=== PATIENT | female | born 1980 | race Caucasian/White ===

== ENCOUNTER 2017-10-08 14:47 | Emergency (ER) | payer MEDICAID, SELFPAY ==
[2017-10-08 14:48] VITALS: BP 145/93; PULSE 75; RESP 16; TEMP 37.2; O2SAT 97; BMI 34.0
--- NOTE | 2017-10-08 15:14 | CT_ITS ---
CT Abdomen And Pelvis W/ Contrast INDICATION: ABD PAIN,N/V HX-CROHNS,LUPUSSURG-GB,HYST COMPARISON: None TECHNIQUE: Axial CT imaging of the abdomen and pelvis with oral and IV contrast. Coronal and sagittal reformatted images. Radiation dose optimization technique applied. 100 mL of Isovue-300 were given intravenously. FINDINGS: Visualized lung bases are clear. The heart size is normal. The liver and spleen are normal in size. The gallbladder is surgically absent. The kidneys enhance contrast symmetrically bilaterally and are without evidence of hydronephrosis. Bowel loops are nondistended. Oral contrast material extends regularly throughout the nondistended small bowel loops. Terminal ileum appears grossly unremarkable without significant associated fat stranding. Colon contains large amount of fecal material and air. There is no evidence of wall thickening or mesenteric fat stranding. Mesenteric lymph nodes are within normal limits for size. CT/Abdomen/Pelvis WITH Contrast IMPRESSION: No convincing CT evidence of acute intra-abdominal or pelvic pathology as detailed above. at 1748 Reported and signed by: Tawanna Mullins MD Electronically Signed: Tawanna Mullins MD at 16:46 EST Tel , Service support ,
--- NOTE | 2017-10-08 15:28 | ED.VISSUMM ---
- ER Visit Summary Date of Service: 10/08/17 Chief Complaint: Abdominal pain History of Present Illness: The patient is a [address] Saunders and Dr. Welsh. She has a history of Crohn's disease. She reports that she has abdominal pain that began hours ago. It is diffuse crampy pain that is worst in the lower abdomen. It is 10 out of 10 at worst and 6 out of 10 currently. Is worsened by nothing and relieved by nothing. She reports she has been nauseated and vomited once. No blood or emesis. States that she has chronic diarrhea and has had this 2 times today. No blood in her stools or black tarry stools. No dysuria or frequency. Reports that this is similar to when she has had a Crohn's flare in the past. 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 The last of the surgeries was in October 2016. She denies any fever or chills. Physical Examination: Vitals: Stable. Afebrile. General: Well-nourished and well-developed. Head: Normocephalic atraumatic. Neck: Supple, no lymphadenopathy. No JVD. Nontender. Cardiovascular: Regular rate and rhythm. No murmurs. Respiratory: No respiratory distress. Clear to auscultation bilaterally. Abdominal: Soft, mild diffuse tenderness to palpation and moderate pain over the lower abdomen with no localized tenderness, nondistended, normal bowel sounds. No guarding, rebound, or peritoneal signs. Back: Nontender. Extremities: Nontender, no edema. Skin: Normal color, no rash. Neurologic: Alert and oriented ?3. Cranial nerves II through XII are intact. Normal strength and sensation. Psych: Normal affect. Test Results: CBC is normal. Chem-7 is normal. LFTs are remarkable for an AST of 10. ESR is 12. CT of abdomen and pelvis with p.o. and IV contrast shows no acute disease. Emergency Department Course and Treatment: Patient had an IV placed. She was given morphine and Zofran for pain. She is resting comfortably. Treatment Plan: An OARRS report was obtained which shows she is only had one prescription for opiates in the past year. She will be discharged with Zofran and 12 [place]. Instructed to follow-up with her primary care physician 1-2 days if not improving. Return to the emergency department for any worsening symptoms. Disposition: To home in improved and stable condition. Impression: 1. Abdominal pain, uncertain cause. 2. History of Crohn's disease. This note was generated with [employer] dictation software. It may contain incorrect words, spelling, and punctuation that were not noted in review of the chart prior to signing ED Disposition - Plan for ED Patient: Chief Complaint: Abd Pain Instructions: ED Abdominal Pain Unkn Cause Prescriptions: Hydrocodone Bitart/Apap 5-325 [[place] 5/325] 1 - 2 tablet PO Q4H PRN PRN 3 Days #12 tablet PRN Reason: Pain Ondansetron [Zofran Odt] 4 mg PO Q8H PRN PRN #10 tablet PRN Reason: Nausea Referrals: Myesha Saunders MD [Primary Care Provider] - 1-2 Days if not improving
[2017-10-08] MEDS: 0.9% Normal Saline 1,000 ML 1000 ML IV (15:49)
[2017-10-08] MEDS: Ondansetron 4 MG/2 ML Vial IV (15:50)
[2017-10-08 16:13] LABS: Absolute Lymphocyte Count 2.07 X10^3/ul (0.83-4.51); Absolute Neutrophil Count 2.6 X10^3/uL (2.0-7.7); Basophil# 0.02 X10^3/uL; Basophil% 0.4 % (0-1); Eosinophil# 0.05 X10^3/uL; Hematocrit 37.8 % (37-47); Hemoglobin 12.6 g/dl (12.0-15.0); Lymphocyte # 2.07 X10^3/ul (4.0); Lymphocyte % 40.7 % (19-41); Mean Corp Hgb Conc 33.3 g/gl (32-36); Mean Corpuscular Hgb 29.9 pg (27.0-32.0); Mean Corpuscular Volume 89.8 fL (81-99); Mean Platelet Vol. 9.3 fl (6.2-12.0); Monocyte# 0.37 X10^3/uL; Monocyte% 7.3 % (0-10); Neutrophil # 2.57 X10^3/uL (2.7-7.7); Neutrophil % 50.6 % (47-70); Platelet Count 343 K/mm3 (150-450); RBC Distribution Width CV 12.4 % (11.6-14.6); RBC Distribution Width SD 39.9 fl (35.1-43.9); Red Blood Count 4.21 M/mm3 (4.2-5.4); White Blood Count 5.1 K/mm3 (4.4-11.0)
[2017-10-08 16:14] LABS: ALB/GLOB Ratio 1.1 RATIO (0.9-2.4); AST(SGOT) 10 U/L (15-37); Alanine Aminotransfer ALT/SGPT 19 U/L (13-56); Albumin, Serum 3.9 g/dL (3.2-5.0); Alkaline Phosphatase 53 U/L (45-117); Anion Gap 8 (5-15); BUN 7 mg/dL (7-18); BUN/Creat Ratio 9.4 RATIO (10-20); Calcium,Total 8.5 mg/dL (8.5-10.1); Chloride 106 mmol/L (98-107); Creatinine, Serum 0.75 mg/dL (0.55-1.02); EST Glomerular Filtration Rate 91 mL/min (>60); Est Glom Filt Rate - Afr Amer 111 mL/min (>60); Estimated Creatinine Clearance 116.22 ml/min; Globulin 3.7 g/dL (2.2-4.2); Glucose 85 mg/dL (74-106); Potassium 3.7 mmol/L (3.5-5.1); Protein, Total 7.6 g/dL (6.4-8.2); Sodium Level 140 mmol/L (136-145)
[2017-10-08 16:18] LABS: POSITIVE COUNT NO; POSITIVE DIFFERENTIAL NO; POSITIVE MORPHOLOGY NO
[2017-10-08 16:21] LABS: Erythrocyte Sedimentation Rate 12 mm/hr (0-20)
[2017-10-08 17:30] VITALS: BP 144/86; PULSE 67; RESP 18
[2017-10-08 18:33] VITALS: BP 131/77; PULSE 89; RESP 14; O2SAT 99
== END 2017-10-08 18:33 | disposition home or self-care (01) ==
PROVIDERS: Emergency Provider Emergency Medicine; Family Provider Internal Medicine; PCP Internal Medicine
DX: R10.30 Lower abdominal pain, unspecified (principal); K50.90 Crohn's disease, unspecified, without complications; R51 Headache; M32.9 Systemic lupus erythematosus, unspecified; Z90.49 Acquired absence of other specified parts of digestive tract; Z90.710 Acquired absence of both cervix and uterus; Z79.899 Other long term (current) drug therapy
CPT/HCPCS: 74177; 80053; 85025; 85652; 96361; 96374; 96375; 96376; 99283; J7030; Q9967; A4216; J2405

== ENCOUNTER 2018-02-11 22:19 | Emergency (ER) | payer MEDICAID, SELFPAY ==
[2018-02-11 22:20] VITALS: BP 114/65; PULSE 70; RESP 18; TEMP 36.7; O2SAT 98; BMI 32.8
--- NOTE | 2018-02-11 22:47 | RAD_ITS ---
STUDY: X-RAY - LEFT ELBOW REASON FOR EXAM: Female, 38 years old. Old injury, painful month TECHNIQUE: 3 view(s) of the elbow. COMPARISON: None. FINDINGS: Normal visualized humerus, radius and ulna. Normal radiocapitellar and ulnotrochlear articulations. The soft tissue structures are unremarkable. RAD/Elbow min 3 Views IMPRESSION: Normal x-ray examination of the elbow. Electronically Signed: Mita Gan MD at 0:20 EDT , Service support ,
--- NOTE | 2018-02-11 22:47 | ED.VISSUMM ---
- ER Visit Summary Date of Service: 02/11/18 Chief Complaint: Left elbow pain History of Present Illness: The patient is a 38 F right-hand dominant patient presents continued left elbow pain. States had pain for 2 months with no clear injuries. One month ago saw her pomology teacher who sent her for an x-ray, noted concerns for fracture. She is sent to the [place] orthopedist, Dr. soni for follow-up states she waited in the office for 4 and half hours, states the physician could not pull up the images and told her no additional treatment could be performed. Patient left the office. However 1 week later states she reinjured the left elbow from doing a cart will. She states she would not go back to the orthopedist. No images has been redone since her new injury. She called her PCP, Dr. Saunders today, states she is waiting for approval for tramadol. She is on Plaquenil for her lupus. Pain worse with movement. In the interim, she spoke with a friend who was physician, provided her elbow [place] sleeve and continue wearing her sling. Physical Examination: General: Alert and oriented ?3, no acute distress HEENT: Normocephalic, atraumatic. Moist mucosa membranes Neck: supple, nontender. Cardiovascular: Regular rate and rhythm, no murmurs Respiratory: Normal breath sounds, symmetric, no distress Abdomen: Soft, nontender, nondistended Extremities: Left upper extremity: No clavicle or proximal shoulder tenderness. Elbows able to extend 270?, pain with pronation and supination. Tenderness at the radial head. No deformities. No pain at the elbow. Neurovascular intact distally. Neuro: no focal neurological deficits. Test Results: Left elbow x-ray: No fracture dislocation Emergency Department Course and Treatment: Patient treated with Tylenol and Ultram. No NSAIDs due to being on Plaquenil. X-ray obtained shows no fracture. I was able to obtain records from [facility] is seen, x-ray from January 05 noted possible concerns of hairline cortical lucency at the anterior radial neck that was subacute or older incomplete healed fracture. There is none today. She did have a reinjury 3 weeks ago from a cart wheel incident. Pain with movement, she will be maintained in sling. OARRS report reviewed, no opiates since September. She is given prescription tramadol, she will continue Tylenol. Discussed with patient likely would not be able to fill her PCP prescription if it was written for her. She understands. She will follow-up as an outpatient. Treatment Plan: [] Disposition: Discharge Impression: Left elbow sprain This note was generated with [employer] dictation software. It may contain incorrect words, spelling, and punctuation that were not noted in review of the chart prior to signing ED Disposition - Plan for ED Patient: Disposition: Home or Assisted Living Chief Complaint: Upper Extremity Injury Diagnosis: Sprain of left elbow Instructions: ED Sprain Elbow Prescriptions: traMADol [Ultram] 50 mg PO Q6H PRN PRN 3 Days #12 tablet PRN Reason: Pain Referrals: Myesha Saunders MD [Primary Care Provider] - 3-5 Days Additional Instructions: No fracture on x-ray today.
--- NOTE | 2018-02-11 22:50 | ED.DCSUM_ITS ---
- ER Visit Summary Date of Service: 02/11/18 Chief Complaint: Left elbow pain History of Present Illness: The patient is a 38 F right-hand dominant patient presents continued left elbow pain. States had pain for 2 months with no clear injuries. One month ago saw her long distance operator who sent her for an x-ray, noted concerns for fracture. She is sent to the [place] orthopedist, Dr. soni for follow-up states she waited in the office for 4 and half hours, states the physician could not pull up the images and told her no additional treatment could be performed. Patient left the office. However 1 week later states she reinjured the left elbow from doing a cart will. She states she would not go back to the orthopedist. No images has been redone since her new injury. She called her PCP, Dr. Saunders today, states she is waiting for approval for tramadol. She is on Plaquenil for her lupus. Pain worse with movement. In the interim, she spoke with a friend who was physician, provided her elbow [place] sleeve and continue wearing her sling. Physical Examination: General: Alert and oriented ?3, no acute distress HEENT: Normocephalic, atraumatic. Moist mucosa membranes Neck: supple, nontender. Cardiovascular: Regular rate and rhythm, no murmurs Respiratory: Normal breath sounds, symmetric, no distress Abdomen: Soft, nontender, nondistended Extremities: Left upper extremity: No clavicle or proximal shoulder tenderness. Elbows able to extend 270?, pain with pronation and supination. Tenderness at the radial head. No deformities. No pain at the elbow. Neurovascular intact distally. Neuro: no focal neurological deficits. Test Results: Left elbow x-ray: No fracture dislocation Emergency Department Course and Treatment: Patient treated with Tylenol and Ultram. No NSAIDs due to being on Plaquenil. X-ray obtained shows no fracture. I was able to obtain records from [facility] is seen, x-ray from January 05 noted possible concerns of hairline cortical lucency at the anterior radial neck that was subacute or older incomplete healed fracture. There is none today. She did have a reinjury 3 weeks ago from a cart wheel incident. Pain with movement, she will be maintained in sling. OARRS report reviewed, no opiates since September. She is given prescription tramadol, she will continue Tylenol. Discussed with patient likely would not be able to fill her PCP prescription if it was written for her. She understands. She will follow-up as an outpatient. Treatment Plan: [] Disposition: Discharge Impression: Left elbow sprain This note was generated with [employer] dictation software. It may contain incorrect words, spelling, and punctuation that were not noted in review of the chart prior to signing ED Disposition - Plan for ED Patient: Disposition: Home or Assisted Living Chief Complaint: Upper Extremity Injury Diagnosis: Sprain of left elbow Instructions: ED Sprain Elbow Prescriptions: traMADol [Ultram] 50 mg PO Q6H PRN PRN 3 Days #12 tablet PRN Reason: Pain Referrals: Myesha Saunders MD [Primary Care Provider] - 3-5 Days Additional Instructions: No fracture on x-ray today.
[2018-02-11] MEDS: Acetaminophen 500 MG Tablet 1000 MG PO (22:54)
[2018-02-11] MEDS: traMADol 50 MG Tablet PO (22:55)
[2018-02-12 01:00] VITALS: BP 138/82; PULSE 80; RESP 16; O2SAT 97
== END 2018-02-12 01:10 | disposition home or self-care (01) ==
PROVIDERS: Emergency Provider Emergency Medicine; Family Provider Internal Medicine; PCP Internal Medicine
DX: S53.402A Unspecified sprain of left elbow, initial encounter (principal); X58.XXXA Exposure to other specified factors, initial encounter; Y93.9 Activity, unspecified; Y92.9 Unspecified place or not applicable
CPT/HCPCS: 73080; 99282

== ENCOUNTER 2018-11-25 15:10 | Emergency (ER) | payer MEDICAID, SELFPAY ==
[2018-11-25 15:10] VITALS: BP 134/85; PULSE 78; RESP 18; TEMP 36.4; O2SAT 97; BMI 20.9
--- NOTE | 2018-11-25 15:19 | CT_ITS ---
STUDY: CT BRAIN WITHOUT CONTRAST REASON FOR EXAM: Female, 38 years old. Trauma. RADIATION DOSAGE (If Supplied By Facility): CTDIvol = ( 44.99 ) mGy, DLP = ( 796.11 ) mGycm TECHNIQUE: Transaxial CT imaging of the brain was performed without administration of intravenous contrast material. Individualized dose optimization techniques were used for this CT. COMPARISON: 04/29/2017 FINDINGS: Normal soft tissue structures. Normal calvarium. Normal size ventricles and extra-axial spaces for the patient's age. Normal white matter tracts of the cerebral hemispheres. Normal basal ganglia and thalami. Normal brainstem. Normal cerebellum. There is no intracranial hemorrhage. There are no findings of an acute ischemic infarction. Normal visualized paranasal sinuses. CT/Brain/Head without Contrast IMPRESSION: Normal unenhanced CT scan of the brain. Electronically Signed: Ronal Garza MD at 16:08 EDT , Service support ,
--- NOTE | 2018-11-25 15:23 | ED.DCSUM_ITS ---
- ER Visit Summary Date of Service: 11/25/18 Chief Complaint: Fall, head injury History of Present Illness: The patient is a 38 F presents to the emergency emergency department nurse injury. Patient states that she was getting ready to go to the gym. She states he was trying to put on pants. Her toe got stuck in pants and she tripped and fell forward. She struck her head against a concrete wall. She does not think she lost consciousness. Since then, she had a persistent headache. She also had some bleeding from the area. She describes nausea. She denies any visual change. She denies any neck pain. She has not on anticoagulants. She denies any weakness, numbness, tingling, or change in gait. She states this was strictly a mechanical fall. Physical Examination: Vital signs reviewed General: Well-nourished, well-developed Head: Normocephalic, abrasion with contusion on the mid forehead. No active bleeding. Laceration of 0.5 cm is well approximated that does not gap. Eyes: Pupils equal and reactive, extraocular muscles intact Neck, supple, no lymphadenopathy Heart: Regular rate and rhythm Respiratory: No distress, clear bilaterally Abdomen: Soft, nontender, nondistended, no peritoneal signs Back: Nontender Extremities: Nontender, no edema, no cords Skin: Normal color no rash Neuro: Alert and oriented, no focal or lateralizing deficits Test Results: [] Emergency Department Course and Treatment: Based on the patient's mechanism, persistent nausea, persistent headache I did obtain a CT. This was unremarkable. Let was applied topically. The patient was treated with analgesics. The area was cleaned and closed with Dermabond. She tolerated this without issue. I do feel that she likely has a mild concussion. The patient will be treated with antiemetics and a short course of analgesics. She was counseled on wound care. She will be discharged home. Treatment Plan: [] Disposition: Discharge Impression: 1. 0.5 cm scalp laceration 2. Concussion This note was generated with [employer] dictation software. It may contain incorrect words, spelling, and punctuation that were not noted in review of the chart prior to signing ED Disposition - Plan for ED Patient: Instructions: ED Laceration Facial Skin Glue Prescriptions: Hydrocodone Bitart/Apap 5-325 [[place] 5MG-325MG] 1 tab PO Q6H PRN PRN 2 Days #6 tab PRN Reason: Pain Ondansetron [Zofran Odt] 4 mg PO Q8H PRN PRN #10 tab PRN Reason: Nausea Referrals: Myesha Saunders MD [Primary Care Provider] -
[2018-11-25] MEDS: HYDROcodone Bitartrate/Apap 5/325 Tablet PO (15:40)
[2018-11-25] MEDS: Lidocaine/Epi/Tetracaine 50 ML 1 APPLIC TOPICAL (15:42)
[2018-11-25 16:19] VITALS: BP 129/76; PULSE 61; RESP 15; O2SAT 99
== END 2018-11-25 16:19 | disposition home or self-care (01) ==
LOC: ED 15:47
PROVIDERS: Emergency Provider Emergency Medicine; Family Provider Internal Medicine; PCP Internal Medicine
DX: S01.01XA Laceration without foreign body of scalp, initial encounter (principal); S06.0X0A Concussion without loss of consciousness, initial encounter; W01.198A Fall on same level from slipping, tripping and stumbling with subsequent striking against other object, initial encounter; Y93.9 Activity, unspecified; Y92.89 Other specified places as the place of occurrence of the external cause; Y99.9 Unspecified external cause status
CPT/HCPCS: 12001; 70450; 99283

== ENCOUNTER 2018-12-10 15:10 | Emergency (ER) | payer MEDICAID, SELFPAY ==
[2018-12-10 15:11] VITALS: BP 134/81; PULSE 69; RESP 16; TEMP 36.9; O2SAT 99; BMI 20.9
--- NOTE | 2018-12-10 15:33 | ED.DCSUM_ITS ---
- ER Visit Summary Date of Service: 12/10/18 Chief Complaint: Right flank pain History of Present Illness: The patient is a 38 F history reportedly of depression, IBS, hypertension, hypothyroidism and lupus. Patient had a prior cholecystectomy and hysterectomy. States her last 7 days she has had right fla nk pain. Associated nausea. No vomiting or diarrhea. No constipation or melena. No fever. Denies any fall or trauma. No dysuria. Spoke to her physician's office who sent her to the ER to be evaluated. Physical Examination: Well-appearing middle-aged female. Vital signs are stable and afebrile. HEENT exam unremarkable. Neck nontender no lymphadenopathy. Lungs clear to auscultation bilaterally. Heart regular rhythm no murmur. Abdomen is soft and nontender. Normal bowel sounds no peritoneal signs. Extremities moves all 4. Neurovascularly intact. Calves are nontender. Back spine is nontender. There is no ecchymosis or bruising. No redness or warmth. She describes some mild tenderness on her right flank region. There is no specific CVA tenderness. She is moving all 4 extremities. Neurologically she is awake alert with no focal motor or sensory deficits. NIH is 0. Test Results: CBC shows white count 7. Hemoglobin 12. No bands. Chemistries unremarkable potassium 3.3. Normal gap and creatinine. BUN is 13 creatinine 0.8. UA normal. No signs of infection. No blood or white cells nor any bacteria. Patient does not need imaging today she had a CAT scan about a year ago which was unremarkable and showed no signs of kidney stones. Emergency Department Course and Treatment: Patient treated with IV Toradol for pain and Zofran for nausea. Repeat exam patient doing well at 1629. Overall test results with her and her significant other. Treatment Plan: Surgeon for pain. Zofran for nausea. Follow-up with her primary care physician if not improving. Disposition: Discharge Impression: Acute right flank pain of uncertain etiology History of lupus This note was generated with [employer] dictation software. It may contain incorrect words, spelling, and punctuation that were not noted in review of the chart prior to signing ED Disposition - Plan for ED Patient: Referrals: Myesha Saunders MD [Primary Care Provider] -
[2018-12-10] MEDS: Ketorolac 30 MG/ML Syringe IV (15:36)
[2018-12-10] MEDS: Ondansetron 4 MG/2 ML Vial IV (15:36)
[2018-12-10 15:58] LABS: Bacteria 0 SEEN /hpf (None Seen); Mucous, Urine 0 SEEN /hpf (<or=2+); Red Blood Cells-Urine 0 SEEN /hpf (0-5); Squamous Epithelial Cells - UA 0 SEEN /hpf (5-10); White Blood Cells 0 SEEN /hpf (0-5)
[2018-12-10 16:08] LABS: Absolute Lymphocyte Count 2.52 X10^3/ul (0.83-4.51); Basophil# 0.02 X10^3/uL; Basophil% 0.3 % (0-1); Eosinophil# 0.05 X10^3/uL; Eosinophils% 0.7 % (0-5); Hematocrit 36.6 % (37-47); Hemoglobin 12.3 g/dl (12.0-15.0); Lymphocyte # 2.52 X10^3/ul (4.0); Lymphocyte % 34.8 % (19-41); Mean Corp Hgb Conc 33.6 g/gl (32-36); Mean Corpuscular Hgb 31.3 pg (27.0-32.0); Mean Corpuscular Volume 93.1 fL (81-99); Mean Platelet Vol. 8.9 fl (6.2-12.0); Monocyte# 0.69 X10^3/uL; Monocyte% 9.5 % (0-10); Neutrophil # 3.95 X10^3/uL (2.7-7.7); Neutrophil % 54.6 % (47-70); Platelet Count 344 K/mm3 (150-450); RBC Distribution Width CV 12.5 % (11.6-14.6); RBC Distribution Width SD 42.5 fl (35.1-43.9); Red Blood Count 3.93 M/mm3 (4.2-5.4); White Blood Count 7.2 K/mm3 (4.4-11.0)
[2018-12-10 16:09] LABS: POSITIVE COUNT NO; POSITIVE DIFFERENTIAL NO; POSITIVE MORPHOLOGY NO
[2018-12-10 16:10] LABS: Color, Urine Yellow (Yellow); Glucose, Dipstick Normal (Normal); Ketone-Dipstick Negative (Negative); Leukocyte Esterase-Dipstick Negative /ul (Negative); Nitrite-Dipstick Negative (Negative); Occult Blood-Urine Negative /ul (Negative); Protein-Dipstick Negative (Negative); Urine Bilirubin Dipstick Negative (Negative); Urine Clarity Clear (Clear); Urine Urobilinogen Normal (Normal)
[2018-12-10 16:13] LABS: Anion Gap 7 (5-15); BUN 13 mg/dL (7-18); BUN/Creat Ratio 15.7 RATIO (10-20); Calcium,Total 8.4 mg/dL (8.5-10.1); Chloride 103 mmol/L (98-107); Creatinine, Serum 0.83 mg/dL (0.55-1.02); EST Glomerular Filtration Rate 81 mL/min (>60); Est Glom Filt Rate - Afr Amer 98 mL/min (>60); Estimated Creatinine Clearance 99.36 ml/min; Glucose 88 mg/dL (74-106); Potassium 3.3 mmol/L (3.5-5.1); Sodium Level 138 mmol/L (136-145)
--- NOTE | 2018-12-10 16:31 | ED.DEP ---
ED Disposition - Plan for ED Patient: Disposition: Home or Assisted Living Instructions: ED Flank Pain Uncertain Cause Prescriptions: Ondansetron [Zofran Odt] 4 mg PO Q8H PRN PRN #7 tab PRN Reason: Nausea Referrals: Myesha Saunders MD [Primary Care Provider] - 1 Week if not improving Additional Instructions: Tylenol and/or Motrin for pain. Zofran for nausea. As needed. Follow-up your doctor if not improving. Your labs and urine today were all normal.
== END 2018-12-10 16:47 | disposition home or self-care (01) ==
PROVIDERS: Emergency Provider Emergency Medicine; Family Provider Internal Medicine; PCP Internal Medicine
DX: R10.9 Unspecified abdominal pain (principal); M32.9 Systemic lupus erythematosus, unspecified; R11.0 Nausea; F32.9 Major depressive disorder, single episode, unspecified; K58.9 Irritable bowel syndrome, unspecified; I10 Essential (primary) hypertension; E03.9 Hypothyroidism, unspecified; Z90.49 Acquired absence of other specified parts of digestive tract; Z79.899 Other long term (current) drug therapy
CPT/HCPCS: 80048; 81001; 85025; 96374; 96375; 99283; J7030; A4216; J2405

== ENCOUNTER 2019-01-13 21:19 | Emergency (ER) | payer MEDICAID, SELFPAY ==
[2019-01-13 21:19] VITALS: BP 154/95; PULSE 83; RESP 16; TEMP 36.6; O2SAT 97; BMI 22.2
[2019-01-13 22:10] VITALS: RESP 16
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
[2019-01-13] MEDS: LORazepam 1 MG Tablet PO (23:01)
[2019-01-13] MEDS: Acetaminophen 500 MG Tablet 1000 MG PO (23:01)
[2019-01-13] MEDS: Diphth,Pertuss(Acell),Tet Vac 0.5 ML Vial IM (23:02)
--- NOTE | 2019-01-13 23:30 | ED.DEP ---
ED Disposition - Plan for ED Patient: Instructions: ED Laceration Facial Sutr Tape Prescriptions: hydrOXYzine pamoate capsule [Vistaril] 25 mg PO TID PRN PRN #20 capsule PRN Reason: Anxiety Referrals: Myesha Saunders MD [Primary Care Provider] - [facility] [GROUP OF PHYSICIANS] -
[2019-01-14] MEDS: Lidocaine/Epi/Tetracaine 50 ML 1 APPLIC TOPICAL (00:23)
[2019-01-14] MEDS: Ibuprofen 600 MG Tablet PO (00:39)
[2019-01-14 00:42] VITALS: RESP 18
== END 2019-01-14 00:42 | disposition home or self-care (01) ==
PROVIDERS: Emergency Provider Emergency Medicine; Family Provider Internal Medicine; PCP Internal Medicine
DX: S01.81XA Laceration without foreign body of other part of head, initial encounter (principal); F41.9 Anxiety disorder, unspecified; W22.8XXA Striking against or struck by other objects, initial encounter; Y93.9 Activity, unspecified; Y92.9 Unspecified place or not applicable; F32.9 Major depressive disorder, single episode, unspecified; Z79.899 Other long term (current) drug therapy; Z72.0 Tobacco use
CPT/HCPCS: 12011; 90715; 99283

== ENCOUNTER 2019-01-18 13:58 | Emergency (ER) | payer MEDICAID, SELFPAY ==
[2019-01-18 13:59] VITALS: BP 129/75; PULSE 69; RESP 16; TEMP 36.5; O2SAT 98; BMI 22.2
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
--- NOTE | 2019-01-18 14:18 | ED.DEP ---
ED Disposition - Plan for ED Patient: Instructions: ED Wound Check Sutr Remove No Infec Referrals: Myesha Saunders MD [Primary Care Provider] - As Needed
== END 2019-01-18 14:25 | disposition home or self-care (01) ==
LOC: ED 14:14
PROVIDERS: Emergency Provider Emergency Medicine; Family Provider Internal Medicine; PCP Internal Medicine
DX: Z48.02 Encounter for removal of sutures (principal); E03.9 Hypothyroidism, unspecified; Z79.899 Other long term (current) drug therapy; Z72.0 Tobacco use
CPT/HCPCS: 99281; 99282

== ENCOUNTER 2019-03-22 15:00 | Emergency (ER) | payer MEDICAID, SELFPAY ==
[2019-03-22 15:02] VITALS: BP 130/76; PULSE 69; RESP 16; TEMP 36.9; O2SAT 94; BMI 32.2
--- NOTE | 2019-03-22 15:30 | ED.DCSUM_ITS ---
- ER Visit Summary Date of Service: 03/22/19 Chief Complaint: Abdominal pain History of Present Illness: The patient is a 39 F who presents with abdominal pain that began today. Patient states she was walking in her kitchen with a knife when she tripped and fell. Patient states the knife went into her abd omen. Patient does not know how far into her abdomen it went. Patient denies any nausea or vomiting. Patient states her pain is sharp and is worse with any movement. Patient states her last tetanus was less than 5 years ago. Patient denies any other injuries. Physical Examination: Vital signs are stable. Patient is afebrile. Patient is in no acute distress. Oral mucosa is pink and moist. Neck is supple. Trachea is midline. There is no JVD. Heart was regular rate and rhythm. Lungs are clear and equal bilaterally. Abdomen is soft. There is right-sided tenderness. There are 2 small lacerations on the right mid abdomen measuring approximately 2 cm and 1 cm. There is no active bleeding noted. There are no foreign bodies noted. Cranial nerves II through XII are intact. There are no focal motor or sensory deficits noted. Test Results: CBC and serum hCG were obtained. Emergency Department Course and Treatment: The wound was anesthetized 1% plain lidocaine. The wound was explored. Q-tip no fracture at least 3 cm into the abdomen. I do not feel a solid endpoint. Case was discussed with Dr. Sands at [facility]. Patient requested to be transferred to [facility]. Patient will be transferred to the emergency department there for trauma evaluation. Dr. Sands recommended giving the patient a dose of Unasyn and Flagyl. This was ordered. Patient understood and was agreeable with plan. All questions were answered. Patient changed her mind about being transferred and does not want to be transferred. Patient will sign out AGAINST MEDICAL ADVICE. Patient was advised she may have internal injuries and internal bleeding which may lead to hypotension and . Patient understood these risks and will still sign out AGAINST MEDICAL ADVICE. Disposition: Discharged AGAINST MEDICAL ADVICE Impression: Penetrating abdominal wound This note was generated with [employer] software. It may contain incorrect words, spelling, and punctuation that were not noted in review of the chart prior to signing ED Disposition - Plan for ED Patient: Disposition: Against Medical Advice Diagnosis: Penetrating wound of abdomen Referrals: Ganta,Myesha, MD [Primary Care Provider] - Additional Instructions: Return to the emergency department if worsening pain or bleeding, low blood pressure, or if worse in any way.
--- NOTE | 2019-03-22 16:20 | NURSING ---
CALLED ROBERT PEREZ DR IS DR TRACEY
[2019-03-22 16:42] LABS: Absolute Lymphocyte Count 1.14 X10^3/uL (0.83-4.51); Absolute Neutrophil Count 5.4 X10^3/uL (2.0-7.7); Basophil# 0.03 X10^3/uL; Basophil% 0.4 % (0-1); Eosinophil# 0.07 X10^3/uL; Hematocrit 35.5 % (37-47); Hemoglobin 11.9 g/dL (12.0-15.0); Lymphocyte # 1.14 X10^3/ul (4.0); Lymphocyte % 16.3 % (19-41); Mean Corp Hgb Conc 33.5 g/dL (32-36); Mean Corpuscular Hgb 32.5 pg (27.0-32.0); Mean Platelet Vol. 8.8 fl (6.2-12.0); Monocyte# 0.36 X10^3/uL; Monocyte% 5.2 % (0-10); NRBC Flagged by Analyzer 0 % (0-5); Neutrophil # 5.36 X10^3/uL (2.7-7.7); Neutrophil % 76.7 % (47-70); Platelet Count 317 K/mm3 (150-450); RBC Distribution Width CV 11.9 % (11.6-14.6); RBC Distribution Width SD 42.7 fl (35.1-43.9); Red Blood Count 3.66 M/mm3 (4.2-5.4)
--- NOTE | 2019-03-22 17:15 | ED.RN ---
PER DR. PRATT VERBAL ORDER. ANTIBIOTICS WILL NOT BE GIVEN IN ED BECAUSE [facility] WILL NOT BE ABLE TO TRANSPORT PT ON ANTIBIOTICS. [facility] THAT WOULD BE ABLE TO WILL NOT BE AVAILABLE FOR 5 HOURS. PT NEEDS TO BE SEEN EMERGENTLY FOR SURGICAL CONSULT.
[2019-03-22 17:19] LABS: Internal QC Validated? YES +Cl - CLEAR BKGD; Pregnancy, Serum, hCG Quali. NEGATIVE Negative
[2019-03-22 17:22] VITALS: BP 151/70; PULSE 71; RESP 18; O2SAT 97
--- NOTE | 2019-03-22 17:33 | ED.RN ---
PT REPORTS SHE WANTS TO LEAVE. PT STATES, I DO NOT HAVE MY PHONE AND CANNOT GET A HOLD OF MY [facility]. THIS RN EDUCATING PT ABOUT IMPORTANCE OF STAYING FOR TRANSFER. DR. PRATT INFORMED.
--- NOTE | 2019-03-22 17:52 | ED.RN ---
PT REQUESTING TO LEAVE AGAINST MEDICAL ADVICE. DR. PRATT INFORMED. SPEAKS WITH PT. PT SIGNS AMA FORMS. IV D/C AND COVERED WITH 2X2 GAUZE AND PAPER TAPE. PT VERBALIZES UNDERSTANDING OF INSTRUCTIONS. DENIES ANY FURTHER QUESTIONS.
--- NOTE | 2019-03-22 20:10 | ED.RN ---
PT GIVEN WRITTEN AND VERBAL DISCHARGE INSTRUCTIONS AT 1758. SIGNS AMA PAPERS. IV D/C AND COVERED WITH 2X2 GAUZE PAPER TAPE. PT VERBALIZES UNDERSTANDING AND DENIES ANY FURTHER QUESTIONS. PT AMBULATES OUT OF DEPT BY SELF AFTER DRESSING HERSELF.
== END 2019-03-22 17:58 | disposition left against medical advice (07) ==
PROVIDERS: Emergency Provider Emergency Medicine; Family Provider Internal Medicine; PCP Internal Medicine
DX: S31.139A Puncture wound of abdominal wall without foreign body, unspecified quadrant without penetration into peritoneal cavity, initial encounter (principal); Z53.21 Procedure and treatment not carried out due to patient leaving prior to being seen by health care provider; W26.0XXA Contact with knife, initial encounter; W01.0XXA Fall on same level from slipping, tripping and stumbling without subsequent striking against object, initial encounter; Y93.01 Activity, walking, marching and hiking; Y92.9 Unspecified place or not applicable; E03.9 Hypothyroidism, unspecified; M32.9 Systemic lupus erythematosus, unspecified; Z79.899 Other long term (current) drug therapy
CPT/HCPCS: 84703; 85025; 99285; J0295

== ENCOUNTER 2019-03-25 16:22 | Emergency (ER) | payer MEDICAID, SELFPAY ==
[2019-03-25 16:23] VITALS: BP 128/70; PULSE 81; RESP 14; TEMP 36.3; O2SAT 95; BMI 24.5
[2019-03-25 17:24] VITALS: TEMP 36.3
--- NOTE | 2019-03-25 17:29 | CT_ITS ---
STUDY: CT ABDOMEN AND PELVIS WITH CONTRAST REASON FOR EXAM: Female, 39 years old. Abdominal Wound on 03/22/2019. Small laceration on the right side of the abdomen. Prior history of cholecystectomy, lupus, hysterectomy and rectal fistula. RADIATION DOSAGE (If Supplied By Facility): CTDIvol = ( 16.52 ) mGy, DLP = ( 1238.22 ) mGycm TECHNIQUE: Transaxial images were obtained from the dome of the diaphragm to the symphysis pubis with oral contrast. 100ML IV/Oral Isovue 300 was administered. Sagittal and coronal images were reconstructed. Individualized dose optimization techniques were used for this CT. COMPARISON: None. FINDINGS: The visualized lung bases are unremarkable. The visualized portions of the heart are within normal limits. Subcentimeter cyst of the right liver. Otherwise normal liver. There are surgical clips in the gallbladder fossa consistent with a prior cholecystectomy. Normal spleen. Normal pancreas. Normal bilateral adrenal glands. Normal right kidney. Normal left kidney. Normal visualized stomach. Normal small intestine. Normal colon. The appendix is visualized and appears normal. Normal abdominal aorta. Normal inferior vena cava. Normal retroperitoneum. Normal urinary bladder. Dominant follicle of the left ovary measuring 10 mm. Absence of the uterus and right ovary. A BB disla the area of injury which is barely detectable with only slight stranding in the subcutaneous layer with no underlying muscular abnormality. Normal osseous structures. CT/Abdomen/Pelvis WITH Contrast IMPRESSION: Barely detectable injury to the right abdominal wall was slight stranding in the most superficial adipose layer with no underlying muscular abnormality, bone abnormality or internal injury. No acute intra-abdominal or pelvic findings. Electronically Signed: Dana Lowe MD at 19:40 EDT , Service support ,
--- NOTE | 2019-03-25 17:37 | ED.VISSUMM ---
- ER Visit Summary Date of Service: 03/25/19 Chief Complaint: Abdominal pain History of Present Illness: The patient is a 39 F who presents with abdominal pain that has been getting better over the past few days. Patient was seen here 3 days ago for an abdominal wound. Patient was walking with a knife at that time and fell. Patient states the knife went into her abdomen. Patient was going to be transferred to a trauma center however she refused and signed out AGAINST MEDICAL ADVICE at that time. Patient states her pain is improving. Patient denies any nausea or vomiting. Patient followed up with her primary care physician today who referred to the emergency department for CT scan and further evaluation. Physical Examination: Vital signs are stable. Patient is afebrile. Patient is in no acute distress. Oral mucosa is pink and moist. Neck is supple. Trachea is midline. There is no JVD noted. Heart was regular rate and rhythm. Lungs are clear and equal bilateral. Abdomen is soft. Bowel sounds are normal. There are 2 lacerations of the right mid abdomen that are healing well. There is no surrounding erythema or warmth. There is some minimal tenderness around the wounds. There is no rebound or guarding noted. Cranial nerves II through XII are intact. There are no focal motor or sensory deficits noted. Test Results: CT scan of the abdomen and pelvis was obtained and was normal. CBC and basic metabolic profile were obtained and were normal. Emergency Department Course and Treatment: Patient was feeling better on reevaluation. Patient was instructed to take Tylenol as needed for pain. Patient was instructed to follow-up with her primary care physician in 5 to 7 days. Patient understood and was agreeable with the plan. All questions were answered. Disposition: Discharge home Impression: Abdominal pain This note was generated with [employer] dictation software. It may contain incorrect words, spelling, and punctuation that were not noted in review of the chart prior to signing ED Disposition - Plan for ED Patient: Disposition: Home or Assisted Living Diagnosis: Abdominal pain Instructions: LACERATION, Trunk, ABDOMINAL PAIN, Unknown Cause, (Female) Referrals: Myesha Saunders MD [Primary Care Provider] - 5-7 Days
[2019-03-25] MEDS: 0.9% Normal Saline 1,000 ML 1000 ML IV (18:12)
[2019-03-25 18:15] LABS: Absolute Lymphocyte Count 1.71 X10^3/uL (0.83-4.51); Absolute Neutrophil Count 3.3 X10^3/uL (2.0-7.7); Basophil# 0.03 X10^3/uL; Basophil% 0.5 % (0-1); Eosinophil# 0.09 X10^3/uL; Eosinophils% 1.6 % (0-5); Hematocrit 32.2 % (37-47); Hemoglobin 10.7 g/dL (12.0-15.0); Lymphocyte # 1.71 X10^3/ul (4.0); Lymphocyte % 29.8 % (19-41); Mean Corp Hgb Conc 33.2 g/dL (32-36); Mean Corpuscular Hgb 32.4 pg (27.0-32.0); Mean Corpuscular Volume 97.6 fL (81-99); Mean Platelet Vol. 8.7 fl (6.2-12.0); Monocyte# 0.55 X10^3/uL; Monocyte% 9.6 % (0-10); NRBC Flagged by Analyzer 0 % (0-5); Neutrophil # 3.34 X10^3/uL (2.7-7.7); Neutrophil % 58.2 % (47-70); Platelet Count 282 K/mm3 (150-450); RBC Distribution Width CV 11.9 % (11.6-14.6); RBC Distribution Width SD 42.8 fl (35.1-43.9); White Blood Count 5.7 K/mm3 (4.4-11.0)
[2019-03-25 18:38] LABS: ALB/GLOB Ratio 1.2 RATIO (0.9-2.4); AST(SGOT) 10 U/L (15-37); Alanine Aminotransfer ALT/SGPT 24 U/L (13-56); Albumin, Serum 3.6 g/dL (3.2-5.0); Alkaline Phosphatase 32 U/L (45-117); Anion Gap 4 (5-15); BUN 16 mg/dL (7-18); BUN/Creat Ratio 20.6 RATIO (10-20); Calcium,Total 8.5 mg/dL (8.5-10.1); Chloride 105 mmol/L (98-107); Creatinine, Serum 0.78 mg/dL (0.55-1.02); EST Glomerular Filtration Rate 87 mL/min (>60); Est Glom Filt Rate - Afr Amer 105 mL/min (>60); Estimated Creatinine Clearance 106.09 ml/min; Globulin 3.1 g/dL (2.2-4.2); Glucose 76 mg/dL (74-106); Lipase 160 U/L (73-393); Potassium 3.7 mmol/L (3.5-5.1); Protein, Total 6.7 g/dL (6.4-8.2); Sodium Level 138 mmol/L (136-145)
[2019-03-25 20:42] VITALS: BP 129/75; PULSE 70; RESP 14; O2SAT 97
== END 2019-03-25 20:42 | disposition home or self-care (01) ==
PROVIDERS: Emergency Provider Emergency Medicine; Family Provider Internal Medicine; PCP Internal Medicine
DX: R10.9 Unspecified abdominal pain (principal); S31.119A Laceration without foreign body of abdominal wall, unspecified quadrant without penetration into peritoneal cavity, initial encounter; W26.0XXA Contact with knife, initial encounter; Y93.01 Activity, walking, marching and hiking; Y92.9 Unspecified place or not applicable; E66.9 Obesity, unspecified; M32.9 Systemic lupus erythematosus, unspecified; E03.9 Hypothyroidism, unspecified; Z79.899 Other long term (current) drug therapy; Z72.0 Tobacco use
CPT/HCPCS: 74177; 80053; 83690; 85025; 96360; 96361; 99283; J7030; Q9967; A4216

== ENCOUNTER → 2019-11-02 16:14 | Outpatient (CLI) | payer MEDICAID, SELFPAY ==
[2019-11-02 17:13] LABS: Free T3 1.7 pg/mL (2.18-3.98); T4 Free Direct 0.97 ng/dL (0.76-1.46); Thyroid Stim Hormone (TSH) 9.68 uIU/mL (0.358-3.74)
== END ==
PROVIDERS: PCP Internal Medicine; Referring Provider Nurse Practitioner; Visit Provider Nurse Practitioner
DX: E03.9 Hypothyroidism, unspecified (principal)
CPT/HCPCS: 36415; 84439; 84443; 84481

== ENCOUNTER 2019-12-11 18:42 | Emergency (ER) | payer MEDICAID, SELFPAY ==
[2019-12-11 18:43] VITALS: BP 134/73; PULSE 65; RESP 14; TEMP 36.6; O2SAT 98; BMI 26.3
[2019-12-11 19:03] VITALS: RESP 15
--- NOTE | 2019-12-11 19:05 | ED.VIS.DENTA ---
History of Present Illness Chief Complaint: Dental Narrative: Patient presenting for evaluation secondary to dental pain. Patient reports that over the course about the last 2 weeks she has been dealing with dental pain. On the left side of her jaw and involves both upper and lower teeth, worse with eating and drinking or exposure to air. Patient reports that she has been taking a significant amount of ibuprofen with minimal relief. She called her primary care physician and got started on amoxicillin, but is unable to get into a dentist as they are all closed due to the pandemic. She denies any fevers or difficulty swallowing. She does report that she took a friend's Percocet and that seemed to help. Past Medical History - Allergies and Home Meds Allergies/Adverse Reactions: Allergies No Known Allergies Allergy (Verified 12/11/19 18:45) Primary Care Physician: Myesha Saunders MD [Primary Care Provider] - Past Medical History: None Smoking Status: Former smoker Review of Systems General: Denies: Chills, Fever, Sweats Eyes: Denies: Visual changes - bilaterally, Diplopia ENT: Reports: - - dental pain. Denies: Rhinorrhea, Sore throat Cardiovascular: Denies: Chest pain, Palpitations Respiratory: Denies: Dyspnea, Cough, Dyspnea on exertion Gastrointestinal: Denies: Abdominal pain, Nausea, Vomiting, Diarrhea, Melena, Hematochezia Genitourinary: Denies: Dysuria, Hematuria, Frequency Musculoskeletal: Denies: Back pain, Extremity Pain Skin: Denies: Rash, Wounds Neurological: Denies: Headache, Weakness, Numbness Physical Exam Vital Signs/Narrative: Vital Signs Temp Pulse Resp BP Pulse Ox 12/11/19 18:43 97.9 F 65 14 134/73 H 98 Inital Vital Signs reviewed: Yes General: Well nourished, Well developed Head: Normocephalic, Atraumatic ENT: Moist mucous membranes, No rhinorrhea, TM's clear Mouth/Throat: Normal inspection lips/gums, Normal oral mucosa, - - Exam of the mouth and teeth shows good dentition, shows soft sublingual space no evidence of masses normal Stensen's duct. Normal posterior oropharynx. No evidence of focal abscess. Patient does have a slight crack left upper bicuspid Neck: Supple, No lymphadenopathy, Nontender, No JVD Cardiovascular: Regular rate, Regular rhythm, No murmurs Respiratory: No distress, CTA bilaterally, Chest nontender Abdomen: Soft, Nontender, Nondistended, Normal bowel sounds Back: Nontender, Normal Inspection Extremities: Nontender, No edema Skin: Normal color, No rash Neurological: Alert, Oriented x3, Cranial nerves II-XII grossly intact, Normal Strength, Normal Sensation Psychological: Normal affect Diagnostic/Tx/Re-eval - Medical Decision Making Patient presented secondary to dental pain. She does not have any focal abscesses and is already on antibiotics. I reviewed the patient's prescription reporting record, all she does have controlled scripts it is not for opiates and she does not appear to have a pattern of abuse. Patient was given a dose of oxycodone in the emergency department and will be discharged with a protracted course of this. ED Disposition - Plan for ED Patient: Disposition: Home or Assisted Living Instructions: ED Tooth Pain Prescriptions: Oxycodone HCl/Acetaminophen [Percocet 5/325] 1 tab PO Q6H PRN PRN 3 Days #12 tab PRN Reason: Pain Or Fever Prescription Printed Referrals: Myesha Saunders MD [Primary Care Provider] - As Needed
[2019-12-11] MEDS: oxyCODONE 5 MG Tablet PO (19:15)
== END 2019-12-11 19:17 | disposition home or self-care (01) ==
LOC: ED 19:14
PROVIDERS: Emergency Provider Emergency Medicine; PCP Internal Medicine
DX: K08.89 Other specified disorders of teeth and supporting structures (principal); Z87.891 Personal history of nicotine dependence
CPT/HCPCS: 99282

== ENCOUNTER 2020-02-25 15:39 | Emergency (ER) | payer MEDICAID, SELFPAY ==
[2020-02-25 15:40] VITALS: BP 122/76; PULSE 78; RESP 16; TEMP 36.8; O2SAT 98
[2020-02-25 15:41] VITALS: BP 122/76; PULSE 91; RESP 16; TEMP 36.8; O2SAT 98; BMI 31.7
--- NOTE | 2020-02-25 16:18 | ED.VIS.GEN ---
History of Present Illness Chief Complaint: Shortness of Breath Informant: Patient Current Severity: Moderate Maximum Severity: Mild Narrative: 40-year-old female presents with multiple complaints. She states that she has been feeling fatigued and dizzy and she describes this as vertiginous in nature. She states that she saw her PCP for this and had outpatient blood work drawn and she did have a positive occult stool. Patient has a follow-up appointment with a GI doctor on Thursday of next week. Patient states she did see black stool a few times but she has not had any bloody stool. She is concerned that her lightheadedness/fatigue is due to anemia. In addition to this she is complaining of abdominal pain which is fairly diffuse. She states that she has been constipated for a couple of days. She describes her pain is aching. She is not vomiting. In addition to this she states she has had constant chest pain for 2 weeks. She denies any cardiac history. She does not have a cough. No history of trauma. Past Medical History - Allergies and Home Meds Allergies/Adverse Reactions: Allergies No Known Allergies Allergy (Verified 02/25/20 16:01) Primary Care Physician: Myesha Saunders MD [Primary Care Provider] - Prior records reviewed: Yes - Hypertension, lupus, hypothyroid, endometriosis Surgical History: hysterectomy Smoking Status: Current every day smoker Alcohol: None Drugs: None Review of Systems General: Denies: Chills, Fever Eyes: Denies: Visual changes - left, Visual changes - right, Visual changes - bilaterally, Blurred vision - left, Blurred vision - right, Blurred Vision - bilaterally, Diplopia, -, - ENT: Denies: Rhinorrhea, Sore throat Cardiovascular: Reports: Chest pain. Denies: Heart racing Respiratory: Reports: Dyspnea. Denies: Cough, Sputum Gastrointestinal: Reports: Abdominal pain, Nausea, Constipation, Melena Genitourinary: Denies: Dysuria Musculoskeletal: Denies: Myalgias, Arthralgias Skin: Denies: Rash Psych: Denies: Depression Endocrine: Denies: Polyuria, Polydipsia Physical Exam Vital Signs/Narrative: Vital Signs Temp Pulse Resp BP Pulse Ox 02/25/20 15:41 98.2 F 91 16 122/76 H 98 02/25/20 15:40 98.2 F 78 16 122/76 H 98 Inital Vital Signs reviewed: Yes General: Well nourished, Obese, No Acute Distress Head: Normocephalic, Atraumatic Eyes: Perrl, EOMI. Negative for: Pale conjunctiva, Scleral icterus ENT: Moist mucous membranes, TM's clear. Negative for: No rhinorrhea Neck: Negative for: Supple, Nontender Cardiovascular: Regular rate, Regular rhythm Respiratory: No distress, CTA bilaterally Abdomen: Soft, Nondistended, Tender - Generalized. Negative for: Guarding, Rebound tenderness Rectal: Deferred Diagnostic/Tx/Re-eval Chest X-Ray - ED: [address] abdomen pelvis with IV contrast: No acute process. - Rhythm Strip Rhythm Strip: Sinus Rhythm Rate: 71 - PA interval 174 msQRS duration 94 msQTc 441 ms - Medical Decision Making Patient presents with multiple complaints. She felt she may be anemic because she had occult stool the other day. Her hemoglobin is stable at 11.6. She states it is 11.1 the other day. Her vital signs are stable. She is not hypotensive. She also complains of chest pain which has been constant for 2 weeks. Her EKG is sinus rhythm without signs of ischemia. Her chest x-ray is normal. Troponin is negative. Given she has had this pain constantly for 2 weeks and will think she needs a repeat troponin and EKG and likely this is noncardiac in nature. In regards to her abdominal pain it was fairly diffuse and she did get a CT abdomen pelvis which is normal as well. All of her other labs were within normal limits. Patient was counseled on findings and will follow up with her previously scheduled visit for GI to get a colonoscopy and upper endoscopy. She was amenable to this plan. Patient stable for home. ED Disposition - Plan for ED Patient: Disposition: Home or Assisted Living Diagnosis: Chest pain, Abdominal pain, Anemia, Occult blood in stools Instructions: ED Abdominal Pain Unkn Cause Fem, ED Anemia Type Not Specified, ED Chest Pain Atypical Unkn Cause Referrals: Myesha Saunders MD [Primary Care Provider] -
--- NOTE | 2020-02-25 16:29 | CT_ITS ---
STUDY: CT ABDOMEN AND PELVIS WITH CONTRAST REASON FOR EXAM: Female, 40 years old. Abdominal pain RADIATION DOSAGE (If Supplied By Facility): CTDIvol = ( 15.89 ) mGy, DLP = ( 1203.49 ) mGycm TECHNIQUE: Transaxial images were obtained from the dome of the diaphragm to the symphysis pubis without oral contrast. 100 ml of Isovue-300 contrast was administered. Sagittal and coronal images were reconstructed. Individualized dose optimization techniques were used for this CT. COMPARISON: 03/25/2019 FINDINGS: The visualized lung bases are clear. The visualized portions of the heart and pericardium are within normal limits. The patient is status post cholecystectomy. The liver is within normal limits. There are no suspicious hepatic lesions. The spleen is normal in size. The pancreas is within normal limits. The adrenal glands are within normal limits. There are no renal or ureteral stones. There is no hydronephrosis. There are no focal renal lesions. Normal visualized stomach. There is no bowel obstruction or inflammation. There is a large amount of stool in the colon, consistent with constipation. The appendix is visualized and appears normal. The aorta is normal in caliber. There is no abdominal or pelvic free air, free fluid, fluid collection or lymphadenopathy. There are no destructive osseous lesions. CT/Abdomen/Pelvis W IV Cont ONLY IMPRESSION: No acute abdominal or pelvic pathology. Constipation. Electronically Signed: Abhijeet Lott, at 17:53 EDT Tel , Service support ,
--- NOTE | 2020-02-25 16:29 | EKG12_ITS ---
Test Reason : CP Blood Pressure : / mmHG Vent. Rate : 071 BPM Atrial Rate : 071 BPM P-R Int : 174 ms QRS Dur : 094 ms QT Int : 406 ms P-R-T Axes : 045 070 052 degrees QTc Int : 441 ms Normal sinus rhythm Normal ECG Confirmed by CHERYL DESOUZA, RICKEY ([id number]), newspaper editor managing RADHA PARK ([id number]) on 02/27/2020 1:10:24 PM Referred By: SOLITARIO Confirmed By:RICKEY LUAN MD
--- NOTE | 2020-02-25 16:40 | RAD_ITS ---
STUDY: X-RAY CHEST REASON FOR EXAM: Female, 40 years old. Chest pain TECHNIQUE: Frontal view of the chest COMPARISON: 02/26/2015 FINDINGS: The lungs are clear. There are no pleural effusions. There is no pneumothorax. The heart is normal in size. The visualized osseous structures are within normal limits. RAD/Chest 1 View (Portable) IMPRESSION: No acute thoracic pathology. Electronically Signed: Abhijeet Lott, at 17:05 EDT Tel , Service support ,
[2020-02-25] MEDS: 0.9% Normal Saline 1,000 ML 1000 ML IV (16:48)
[2020-02-25] MEDS: proMETHazine 25 MG/ML Syringe 12.5 MG IV (16:48)
[2020-02-25 16:53] VITALS: BP 132/85; PULSE 73; RESP 19; O2SAT 100
[2020-02-25 16:55] LABS: Absolute Neutrophil Count 2.9 X10^3/uL (2.0-7.7); Basophil# 0.04 X10^3/uL; Basophil% 0.7 % (0-1); Eosinophils% 1.8 % (0-5); Hematocrit 35.1 % (37-47); Hemoglobin 11.7 g/dL (12.0-15.0); Lymphocyte % 37.8 % (19-41); Mean Corp Hgb Conc 33.3 g/dL (32-36); Mean Corpuscular Hgb 31.6 pg (27.0-32.0); Mean Corpuscular Volume 94.9 fL (81-99); Mean Platelet Vol. 9.4 fl (6.2-12.0); Monocyte# 0.39 X10^3/uL; NRBC Flagged by Analyzer 0 % (0-5); Neutrophil # 2.91 X10^3/uL (2.7-7.7); Neutrophil % 52.5 % (47-70); Platelet Count 372 K/mm3 (150-450); RBC Distribution Width CV 12.4 % (11.6-14.6); RBC Distribution Width SD 42.6 fl (35.1-43.9); White Blood Count 5.6 K/mm3 (4.4-11.0)
[2020-02-25 16:56] LABS: Bacteria 0 SEEN /hpf (None Seen); Mucous, Urine 0 SEEN /hpf (<or=2+); Red Blood Cells-Urine 0 SEEN /hpf (0-5); Squamous Epithelial Cells - UA 0 SEEN /hpf (5-10); White Blood Cells 0 SEEN /hpf (0-5)
[2020-02-25 16:57] LABS: Color, Urine Yellow (Yellow); Glucose, Dipstick Normal (Normal); Ketone-Dipstick Negative (Negative); Leukocyte Esterase-Dipstick Negative /ul (Negative); Nitrite-Dipstick Negative (Negative); Occult Blood-Urine Negative /ul (Negative); Protein-Dipstick Negative (Negative); Specific Gravity, Urine 1.005 (1.002-1.030); Urine Bilirubin Dipstick Negative (Negative); Urine Clarity Clear (Clear); Urine Urobilinogen Normal (Normal)
[2020-02-25 16:59] LABS: ALB/GLOB Ratio 1.1 RATIO (0.9-2.4); AST(SGOT) 16 U/L (15-37); Alanine Aminotransfer ALT/SGPT 24 U/L (13-56); Albumin, Serum 3.6 g/dL (3.2-5.0); Alkaline Phosphatase 40 U/L (45-117); Anion Gap 7 (5-15); BUN 11 mg/dL (7-18); Calcium,Total 8.5 mg/dL (8.5-10.1); Chloride 107 mmol/L (98-107); Creatinine, Serum 0.79 mg/dL (0.55-1.02); EST Glomerular Filtration Rate 85 mL/min (>60); Est Glom Filt Rate - Afr Amer 103 mL/min (>60); Estimated Creatinine Clearance 103.69 ml/min; Globulin 3.4 g/dL (2.2-4.2); Glucose 103 mg/dL (74-106); Lipase 79 U/L (73-393); Potassium 3.7 mmol/L (3.5-5.1); Sodium Level 140 mmol/L (136-145)
[2020-02-25 17:00] VITALS: BP 116/73; PULSE 67; RESP 18; O2SAT 99
[2020-02-25 18:00] VITALS: BP 120/73; PULSE 70; RESP 19; O2SAT 99
[2020-02-25 19:19] VITALS: BP 125/77; PULSE 73; RESP 18; O2SAT 99
== END 2020-02-25 19:19 | disposition home or self-care (01) ==
PROVIDERS: Emergency Provider Student in an Organized Health Care Education/Training Program; PCP Internal Medicine
DX: R07.89 Other chest pain (principal); R10.9 Unspecified abdominal pain; D64.9 Anemia, unspecified; R19.5 Other fecal abnormalities; E66.9 Obesity, unspecified; I10 Essential (primary) hypertension; E03.9 Hypothyroidism, unspecified; N80.9 Endometriosis, unspecified; Z79.899 Other long term (current) drug therapy; F17.200 Nicotine dependence, unspecified, uncomplicated
CPT/HCPCS: 71045; 74177; 80053; 81001; 83690; 84484; 85025; 93005; 96361; 96374; 99283; J7030; Q9967; A4216

== ENCOUNTER 2020-03-16 06:21 | Day surgery (SDC) | payer MEDICAID, SELFPAY ==
[2020-03-08 14:58] VITALS: BMI 29.9
[2020-03-13 19:52] LABS: Probe Check PASS; Specimen Processing Control PASS
--- NOTE | 2020-03-16 | GASB_PTH ---
PATIENT: GABY MARTINEZ LOC: EN U#:[id number] AGE/SX: 40/F ROOM: RE03/16/[address]: Dr. Louis Nolasco MD : 1980 BED: DIS: 03/16/2020 SPEC #: [id number] RECD: 03/16/20 13:18 STATUS: ALESIA MAXIMILIANO #: [id number] ADRIANA: 03/16/20 00:[address]: Louis Nolasco DEPT: SURGICAL PATHOLOGY RECD BY: Rick Hayward ENTERED: 03/19/20 08:36 SP TYPE: Gastric Bx OTHR DR: Dr. Myesha Saunders MD Tissues: A - Gastric mucous membrane B - Gastric fundus Procedures: Surgery Specimen Level IV HEADER OPERATION: Colonoscopy, EGD ([facility]) PRE-OP DIAGNOSIS: Anemia, heme-positive stool TISSUE SUBMITTED: A - Antrum biopsy for histo and H. pylori, B - Fundic gland polyp biopsy MICROSCOPIC DIAGNOSIS A. Gastric antrum, biopsy: Mild chronic gastritis. See comment. B. Fundic gland polyp, biopsy: Polypoid gastric mucosa with minimal chronic inflammation. See comment. AM:galdino 03/20/20 COMMENT A. The results of immunohistochemistry for Helicobacter pylori will be reported separately ([id number]). B. Features of fundic gland polyp are not present. Clinical correlation is suggested. MICROSCOPIC DESCRIPTION Slides are reviewed. GROSS DESCRIPTION A - Received in fixative is one container labeled with the patient's name and designated antrum biopsy. The specimen consists of one irregular fragment of light vuong soft tissue that measures 0.5 x 0.3 x 0.1 cm. The specimen is totally submitted in one cassette. B - Received in fixative is one container labeled with the patient's name and designated fundic gland polyp biopsy. The specimen consists of one irregular fragment of light vuong soft tissue that measures 0.5 x 0.2 x 0.1 cm. The specimen is totally submitted in one cassette. / SJ:galdino 03/19/20 TC:3 CPT: 81436 x2
[2020-03-16 06:39] VITALS: BP 121/71; PULSE 76; RESP 16; TEMP 37.4; O2SAT 98; BMI 30.9
[2020-03-16] MEDS: Lactated Ringers 1,000 ML 100 ML IV (06:56)
--- NOTE | 2020-03-16 07:30 | IMM_PTH ---
PATIENT: GABY MARTINEZ LOC: EN U#:[id number] AGE/SX: 40/F ROOM: RE03/16/[address]: Dr. Louis Nolasco MD : 1980 BED: DIS: 03/16/2020 SPEC #: [id number] RECD: 03/19/20 11:41 STATUS: ALESIA REQ #: [id number] ADRIANA: 03/16/20 07:[address]: Louis Nolasco DEPT: IMMUNOHISTOCHEMISTRY RECD BY: Linda Diaz ENTERED: 03/19/20 11:41 SP TYPE: IMMUNO OTHR DR: Dr. Myesha Saunders MD Tissues: A - Stomach, NOS Procedures: H Pylori (initial) PHYSICIAN & INSTITUTION [place] [id number] SPECIMEN INFORMATION: Tissue Source: A - Antrum biopsy Clinical Info: Anemia, heme-positive stool Specimen Number: [id number] CPT code: 21822 METHODOLOGY: Deparaffinized sections of prefer/formalin-fixed tissue or PAP/DQ stained slides are incubated with monoclonal/polyclonal antibodies/oligonucleotide probes. Localization is made via biotin free immunoperoxidase method. Appropriate controls are performed and reacted as expected. Results on target cell population are indicated in the following table: RESULTS: ANTIBODY / CLONE RESULT Block A H Pylori (polyclonal) negative These tests were developed and their performance characteristics determined by [facility]. They may not have been cleared or approved by the U.S. Food and Drug Administration. The FDA has determined that such clearance or approval is not necessary. INTERPRETATION: A. Antrum biopsy: Negative for Helicobacter pylori organisms. AM:galdino 03/20/20
--- NOTE | 2020-03-16 07:31 | HP.PCM_ITS ---
History and Physical Date of Admission: 03/16/20 [facility] [address] [place] [address] OFFICE VISIT Date of Service: 03/08/20 MR#: [id number] Acct: [id number] Name: GABY MARTINEZ Rep #: [id number] : 1980 Provider: Dr. Manan Nolasco MD Age/Sex: 40/F Location: [facility] Status: Signed Intake Vital Signs 03/15/20 BMI 31.7 03/08/20 Height 5 ft 11 in 03/08/20 Weight: 214 lb 9 oz 03/08/20 BP 127/77 H 03/08/20 Blood Pressure Location Rt brachial 03/08/20 Position Sitting 03/08/20 Respiration 18 03/08/20 Pulse 87 03/08/20 Temp 98.9 F 03/08/20 Temp Source Temporal 03/08/20 Pulse Oximetry (%) 98 03/08/20 Oxygen Delivery Method room air Intake Visit Reasons: CSCOPE, POSITIVE FECAL Chief Complaint: ABD PAIN/ BLOOD IN STOOL Insurance Processing Clerk Required: No Is patient in pain?: Yes Allergies No Known Allergies Allergy (Verified 03/12/20 14:17) Medications Levothyroxine [Synthroid] 150 mcg PO DAILY 03/16/14 [History Confirmed 03/12/20] Bupropion HCl [Wellbutrin Sr] 150 mg PO DAILY 04/29/17 [History Confirmed 03/12/20] Lisdexamfetamine Dimesylate [Vyvanse] 20 mg PO DAILY 04/29/17 [History Confirmed 03/12/20] citalopram 20 mg tablet 20 mg PO DAILY 06/09/18 [History Confirmed 03/12/20] metoprolol succinate 25 mg tablet,extended release 24 hr 75 mg PO DAILY 06/09/18 [History Confirmed 03/12/20] Methotrexate Sodium [Methotrexate] 20 mg PO QWEEK 11/25/18 [History Confirmed 03/12/20] Dicyclomine HCl 20 mg PO TID 02/25/20 [History Confirmed 03/12/20] Omeprazole 40 mg PO BID 02/25/20 [History Confirmed 03/12/20] folic acid 1 mg tablet 1 mg PO DAILY 03/08/20 [History Confirmed 03/12/20] hydroxyzine HCl 25 mg tablet 25 mg PO TID PRN 03/08/20 [History Confirmed 03/12/20] phentermine 37.5 mg tablet 37.5 mg PO DAILY tab 03/08/20 [History Confirmed 03/12/20] traZODone [Desyrel] 50 mg PO QHS 03/12/20 [History Confirmed 03/12/20] Is last menstrual period known: No Post menopausal: No Patient : No PFSH Medical History Anxiety and depression (Acute) Chronic bronchitis (Acute) Depression (emotion) (Acute) Environmental allergies (Acute) GERD (gastroesophageal reflux disease) (Acute) Goiter (Acute) IBS (irritable bowel syndrome) (Acute) Obsessive compulsive disorder (Acute) Rheumatoid arthritis (Acute) Thyroid disorder (Acute) Hypertension (Chronic) Lupus (Chronic) Surgical History HISTORY OF FISTULOTOMY (Acute) History of cholecystectomy (Acute) History of esophagogastroduodenoscopy (EGD) (Acute ~2014) History of unilateral oophorectomy (Acute) History of hysterectomy (Chronic) Family History Mother Arthritis Diabetes Heart disease Ulcer Father Hypertension High cholesterol Cancer Brother Asthma Diabetes Heart disease Hypertension CVA (cerebral vascular accident) Social History (Updated 03/15/20 @ 16:[address] Louis Nolasco MD) Smoking Status: Light Smoker (<10/day) alcohol intake: never substance use type: does not use additional social history: DOES NOT USE ASPIRIN DOES USE IBUPROFEN HPI HPI HPI: GABY MARTINEZ, is a 40 F who presents to the office today for HPI HPI Surgical H&P: Yes HPI: GABY MARTINEZ, is a 40 F who presents to the office today for Evaluation of anemia and heme positive stools. Patient has been experiencing some lower abdominal discomfort comes on suddenly particularly when she is coughing. 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 Her hemoglobin level is 11.1. She does have rheumatoid arthritis. She has not had any nausea or vomiting. ROS General General: Yes fatigue; no weight change, appetite, colon cancer, breast cancer or weakness HEENT HEENT: No difficulty swallowing, eye injury, eye surgery, swollen glands or hoarseness Endo Endocrine: Yes thyroid disease; no diabetes mellitus, thyroid cancer, Hair loss, heat intolerance or cold intolerance Musc Musculoskeletal: Yes rheumatoid arthritis; no back problems, arthritis, gout or joint pain Cardio Cardiovascular: No murmur, pacemaker, heart disease, atrial fibrillation, high blood pressure, heart attack, heart stent, palpitations, shortness of breat with exertion or chest pain Psych Psychiatric: Yes depression and anxiety; no hearing voices Resp Respiratory: Yes shortness of breath, No sleep apnea, No cough, No COPD, No asthma, No emphysema, No wheezing Gastro Gastrointestinal: Yes abdominal pain, No nausea or vomiting, No diarrhea, Yes constipation, Yes blood in stool, Yes acid reflux, No hemorrhoids, No ulcers, No gallbladder problem, No black,tarry stools Terrance Hematologic: No blood thinners, No blood disorders, No bleeding, No anemia, No blood clots Neuro Neurologic: No weakness Exam Const General: no acute distress, well developed, well hydrated Orientation: oriented to person, oriented to place, oriented to time [facility] Head: normocephalic, atraumatic Ears: external ears normal Mouth: moist mucous membranes Eyes Sclera: sclerae normal Pupils: normal by confrontation Neck Neck: no lymphadenopathy noted Neck mass: No Thyroid: thyroid normal, symmetrical Chest Chest palpation & inspection: normal inspection of the chest Resp Effort & Inspection: normal respiratory effort Auscultation: clear to auscultation bilaterally Percussion: percussion normal Cardio Rate: regular rate Rhythm: regular rhythm Heart Sounds: no murmurs GI Palpation: soft, no hepatosplenomegaly, no masses, nontender Rectal Exam: other Other: Rectal exam deferred. Extrem General: normal to inspection, no clubbing, cyanosis or edema Assessment & Plan Problems 1. Anemia, unspecified type D64.9 2. Heme positive stool R19.5 Plan I have discussed the above with the patient. I have offered the patient colonoscopy As well as an EGD for evaluation. I have explained the risks/benefits of the procedure and described the procedure. I have discussed the risks with the patient, including but not limited to: infection, bleeding, perforation of the GI tract requiring emergency surgery, inability to complete the procedure, injury to any internal organs, complications of anesthesia, etc. - the patient understands and agrees to proceed. I have answered all the patient's questions to the patient's satisfaction and the patient has no further questions. The patient has been given instructions for the colon cleansing preparation. Orders Orders: Colonoscopy 03/08/20 EGD 03/08/20 Coding Level of Care Code Off vis,new,level 3 Diagnoses Anemia, unspecified type D64.9 ??Anemia type: unspecified type Heme positive stool R19.5 COVID (Procedure Consent) Procedure Criteria Procedure Criteria: Yes Elective The surgeon/proceduralist and patient have discussed in detail the risk of exposure to and/or potential harm posed by the COVID-19 virus with having a surgery/procedure at this time versus the risk of? delaying the surgery/procedure. It is not possible to know either the risk of delaying the surgery or procedure or chance of getting an infection with perfect accuracy, but a joint decision was made between the patient and the surgeon/proceduralist ?to proceed at this time with the scheduled surgery/procedure as indicated on the consent form. 03/15/20 1631 <Electronically signed by Louis potter MD> Date _ Louis Nolasco MD Cosigner Signature: Date (if applicable) CC: Dr. Myesha Saunders MD ~ I have re-examined the patient. There are no clinical changes since date of exam.
--- NOTE | 2020-03-16 08:08 | OP.EGD_ITS ---
Patient Name: Mar Bowers Procedure Date: 03/16/2020 6:50 AM Date of : 1980 Age: 40 Procedure: Upper GI endoscopy Indications: Unexplained iron deficiency anemia, Occult blood in stool Providers: Louis Nolasco MD Referring MD: Myesha Saunders Medicines: See the Anesthesia note for documentation of the administered medications Patient Profile: This is a 40 year old female. Refer to note in patient chart for documentation of history and physical. Complications: No immediate complications. Procedure: Pre-Anesthesia Assessment: - Prior to the procedure, a History and Physical was performed, and patient medications and allergies were reviewed. The patient's tolerance of previous anesthesia was also reviewed. The risks and benefits of the procedure and the sedation options and risks were discussed with the patient. All questions were answered, and informed consent was obtained. Prior Anticoagulants: The patient has taken no previous anticoagulant or antiplatelet agents. ASA Grade Assessment: II - A patient with mild systemic disease. After reviewing the risks and benefits, the patient was deemed in satisfactory condition to undergo the procedure. After obtaining informed consent, the endoscope was passed under direct vision. Throughout the procedure, the patient's blood pressure, pulse, and oxygen saturations were monitored continuously. The gastroscope was introduced through the mouth, and advanced to the second part of duodenum. The upper GI endoscopy was accomplished without difficulty. The patient tolerated the procedure well. Scope In: 7:42:29 AM Scope Out: 7:46:09 AM Total Procedure Duration Time 0 hours 3 minutes 40 seconds Findings: The examined esophagus was normal. The Z-line was regular and was found 41 cm from the incisors. No biopsies or other specimens were collected for this exam. Localized minimal inflammation characterized by erythema was found in the prepyloric region of the stomach. Biopsies were taken with a cold forceps for Helicobacter pylori testing. A few 4 mm sessile polyps with no bleeding and no stigmata of recent bleeding were found in the gastric antrum. The polyp was removed with a jumbo cold forceps. Resection and retrieval were complete. The examined duodenum was normal. No biopsies or other specimens were collected for this exam. Impression: - Normal esophagus. - Z-line regular, 41 cm from the incisors. No specimens collected. - Gastritis. Biopsied. - A few gastric polyps. Resected and retrieved. - Normal examined duodenum. No specimens collected. Recommendation: - Discharge patient to home. - Resume previous diet. - Continue present medications. - Await pathology results. - Repeat upper endoscopy at appointment to be scheduled for surveillance. - Return to my office in 1 week. Procedure Code(s): --- Professional --- 71012, Esophagogastroduodenoscopy, flexible, transoral; with biopsy, single or multiple Diagnosis Code(s): --- Professional --- K29.70, Gastritis, unspecified, without bleeding K31.7, Polyp of stomach and duodenum D50.9, Iron deficiency anemia, unspecified R19.5, Other fecal abnormalities CPT copyright 2017 [employer]. All rights reserved. The codes documented in this report are preliminary and upon arts and crafts instructor review may be revised to meet current compliance requirements. MD Louis Gupta MD 03/16/2020 8:07:42 AM This report has been signed electronically. Number of Addenda: 0 Note Initiated On: 03/16/2020 6:50 AM
--- NOTE | 2020-03-16 08:08 | OP.CCLET_ITS ---
03/16/2020 Myesha Saunders [address] [phone] Re : Upper GI endoscopy procedure for Mar Bowers Dear Dr. Saunders This procedure was performed on Monday, March 16, 2020. My impressions and recommendations are as follows: Impressions : - Normal esophagus. - Z-line regular, 41 cm from the incisors. No specimens collected. - Gastritis. Biopsied. - A few gastric polyps. Resected and retrieved. - Normal examined duodenum. No specimens collected. Recommendations : - Discharge patient to home. - Resume previous diet. - Continue present medications. - Await pathology results. - Repeat upper endoscopy at appointment to be scheduled for surveillance. - Return to my office in 1 week. My findings are described in the full procedure note, which is enclosed. If I can be of further assistance, please feel free to contact me at Doctor phone number(s): , Fax: [phone], Work: . Sincerely, MD Louis Gupta MD 03/16/2020 8:07:42 AM This report has been signed electronically.
[2020-03-16 08:10] VITALS: BP 101/52; BP 121/71; PULSE 60; RESP 16; TEMP 37.1; O2SAT 100
--- NOTE | 2020-03-16 08:10 | OP.COLON_ITS ---
Patient Name: Mar Bowers Procedure Date: 03/16/2020 7:47 AM Date of : 1980 Age: 40 Procedure: Colonoscopy Indications: Gastrointestinal occult blood loss, Unexplained iron deficiency anemia Providers: Louis Nolasco MD Referring MD: Myesha Saunders Medicines: See the Anesthesia note for documentation of the administered medications Patient Profile: This is a 40 year old female. Refer to note in patient chart for documentation of history and physical. Last Colonoscopy: none. The patient's first colonoscopy is today. Complications: No immediate complications. Procedure: Pre-Anesthesia Assessment: - Prior to the procedure, a History and Physical was performed, and patient medications and allergies were reviewed. The patient's tolerance of previous anesthesia was also reviewed. The risks and benefits of the procedure and the sedation options and risks were discussed with the patient. All questions were answered, and informed consent was obtained. Prior Anticoagulants: The patient has taken no previous anticoagulant or antiplatelet agents. ASA Grade Assessment: II - A patient with mild systemic disease. After reviewing the risks and benefits, the patient was deemed in satisfactory condition to undergo the procedure. After I obtained informed consent, the scope was passed under direct vision. Throughout the procedure, the patient's blood pressure, pulse, and oxygen saturations were monitored continuously. The colonoscope was introduced through the anus and advanced to 6 cm into the ileum. The colonoscopy was performed without difficulty. The patient tolerated the procedure well. The quality of the bowel preparation was good. Scope In: 7:48:32 AM Scope Withdrawal Time 0 hours 9 minutes 1 second Scope Out: 8:02:47 AM Total Procedure Duration Time 0 hours 14 minutes 15 seconds Findings: Non-bleeding internal hemorrhoids were found during retroflexion. The hemorrhoids were mild and small. The terminal ileum appeared normal. The exam was otherwise without abnormality. Impression: - Non-bleeding internal hemorrhoids. - The examined portion of the ileum was normal. - The examination was otherwise normal. - No specimens collected. Recommendation: - Discharge patient to home. - Resume previous diet. - Continue present medications. - Repeat colonoscopy in 10 years for screening purposes. - Return to my office in 1 week. Procedure Code(s): --- Professional --- 82148, Colonoscopy, flexible; diagnostic, including collection of specimen(s) by brushing or washing, when performed (separate procedure) Diagnosis Code(s): --- Professional --- K64.8, Other hemorrhoids R19.5, Other fecal abnormalities D50.9, Iron deficiency anemia, unspecified CPT copyright 2017 [employer]. All rights reserved. The codes documented in this report are preliminary and upon tea tree farm worker review may be revised to meet current compliance requirements. MD Louis Gupta MD 03/16/2020 8:09:36 AM This report has been signed electronically. Number of Addenda: 0 Note Initiated On: 03/16/2020 7:47 AM
--- NOTE | 2020-03-16 08:10 | OP.CCLET_ITS ---
03/16/2020 Myesha Saunders [address] [id number] Re : Colonoscopy procedure for Mar Gillilands Dear Dr. Saunders This procedure was performed on Monday, March 16, 2020. My impressions and recommendations are as follows: Impressions : - Non-bleeding internal hemorrhoids. - The examined portion of the ileum was normal. - The examination was otherwise normal. - No specimens collected. Recommendations : - Discharge patient to home. - Resume previous diet. - Continue present medications. - Repeat colonoscopy in 10 years for screening purposes. - Return to my office in 1 week. My findings are described in the full procedure note, which is enclosed. If I can be of further assistance, please feel free to contact me at Doctor phone number(s): , Fax: [phone], Work: . Sincerely, MD Louis Gupta MD 03/16/2020 8:09:36 AM This report has been signed electronically.
[2020-03-16 08:15] VITALS: BP 121/71; BP 96/60; PULSE 62; RESP 16; O2SAT 100
[2020-03-16 08:20] VITALS: BP 121/71; BP 99/52; PULSE 61; RESP 16; O2SAT 100
[2020-03-16 08:25] VITALS: BP 121/71; BP 98/46; PULSE 58; RESP 16; TEMP 37.2; O2SAT 100
[2020-03-16 09:05] VITALS: BP 121/71
== END 2020-03-16 09:06 | disposition home or self-care (01) ==
LOC: EN 06:23 → AC 06:24
PROVIDERS: Anesthesiology; PCP Internal Medicine; Referring Provider Internal Medicine; Visit Provider Surgery
PROC: 0DJD8ZZ Inspection of Lower Intestinal Tract, Via Natural or Artificial Opening Endoscopic (ICD-10-PCS; CPT 45378; principal; 2020-03-16 07:25)
DX: D50.9 Iron deficiency anemia, unspecified (principal); K29.70 Gastritis, unspecified, without bleeding; K31.7 Polyp of stomach and duodenum; R19.5 Other fecal abnormalities; K64.8 Other hemorrhoids; I10 Essential (primary) hypertension; Z90.49 Acquired absence of other specified parts of digestive tract; F17.200 Nicotine dependence, unspecified, uncomplicated; M06.9 Rheumatoid arthritis, unspecified
CPT/HCPCS: 43239; 45378; 87635; 88305; 88342; J7120; J1610; J2405; U0003

== ENCOUNTER 2020-07-20 18:08 | Emergency (ER) | payer MEDICAID, SELFPAY ==
[2020-07-18 14:52] VITALS: BMI 31.4
[2020-07-20 18:10] VITALS: BP 135/81; PULSE 79; RESP 16; TEMP 36.2; O2SAT 98; BMI 27.4
--- NOTE | 2020-07-20 18:25 | RAD_ITS ---
STUDY: X-RAY - LEFT FOOT CLINICAL: Female, 40 years old. dropped table on foot, pain TECHNIQUE: 3 view(s) of the foot. COMPARISON: None. FINDINGS: Normal talus, calcaneus, and tarsal bones. Normal visualized subtalar, talonavicular, calcaneocuboid, tarsal and tarsometatarsal articulations. Normal metatarsi. Normal metatarsophalangeal joint of the great toe. Normal tibial and fibular sesamoid bones. Normal interphalangeal joint of the great toe. Normal phalanges of the great toe. Normal second through fifth metatarsophalangeal joints. Normal interphalangeal joints and phalanges of the lesser toes. The soft tissue structures are unremarkable. RAD/Foot min 3 Views IMPRESSION: Normal x-ray examination of the foot. Electronically Signed: Jasen Sosa MD at 19:52 EST , Service support ,
--- NOTE | 2020-07-20 18:36 | ED.DCSUM_ITS ---
- ER Visit Summary Date of Service: 07/20/20 Chief Complaint: Left foot pain after dropping a table on it History of Present Illness: The patient is a 40 F past medical history of hypothyroidism and lupus. Patient has never had foot surgery. Her and her were moving a table by an hour ago. It fell directly on the top of the left foot. Physical Examination: Female. Vital signs stable afebrile. HEENT exam is unremarkable. Lungs clear to auscultation. Heart regular rhythm no murmur. Chest were nontender. Abdomen soft nontender. Moving all 4 extremities. Neurovascular intact. She is tender in the midportion of her left foot. Minimal swelling. Dorsi plantarflexion of the left ankle is unremarkable. Achilles tendon is intact. Ankle is nonswollen nontender. Toes are nontender. Nonswollen. Normal touch sensation and cap refill. Skin is intact. Otherwise exam unremarkable. Test Results: Left foot x-ray 3 views read by myself shows no acute fracture or dislocation. Read as normal. Emergency Department Course and Treatment: Kipling for pain. Ice. Treatment Plan: Motrin for pain and swelling. Tylenol. Ice and elevate. Follow-up if not improving. Patient was warned of the possible nondisplaced fracture is a was not seen on the x-ray is always a possibility. Disposition: Discharge Impression: Acute left foot contusion This note was generated with [employer] dictation software. It may contain incorrect words, spelling, and punctuation that were not noted in review of the chart prior to signing ED Disposition - Plan for ED Patient: Referrals: Myesha Saunders MD [Primary Care Provider] -
--- NOTE | 2020-07-20 18:40 | DCINST.ED_ITS ---
ED Disposition - Plan for ED Patient: Disposition: Home or Assisted Living Instructions: ED Foot Contusion Prescriptions: Hydrocodone/Acetaminophen [Hilliards 5-325 Tablet] 1 ea PO 4X/DAY PRN PRN 4 Days #14 tab PRN Reason: Pain 1-10 Or Fever Prescription Printed Referrals: Myesha Saunders MD [Primary Care Provider] - 1 Week if not improving Additional Instructions: Elevate foot to decrease pain and swelling. Motrin for pain and swelling. Tylenol for pain. Follow-up if not improving in 1 week. At this time there are no broken bones seen on your x-ray.
[2020-07-20] MEDS: HYDROcodone Bitartrate/Apap 5/325 Tablet PO (19:24)
[2020-07-20 19:34] VITALS: BP 135/81; PULSE 79; RESP 16; O2SAT 98
== END 2020-07-20 19:36 | disposition home or self-care (01) ==
LOC: ED 19:09
PROVIDERS: Emergency Provider Emergency Medicine; PCP Internal Medicine
DX: S90.32XA Contusion of left foot, initial encounter (principal); W20.8XXA Other cause of strike by thrown, projected or falling object, initial encounter; E03.9 Hypothyroidism, unspecified; M32.9 Systemic lupus erythematosus, unspecified
CPT/HCPCS: 73630; 99283

== ENCOUNTER 2020-08-17 18:33 | Emergency (ER) | payer MEDICAID, SELFPAY ==
[2020-08-17 18:34] VITALS: BP 110/71; PULSE 74; RESP 16; TEMP 36.3; BMI 27.4
--- NOTE | 2020-08-17 18:50 | CT_ITS ---
STUDY: CT SOFT TISSUE NECK WITH CONTRAST REASON FOR EXAM: Female, 40 years old. Left neck pain radiates to chest/arm/shoulder. HX lupus, hypothyroidism, recent antibiotics for sinus infection. RADIATION DOSAGE (If Supplied By Facility): CTDIvol = ( 17.15 ) mGy, DLP = ( 552.82 ) mGycm TECHNIQUE: The patient was scanned in a multi-detector CT scanner. High resolution transaxial imaging was performed following intravenous administration of IV 75mL [id number]-370. Sagittal and coronal images were reconstructed. Individualized dose optimization techniques were used for this CT. COMPARISON: None. FINDINGS: Normal bilateral parotid glands. Normal bilateral riffler tender spaces. Normal bilateral parapharyngeal spaces. Normal bilateral carotid spaces. Normal bilateral sublingual and submandibular glands and spaces. Normal visualized nasopharynx. Normal retropharyngeal space. Normal perivertebral space. Normal visualized bilateral faucial tonsils. The visualized tongue, tongue base and oropharynx are normal. 1 shotty left submandibular lymph node, long axis 11 mm. Symmetric bilateral shotty anterior cervical lymph nodes of similar size 2.0 x 0.7 cm which are nonenhancing. There is an additional slightly enhancing more superior left anterior cervical lymph node that is only 13 x 7 mm and appears to be slightly enhancing. There is no demonstrated solid or cystic mass lesion. There is no abnormal contrast enhancement. Normal epiglottis, bilateral vallecula and hypopharynx. The pre-epiglottic and paraglottic adipose spaces are normal. Normal visualized bilateral piriform sinuses, aryepiglottic folds, vocal cords, and arytenoid-cricoid articulations. Normal subglottic trachea. She has no substantial residual thyroid tissue. Normal visualized pulmonary apices. Normal visualized paranasal sinuses. Mild degenerative changes of the cervical spine. Normal carotid arteries and jugular veins. CT/Soft Tissue Neck WITH Contrast IMPRESSION: 1 shotty left submandibular lymph node, 11 mm. Symmetric bilateral anterior cervical lymph nodes of similar size, 2.0 x 0.7 cm which are nonenhancing. There is one superior left anterior cervical lymph node that is 13 x 7 mm and appears to be slightly enhancing. No evidence of micaela cavitation or surrounding edematous changes. Absence of the thyroid. No other acute soft tissue findings. Mild degenerative changes of the cervical spine without central stenosis or substantial foraminal narrowing. Electronically Signed: Dana Lowe MD at 20:35 EST , Service support ,
--- NOTE | 2020-08-17 18:51 | ED.VIS.GEN ---
History of Present Illness Chief Complaint: Other, Pain/Inj Informant: Patient Narrative: 40-year-old female presents with pain on the left side of her neck. She tells me she just completed 15 days of doxycycline for what she thinks was a sinus infection that was causing left ear pain and swollen lymph nodes on the left side of her neck. She states that the first 10 days of the antibiotic she was doing better and she called and got additional 5 days. She states that she took her last dose today. She still has pain in the neck and the ear that radiates posteriorly towards the back. She notes some pain along the lower left mandible/posterior gumline. She has no dentition in the area that hurts. No fevers. No rashes. No chest pain. No shortness of breath. - Past Medical History (1) Diastasis of rectus abdominis Status: Chronic (2) Macromastia Status: Chronic Past Medical History - Allergies and Home Meds Allergies/Adverse Reactions: Allergies benzocaine Allergy (Unknown, Verified 07/20/20 18:10) unknown Primary Care Physician: Myesha Saunders MD [Primary Care Provider] - As soon as possible Past Medical History: - - Patient reports a history of lupus Surgical History: hysterectomy Smoking Status: Unknown if ever smoked Drugs: None Review of Systems General: Denies: Chills, Fever, Sweats Eyes: Denies: Visual changes - bilaterally, Diplopia ENT: Reports: Left ear pain, Rhinorrhea. Denies: Sore throat Cardiovascular: Denies: Chest pain, Palpitations Respiratory: Denies: Dyspnea, Cough, Dyspnea on exertion Gastrointestinal: Denies: Abdominal pain, Nausea, Vomiting, Diarrhea, Melena, Hematochezia Genitourinary: Denies: Dysuria, Hematuria, Frequency Musculoskeletal: Reports: Neck pain, Back pain. Denies: Extremity Pain Skin: Denies: Rash, Wounds Neurological: Denies: Headache, Weakness, Numbness Hematologic: Reports: Lymphadenopathy Physical Exam Vital Signs/Narrative: Vital Signs Temp Pulse Resp BP 08/17/20 18:34 97.4 F L 74 16 110/71 Inital Vital Signs reviewed: Yes General: Well nourished, Well developed, No Acute Distress Head: Normocephalic, Atraumatic Eyes: Perrl, EOMI ENT: Moist mucous membranes, No rhinorrhea, TM's clear, - - No focal gum swelling. Floor of the mouth is soft. Handling secretions normally. Neck: Supple, - - Patient reports tenderness to palpation of the left side of her neck. There are some scattered lymph nodes a couple of which appear to be at least a centimeter and are tender. There is no rashes. No carotid bruits. Cardiovascular: Regular rate, Regular rhythm, No murmurs Respiratory: No distress, CTA bilaterally, Chest nontender Abdomen: Soft, Nontender, Nondistended, Normal bowel sounds Back: Nontender, Normal Inspection Extremities: Nontender, No edema Skin: Normal color, No rash Neurological: Alert, Oriented x3, Cranial nerves II-XII grossly intact, Normal Strength, Normal Sensation Psychological: Normal affect, Normal Mood Diagnostic/Tx/Re-eval Clinical Impression(s) from Imaging Studies Soft Tissue Neck CT 08/17/20 18:50 IMPRESSION: 1 shotty left submandibular lymph node, 11 mm. Symmetric bilateral anterior cervical lymph nodes of similar size, 2.0 x 0.7 cm which are nonenhancing. There is one superior left anterior cervical lymph node that is 13 x 7 mm and appears to be slightly enhancing. No evidence of micaela cavitation or surrounding edematous changes. Absence of the thyroid. No other acute soft tissue findings. Mild degenerative changes of the cervical spine without central stenosis or substantial foraminal narrowing. Electronically Signed: Dana Lowe MD at 20:35 EST , Service support , Laboratory Last Values WBC 5.6 K/mm3 (4.4-11.0) 08/17/20 19:00 RBC 3.82 M/mm3 (4.2-5.4) L 08/17/20 19:00 Hgb 12.2 g/dL (12.0-15.0) 08/17/20 19:00 Hct 36.3 % (37-47) L 08/17/20 19:00 MCV 95.0 fL (81-99) 08/17/20 19:00 MCH 31.9 pg (27.0-32.0) 08/17/20 19: MCHC 33.6 g/dL (32-36) 08/17/20 19:00 RDW Std Deviation 41.7 fl (35.1-43.9) 08/17/20 19:00 RDW Coeff of Jose Raul 11.9 % (11.6-14.6) 08/17/20 19:00 Plt Count 327 K/mm3 (150-450) 08/17/20 19:00 MPV 9.4 fl (6.2-12.0) 08/17/20 19:00 Immature Gran % (Auto) 0.200 % (0.0-0.9) 08/17/20 19:00 Neut % (Auto) 44.7 % (47-70) L 08/17/20 19:00 Lymph % (Auto) 47.0 % (19-41) H 08/17/20 19:00 [place] % (Auto) 6.8 % (0-10) 08/17/20 19:00 Eos % (Auto) 0.9 % (0-5) 08/17/20 19:00 Baso % (Auto) 0.4 % (0-1) 08/17/20 19:00 Absolute Neuts (auto) 2.5 X10^3/uL (2.0-7.7) 08/17/20 19:00 Absolute Lymphs (auto) 2.64 X10^3/uL (0.83-4.51) 08/17/20 19:00 Nucleated RBC % 0 % (0-5) 08/17/20 19:00 Sodium 140 mmol/L (136-145) 08/17/20 19:00 Potassium 3.5 mmol/L (3.5-5.1) 08/17/20 19:00 Chloride 109 mmol/L (98-107) H 08/17/20 19:00 Carbon Dioxide 27.0 mmol/L (21.0-32.0) 08/17/20 19:00 Anion Gap 4 (5-15) L 08/17/20 19:00 BUN 14 mg/dL (7-18) 08/17/20 19:00 Creatinine 0.74 mg/dL (0.55-1.02) 08/17/20 19:00 Estim Creat Clear Calc 110.69 ml/min 08/17/20 19:00 Est GFR (MDRD) Af Amer 110 mL/min (>60) 08/17/20 19:00 Est GFR (MDRD) Non-Af 91 mL/min (>60) 08/17/20 19:00 BUN/Creatinine Ratio 18.9 RATIO (10-20) 08/17/20 19:00 Glucose 103 mg/dL (74-106) 08/17/20 19:00 Calcium 8.5 mg/dL (8.5-10.1) 08/17/20 19:00 Clinical Impression(s) from Imaging Studies Soft Tissue Neck CT 08/17/20 18:50 IMPRESSION: 1 shotty left submandibular lymph node, 11 mm. Symmetric bilateral anterior cervical lymph nodes of similar size, 2.0 x 0.7 cm which are nonenhancing. There is one superior left anterior cervical lymph node that is 13 x 7 mm and appears to be slightly enhancing. No evidence of micaela cavitation or surrounding edematous changes. Absence of the thyroid. No other acute soft tissue findings. Mild degenerative changes of the cervical spine without central stenosis or substantial foraminal narrowing. Electronically Signed: Dana Lowe MD at 20:35 EST , Service support , - Medical Decision Making Basic blood work is negative. On her CT of the neck with IV contrast noted several enlarged greater than 1 cm lymph nodes. There is no evidence of sinusitis. I do not see anything else to explain her discomfort in her neck. I think it is reasonable that we give her a course of Keflex for presumed lymphadenitis. If this does not resolve the situation she may need to have a biopsy performed. ED Disposition - Plan for ED Patient: Disposition: Home or Assisted Living Diagnosis: Acute neck pain, Lymphadenopathy Instructions: ED Neck Pain Prescriptions: Cephalexin [Keflex] 500 mg PO Q6 #28 cap Prescription Printed Referrals: Myesha Saunders MD [Primary Care Provider] - As soon as possible
[2020-08-17 19:19] LABS: Absolute Lymphocyte Count 2.64 X10^3/uL (0.83-4.51); Absolute Neutrophil Count 2.5 X10^3/uL (2.0-7.7); Basophil# 0.02 X10^3/uL; Basophil% 0.4 % (0-1); Eosinophil# 0.05 X10^3/uL; Eosinophils% 0.9 % (0-5); Hematocrit 36.3 % (37-47); Hemoglobin 12.2 g/dL (12.0-15.0); Lymphocyte # 2.64 X10^3/ul (4.0); Mean Corp Hgb Conc 33.6 g/dL (32-36); Mean Corpuscular Hgb 31.9 pg (27.0-32.0); Mean Platelet Vol. 9.4 fl (6.2-12.0); Monocyte# 0.38 X10^3/uL; Monocyte% 6.8 % (0-10); NRBC Flagged by Analyzer 0 % (0-5); Neutrophil # 2.52 X10^3/uL (2.7-7.7); Neutrophil % 44.7 % (47-70); Platelet Count 327 K/mm3 (150-450); RBC Distribution Width CV 11.9 % (11.6-14.6); RBC Distribution Width SD 41.7 fl (35.1-43.9); Red Blood Count 3.82 M/mm3 (4.2-5.4); White Blood Count 5.6 K/mm3 (4.4-11.0)
[2020-08-17 19:38] LABS: Anion Gap 4 (5-15); BUN 14 mg/dL (7-18); BUN/Creat Ratio 18.9 RATIO (10-20); Calcium,Total 8.5 mg/dL (8.5-10.1); Chloride 109 mmol/L (98-107); Creatinine, Serum 0.74 mg/dL (0.55-1.02); EST Glomerular Filtration Rate 91 mL/min (>60); Est Glom Filt Rate - Afr Amer 110 mL/min (>60); Estimated Creatinine Clearance 110.69 ml/min; Glucose 103 mg/dL (74-106); Potassium 3.5 mmol/L (3.5-5.1); Sodium Level 140 mmol/L (136-145)
[2020-08-17 21:45] VITALS: BP 128/70; PULSE 68; RESP 16; O2SAT 98
== END 2020-08-17 22:01 | disposition home or self-care (01) ==
PROVIDERS: Emergency Provider Emergency Medicine; PCP Internal Medicine
DX: M54.2 Cervicalgia (principal); R59.1 Generalized enlarged lymph nodes; E89.0 Postprocedural hypothyroidism; M32.9 Systemic lupus erythematosus, unspecified; Z90.710 Acquired absence of both cervix and uterus; N62 Hypertrophy of breast
CPT/HCPCS: 70491; 80048; 85025; 99283; Q9967; A4216

== ENCOUNTER → 2020-09-03 15:53 | Outpatient (CLI) | payer MEDICAID, SELFPAY ==
[2020-08-17 18:34] VITALS: BMI 27.4
--- NOTE | 2020-09-03 15:55 | BI_ITS ---
MAMMOGRAPHY - BILATERAL SCREENING REASON FOR EXAM: Female, 40 years old. Routine annual screening examination. PERTINENT HISTORY: Non-contributory. TECHNIQUE: Digital bilateral breast stalin (3D mammographic acquisition) in the CC and MLO projections. 2-D mediolateral oblique (MLO) and craniocaudad (CC) views of both breasts were obtained. CAD: Full Field Digital Mammography with Computer Added Detection was performed. COMPARISON: Comparison is made with prior outside examination dated 04/30/2018. FINDINGS: Breast Composition: The breasts are heterogeneously dense, which may obscure small masses. There are no dominant masses or suspicious calcifications. No other significant abnormalities are identified. There has been no significant change since the prior study. BI/SCRN MAMM (CAD)W/STALIN BILAT IMPRESSION: Stable bilateral screening mammogram. Yearly follow-up mammogram recommended. (A) ASSESSMENT CATEGORY: BIRADS Category 1: Negative. A letter regarding these results will be sent to the patient by the facility within 30 days. Approximately 10% of breast cancers are not detected by mammography. A normal mammogram should not delay biopsy of a clinically suspicious abnormality. [id number] Electronically Signed: Logan Jordan MD at 8:21 EST , Service support ,
== END ==
PROVIDERS: PCP Nurse Practitioner Primary Care; Referring Provider Surgery; Visit Provider Surgery
DX: Z12.31 Encounter for screening mammogram for malignant neoplasm of breast (principal); N62 Hypertrophy of breast; M54.2 Cervicalgia; G89.29 Other chronic pain; M54.6 Pain in thoracic spine; M25.519 Pain in unspecified shoulder; L30.4 Erythema intertrigo
CPT/HCPCS: 77063; 77067

== ENCOUNTER 2021-02-21 16:08 | Emergency (ER) | payer MEDICAID, SELFPAY ==
[2021-02-21 16:08] VITALS: BP 149/81; PULSE 73; RESP 15; TEMP 36.6; O2SAT 96; BMI 24.8
--- NOTE | 2021-02-21 16:20 | RAD_ITS ---
STUDY: X-RAY - PELVIS AND RIGHT HIP REASON FOR EXAM: Female, 41 years old. pain TECHNIQUE: 3 views of the pelvis and hip. COMPARISON: None. FINDINGS: There is a non-specific bowel gas pattern. Normal visualized soft tissue structures. No visualized fracture or avascular necrosis. Normal bilateral iliac wings, sacroiliac joints and visualized sacrum. Normal bilateral superior and inferior pubic rami. Normal pubic symphysis. Normal bilateral ischial tuberosities. Normal visualized femoral head. Normal acetabulum. Normal hip joint. RAD/HIP, UNI W/ Pelvis 2-3 Views IMPRESSION: Normal x-ray examination of the pelvis and hip. Electronically Signed: Imer Vanessa MD at 17:05 EDT , Service support ,
--- NOTE | 2021-02-21 16:21 | ED.VIS.LOWEX ---
HPI History of Present Illness Chief Complaint: Lower Extremity Injury Detail of Chief Complaint: Right hip pain since yesterday Informant: patient Narrative Narrative: Patient presents to the emergency department complaint of pain in her right hip. Patient states that it feels like it needs to pop. She describes pain radiating down her leg to her foot at times. Patient denies any injury to the hip. She also has some lower back pain at times. She denies change in bowel or bladder function. She denies weakness in extremity. She denies urinary symptoms. Patient has history of lupus. [facility] Medical History (Updated 02/21/21 @ 17:[address] Arnold Cabrera, DO) Abdominal panniculus Allergies Anxiety and depression Atrial fibrillation Chronic bronchitis Chronic neck pain Chronic thoracic back pain Depression (emotion) Diastasis of rectus abdominis Environmental allergies Gastrointestinal problem GERD (gastroesophageal reflux disease) Goiter Hypertension IBS (irritable bowel syndrome) Intertrigo Laxity of skin Low back pain Lupus Lupus Macromastia Obsessive compulsive disorder Recent weight loss Rheumatoid arthritis Shoulder pain Thyroid disorder Home Medications levothyroxine 150 mcg PO DAILY 03/16/14 [History Last Taken 03/16/20 06:35] bupropion HCl 300 mg PO DAILY 04/29/17 [History Last Taken Unknown] lisdexamfetamine 30 mg PO DAILY 04/29/17 [History Last Taken Unknown] citalopram 20 mg tablet 20 mg PO DAILY 06/09/18 [History Last Taken Unknown] metoprolol succinate 25 mg tablet,extended release 24 hr 25 mg PO DAILY 06/09/18 [History Last Taken 03/16/20] methotrexate sodium 20 mg PO QWEEK 11/25/18 [History Last Taken Unknown] folic acid 1 mg tablet 1 mg PO DAILY 03/08/20 [History Last Taken Unknown] hydroxyzine HCl 25 mg tablet 25 mg PO TID PRN 03/08/20 [History Last Taken Unknown] trazodone 150 mg PO QHS 03/12/20 [History Last Taken Unknown] ascorbic acid 1,000 [id number]-[id number] powder effervescent pack 1 ea PO DAILY ea 06/21/20 [History Last Taken Unknown] multivitamin 1 tab PO DAILY 06/21/20 [History Last Taken Unknown] tizanidine 4 mg tablet 4 mg PO Q8H PRN 06/21/20 [History Last Taken Unknown] adalimumab 40 mg SQ Q14D 08/17/20 [History Last Taken Unknown] cephalexin 500 mg PO Q6 #28 cap 08/17/20 [Rx Last Taken Unknown] cyclobenzaprine 10 mg PO TID PRN #20 tablet 02/21/21 [Rx Last Taken Unknown] hydrocodone-acetaminophen 1 tab PO Q4H PRN PRN 2 Days #10 tablet 02/21/21 [Rx Last Taken Unknown] Allergy/AdvReac Type Severity Reaction Status Date / Time benzocaine Allergy Unknown unknown Verified 02/21/21 16:10 Family History Mother Arthritis Diabetes Heart disease Ulcer Anxiety History of blood transfusion Father Hypertension High cholesterol Cancer Brother Asthma Diabetes Heart disease Hypertension CVA (cerebral vascular accident) High cholesterol Surgical History History of cholecystectomy History of esophagogastroduodenoscopy (EGD) (~2013) HISTORY OF FISTULOTOMY History of hysterectomy History of unilateral oophorectomy Social History (Updated 07/19/20 @ 11:[address] Mohinder Marrero MD) Smoking Status: Current every day smoker alcohol intake: never substance use type: does not use additional social history: DOES NOT USE ASPIRIN DOES USE IBUPROFEN NEEDED ROS ROS ED Constitutional Constitutional ED: Reports systems reviewed and no addt'l complaints, except as documented; Denies body ache(s), change in weight or chills Eyes Eyes: Denies acute decrease in peripheral vision, change in vision, double vision or loss of vision ENT ENT ED: Reports none; Denies ear pain, lip swelling, loss taste/smell, neck pain, otalgia or sore throat Cardiovascular Cardiovascular: Reports none; Denies abdominal pain, chest pain with activity, leg edema, lightheadedness, palpitations, rapid heart rate or syncope Respiratory/Chest Respiratory/Chest: Reports none; Denies change in mental status, dry cough, dyspnea, hemoptysis, shortness of breath at rest or shortness of breath with exertion Gastrointestinal Gastrointestinal: Reports none; Denies abdominal pain, change in stool character, diarrhea, hematemesis, hematochezia, melena, rectal bleeding or vomiting Genitourinary Genitourinary ED: Reports none; Denies abdominal discomfort, anuria, dysuria, genital pain or polyuria Musculoskeletal Musculoskeletal: Reports none and other Details: Right hip pain ; Denies arthralgias, back pain, difficulty walking, extremity pain, muscle weakness or myalgias Integumentary Reports none; Denies abscess or rash Neurologic Neurologic: Reports none; Denies abnormal gait, confusion, focal weakness, frequent falls, headache(s), loss of vision, numbness, paresthesias, radicular pain, vertigo or weakness Psychiatric Psychiatric: Reports systems reviewed and no addt'l complaints, except as documented and none; Denies behavioral changes, confusion, difficulty concentrating, hallucinations, suicidal ideation, tactile hallucinations or visual hallucinations Endocrine Endocrinology: Denies none, cold intolerance, excessive sweating, fatigue or heat intolerance Hematologic/Lymphatic Hematologic/Lymphatic: Reports none; Denies anemia, easy bleeding or easy bruising Allergic/Immunologic Allergic/Immunologic ED: Denies as per HPI, none, lip swelling, mouth swelling, throat swelling, tongue swelling or hives EXAM Physical Exam Const Vital Signs: 02/21/21 16:08 Temperature 97.9 F Temperature Source Temporal Pulse Rate 73 Respiratory Rate 15 Blood Pressure 149/81 H Blood Pressure Mean 103 Pulse Ox 96 Oxygen Delivery Method Room Air Positive well nourished and well developed General Appearance ED: well developed and NAD HEENT Reports TM's clear and moist mucous membranes normocephalic and atraumatic; Negative for trauma or tenderness Tympanic Membrane ED: Yes TM's clear Eyes PERRL and EOMs intact bilaterally General Eye ED: Negative for pale conjunctiva or scleral icterus Neck no lymphadenopathy, supple and no JVD General: Negative for tenderness Chest Wall inspection of chest normal and palpation of chest normal Chest: Negative for tenderness Resp normal respiratory effort and clear to auscultation bilaterally Effort and Inspection: Negative for respiratory distress or pain with movement Auscultation: Negative for rhonchi, wheezes or diminished lung sounds Cardio regular rate, regular rhythm, S1 normal heart sound, S2 normal heart sound and no murmurs Peripheral Pulses: pulses 2+ throughout GI normal to inspection, nondistended, normoactive bowel sounds, soft to palpation, non-tender, non-distended and no masses Back/Spine no CVA tenderness and no thoracic nor lumbar tenderness Back/Spine Narrative: No tenderness over the thoracic or lumbar spine noted. Patient has a positive straight leg raise with pain at about 60 degrees on the right while seated. Patient has normal deep tendon reflexes plus 2 out of 4 bilaterally at the patella Achilles. Patient has normal 5 extension bilaterally. Patient has normal sensation to light touch. Extremity normal to inspection Extremity Narrative: Evaluation of the right hip reveals tenderness palpation over the hip joint itself. There is no shortening or external rotation. No erythema or warmth noted over the area. General Extremety ED: Negative for edema General Extremity: Negative for edema Right Lower Extremity: hip joint Neuro oriented x3, CN's II-XII intact bilaterally, no sensory deficits noted and gait normal Sensorium / Orientation: awake, alert, oriented to person, oriented to place and oriented to time Motor Exam: strength 5/5 throughout and strength abnormal Psych mental status grossly normal Skin no rashes or lesions noted and no wounds MDM MDM MDM Narrative Medical decision making narrative: X-rays the patient had hip and pelvis are normal as interpreted by myself and radiology. This point etiology of her pain is unclear. I suspect she could have bursitis versus sciatica as possible etiologies. Patient will be given a prescription for [place] and Flexeril. She is advised to follow-up with her primary care physician within next 5 to 7 days. She is advised to return if worsening pain, weakness in extremity, change in bowel or bladder function, or condition should worsen anyway. Radiography Diagnostic Testing: Radiology Impression Hip/Pelvis X-Ray 02/21/21 16:20 IMPRESSION: Normal x-ray examination of the pelvis and hip. Electronically Signed: Imer Vanessa MD at 17:05 EDT , Service support , X-rays of right hip and pelvis obtained, 3 views. X-rays interpreted by myself as no acute fractures. Radiology felt x-rays also were normal. Discharge Plan Triage Chief Complaint: Lower Extremity Injury ED Provider: Arnold Cabrera Dx/Rx/DC Orders Clinical Impression: Acute pain of right hip Instructions: ED Hip Strain, ED Sciatica Prescriptions: New cyclobenzaprine [cyclobenzaprine] 10 MG tablet 10 mg PO TID PRN (Reason: Muscle Spasm) Qty: 20 RF: 0 hydrocodone-acetaminophen [hydrocodone-acetaminophen] 1 TABLET tablet 1 tab PO Q4H PRN PRN (Reason: Pain) 2 Days Qty: 10 RF: 0 No Action citalopram [Celexa] 20 mg tablet 20 mg PO DAILY RF: 0 metoprolol succinate [Toprol XL] 25 mg tablet extended release 24 hr 25 mg PO DAILY RF: 0 hydroxyzine HCl 25 mg tablet 25 mg PO TID PRN (Reason: Anxiety) RF: 0 folic acid 1 mg tablet 1 mg PO DAILY RF: 0 tizanidine [Zanaflex] 4 mg tablet 4 mg PO Q8H PRN (Reason: Muscle Spasm) RF: 0 multivitamin [Daily Multi-Vitamin] Tablet 1 tab PO DAILY RF: 0 Emergen-C 1,000 mg powder effervescent in packet 1 ea PO DAILY RF: 0 levothyroxine 150 MCG tablet 150 mcg PO DAILY RF: 0 bupropion HCl 150 MG tablet sustained-release 12 hr 300 mg PO DAILY RF: 0 lisdexamfetamine 20 MG capsule 30 mg PO DAILY RF: 0 methotrexate sodium 2.5 MG tablet 20 mg PO QWEEK RF: 0 trazodone 50 MG tablet 150 mg PO QHS RF: 0 adalimumab 40 MG/0.8 ML syringe kit 40 mg SQ Q14D RF: 0 cephalexin 500 MG capsule 500 mg PO Q6 Qty: 28 RF: 0 Primary Care Provider: Porter Tamez NP Referrals: Porter Tamez NP, INVESTIGATIVE [employer] SPECIALIST[facility] [Primary Care Provider] - 5-7 Days Disposition Disposition: Home, Self Care
== END 2021-02-21 17:43 | disposition home or self-care (01) ==
PROVIDERS: Emergency Provider Emergency Medicine; PCP Nurse Practitioner Primary Care
DX: M25.551 Pain in right hip (principal); F17.200 Nicotine dependence, unspecified, uncomplicated
CPT/HCPCS: 73502; 99282

== ENCOUNTER 2021-08-23 20:04 | Emergency (ER) | payer MEDICAID, SELFPAY ==
[2021-08-23 20:05] VITALS: BP 115/93; PULSE 78; RESP 15; TEMP 36.2; O2SAT 94; BMI 27.1
--- NOTE | 2021-08-23 20:22 | EKG12_ITS ---
Test Reason : CHEST TIGHTNESS Blood Pressure : / mmHG Vent. Rate : 072 BPM Atrial Rate : 072 BPM P-R Int : 162 ms QRS Dur : 092 ms QT Int : 386 ms P-R-T Axes : 033 076 090 degrees QTc Int : 422 ms Normal sinus rhythm Low voltage QRS Nonspecific T wave abnormality Abnormal ECG Confirmed by EDELMIRA DESOUZA, MIGUEL ([id number]), continuity editor RADHA PARK ([id number]) on 08/28/2021 11:25:54 AM Referred By: KADIE Confirmed By:MIGUEL HICKEY MD
--- NOTE | 2021-08-23 20:25 | RAD_ITS ---
EXAM: XR CHEST, 1 VIEW CLINICAL INDICATION: cough TECHNIQUE: Frontal view of the chest. This report was created using [employer] report generation technology. COMPARISON: None. FINDINGS: LUNGS AND PLEURAL SPACES: Unremarkable. No consolidation or edema. No pneumothorax. No effusion. HEART: Unremarkable. Cardiac silhouette not enlarged. MEDIASTINUM: Central airways and mediastinal contour are unremarkable. BONES/JOINTS: Unremarkable. SOFT TISSUES: Unremarkable. RAD/Chest 1 View (Portable) IMPRESSION: No radiographic evidence of acute cardiopulmonary disease. Electronically Signed: Genaro Rosenberg MD at 20:49 EST , Service support ,
[2021-08-23 20:58] LABS: Absolute Lymphocyte Count 4.14 X10^3/uL (0.83-4.51); Absolute Neutrophil Count 3.1 X10^3/uL (2.0-7.7); Basophil# 0.03 X10^3/uL; Basophil% 0.4 % (0-1); Eosinophil# 0.06 X10^3/uL; Eosinophils% 0.7 % (0-5); Hematocrit 34.9 % (37-47); Hemoglobin 11.7 g/dL (12.0-15.0); Lymphocyte # 4.14 X10^3/ul (0.83-4.51); Lymphocyte % 50.6 % (19-41); Mean Corp Hgb Conc 33.5 g/dL (32-36); Mean Corpuscular Hgb 31.5 pg (27.0-32.0); Mean Corpuscular Volume 94.1 fL (81-99); Mean Platelet Vol. 9.7 fl (6.2-12.0); Monocyte# 0.81 X10^3/uL; Monocyte% 9.9 % (0-10); NRBC Flagged by Analyzer 0 % (0-5); Neutrophil # 3.13 X10^3/uL (2.7-7.7); Neutrophil % 38.3 % (47-70); Platelet Count 298 K/mm3 (150-450); RBC Distribution Width CV 11.9 % (11.6-14.6); RBC Distribution Width SD 41.1 fl (35.1-43.9); Red Blood Count 3.71 M/mm3 (4.2-5.4); White Blood Count 8.2 K/mm3 (4.4-11.0)
[2021-08-23 21:18] LABS: Anion Gap 5 (5-15); BUN 12 mg/dL (7-18); BUN/Creat Ratio 14.5 RATIO (10-20); Calcium,Total 8.8 mg/dL (8.5-10.1); Chloride 107 mmol/L (98-107); Creatinine, Serum 0.83 mg/dL (0.55-1.02); EST Glomerular Filtration Rate 80 mL/min (>60); Est Glom Filt Rate - Afr Amer 97 mL/min (>60); Estimated Creatinine Clearance 97.68 ml/min; Glucose 81 mg/dL (74-106); Potassium 3.7 mmol/L (3.5-5.1); Sodium Level 140 mmol/L (136-145)
[2021-08-23 21:28] VITALS: RESP 18; O2SAT 97
[2021-08-23 21:29] VITALS: O2SAT 97
--- NOTE | 2021-08-23 21:48 | EX.ED.VIS.UR ---
HPI HPI - URI History of Present Illness Chief Complaint: Cough Narrative Narrative: 41-year-old female presenting with cough which has been present since she started developing symptoms of COVID-19 on the . She was not vaccinated and did not get monoclonal antibodies by her own choice. She states she has been taking Robitussin for cough this whole time and it is not helping with cough. She is not describing any fevers, chills, body aches that have been persistent. She has lost her taste and smell which is still not present. No chest pain. No nausea, vomiting, diarrhea. No abdominal pain. No vaginal complaints or urinary complaints. ROS ROS ED Constitutional Constitutional ED: Denies chills, fever(s) or subjective Eyes Eyes: Denies blurry vision or diplopia ENT ENT ED: Reports other Details: Loss of taste and smell ; Denies rhinorrhea or sore throat Cardiovascular Cardiovascular: Denies chest pain or palpitations Respiratory/Chest Respiratory/Chest: Reports cough Gastrointestinal Gastrointestinal: Denies abdominal pain, nausea or vomiting Genitourinary Genitourinary ED: Denies dysuria or hematuria Musculoskeletal Musculoskeletal: Denies arthralgias or myalgias Integumentary Denies Abrasions or rash Neurologic Neurologic: Denies headache(s), paresthesias or weakness PFSH PFS Medical History Abdominal panniculus Allergies Anxiety and depression Atrial fibrillation Chronic bronchitis Chronic neck pain Chronic thoracic back pain Depression (emotion) Diastasis of rectus abdominis Environmental allergies Gastrointestinal problem GERD (gastroesophageal reflux disease) Goiter Hypertension IBS (irritable bowel syndrome) Intertrigo Laxity of skin Low back pain Lupus Lupus Macromastia Obsessive compulsive disorder Recent weight loss Rheumatoid arthritis Shoulder pain Thyroid disorder Home Medications levothyroxine 150 mcg PO DAILY 03/16/14 [History Last Taken 03/16/20 06:35] bupropion HCl 300 mg PO DAILY 04/29/17 [History Last Taken Unknown] lisdexamfetamine 30 mg PO DAILY 04/29/17 [History Last Taken Unknown] citalopram 20 mg tablet 20 mg PO DAILY 06/09/18 [History Last Taken Unknown] metoprolol succinate 25 mg tablet,extended release 24 hr 25 mg PO DAILY 06/09/18 [History Last Taken 03/16/20] methotrexate sodium 20 mg PO QWEEK 11/25/18 [History Last Taken Unknown] folic acid 1 mg tablet 1 mg PO DAILY 03/08/20 [History Last Taken Unknown] hydroxyzine HCl 25 mg tablet 25 mg PO TID PRN 03/08/20 [History Last Taken Unknown] trazodone 150 mg PO QHS 03/12/20 [History Last Taken Unknown] ascorbic acid 1,000 ok-muhvnomttaio-eidmeifl powder effervescent pack 1 ea PO DAILY ea 06/21/20 [History Last Taken Unknown] multivitamin 1 tab PO DAILY 06/21/20 [History Last Taken Unknown] tizanidine 4 mg tablet 4 mg PO Q8H PRN 06/21/20 [History Last Taken Unknown] adalimumab 40 mg SQ Q14D 08/17/20 [History Last Taken Unknown] cephalexin 500 mg PO Q6 #28 cap 08/17/20 [Rx Last Taken Unknown] cyclobenzaprine 10 mg PO TID PRN #20 tablet 02/21/21 [Rx Last Taken Unknown] hydrocodone-acetaminophen 1 tab PO Q4H PRN PRN 2 Days #10 tablet 02/21/21 [Rx Last Taken Unknown] Allergy/AdvReac Type Severity Reaction Status Date / Time benzocaine Allergy Unknown unknown Verified 08/23/21 20:05 Family History Mother Arthritis Diabetes Heart disease Ulcer Anxiety History of blood transfusion Father Hypertension High cholesterol Cancer Brother Asthma Diabetes Heart disease Hypertension CVA (cerebral vascular accident) High cholesterol Surgical History History of cholecystectomy History of esophagogastroduodenoscopy (EGD) (~2013) HISTORY OF FISTULOTOMY History of hysterectomy History of unilateral oophorectomy Social History Smoking Status: Former smoker alcohol intake: never substance use type: does not use additional social history: DOES NOT USE ASPIRIN DOES USE IBUPROFEN NEEDED EXAM Physical Exam Const Vital Signs: 08/23/21 20:05 08/23/21 21:28 08/23/21 21:29 Temperature 97.1 F L Temperature Source Temporal Pulse Rate 78 Respiratory Rate 15 18 Respiratory Effort Normal Blood Pressure 115/93 H Blood Pressure Mean 100 Pulse Ox 94 97 Oxygen Delivery Method Room Air Room Air Room Air Positive well nourished General Appearance ED: NAD; Negative for pallor HEENT Reports moist mucous membranes normocephalic and atraumatic Eyes PERRL and EOMs intact bilaterally Neck supple and no meningeal signs Resp normal respiratory effort and clear to auscultation bilaterally Cardio Rate: regular rate Rhythm: regular rhythm GI non-tender Palpation: soft Neuro oriented x3 and CN's II-XII intact bilaterally Sensorium / Orientation: alert Motor Exam: strength 5/5 throughout Psych mental status grossly normal Skin General Skin Exam: Negative for jaundice or pallor Lesions: no lesions Rashes: no rashes MDM MDM MDM Narrative Medical decision making narrative: Patient is well-appearing. She is complaining only of persistent cough. Her heart rate is 78, respiratory 15, pulse ox 94 to 97% on room air. She is afebrile. Her blood pressure is 115/93. She does not appear dehydrated. Her chest x-ray today shows no acute cardiopulmonary process and the radiologist does agree with my interpretation. CBC shows no leukocytosis. Hemoglobin is 11.7 and near baseline. Platelets are normal at 298. BMP shows a normal creatinine and electrolytes. Patient had an EKG performed in the waiting room as a protocol which is my interpretation shows a normal sinus rhythm ventricular to 72 bpm without sign of ischemic change. I do not believe she needs a troponin but she is not having chest pain. Again she is only complaining of cough. Patient counseled it may take some time for her symptoms to resolve but that her blood work looks pretty normal. Her EKG is also unremarkable. Her chest x-ray shows no sign of pneumonia. I believe she safe for discharge home and follow-up with her primary care doctor. Impression: 1. Pneumonia history of COVID-19 2. Cough Lab Data Labs: Laboratory Results - last 24 hr 08/23/21 08/23/21 20:33 20:33 WBC 8.2 RBC 3.71 L Hgb 11.7 L Hct 34.9 L MCV 94.1 MCH 31.5 MCHC 33.5 RDW Std Deviation 41.1 RDW Coeff of Jose Raul 11.9 Plt Count 298 MPV 9.7 Immature Gran % (Auto) 0.100 Neut % (Auto) 38.3 L Lymph % (Auto) 50.6 H Frederick % (Auto) 9.9 Eos % (Auto) 0.7 Baso % (Auto) 0.4 Absolute Neuts (auto) 3.1 Absolute Lymphs (auto) 4.14 Nucleated RBC % 0 Sodium 140 Potassium 3.7 Chloride 107 Carbon Dioxide 28.0 Anion Gap 5 BUN 12 Creatinine 0.83 Estim Creat Clear Calc 97.68 Est GFR (MDRD) Af Amer 97 Est GFR (MDRD) Non-Af 80 BUN/Creatinine Ratio 14.5 Glucose 81 Calcium 8.8 Radiography Diagnostic Testing: Clinical Impression(s) from Imaging Studies Chest X-Ray 08/23/21 20:25 IMPRESSION: No radiographic evidence of acute cardiopulmonary disease. Electronically Signed: Genaro Rosenberg MD at 20:49 EST , Service support , Discharge Plan Triage Chief Complaint: Cough ED Provider: Shelton Rai Dx/Rx/DC Orders Instructions: Coronavirus Disease 2019 (COVID-19): Caring for Yourself or Others Prescriptions: No Action citalopram [Celexa] 20 mg tablet 20 mg PO DAILY RF: 0 metoprolol succinate [Toprol XL] 25 mg tablet extended release 24 hr 25 mg PO DAILY RF: 0 hydroxyzine HCl 25 mg tablet 25 mg PO TID PRN (Reason: Anxiety) RF: 0 folic acid 1 mg tablet 1 mg PO DAILY RF: 0 tizanidine [Zanaflex] 4 mg tablet 4 mg PO Q8H PRN (Reason: Muscle Spasm) RF: 0 multivitamin [Daily Multi-Vitamin] Tablet 1 tab PO DAILY RF: 0 Emergen-C 1,000 mg powder effervescent in packet 1 ea PO DAILY RF: 0 levothyroxine 150 MCG tablet 150 mcg PO DAILY RF: 0 bupropion HCl 150 MG tablet sustained-release 12 hr 300 mg PO DAILY RF: 0 lisdexamfetamine 20 MG capsule 30 mg PO DAILY RF: 0 methotrexate sodium 2.5 MG tablet 20 mg PO QWEEK RF: 0 trazodone 50 MG tablet 150 mg PO QHS RF: 0 adalimumab 40 MG/0.8 ML syringe kit 40 mg SQ Q14D RF: 0 cephalexin 500 MG capsule 500 mg PO Q6 Qty: 28 RF: 0 cyclobenzaprine [cyclobenzaprine] 10 MG tablet 10 mg PO TID PRN (Reason: Muscle Spasm) Qty: 20 RF: 0 hydrocodone-acetaminophen [hydrocodone-acetaminophen] 1 TABLET tablet 1 tab PO Q4H PRN PRN (Reason: Pain) 2 Days Qty: 10 RF: 0 Primary Care Provider: Myesha Saunders Referrals: Myesha Saunders MD [Primary Care Provider] - Disposition Disposition: Home, Self Care
== END 2021-08-23 22:06 | disposition home or self-care (01) ==
PROVIDERS: Emergency Provider Student in an Organized Health Care Education/Training Program; PCP Internal Medicine; Visit Provider Student in an Organized Health Care Education/Training Program
DX: J18.9 Pneumonia, unspecified organism (principal); M06.9 Rheumatoid arthritis, unspecified; I48.91 Unspecified atrial fibrillation; Z87.891 Personal history of nicotine dependence; F41.9 Anxiety disorder, unspecified; F32.A Depression, unspecified; G89.29 Other chronic pain; K21.9 Gastro-esophageal reflux disease without esophagitis; I10 Essential (primary) hypertension; K58.9 Irritable bowel syndrome, unspecified; F42.9 Obsessive-compulsive disorder, unspecified; E07.9 Disorder of thyroid, unspecified; Z79.899 Other long term (current) drug therapy; Z86.16 Personal history of COVID-19
CPT/HCPCS: 71045; 80048; 85025; 93005; 94760; 99282; A4216

== ENCOUNTER 2022-04-11 15:10 | Emergency (ER) | payer MEDICAID, SELFPAY ==
[2022-04-11 15:11] VITALS: BP 124/76; PULSE 82; RESP 16; TEMP 35.9; O2SAT 97; BMI 27.3
[2022-04-11 15:14] VITALS: BP 124/76; PULSE 82; RESP 16; TEMP 35.9; O2SAT 97
--- NOTE | 2022-04-11 15:32 | EDS_ITS ---
HPI History of Present Illness Chief Complaint: Lower Extremity Injury Detail of Chief Complaint: Atraumatic left knee pain and swelling Informant: patient Occured/Mechanism Comment: Not applicable Onset/Context/Timing Onset: Days (3 days ago) Timing: Continuous Quality of Pain: Dull and Aching Location: Left knee Current Severity: Mild Maximum Severity: Severe Worsened by: Flexion, weightbearing and palpation the popliteal fossa Relieved by: Improves with rest Associated Symptoms Associated Symptoms: Negative for Parasthesia, Weakness or Loss of Funtion Narrative Narrative: Patient is a 42-year-old woman with history of lupus who presents with atraumatic left knee pain and swelling that started 3 days ago. She had limited range of motion because of pain. She denies history of gout or pseudogout. She states she has not had lupus flare involving her joints. She not noticed a rash. She denies history of ulcers, kidney disease, hypertension or diabetes. She denies paresthesia, anesthesia or motor weakness. Prior similar symptoms: No Recent Illness/Hospitalization: No PFSH PFS Medical History Abdominal panniculus Allergies Anxiety and depression Atrial fibrillation Chronic bronchitis Chronic neck pain Chronic thoracic back pain Depression (emotion) Diastasis of rectus abdominis Environmental allergies Gastrointestinal problem GERD (gastroesophageal reflux disease) Goiter Hypertension IBS (irritable bowel syndrome) Intertrigo Laxity of skin Low back pain Lupus Lupus Macromastia Obsessive compulsive disorder Recent weight loss Rheumatoid arthritis Shoulder pain Thyroid disorder Home Medications levothyroxine 150 mcg tablet 150 mcg PO DAILY 03/16/14 [History Last Taken 03/16/20 06:35] bupropion HCl 150 mg tablet,12 hr sustained-release 300 mg PO DAILY 04/29/17 [History Last Taken Unknown] lisdexamfetamine 20 mg capsule 30 mg PO DAILY 04/29/17 [History Last Taken Un known] citalopram 20 mg tablet (Celexa) 20 mg PO DAILY 06/09/18 [History Last Taken Unknown] metoprolol succinate 25 mg tablet,extended release 24 hr (Toprol XL) 25 mg PO DAILY 06/09/18 [History Last Taken 03/16/20] methotrexate sodium 2.5 mg tablet 20 mg PO QWEEK 11/25/18 [History Last Taken Unknown] folic acid 1 mg tablet 1 mg PO DAILY 03/08/20 [History Last Taken Unknown] hydroxyzine HCl 25 mg tablet 25 mg PO TID PRN Anxiety 03/08/20 [History Last Taken Unknown] trazodone 50 mg tablet 150 mg PO QHS 03/12/20 [History Last Taken Unknown] ascorbic acid 1,000 [id number] powder effervescent pack (Emergen- C) 1 ea PO DAILY 06/21/20 [History Last Taken Unknown] multivitamin (Daily Multi-Vitamin tablet) 1 tab PO DAILY 06/21/20 [History Last Taken Unknown] tizanidine 4 mg tablet (Zanaflex) 4 mg PO Q8H PRN Muscle Spasm 06/21/20 [History Last Taken Unknown] adalimumab 40 mg/0.8 mL subcutaneous syringe kit 40 mg SQ Q14D 08/17/20 [History Last Taken Unknown] cephalexin 500 mg capsule 500 mg PO Q6 #28 caps 08/17/20 [Rx Last Taken Unknown] cyclobenzaprine 10 mg tablet 10 mg PO TID PRN Muscle Spasm #20 TABLETS 02/21/21 [Rx Last Taken Unknown] hydrocodone-acetaminophen 5-325mg 5mg-325mg 1 tab PO Q4H PRN PRN Pain 2 days #10 TABLETS 02/21/21 [Rx Last Taken Unknown] Allergy/AdvReac Type Severity Reaction Status Date / Time benzocaine Allergy Unknown unknown Verified 08/23/21 20:05 Family History Mother Arthritis Diabetes Heart disease Ulcer Anxiety History of blood transfusion Father Hypertension High cholesterol Cancer Brother Asthma Diabetes Heart disease Hypertension CVA (cerebral vascular accident) High cholesterol Surgical History History of cholecystectomy History of esophagogastroduodenoscopy (EGD) (~2013) HISTORY OF FISTULOTOMY History of hysterectomy History of unilateral oophorectomy Social History (Updated 04/11/22 @ 15:[address] Aman Baltazar MD) household members: spouse Smoking Status: Former smoker alcohol intake: never substance use type: does not use additional social history: DOES NOT USE ASPIRIN DOES USE IBUPROFEN NEEDED ROS ROS ED Constitutional Constitutional ED: Denies chills, fever(s), subjective, sweats or weight loss Cardiovascular Cardiovascular: Denies chest pain or palpitations Respiratory/Chest Respiratory/Chest: Denies cough or dyspnea Gastrointestinal Gastrointestinal: Denies nausea or vomiting Musculoskeletal Musculoskeletal: Reports other Details: Per HPI narrative ; Denies arthralgias, back pain, myalgias or neck pain Integumentary Denies rash Neurologic Neurologic: Denies paresthesias or weakness Hematologic/Lymphatic Hematologic/Lymphatic: Denies easy bleeding or easy bruising EXAM Physical Exam Const Vital Signs: 04/11/22 15:11 04/11/22 15:14 Temperature 96.7 F L 96.7 F L Temperature Source Temporal Temporal Pulse Rate 82 82 Respiratory Rate 16 16 Blood Pressure 124/76 H 124/76 H Blood Pressure Mean 92 92 Pulse Ox 97 97 Oxygen Delivery Method Room Air Room Air Positive well nourished and well developed General Appearance ED: well developed and NAD HEENT HEENT Narrative: Head is atraumatic no cephalic. Ears normal. Nares patent. Mucosa moist. Eyes Eyes Narrative: Pupils equal round and reactive to light. Extract muscle intact. Neck full ROM Resp normal respiratory effort Cardio regular rate and regular rhythm Extremity Extremity Narrative: There is swelling of th left knee. The patellas not blottable. There is no effusion. Patient able to extend 208 degrees and flex to only 100 degrees. She does have fullness in the popliteal fossa. There is no mass or pulsatile mass. She complains of joint line tenderness. There is pain with valgus stress testing but there is no laxity. There is no discomfort with varus stress testing. Unable to perform Emmett's test. Modified David's test was negative. DP pulses palpable. There is no evidence of trauma. There is no rash. Neuro oriented x3, CN's II-XII intact bilaterally, moves all extremities and no sensory deficits noted Sensorium / Orientation: alert Motor Exam: strength 5/5 throughout Psych Psych Narrative: Mood and affect are normal. Skin no wounds Lesions: no lesions Rashes: no rashes MDM MDM MDM Narrative Medical decision making narrative: Patient with atraumatic effusion of the knee. This may represent degenerative meniscus disease, doubt crystal induced or pyogenic arthritis. Will obtain x- ray and patient was medicated with Toradol. Radiography X-Ray: Read by ED Physician (4 view x-ray of the left knee was obtained interpreted independent by me as positive for an effusion. There is no abnormality osseous structures. There is no abnormal calcification. There is no malalignment.) Discharge Plan Triage Chief Complaint: Lower Extremity Injury ED Provider: Aman Baltazar Dx/Rx/DC Orders Clinical Impression: Effusion of knee joint, left Instructions: ED Knee Effusion Prescriptions: No Action citalopram [Celexa] 20 mg tablet 20 mg PO DAILY metoprolol succinate [Toprol XL] 25 mg tablet extended release 24 hr 25 mg PO DAILY hydroxyzine HCl 25 mg tablet 25 mg PO TID PRN (Reason: Anxiety) folic acid 1 mg tablet 1 mg PO DAILY tizanidine [Zanaflex] 4 mg tablet 4 mg PO Q8H PRN (Reason: Muscle Spasm) multivitamin [Daily Multi-Vitamin] Tablet 1 tab PO DAILY Emergen-C 1,000 mg powder effervescent in packet 1 ea PO DAILY levothyroxine 150 MCG tablet 150 mcg PO DAILY bupropion HCl 150 MG tablet sustained-release 12 hr 300 mg PO DAILY lisdexamfetamine 20 MG capsule 30 mg PO DAILY methotrexate sodium 2.5 MG tablet 20 mg PO QWEEK Label Comments: Take 3 tablets the first week, then 6 tablets every week thereafter. Rx Instructions: 4 in morning and 4 in evening on trazodone 50 MG tablet 150 mg PO QHS adalimumab 40 MG/0.8 ML syringe kit 40 mg SQ Q14D cephalexin 500 MG capsule 500 mg PO Q6 Qty: 28 0RF cyclobenzaprine [cyclobenzaprine] 10 MG tablet 10 mg PO TID PRN (Reason: Muscle Spasm) Qty: 20 0RF hydrocodone-acetaminophen [hydrocodone-acetaminophen] 1 TABLET tablet 1 tab PO Q4H PRN PRN (Reason: Pain) 2 Days Qty: 10 0RF Primary Care Provider: Myesha Saunders Referrals: Chapincito Brito DO [Med Staff - Active Staff] - 5-7 Days Myesha Saunders MD [Primary Care Provider] - Activity Restrictions/Additional Instructions: You may take either 4 Advil every 8 hours or 2 Aleve every 12 hours for the next 3 to [address] Chapincito Brito who is an orthopedic surgeon for follow-up since you have significant swelling and fluid involving your left knee.
--- NOTE | 2022-04-11 15:35 | RAD_ITS ---
STUDY: X-RAY - LEFT KNEE REASON FOR EXAM: Female, 42 years old. Injury/Pain TECHNIQUE: 4 view(s) of the knee. COMPARISON: None. FINDINGS: Please see the impression. RAD/Knee 4 or More Views IMPRESSION: No acute fracture or dislocation in the left knee. Mild to moderate tricompartmental osteoarthritis. Small suprapatellar joint effusion. Electronically Signed: Dominguez Navarro MD at 16:12 EDT ,
[2022-04-11 15:56] VITALS: RESP 16
[2022-04-11] MEDS: Ketorolac 30 MG/ML Syringe IM (15:57)
== END 2022-04-11 16:12 | disposition home or self-care (01) ==
PROVIDERS: Emergency Provider Emergency Medicine; PCP Internal Medicine; Visit Provider Emergency Medicine
DX: M25.462 Effusion, left knee (principal); M06.9 Rheumatoid arthritis, unspecified; Z87.891 Personal history of nicotine dependence; F42.9 Obsessive-compulsive disorder, unspecified; K21.9 Gastro-esophageal reflux disease without esophagitis; I10 Essential (primary) hypertension; F32.A Depression, unspecified; F41.9 Anxiety disorder, unspecified
CPT/HCPCS: 73564; 96372; 99281; A4216

== ENCOUNTER → 2023-02-13 | Outpatient (CLI) | payer MEDICAID, SELFPAY ==
--- NOTE | 2023-02-13 | CYSPIN_PTH ---
PATIENT: GABY MARTINEZ LOC: [facility] U#:[id number] AGE/SX: 43/F ROOM: RE02/13/[address]: Dr. Susan Rahman MD : 1980 BED: DIS: 02/13/2023 SPEC #: [id number] RECD: 02/16/23 12:46 STATUS: ALESIA VIERA #: [id number] ADRIANA: 02/13/23 00:[address]: Susan Rahman DEPT: CYTOLOGY RECD BY: Rick Hayward ENTERED: 02/16/23 12:46 SP TYPE: CYSPIN FL OTHR DR: Myesha Saunders MD Tissues: Urine Procedures: Pap Stain (control) Special Stain Group II Cytospin Fluid HEADER OPERATION: Not noted PRE-OP DIAGNOSIS: Gross hematuria TISSUE SUBMITTED: Urine for cytology DIAGNOSIS CYTOLOGY Urine for cytology (cytospin): Negative for high-grade urothelial carcinoma (NHGUC), Sravani System Category II. See comment. SJ:galdino 02/18/2023 COMMENT The specimen predominantly consists of squamous epithelial cells. The Sravani System for urine cytology diagnostic categorization was used in the evaluation of this case. CYTOLOGY STUDY Slides are reviewed. CYTOLOGY GROSS Received is 70 ml of gold cloudy fluid labeled with the patient's name and and designated per the requisition as urine. Submitted for cytology preparation. / galdino 02/16/2023 TC:4 CPT: 79067
[2023-02-13 16:21] LABS: Cytology, Body Fluid / CSF SEE PATHOLOGY REPORT
== END | disposition home or self-care (01) ==
PROVIDERS: PCP Internal Medicine; Referring Provider Urology; Visit Provider Urology
DX: R31.0 Gross hematuria (principal)
CPT/HCPCS: 88108; 88313

== ENCOUNTER 2023-03-23 12:22 | Emergency (ER) | payer MEDICAID, SELFPAY ==
[2023-03-23 12:23] VITALS: BP 132/82; PULSE 88; RESP 18; TEMP 36.6; O2SAT 98; BMI 27.3
--- NOTE | 2023-03-23 12:49 | EDS_ITS ---
HPI History of Present Illness Chief Complaint: Laceration Informant: patient and family Narrative Narrative: [id number]-[id number] presents laceration right pinky finger while doing dishes. States sponge and the glass when she was cleaning cut the lateral aspect of her finger. Bleeding controlled. No anticoagulants. Tetanus less than 5 years. Tetanus Immunization: <5 years [facility] Medical History Abdominal panniculus Allergies Anxiety and depression Atrial fibrillation Chronic bronchitis Chronic neck pain Chronic thoracic back pain Depression (emotion) Diastasis of rectus abdominis Environmental allergies Gastrointestinal problem GERD (gastroesophageal reflux disease) Goiter Hypertension IBS (irritable bowel syndrome) Intertrigo Laxity of skin Low back pain Lupus Lupus Macromastia Obsessive compulsive disorder Recent weight loss Rheumatoid arthritis Shoulder pain Thyroid disorder Home Medications levothyroxine 150 mcg tablet 150 mcg PO DAILY 03/16/14 [History Last Taken 03/16/20 06:35] bupropion HCl 150 mg tablet,12 hr sustained-release 300 mg PO DAILY 04/29/17 [History Last Taken Unknown] lisdexamfetamine 20 mg capsule 30 mg PO DAILY 04/29/17 [History Last Taken Unknown] citalopram 20 mg tablet (Celexa) 20 mg PO DAILY 06/09/18 [History Last Taken Unknown] metoprolol succinate 25 mg tablet,extended release 24 hr (Toprol XL) 25 mg PO DAILY 06/09/18 [History Last Taken 03/16/20] methotrexate sodium 2.5 mg tablet 20 mg PO QWEEK 11/25/18 [History Last Taken Unknown] folic acid 1 mg tablet 1 mg PO DAILY 03/08/20 [History Last Taken Unknown] hydroxyzine HCl 25 mg tablet 25 mg PO TID PRN Anxiety 03/08/20 [History Last Taken Unknown] trazodone 50 mg tablet 150 mg PO QHS 03/12/20 [History Last Taken Unknown] ascorbic acid 1,000 [id number]-[id number] powder effervescent pack (Emergen- C) 1 ea PO DAILY 06/21/20 [History Last Taken Unknown] multivitamin (Daily Multi-Vitamin tablet) 1 tab PO DAILY 06/21/20 [History Last Taken Unknown] adalimumab 40 mg/0.8 mL subcutaneous syringe kit 40 mg SQ Q14D 08/17/20 [History Last Taken Unknown] meloxicam 7.5 mg tablet (Mobic) 7.5 mg PO DAILY #14 tabs 04/23/22 [Rx Last Taken Unknown] Allergy/AdvReac Type Severity Reaction Status Date / Time bentyl Allergy Mild Rash Uncoded 03/23/23 12:50 Family History Mother Arthritis Diabetes Heart disease Ulcer Anxiety History of blood transfusion Father Hypertension High cholesterol Cancer Brother Asthma Diabetes Heart disease Hypertension CVA (cerebral vascular accident) High cholesterol Surgical History History of cholecystectomy History of esophagogastroduodenoscopy (EGD) (~2013) HISTORY OF FISTULOTOMY History of hysterectomy History of unilateral oophorectomy Social History household members: spouse Smoking Status: Former smoker alcohol intake: never substance use type: does not use additional social history: DOES NOT USE ASPIRIN DOES USE IBUPROFEN NEEDED ROS ROS ED Constitutional Constitutional ED: Denies chills, fever(s) or sweats Eyes Eyes: Denies change in vision ENT ENT ED: Denies dysphagia or sore throat Cardiovascular Cardiovascular: Denies chest pain, leg edema, palpitations or racing heartbeat Respiratory/Chest Respiratory/Chest: Denies cough, dyspnea or dyspnea on exertion Gastrointestinal Gastrointestinal: Denies abdominal pain, diarrhea, nausea or vomiting Genitourinary Genitourinary ED: Denies dysuria, hematuria or urinary frequency Musculoskeletal Musculoskeletal: Denies back pain, extremity pain or neck pain Integumentary Reports wounds; Denies rash Neurologic Neurologic: Denies headache(s), paresthesias or weakness EXAM Physical Exam Const Vital Signs: 03/23/23 12:23 Temperature 97.8 F Temperature Source Temporal Pulse Rate 88 Respiratory Rate 18 Blood Pressure 132/82 H Blood Pressure Mean 98 Pulse Ox 98 Oxygen Delivery Method Room Air Positive well nourished and well developed General Appearance ED: well developed and NAD HEENT Reports moist mucous membranes normocephalic and atraumatic Eyes PERRL, EOMs intact bilaterally and conjunctivae normal General Eye ED: Yes normal appearance of both eyes Neck no lymphadenopathy and supple General: Negative for tenderness Chest Wall Chest: Negative for tenderness Resp normal respiratory effort and normal air movement Effort and Inspection: symmetric chest movement; Negative for respiratory distress Cardio regular rate, regular rhythm and no murmurs Peripheral Pulses: pulses 2+ throughout GI normal to inspection, nondistended, normoactive bowel sounds and non-tender Palpation: Negative for guarding or rebound tenderness present Back/Spine no CVA tenderness and no thoracic nor lumbar tenderness Extremity Extremity Narrative: Right hand: 5cm Laceration along the ulnar aspect of the pinky noted to the base to the DIP joint. No midline involvement, able to extend and flex the digit. Bleeding controlled. General Extremety ED: Negative for edema or tenderness General Extremity: Negative for edema Neuro oriented x3 and no sensory deficits noted Sensorium / Orientation: awake and alert Skin no rashes or lesions noted and no wounds MDM MDM MDM Narrative Medical decision making narrative: Interventions / MDM: Differential diagnosis: Right finger laceration. Diagnosis considered but do not suspect: Foreign body however no radiopaque foreign body seen on x-ray. Tendon injury, however full range of motion extensor and flexor. My EKG interpretation: N/A Imaging independently reviewed and interpreted by myself: Three-view x-ray right pinky: No fractures no radiopaque foreign bodies. External documents reviewed: N/A Test considered but not ordered:N/A ED course: Patient 5 cm laceration lateral aspect of the right pinky x-ray negative. Patient wound copiously flushed and repaired using a total of 9, 5-0 nylon sutures wound care discussed with patient. AlumaFoam splint was placed to help with immobilization healing. She can follow-up with her PCP and. Plastics hand Dr. Marrero. to use Tylenol or Motrin as needed. All questions were answered. Procedure note: Verbal consent. Normal sterile conditions. 2 cc 1% lidocaine used for a Harvey metacarpal block, additional 3 cc for local block of the wound due to discomfort. Good analgesia was performed. Wound was flushed with a total of 500 cc normal saline fluid. Evaluation after anesthesia with full range of motion with flexor and extensor against resistance. There is no tendon exposure. Wound was closed using a total of 9, 5-0 nylon simple interrupted sutures with good approximation. Bacitracin dressing placed by myself. AlumaFoam splint placed by myself. Patient tolerated procedure well. Re-evaluation: stable Disposition discussed with patient/family/significant other: Case discussed with consulting clinician: N/A This note was generated with Dragon dictation software. It may contain incorrect words, spelling, and punctuation that were not noted in checking the note before signing. Discharge Plan Triage Chief Complaint: Laceration ED Provider: Haile Toledo Dx/Rx/DC Orders Clinical Impression: Laceration of finger of right hand Instructions: ED Laceration: All Closures Prescriptions: No Action citalopram [Celexa] 20 mg tablet 20 mg PO DAILY metoprolol succinate [Toprol XL] 25 mg tablet extended release 24 hr 25 mg PO DAILY hydroxyzine HCl 25 mg tablet 25 mg PO TID PRN (Reason: Anxiety) folic acid 1 mg tablet 1 mg PO DAILY multivitamin [Daily Multi-Vitamin] Tablet 1 tab PO DAILY Emergen-C 1,000 mg powder effervescent in packet 1 ea PO DAILY levothyroxine 150 MCG tablet 150 mcg PO DAILY bupropion HCl 150 MG tablet sustained-release 12 hr 300 mg PO DAILY lisdexamfetamine 20 MG capsule 30 mg PO DAILY methotrexate sodium 2.5 MG tablet 20 mg PO QWEEK Patient Comments: Take 3 tablets the first week, then 6 tablets every week thereafter. Rx Instructions: 4 in morning and 4 in evening on trazodone 50 MG tablet 150 mg PO QHS adalimumab 40 MG/0.8 ML syringe kit 40 mg SQ Q14D meloxicam [Mobic] 7.5 mg tablet 7.5 mg PO DAILY Qty: 14 0RF Rx Instructions: do not take in conjunction with topical NSAID. Primary Care Provider: Myesha Saunders Referrals: Mohinder Marrero MD [Med Staff - Active Staff] - 1 Week Myesha Saunders MD [Primary Care Provider] - 1 Week Activity Restrictions/Additional Instructions: Total of 9 sutures placed to your pinky. Wound care as discussed. Use the splint to allow healing. Follow-up with your doctor Dr. Marrero for wound check, sutures likely to stay for couple weeks. Tylenol or ibuprofen as needed every 6 hours. Disposition Disposition: Home, Self Care Discharge Date/Time: 03/23/23 14:29
--- NOTE | 2023-03-23 12:57 | RAD_ITS ---
STUDY: X-RAY - RIGHT HAND, ATTENTION FIFTH FINGER REASON FOR EXAM: Female, 43 years old. Laceration. TECHNIQUE: view(s) of the finger were obtained. COMPARISON: None. FINDINGS: Normal metacarpal head. Normal metacarpophalangeal joint. Normal proximal phalanx. Normal middle phalanx. Normal distal phalanx. Normal proximal interphalangeal joint. Normal distal interphalangeal joint. Soft tissue swelling. No radiopaque foreign body is seen. RAD/Finger(s) Min 2 Views IMPRESSION: Soft tissue swelling. No radiopaque foreign body is seen. Electronically Signed: Logan Jordan MD at 13:10 EDT ,
[2023-03-23] MEDS: Lidocaine 1% (20 ml mdv) 20 ML Vial INFILT (14:23)
== END 2023-03-23 14:29 | disposition home or self-care (01) ==
PROVIDERS: Emergency Provider Emergency Medicine; PCP Internal Medicine; Visit Provider Emergency Medicine
DX: S61.219A Laceration without foreign body of unspecified finger without damage to nail, initial encounter (principal); I48.91 Unspecified atrial fibrillation; W25.XXXA Contact with sharp glass, initial encounter; Z87.891 Personal history of nicotine dependence; I10 Essential (primary) hypertension; K21.9 Gastro-esophageal reflux disease without esophagitis; F41.9 Anxiety disorder, unspecified; F32.9 Major depressive disorder, single episode, unspecified; E07.9 Disorder of thyroid, unspecified; F42.9 Obsessive-compulsive disorder, unspecified
CPT/HCPCS: 12002; 73140; 99283

== ENCOUNTER 2023-04-03 14:17 | Inpatient (IN) | payer MEDICAID, SELFPAY ==
[2023-04-03 14:18] VITALS: BP 124/53; PULSE 70; RESP 18; TEMP 35.8; O2SAT 100
[2023-04-03 14:31] VITALS: PULSE 66; RESP 18; O2SAT 100
[2023-04-03 14:32] VITALS: O2SAT 100
--- NOTE | 2023-04-03 14:38 | EDS_ITS ---
HPI History of Present Illness Chief Complaint: Shortness of Breath Detail of Chief Complaint: Exertional chest pain and exertional shortness of breath. Informant: patient Onset/Context/Timing Onset: Month(s) Context: gradual Timing: Intermittent Quality: Positive for Dyspnea on exertion Current Severity: Gone Maximum Severity: Mild Worsened by: Exertion Associated Symptoms Chest Pain: Positive for Intermittent and - (Exertional chest pain.) Narrative Narrative: 43-year-old female history of lupus and Graves' disease. Who had a laceration to her small finger and was going to have surgery today repair of the tendon. Preop clearance she had an abnormal EKG with inverted T waves in V1 through V6. Patient states she does have a history of exertional chest pain and exertional dyspnea. She used to be a smoker recently quit. She has multiple family members including both parents and 3 of her brothers with underlying cardiac disease, stents and open heart surgeries. She had a stress test that was over 10 years ago. She has had no recent cardiac work-up. No history of DVT or PE or risk factors. No leg pain or swelling. No hemoptysis. Currently she is symptom-free and she is neither short of breath nor having any chest pain. PE Risk Factors: Negative for Cancer, OCP + Smoking + > 35, Prior DVT or PE, Recent immobilization, Recent surgery or Recent travel Prior similar symptoms: Yes Recent Illness/Hospitalization: No PFSH [facility] Medical History Abdominal panniculus Allergies Anxiety and depression Atrial fibrillation Chronic bronchitis Chronic neck pain Chronic thoracic back pain Contact with sharp glass as cause of accidental injury at home as place of occurrence Depression (emotion) Diastasis of rectus abdominis Environmental allergies Gastrointestinal problem GERD (gastroesophageal reflux disease) Goiter History of IBS History of stress test Hypertension IBS (irritable bowel syndrome) Injury of digital nerve of right little finger Intertrigo Laceration of extensor muscle, fascia and tendon of right little finger at wrist and hand level, initial encounter Laceration of flexor muscle, fascia and tendon of right little finger at wrist and hand level, initial encounter Laceration of right little finger Laxity of skin Low back pain Lupus Lupus Macromastia Obsessive compulsive disorder Paresthesias in right hand Recent weight loss Rheumatoid arthritis Shoulder pain Thyroid disorder Home Medications levothyroxine 150 mcg tablet 150 mcg PO DAILY 03/16/14 [History Last Taken 04/03/23] bupropion HCl 150 mg tablet,12 hr sustained-release 300 mg PO DAILY 04/29/17 [History Last Taken 04/03/23] metoprolol succinate 25 mg tablet,extended release 24 hr (Toprol XL) 25 mg PO DAILY 06/09/18 [History Last Taken 04/03/23] trazodone 50 mg tablet 150 mg PO QHS 03/12/20 [History Last Taken 04/02/23] ascorbic acid 1,000 [id number] powder effervescent pack (Emergen- C) 1 ea PO DAILY 06/21/20 [History Last Taken 04/02/23] multivitamin (Daily Multi-Vitamin tablet) 1 tab PO DAILY 06/21/20 [History Last Taken 04/02/23] meloxicam 7.5 mg tablet (Mobic) 7.5 mg PO DAILY #14 tabs 04/23/22 [Rx Last Taken 04/02/23] aripiprazole 5 mg tablet 5 mg PO DAILY 04/02/23 [History Last Taken 04/02/23] dextroamphetamine-amphetamine 30 mg tablet (Adderall) 30 mg PO DAILY 04/02/23 [History Last Taken 04/03/23] tofacitinib 5 mg tablet (Xeljanz) 5 mg PO DAILY 04/02/23 [History Last Taken 04/03/23] Allergy/AdvReac Type Severity Reaction Status Date / Time No Known Allergies Allergy Verified 04/03/23 14:18 Family History Mother Arthritis Diabetes Heart disease Ulcer Anxiety History of blood transfusion Father Hypertension High cholesterol Cancer Brother Asthma Diabetes Heart disease Hypertension CVA (cerebral vascular accident) High cholesterol Surgical History History of cholecystectomy History of esophagogastroduodenoscopy (EGD) (~2013) HISTORY OF FISTULOTOMY History of hysterectomy History of unilateral oophorectomy Social History household members: spouse Smoking Status: Former smoker alcohol intake: never substance use type: does not use additional social history: DOES NOT USE ASPIRIN DOES USE IBUPROFEN NEEDED ROS ROS ED ROS Narrative Exertional dyspnea. Exertional chest pain. Review of Systems ROS Unobtainable: Denies due to encephalopathy Constitutional Constitutional ED: Denies chills or fever(s) Eyes Eyes: Denies blurry vision ENT ENT ED: Denies ear pain Cardiovascular Cardiovascular: Reports chest pain; Denies palpitations or racing heartbeat Respiratory/Chest Respiratory/Chest: Reports dyspnea and dyspnea on exertion; Denies cough Gastrointestinal Gastrointestinal: Denies abdominal pain Genitourinary Genitourinary ED: Denies dysuria or hematuria Musculoskeletal Musculoskeletal: Denies arthralgias Integumentary Denies abscess Neurologic Neurologic: Denies headache(s) Psychiatric Psychiatric: Denies anxiety Endocrine Endocrinology: Denies cold intolerance Hematologic/Lymphatic Hematologic/Lymphatic: Denies easy bleeding or easy bruising Allergic/Immunologic Allergic/Immunologic ED: Denies mouth swelling or tongue swelling EXAM Physical Exam Narrative Exam Narrative: Well-appearing 43-year-old female. Vital signs stable afebrile. Pulse ox 100% on room air no signs hypoxia. No distress. H EENT exam unremarkable. Neck nontender no JVD. No lymphadenopathy. Lungs clear to auscultation bilaterally. Heart regular rate and rhythm rate about 65 no murmur. Chest wall nontender. Abdomen soft nontender. Moving all 4 extremities. Calves are nontender without edema or cords. She is awake and alert. No focal motor deficits. Benign exam. Const Vital Signs: 04/03/23 14:18 04/03/23 14:31 04/03/23 14:31 Temperature 96.4 F L Temperature Source Temporal Pulse Rate 70 66 Respiratory Rate 18 18 Respiratory Effort Short of Breath Blood Pressure 124/53 H Blood Pressure Mean 76 Pulse Ox 100 100 Oxygen Delivery Method Room Air Room Air 04/03/23 14:32 Temperature Temperature Source Pulse Rate Respiratory Rate Respiratory Effort Blood Pressure Blood Pressure Mean Pulse Ox 100 Oxygen Delivery Method Room Air Positive well nourished and well developed; Negative for cachectic, contractures or unkempt General Appearance ED: well developed and NAD; Negative for unkempt, cachectic, contractures or pallor Nutritional Appearance: Negative for cachectic HEENT Reports moist mucous membranes; Denies dry mucous membranes atraumatic; Negative for trauma or tenderness Mouth ED: No dry mucous membranes Mouth: No dry mucous membranes Eyes PERRL and EOMs intact bilaterally Neck no lymphadenopathy, supple, no meningeal signs and no JVD General: Negative for tenderness Lymph Lymphatic: Negative for other Chest Wall Chest: Negative for other Resp normal respiratory effort and clear to auscultation bilaterally Effort and Inspection: Negative for pain with movement Auscultation: Negative for rales, rhonchi or wheezes Cardio regular rate, regular rhythm, S1 normal heart sound, S2 normal heart sound and no murmurs Rate: Negative for bradycardia or tachycardic Rhythm: Negative for abnormal rhythm GI non-tender, non-distended and no masses Inspection: Negative for other Auscultation: normoactive bowel sounds Palpation: soft; Negative for tender or guarding Bladder / Kidney Exam: No other Back/Spine no CVA tenderness and normal to inspection Extremity normal to inspection General Extremety ED: Negative for edema or tenderness General Extremity: Negative for edema Neuro oriented x3 and CN's II-XII intact bilaterally Sensorium / Orientation: alert, oriented to person, oriented to place and oriented to time; Negative for orientation impaired, confused, lethargic or stuporous Speech: speech normal Motor Exam: strength 5/5 throughout Psych mental status grossly normal Appearance: Negative for unkempt Attitude: No agitated Mood & Affect: Negative for depressed, anxious or tearful Thought Process: normal thought process Skin no wounds General Skin Exam: Negative for jaundice or pallor Lesions: no lesions Rashes: no rashes Trauma: Negative for abrasion or laceration MDM MDM MDM Narrative Medical decision making narrative: 43-year-old female with exertional dyspnea exertional chest pain. Smoking history but recently quit. Significant family history of underlying cardiac disease. With an abnormal preop EKG. And a very concerning story for coronary artery disease. She undergo cardiac work-up. She will need to be admitted for either stress testing or heart catheterization. BP exam patient doing well at 3:11 PM. Unchanged. We discussed her test results. Hospitalist on page for admission. History & Record Review Discussion w/independent historian: Patient Additional record(s) reviewed:: Prior inpatient record, Prior outpatient record, Prior ED visit and Prior labs Lab Data Attestation: I reviewed the patient's lab results. Lab results narrative: CBC unremarkable. White count of 10. H&H 12 and 36. Platelets 327. Chemistries unremarkable. Troponin of 9. Normal BUN and creatinine. Gap of 5. EKG with anterior lateral inverted T waves. Chest x-ray unremarkable. Labs: Laboratory Results - last 24 hr 04/03/23 04/03/23 04/03/23 14:34 14:34 15:00 WBC Cancelled 10.2 Corrected WBC Cancelled RBC Cancelled 3.93 L Hgb Cancelled 12.1 Hct Cancelled 36.6 L MCV Cancelled 93.1 MCH Cancelled 30.8 MCHC Cancelled 33.1 RDW Std Deviation Cancelled 41.8 RDW Coeff of Jose Raul Cancelled 12.1 Plt Count Cancelled 327 MPV Cancelled 9.0 Immature Gran % (Auto) Cancelled 0.400 Neut % (Auto) Cancelled 59.5 Lymph % (Auto) Cancelled 33.8 [place] % (Auto) Cancelled 5.6 Eos % (Auto) Cancelled 0.4 Baso % (Auto) Cancelled 0.3 Absolute Neuts (auto) Cancelled 6.1 Absolute Lymphs (auto) Cancelled 3.43 Total Counted Cancelled Neutrophils % (Manual) Cancelled Band Neutrophils % Cancelled Lymphocytes % (Manual) Cancelled Monocytes % (Manual) Cancelled Eosinophils % (Manual) Cancelled Basophils % (Manual) Cancelled Metamyelocytes % Cancelled Myelocytes % Cancelled Promyelocytes % Cancelled Blast Cells % Cancelled Plasma Cell % (Manual) Cancelled Other Cells % Cancelled Nucleated RBC % Cancelled 0 Nucleated RBCs/100 WBC Cancelled Differential Comment Cancelled Diff Path Review Cancelled Hypersegmented Neuts Cancelled Atypical Lymphocytes Cancelled Reactive Lymphocytes Cancelled Smudge Cells Cancelled Toxic Granulation Cancelled Toxic Vacuolation Cancelled Dohle Bodies Cancelled Bharti Rods Cancelled Platelet Estimate Cancelled Plt Morphology Comment Cancelled RBC Morphology Cancelled Cancelled Polychromasia Cancelled Hypochromasia Cancelled Poikilocytosis Cancelled Basophilic Stippling Cancelled Anisocytosis Cancelled Microcytosis Cancelled Macrocytosis Cancelled Spherocytes Cancelled Sickle Cells Cancelled Target Cells Cancelled Tear Drop Cells Cancelled Ovalocytes Cancelled Stomatocytes Cancelled [place] Bodies Cancelled Harmony Cells Cancelled Bite Cells Cancelled Crenated Cell Cancelled Acanthocytes (Spur) Cancelled Rouleaux Cancelled Schistocytes Cancelled Sodium 138 Potassium 3.8 Chloride 107 Carbon Dioxide 26.0 Anion Gap 5 BUN 14 Creatinine 0.75 Est GFR (MDRD) Af Amer 107 Est GFR (MDRD) Non-Af 88 BUN/Creatinine Ratio 18.6 Glucose 83 Calcium 8.7 Troponin I High Sens 9 Radiography Chest X-Ray - ED: 1 View, Read by ED Physician, Read by Radiologist, Heart, Lungs, Mediastinum, Bony Structures, No Acute Disease and Chronic Changes Diagnostic Testing: Clinical Impression(s) from Imaging Studies Chest X-Ray 04/03/23 14:39 IMPRESSION: Normal x-ray examination of the chest. Electronically Signed: Logan Jordan MD at 14:58 EDT , Chest x-ray, portable, single view, interpreted by the myself the radiologist shows no acute abnormality. Normal cardiac silhouette. Normal lung xie. No pneumothorax. No infiltrates. Rhythm Strip Rhythm Strip: Sinus Rhythm Rate: 68 Ectopy: None EKG Initial EKG: Attestation: I personally reviewed and interpreted this EKG as follows: Interpretation: Sinus Rhythm and No Acute Injury Pattern Comments: Normal sinus rhythm rate of 68 no acute signs of NC. Diffuse T wave inversion V1 through V6. Which is new from prior EKGs. Prior EKG tracings: available for review Prior: Changed Discharge Plan Dx/Rx/DC Orders Clinical Impression: Exertional dyspnea, Chest pain, exertional Disposition Disposition: Acute Care [facility]
--- NOTE | 2023-04-03 14:39 | RAD_ITS ---
STUDY: X-RAY CHEST REASON FOR EXAM: Female, 43 years old. Chest pain TECHNIQUE: Single AP portable view of the chest. COMPARISON: Comparison is made with prior study August 23, 2021. FINDINGS: EKG electrodes are seen. The lungs are clear and expanded. There is no demonstrated pleural abnormality. Normal size heart. Normal mediastinum and price. Normal visualized pulmonary arteries. Normal visualized aortic arch and descending thoracic aorta. Normal visualized thoracic spine. Normal visualized ribs, clavicles, and shoulders. There is no demonstrated abnormality of the visualized soft tissue structures of the upper abdomen. RAD/Chest 1 View (Portable) IMPRESSION: Normal x-ray examination of the chest. Electronically Signed: Logan Jordan MD at 14:58 EDT ,
[2023-04-03 15:00] LABS: Anion Gap 5 (5-15); BUN 14 mg/dL (7-18); BUN/Creat Ratio 18.6 RATIO (10-20); Calcium,Total 8.7 mg/dL (8.5-10.1); Chloride 107 mmol/L (98-107); Creatinine, Serum 0.75 mg/dL (0.55-1.02); EST Glomerular Filtration Rate 88 mL/min (>60); Est Glom Filt Rate - Afr Amer 107 mL/min (>60); Glucose 83 mg/dL (74-106); Potassium 3.8 mmol/L (3.5-5.1); Sodium Level 138 mmol/L (136-145); Troponin-I HS 9 pg/mL (3.0-54.0)
[2023-04-03 15:07] LABS: Absolute Lymphocyte Count 3.43 X10^3/uL (0.83-4.51); Absolute Neutrophil Count 6.1 X10^3/uL (2.0-7.7); Basophil# 0.03 X10^3/uL; Basophil% 0.3 % (0-1); Eosinophil# 0.04 X10^3/uL; Eosinophils% 0.4 % (0-5); Hematocrit 36.6 % (37-47); Hemoglobin 12.1 g/dL (12.0-15.0); Lymphocyte # 3.43 X10^3/ul (0.83-4.51); Lymphocyte % 33.8 % (19-41); Mean Corp Hgb Conc 33.1 g/dL (32-36); Mean Corpuscular Hgb 30.8 pg (27.0-32.0); Mean Corpuscular Volume 93.1 fL (81-99); Monocyte# 0.57 X10^3/uL; Monocyte% 5.6 % (0-10); NRBC Flagged by Analyzer 0 % (0-5); Neutrophil # 6.05 X10^3/uL (2.7-7.7); Neutrophil % 59.5 % (47-70); Platelet Count 327 K/mm3 (150-450); RBC Distribution Width CV 12.1 % (11.6-14.6); RBC Distribution Width SD 41.8 fl (35.1-43.9); Red Blood Count 3.93 M/mm3 (4.2-5.4); White Blood Count 10.2 K/mm3 (4.4-11.0)
[2023-04-03 15:30] VITALS: BP 140/74; PULSE 71; RESP 15; TEMP 36.8; O2SAT 97; BMI 32.9
--- NOTE | 2023-04-03 15:39 | HP.PCM.HOS_ITS ---
HPI - General General Date of Admission: 04/03/23 Date of Service: 04/03/23 Chief Complaint: chest pain HPI Narrative GABY MARTINEZ, is a 43 F who presents for a preop evaluation for tendon repair of her right fifth finger. On the seventh, patient cut her hand dishes after a dish broke. Was sutured up in the ER but was planned to have tendon repair by Dr. Marrero. She had an EKG that showed ST depressions in the lateral leads. With that, patient also had been endorsing that over the past week or so, she has been having exertional chest pain. Chest pain is left-sided, going up into her shoulder but also associated with some diaphoresis and shortness of breath. Symptoms get better when she stops the activity. Patient has no prior history of heart disease and has not had this problem before. She does note that her left leg has become more swollen recently. No known history of VTE. Patient did have troponins in the emergency room that was negative x1. [facility] Medical History Abdominal panniculus Allergies Anxiety and depression Atrial fibrillation Chronic bronchitis Chronic neck pain Chronic thoracic back pain Contact with sharp glass as cause of accidental injury at home as place of occurrence Depression (emotion) Diastasis of rectus abdominis Environmental allergies Gastrointestinal problem GERD (gastroesophageal reflux disease) Goiter History of IBS History of stress test Hypertension IBS (irritable bowel syndrome) Injury of digital nerve of right little finger Intertrigo Laceration of extensor muscle, fascia and tendon of right little finger at wrist and hand level, initial encounter Laceration of flexor muscle, fascia and tendon of right little finger at wrist and hand level, initial encounter Laceration of right little finger Laxity of skin Low back pain Lupus Lupus Macromastia Obsessive compulsive disorder Paresthesias in right hand Recent weight loss Rheumatoid arthritis Shoulder pain Thyroid disorder Home Medications levothyroxine 150 mcg tablet 150 mcg PO DAILY 03/16/14 [History Last Taken 04/03/23] bupropion HCl 150 mg tablet,12 hr sustained-release 300 mg PO DAILY 04/29/17 [History Last Taken 04/03/23] metoprolol succinate 25 mg tablet,extended release 24 hr (Toprol XL) 25 mg PO DAILY 06/09/18 [History Last Taken 04/03/23] trazodone 50 mg tablet 150 mg PO QHS 03/12/20 [History Last Taken 04/02/23] ascorbic acid 1,000 oa-[id number]-lyewldyn powder effervescent pack (Emergen- C) 1 ea PO DAILY 06/21/20 [History Last Taken 04/02/23] multivitamin (Daily Multi-Vitamin tablet) 1 tab PO DAILY 06/21/20 [History Last Taken 04/02/23] meloxicam 7.5 mg tablet (Mobic) 7.5 mg PO DAILY #14 tabs 04/23/22 [Rx Last Taken 04/02/23] aripiprazole 5 mg tablet 5 mg PO DAILY 04/02/23 [History Last Taken 04/02/23] dextroamphetamine-amphetamine 30 mg tablet (Adderall) 30 mg PO DAILY 04/02/23 [History Last Taken 04/03/23] tofacitinib 5 mg tablet (Xeljanz) 5 mg PO DAILY 04/02/23 [History Last Taken 04/03/23] Allergy/AdvReac Type Severity Reaction Status Date / Time No Known Allergies Allergy Verified 04/03/23 14:18 Family History Mother Arthritis Diabetes Heart disease Ulcer Anxiety History of blood transfusion Father Hypertension High cholesterol Cancer Brother Asthma Diabetes Heart disease Hypertension CVA (cerebral vascular accident) High cholesterol Surgical History History of cholecystectomy History of esophagogastroduodenoscopy (EGD) (~2013) HISTORY OF FISTULOTOMY History of hysterectomy History of unilateral oophorectomy Social History household members: spouse Smoking Status: Former smoker alcohol intake: never substance use type: does not use additional social history: DOES NOT USE ASPIRIN DOES USE IBUPROFEN NEEDED ROS ROS Narrative All review of systems were negative except as mentioned above in the history of present illness and the other review of systems. Vital Signs Vital Signs Vital Signs: 04/03/23 14:18 04/03/23 14:31 04/03/23 14:31 Temperature 35.8 C L Temperature Source Temporal Pulse Rate 70 66 Respiratory Rate 18 18 Respiratory Effort Short of Breath Blood Pressure 124/53 H Blood Pressure Mean 76 Pulse Ox 100 100 Oxygen Delivery Method Room Air Room Air 04/03/23 14:32 04/03/23 15:30 Temperature 36.8 C Temperature Source Temporal Pulse Rate 71 Respiratory Rate 15 Respiratory Effort Blood Pressure 140/74 H Blood Pressure Mean 96 Pulse Ox 100 97 Oxygen Delivery Method Room Air Room Air Weight Weight: 107.048 kg Body Mass Index (BMI) 32.9 Physical Exam Narrative - Physical Exam General: Alert, Oriented x3, Cooperative HEENT: Atraumatic, PERRLA, EOMI, Normocephalic Oral: Moist Mucosa, No Gingival or Mucosal Lesions/ Ulcerations Neck: Supple, No JVD, Negative Carotid Bruits Lungs: Clear to auscultation, Normal air movement Cardiovascular: Regular rate, Normal S1, Normal S2, No murmurs Abdomen: Bowel Sounds Present, Soft, Non Tender, Non-Distended, No Hepato- splenomegaly Extremities: No clubbing, No cyanosis, No edema, Capillary Refill Less than 3 Seconds. Subtle increased size of the left calf compared to the right. No pitting edema. Sutured laceration on the ulnar side of her right hand. Has been well approximated. No surrounding erythema. Skin: No rashes, No breakdown Musculoskeletal: No Tenderness to Palpation of Joints or Extremities Neurological: Neuro grossly intact Psych/Mental Status: Normal Affect, Appropriate Results Lab / Micro Data Attestation: I reviewed the patient's lab results. 04/03/23 15:00 04/03/23 14:34 Labs: Laboratory Results - last 24 hr 04/03/23 14:34: WBC Cancelled, Corrected WBC Cancelled, RBC Cancelled, Hgb Cancelled, Hct Cancelled, MCV Cancelled, MCH Cancelled, MCHC Cancelled, RDW Std Deviation Cancelled, RDW Coeff of Jose Raul Cancelled, Plt Count Cancelled, MPV Cancelled, Immature Gran % (Auto) Cancelled, Neut % (Auto) Cancelled, Lymph % (Auto) Cancelled, [place] % (Auto) Cancelled, Eos % (Auto) Cancelled, Baso % (Auto) Cancelled, Absolute Neuts (auto) Cancelled, Absolute Lymphs (auto) Cancelled, Total Counted Cancelled, Neutrophils % (Manual) Cancelled, Band Neutrophils % Cancelled, Lymphocytes % (Manual) Cancelled, Monocytes % (Manual) Cancelled, Eosinophils % (Manual) Cancelled, Basophils % (Manual) Cancelled, Metamyelocytes % Cancelled, Myelocytes % Cancelled, Promyelocytes % Cancelled, Blast Cells % Cancelled, Plasma Cell % (Manual) Cancelled, Other Cells % Cancelled, Nucleated RBC % Cancelled, Nucleated RBCs/100 WBC Cancelled, Differential Comment Cancelled, Diff Path Review Cancelled, Hypersegmented Neuts Cancelled, Atypical Lymphocytes Cancelled, Reactive Lymphocytes Cancelled, Smudge Cells Cancelled, Toxic Granulation Cancelled, Toxic Vacuolation Cancelled, Dohle Bodies Cancelled, Bharti Rods Cancelled, Platelet Estimate Cancelled, Plt Morphology Comment Cancelled, RBC Morphology Cancelled 04/03/23 14:34: RBC Morphology Cancelled, Polychromasia Cancelled, Hypochromasia Cancelled, Poikilocytosis Cancelled, Basophilic Stippling Cancelled, Anisocytosis Cancelled, Microcytosis Cancelled, Macrocytosis Cancelled, Spherocytes Cancelled, Sickle Cells Cancelled, Target Cells Cancelled, Tear Drop Cells Cancelled, Ovalocytes Cancelled, Stomatocytes Cancelled, [place] Bodies Cancelled, Harmony Cells Cancelled, Bite Cells Cancelled, Crenated Cell Cancelled, Acanthocytes (Spur) Cancelled, Rouleaux Cancelled, Schistocytes Cancelled, Sodium 138, Potassium 3.8, Chloride 107, Carbon Dioxide 26.0, Anion Gap 5, BUN 14, Creatinine 0.75, Est GFR (MDRD) Af Amer 107, Est GFR (MDRD) Non- Af 88, BUN/Creatinine Ratio 18.6, Glucose 83, Calcium 8.7, Troponin I High Sens 9 04/03/23 15:00: WBC 10.2, RBC 3.93 L, Hgb 12.1, Hct 36.6 L, MCV 93.1, MCH 30.8, MCHC 33.1, RDW Std Deviation 41.8, RDW Coeff of Jose Raul 12.1, Plt Count 327, MPV 9.0, Immature Gran % (Auto) 0.400, Neut % (Auto) 59.5, Lymph % (Auto) 33.8, [place] % (Auto) 5.6, Eos % (Auto) 0.4, Baso % (Auto) 0.3, Absolute Neuts (auto) 6.1, Absolute Lymphs (auto) 3.43, Nucleated RBC % 0 Rhythm Strip Rhythm Strip: Sinus Rhythm Rate: 68 Ectopy: None EKG Initial EKG: Attestation: I personally reviewed and interpreted this EKG as follows: Prior EKG tracings: available for review EKG Rhythm Intrepretation: Sinus Rhythm (ST depressions in the lateral leads. This is a change from August 2021.) Radiology Impression Chest X-Ray 04/03/23 14:39 IMPRESSION: Normal x-ray examination of the chest. Electronically Signed: Logan Jordan MD at 14:58 EDT , Assessment & Plan Assessment/Plan (1) Chest pain, exertional: PLAN: Very concerning that this could be cardiac given the patient's family history of heart disease with brothers having myocardial infarction at a young age. Plan is for chemical stress test to be performed on the . If troponins become significant elevated or if stress test is abnormal, will need cardiology consultation. We will start the patient on aspirin Also, will check a D-dimer. If D-dimer is elevated, will check a CT angiogram of the chest. (2) Laceration of right little finger: QUALIFIERS: Encounter type: subsequent encounter Damage to nail status: with damage Foreign body presence: unspecified Qualified Code(s): S61.316D - Laceration without foreign body of right little finger with damage to nail, subsequent encounter PLAN: Incident occurred on March 23. Was sutured in the emergency room. Patient was to have a tender repair today but that was obviously held on account of the abnormal EKG and her symptoms. This will need to be managed as outpatient in regards to having surgery performed. Complicating this is that if the patient does indeed have coronary artery disease and required stents, the timing of which would have to be delayed for indeterminate period of time. PLAN: Plan Chronic conditions * Lupus: Continue with tofacitinib * ADHD: Continue with Adderall. But will need to hold that if patient is having active chest pain. * Hypothyroidism: Continue with levothyroxine * Depression: Continue with with Wellbutrin and aripiprazole VTE prophylaxis: At this point time, patient is low risk. Therefore VTE p rophylaxis is not indicated. If patient is found to have myocardial infarction or pulmonary embolism, patient will need to be on anticoagulation. Disposition: To be determined. At this point time, patient be observation status but if there is evidence of myocardial infarction or requires further cardiac intervention, her status will likely need to be changed. Charges/Coding Visit Charges Inpatient E&M: 37969 Init Hosp L3
[2023-04-03 16:23] LABS: D-Dimer Quantitative (DVT/PE) 18.84 FEU/ug/m (0.27-0.49)
[2023-04-03 16:25] VITALS: BMI 34.7
--- NOTE | 2023-04-03 16:29 | CT_ITS ---
STUDY: CTA CHEST REASON FOR EXAM: Female, 43 years old. chest pain RADIATION DOSAGE (If Supplied By Facility): CTDIvol = ( 11.41 ) mGy, DLP = ( 1122.73 ) mGycm TECHNIQUE: The examination was performed with the intravenous administration of IV 100mL Isovue-300. Post-processing of the angiographic images was performed, with multiplanar reformation and 3D reconstruction. Individualized dose optimization techniques were used for this CT. COMPARISON: None. FINDINGS: Exam limited by respiratory motion. There is limited enhancement of the main pulmonary artery and right and left pulmonary arteries. There is limited enhancement of the bilateral peripheral pulmonary arteries. Specifically, much of the contrast is seen in the left brachiocephalic vein and SVC, and the aorta is enhanced greater than the pulmonary arteries. This indicates a much too broad contrast bolus with improper timing. Pulmonary emboli cannot be excluded beyond the pulmonary trunk. Normal thoracic aorta and visualized great vessels. There is no demonstrated aortic dissection. Normal heart and pericardium. Normal mediastinum. Normal hilar regions. Normal visualized trachea and bronchi. The lungs are under expanded. No focal infiltrates. No effusions. Normal osseous structures. Normal visualized upper abdomen. CT/CTA Chest W/WO Contrast IMPRESSION: Technically inadequate exam for confirming or excluding pulmonary emboli as indicated above. Improper bolus and timing. Incomplete expansion of lungs, but no evidence for acute chest disease. Electronically Signed: Ronal Garza MD at 19:02 EDT ,
--- NOTE | 2023-04-03 16:40 | EKG12_ITS ---
Test Reason : CP ADMIN Blood Pressure : / mmHG Vent. Rate : 074 BPM Atrial Rate : 074 BPM P-R Int : 182 ms QRS Dur : 102 ms QT Int : 400 ms P-R-T Axes : 057 088 102 degrees QTc Int : 444 ms Normal sinus rhythm T wave abnormality, consider anterior ischemia Abnormal ECG Confirmed by MARYLIN DESOUZA, REMIGIO ([id number]), design editor NIKKY BARCLAY ([id number]) on 04/28/2023 10:26:41 AM Referred By: Confirmed By:SINTIA COULTER MD
[2023-04-03 16:46] VITALS: BP 124/67; PULSE 74; RESP 17; TEMP 36.7; O2SAT 100
[2023-04-03] MEDS: Aspirin 81 MG TAB.CHEW 324 MG PO (17:22)
[2023-04-03 17:49] LABS: Troponin-I HS 6 pg/mL (3.0-54.0)
[2023-04-03] MEDS: Ondansetron 4 MG/2 ML Vial IV (18:12)
[2023-04-03] MEDS: 0.9% Saline Lock 10 ML Syringe IV (18:12)
--- NOTE | 2023-04-03 19:23 | VDLE_ITS ---
Reason For Study: Dyspnea RIGHT LEFT GSV is normal. GSV is normal. CFV is compressible, spontaneous, phasic, CFV is compressible, spontaneous, phasic, competent and demonstrates normal competent, and demonstrates normal augmentation. augmentation. FV is compressible, spontaneous, phasic, FV is compressible, spontaneous, phasic, competent and demonstrates normal competent and demonstrates normal augmentation. augmentation. POP V is compressible, spontaneous, phasic, POP V is compressible, spontaneous, phasic, competent and demonstrates normal competent and demonstrates normal augmentation. augmentation. T/P Trunk is compressible. T/P Trunk is compressible. PTV is compressible. PTV is compressible. RT PerV is compressible. LT PerV is compressible. Procedure Anechoic non-vascularized area measuring This is a venous duplex using B-mode, color approximately 2.18cm x 0.68cm noted in Lt Pop flow and spectral Doppler. Fossa. Exam performed portable in patient room. The exam was diagnostic. A preliminary report was called and/or faxed to PCU miller supervisor Jess. VL/Venous Duplex US - Koko Extrem Interpretation Summary Deep veins of the lower extremities are bilaterally patent and compressible seg mentally. There is no evidence of deep vein thrombosis on either side. Valvular competence appears in tact within the proximal deep venous systems bilaterally. The great saphenous veins appear bila terally patent and compressible segmentally. A non-vascular, hypoechoic structure is noted in the left popliteal space, measuring 2.18 cm x 0.68 cm. This probably represents a popliteal cyst. Clinica l correlation is advised. Ordering Physician: Ian Song Referring Physician: Myesha Saunders Performed By: Molina Nguyen, RVT
[2023-04-03] MEDS: Enoxaparin 120 MG/0.8 ML Syringe 110 MG SC (20:07)
[2023-04-03] MEDS: TOFACITINIB CITRATE 5 MG PO (20:08)
[2023-04-03] MEDS: traZODone 50 MG Tablet 150 MG PO (20:08)
[2023-04-03] MEDS: ARIPiprazole 5 MG Tablet PO (20:10)
[2023-04-03 20:13] VITALS: BP 126/70; PULSE 71; RESP 14; TEMP 36.2; O2SAT 97
[2023-04-03 22:00] LABS: Troponin-I HS 6 pg/mL (3.0-54.0)
[2023-04-04] MEDS: Acetaminophen 325 MG Tablet 650 MG PO ×3 (01:52→15:28)
[2023-04-04 02:00] VITALS: BP 124/69; PULSE 72; RESP 14; TEMP 36.2; O2SAT 99
[2023-04-04 06:39] LABS: Cholesterol 176 mg/dL (200); High Density Lipoprotein 51 mg/dL; Thyroid Stim Hormone (TSH) 2.43 uIU/mL (0.358-3.74); Triglycerides 169 mg/dL; Very Low Density Lipoprotein 34 mg/dL (5-40)
[2023-04-04] MEDS: proCHLORPERazine 10 MG/2 ML Vial IM (06:47)
[2023-04-04] MEDS: Enoxaparin 120 MG/0.8 ML Syringe 110 MG SC ×2 (06:47→17:06)
--- NOTE | 2023-04-04 07:25 | PN.HOSP_ITS ---
Reason for Visit Reason for Visit: Diagnoses Chest pain, unspecified (04/03/23) Laceration without foreign body of right little finger with damage to nail, subsequent encounter (04/03/23) Objective Data Objective Data Vital Signs: Vital Signs Temp Pulse Resp BP Pulse Ox O2 Del Method 97.2 F L 72 14 124/69 H 99 Room Air 04/04/23 02:00 04/04/23 02:00 04/04/23 02:00 04/04/23 02:00 04/04/23 02:00 04/04/23 02:15 Oxygen Delivery Method Room Air Weight: 248 lb 10.903 oz Body Mass Index (BMI) 34.7 Intake & Output: Intake and Output for Last 24 Hours 04/02/23 04/03/23 04/04/23 23:59 23:59 23:59 Intake Total 600 / 600 Balance 600 / 600 Lab / Micro Data 04/03/23 15:00 04/03/23 14:34 Labs: Laboratory Results - last 24 hr 04/03/23 14:34: WBC Cancelled, Corrected WBC Cancelled, RBC Cancelled, Hgb Cancelled, Hct Cancelled, MCV Cancelled, MCH Cancelled, MCHC Cancelled, RDW Std Deviation Cancelled, RDW Coeff of Jose Raul Cancelled, Plt Count Cancelled, MPV Ca ncelled, Immature Gran % (Auto) Cancelled, Neut % (Auto) Cancelled, Lymph % (Auto) Cancelled, Day % (Auto) Cancelled, Eos % (Auto) Cancelled, Baso % (Auto) Cancelled, Absolute Neuts (auto) Cancelled, Absolute Lymphs (auto) Cancelled, Total Counted Cancelled, Neutrophils % (Manual) Cancelled, Band Neutrophils % Cancelled, Lymphocytes % (Manual) Cancelled, Monocytes % (Manual) Cancelled, Eosinophils % (Manual) Cancelled, Basophils % (Manual) Cancelled, Metamyelocytes % Cancelled, Myelocytes % Cancelled, Promyelocytes % Cancelled, Blast Cells % Cancelled, Plasma Cell % (Manual) Cancelled, Other Cells % Cancelled, Nucleated RBC % Cancelled, Nucleated RBCs/100 WBC Cancelled, Differential Comment Cancelled, Diff Path Review Cancelled, Hypersegmented Neuts Cancelled, Atypical Lymphocytes Cancelled, Reactive Lymphocytes Cancelled, Smudge Cells Cancelled, Toxic Granulation Cancelled, Toxic Vacuolation Cancelled, Dohle Bodies Cancelled, Bharti Rods Cancelled, Platelet Estimate Cancelled, Plt Morphology Comment Cancelled, RBC Morphology Cancelled 04/03/23 14:34: RBC Morphology Cancelled, Polychromasia Cancelled, Hypochromasia Cancelled, Poikilocytosis Cancelled, Basophilic Stippling Cancelled, Anisocytosis Cancelled, Microcytosis Cancelled, Macrocytosis Cancelled, Sphe rocytes Cancelled, Sickle Cells Cancelled, Target Cells Cancelled, Tear Drop Cells Cancelled, Ovalocytes Cancelled, Stomatocytes Cancelled, [place] Bodies Cancelled, Harmony Cells Cancelled, Bite Cells Cancelled, Crenated Cell Cancelled, Acanthocytes (Spur) Cancelled, Rouleaux Cancelled, Schistocytes Cancelled, Sodium 138, Potassium 3.8, Chloride 107, Carbon Dioxide 26.0, Anion Gap 5, BUN 14, Creatinine 0.75, Est GFR (MDRD) Af Amer 107, Est GFR (MDRD) Non- Af 88, BUN/Creatinine Ratio 18.6, Glucose 83, Calcium 8.7, Troponin I High Sens 9 04/03/23 14:38: D-Dimer Quant (PE/DVT) 18.84 H* 04/03/23 15:00: WBC 10.2, RBC 3.93 L, Hgb 12.1, Hct 36.6 L, MCV 93.1, MCH 30.8, MCHC 33.1, RDW Std Deviation 41.8, RDW Coeff of Jose Raul 12.1, Plt Count 327, MPV 9.0, Immature Gran % (Auto) 0.400, Neut % (Auto) 59.5, Lymph % (Auto) 33.8, Day % (Auto) 5.6, Eos % (Auto) 0.4, Baso % (Auto) 0.3, Absolute Neuts (auto) 6.1, Absolute Lymphs (auto) 3.43, Nucleated RBC % 0 04/03/23 16:47: Troponin I High Sens 6 04/03/23 20:55: Troponin I High Sens 6 04/04/23 05:45: Triglycerides 169, Cholesterol 176, LDL Cholesterol 91, VLDL Cholesterol 34, HDL Cholesterol 51, TSH 2.43 Radiography Diagnostic Testing: Radiology Impression Chest X-Ray 04/03/23 14:39 IMPRESSION: Normal x-ray examination of the chest. Electronically Signed: Logan Jordan MD at 14:58 EDT , Chest CTA 04/03/23 16:29 IMPRESSION: Technically inadequate exam for confirming or excluding pulmonary emboli as indicated above. Improper bolus and timing. Incomplete expansion of lungs, but no evidence for acute chest disease. Electronically Signed: Ronal Garza MD at 19:02 EDT , Rhythm Strip Rhythm Strip: Sinus Rhythm Rate: 68 Ectopy: None Physical Exam Narrative No clubbing, No cyanosis, No edema, Capillary Refill Less than 3 Seconds. Subtle increased size of the left calf compared to the right. No pitting edema. Sutured laceration on the ulnar side of her right hand. Has been well approximated. No surrounding erythema. Assessment & Plan Assessment/Plan (1) Chest pain, exertional: PLAN: 43-year-old female with history of Graves' disease and lupus who came to ED for abnormal EKG found on preop evaluation for tendon repair of right fifth finger on 23 March 2023. It was sutured in the ER and was planned for tendon repair by Dr. Marrero. Her EKG showed ST depression in the lateral leads. Patient also complained of exertional chest pain for past 2-3 week mainly left-sided with radiation to shoulder and associated shortness of breath and diaphoresis. Symptoms exacerbated by activity and relieved by rest. Patient has strong family history of heart disease both parents and 3 of her brothers with history of underlying heart disease stents and open heart surgeries 1. Exertional chest pain concerning for unstable angina/DVT/PE: Patient is being admitted in PCU. Serial troponins are negative. D-dimer elevated 18.84. Chest CTA was inconclusive because of inadequate dosing and timing of the contrast. Patient empirically on Lovenox 1 mg/kg body weight. Patient also has asymmetrical leg swelling with recent left leg swelling therefore venous duplex is ordered. Treadmill nuclear stress was done and shows ST segment depression at inferolateral leads during maximal stress test. Nuclear imaging reported normal. Fasting profile shows LDL 91, HDL 51 and TG 169. TSH 2.43. Plan for repeat CTA tomorrow. Laboratory Results 04/03/23 14:34: Sodium 138, Potassium 3.8, Chloride 107, Carbon Dioxide 26.0, Anion Gap 5, BUN 14, Creatinine 0.75, Est GFR (MDRD) Af Amer 107, Est GFR (MDRD) Non-Af 88, BUN/Creatinine Ratio 18.6, Glucose 83, Calcium 8.7, Troponin I High Sens 9 04/03/23 14:38: D-Dimer Quant (PE/DVT) 18.84 H* 04/03/23 15:00: WBC 10.2, RBC 3.93 L, Hgb 12.1, Hct 36.6 L, MCV 93.1, MCH 30.8, MCHC 33.1, RDW Std Deviation 41.8, RDW Coeff of Jose Raul 12.1, Plt Count 327, MPV 9.0, Immature Gran % (Auto) 0.400, Neut % (Auto) 59.5, Lymph % (Auto) 33.8, Day % (Auto) 5.6, Eos % (Auto) 0.4, Baso % (Auto) 0.3, Absolute Neuts (auto) 6.1, Absolute Lymphs (auto) 3.43, Nucleated RBC % 0 04/03/23 16:47: Troponin I High Sens 6 04/03/23 20:55: Troponin I High Sens 6 04/04/23 05:45: Triglycerides 169, Cholesterol 176, LDL Cholesterol 91, VLDL Cholesterol 34, HDL Cholesterol 51, TSH 2.43 Clinical Impression(s) from Imaging Studies Chest X-Ray 04/03/23 14:39 IMPRESSION: Normal x-ray examination of the chest. Chest CTA 04/03/23 16:29 IMPRESSION: Technically inadequate exam for confirming or excluding pulmonary emboli as indicated above. Improper bolus and timing. Incomplete expansion of lungs, but no evidence for acute chest disease. (2) Laceration of right little finger: QUALIFIERS: Damage to nail status: with damage Encounter type: subsequent encounter Foreign body presence: unspecified Qualified Code(s): S61.316D - Laceration without foreign body of right little finger with damage to nail, subsequent encounter PLAN: Incident occurred on March 23. Was sutured in the emergency room. Patient was to have a tender repair on 04/03/23 but that was obviously held on account of the abnormal EKG and her symptoms. This will need to be managed as outpatient in regards to having surgery performed. Complicating this is that if the patient does indeed have coronary artery disease and required stents, the timing of which would have to be delayed for indeterminate period of time. PLAN: Plan Chronic conditions * Lupus: Continue with tofacitinib. * ADHD: Continue with Adderall. But will need to hold that if patient is having active chest pain. * Hypothyroidism: Continue with levothyroxine * Depression: Continue with with Wellbutrin and aripiprazole VTE prophylaxis: As mentioned above Charges/Coding Visit Charges Inpatient E&M: 90053 Subs Hosp L2
[2023-04-04 07:48] VITALS: BP 117/63; PULSE 66; RESP 16; TEMP 36.3; O2SAT 98
[2023-04-04] MEDS: Aspirin E.C. 81 MG Tablet PO ×2 (07:51)
[2023-04-04] MEDS: Ibuprofen 600 MG Tablet PO ×2 (07:51→19:51)
[2023-04-04 10:25] VITALS: BP 118/57; PULSE 70; RESP 14; TEMP 36.4; O2SAT 95
[2023-04-04] MEDS: TOFACITINIB CITRATE 5 MG PO ×2 (10:43→19:41)
[2023-04-04 10:44] VITALS: PULSE 70
[2023-04-04] MEDS: Multivitamins,Therapeutic Tablet 1 TABLET PO (10:44)
[2023-04-04] MEDS: Metoprolol(XL)Succ 25 MG Tablet PO (10:44)
[2023-04-04] MEDS: DEXTROAMPHETAMINE/AMPHETAMINE 30 MG TABLET PO (10:53)
[2023-04-04] MEDS: buPROPion (XL) 300 MG TABLET.XL PO (11:19)
--- NOTE | 2023-04-04 11:57 | STRESSREP_ITS ---
Stress Test Report Treadmill sestamibi myocardial perfusion stress test. Indication; 43-year-old patient with history of paroxysmal A-fib History of anxiety and depression with GERD, thyroid disorder Patient has symptoms of chest pain with angina and abnormal EKG. Patient exercised according to standard Bj protocol For 8 minutes. Achieving a work level of max METS 10 Resting heart rate 65 bpm, liliya to a maximum heart rate of 146 bpm. This value represents 83% of the maximal age-predicted heart rate. The resting blood pressure of 108/72 mmHg. Liliya to maximum blood pressure of 180/70 mmHg. Exercise test was stopped due to reach close to target heart rate No symptoms of chest pain,lightheadedness reported toward the end of the stress test Arrhythmia: No arrhythmia demonstrated/patient remains in sinus rhythm Symptoms: Patient had no symptoms of chest pain Myocardial perfusion protocol. 13.4 mCi ]of Technetium 99m Sestamibi was injected at rest. At maximal stress on the treadmill, 39.6 mCi ]of Technetium 99m sestamibi was injected. Stress images were obtained stress and rest images were reconstructed and compared in the short axis vertical and horizontal long axis. Gated images were also obtained Perfusion SPECT analysis: Review of the images demonstrate normal uptake of sestamibi at rest, post stress images demonstrate similar uptake of sestamibi to the resting images, homogeneous tracer uptake With no evidence of reversible myocardial ischemia.. Gated SPECT analysis: The gated ejection fraction is 74% LV wall motion showed hyperdynamic left ventricle. Conclusion: Negative treadmill sestamibi myocardial fusion study for reversible myocardial ischemia Abnormal electrocardiogram with ST depression noted at maximal stress/inferolate ral lead Correlate with the clinical presentation and consider left heart catheterization if patient has angina. LV systolic function is hyperdynamic. Quin Kulkarni MD,FACC,[facility]
--- NOTE | 2023-04-04 12:26 | ECHOD_ITS ---
Reason For Study: UNSTABLE ANGINA Procedure This was a 2D Doppler, Color Flow transthoracic echocardiogram. Exam performed portable in patient room. Left Ventricle Normal LV size. The estimated ejection fraction is 60 %. Normal diastology for age. Right Ventricle Normal RV size. Normal systolic function. Atria The left atrium is mildly enlarged. Normal right atrium. Mitral Valve The mitral valve is structurally normal. No prolapse or stenosis seen. Mild (1+) mitral valve insufficiency. Tricuspid Valve Normal tricuspid valve. Right ventricular systolic pressure estimated to be 22 mmHg. Mild tricuspid valve insufficiency. Aortic Valve Trisinus/trileaflet aortic valve. Pulmonic Valve The pulmonic valve is not well visualized. Great Vessels Normal aortic root. Pericardium/Pleural No pericardial effusion. MMode/2D Measurements & Calculations LVIDd: 6.0 cm IVSd: 0.87 cm Ao root diam: 3.0 cm LVIDs: 4.5 cm LVPWd: 1.1 cm RVDd: 3.2 cm FS: 25.9 % LAV(MOD-bp): 90.3 ml LVAd ap4: 29.4 cm2 SV(MOD-sp4): 66.6 ml LAV(MOD-bp) Indexed: 39.1 ml/m2 LVLd ap4: 8.0 cm LAV(MOD-sp2): 104.5 ml EDV(MOD-sp4): 90.6 ml LAV(MOD-sp4): 74.5 ml EDV(sp4-el): 91.4 ml LVAs ap4: 12.6 cm2 LVLs ap4: 6.3 cm ESV(MOD-sp4): 24.0 ml ESV(sp4-el): 21.4 ml EF(MOD-sp4): 73.5 % EF(sp4-el): 76.6 % SV(sp4-el): 70.0 ml LA A4 area: 24.9 cm2 LA dimension(2D): 3.9 cm RA A4 area: 15.4 cm2 TAPSE: 2.5 cm Time Measurements MV dec time: 0.25 sec Doppler Measurements & Calculations MV E max shine: 83.2 cm/sec Lat Peak E' Shine: 13.1 cm/sec Med Peak E' Shine: 9.1 cm/sec MV A max shine: 43.5 cm/sec E/E' lat: 6.4 E/E' med: 9.2 MV E/A: 1.9 MV V2 max: 93.4 cm/sec Ao V2 max: 117.2 cm/sec MV max P.5 mmHg MV dec slope: 329.5 cm/sec2 Ao max P.5 mmHg MV V2 mean: 49.8 cm/sec Ao V2 mean: 84.0 cm/sec MV mean P.2 mmHg Ao mean P.2 mmHg MV V2 VTI: 33.5 cm Ao V2 VTI: 32.4 cm AV (velocity ratio): 0.86 LV V1 max: 116.2 cm/sec PA V2 max: 79.7 cm/sec TR max shine: 215.4 cm/sec LV V1 max P.4 mmHg PA V2 mean: 55.1 cm/sec TR max P.6 mmHg LV V1 mean P.8 mmHg LV V1 mean: 77.6 cm/sec LV V1 VTI: 27.9 cm ECHO/Echo Complete Interpretation Summary The estimated ejection fraction is 60 %. Mild (1+) mitral valve insufficiency. The left atrium is mildly enlarged. Mild tricuspid valve insufficiency. Ordering Physician: Marcellus Blanco Referring Physician: HEBER CORDERO Performed By: Porsche Oro RCS
[2023-04-04] MEDS: 0.9% Normal Saline 1,000 ML 60 ML IV (14:37)
--- NOTE | 2023-04-04 14:42 | PCM.CONS.C ---
Assessment & Plan Assessment/Plan (1) Chest pain, exertional: (2) Exertional dyspnea: (3) Laceration of extensor muscle, fascia and tendon of right little finger at wrist and hand level, initial encounter: (4) Abnormal stress electrocardiogram test: PLAN: 43-year-old pleasant patient. No history of smoking. 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 She has laceration of right little finger with damage to nail and is scheduled to undergo tendon repair. Patient has laceration of extensor muscle fascia and tendon of the right little finger at the wrist and hand level. As she had an EKG which is abnormal she was admitted at PCU with the cardiac work-up including stress test Which is abnormal Also noted patient has significant family history of CAD. She has exertional symptoms of shortness of breath and chest pain with significantly abnormal D-dimer. Cardiac care plan commendation 1. I reviewed the current evaluation in the hospital including the EKG stress test teletypesetter monitor The EKG is abnormal with Q waves noted in the in anterior leads. The Myocard perfusion study which is a treadmill nuclear stress test Bj protocol abnormal with ST depression noted in the inferolateral lead. 2. Recommend to repeat a CT to rule out a PE and aortic dissection 3. Based on her clinical history recommend to evaluate with cardiac catheterization patient is scheduled ; on Thursday for tendon repair I will hold on any intervention until she complete her constructive finger tendon surgery order echocardiogram on Thursday to evaluate her LV function. Patient is due for cardiac catheterization. Patient will follow-up with the cardiology team at [facility]. HPI Consult Data Date of Consult: 04/05/23 HPI Narrative Reason for Consultation: Patient with angina and abnormal EKG HPI Narrative: GABY MARTINEZ, is a 43 F who presents [facility] Medical History Abdominal panniculus Allergies Anxiety and depression Atrial fibrillation Chronic bronchitis Chronic neck pain Chronic thoracic back pain Contact with sharp glass as cause of accidental injury at home as place of occurrence Depression (emotion) Diastasis of rectus abdominis Environmental allergies Gastrointestinal problem GERD (gastroesophageal reflux disease) Goiter History of IBS History of stress test Hypertension IBS (irritable bowel syndrome) Injury of digital nerve of right little finger Intertrigo Laceration of extensor muscle, fascia and tendon of right little finger at wrist and hand level, initial encounter Laceration of flexor muscle, fascia and tendon of right little finger at wrist and hand level, initial encounter Laceration of right little finger Laxity of skin Low back pain Lupus Lupus Macromastia Obsessive compulsive disorder Paresthesias in right hand Recent weight loss Rheumatoid arthritis Shoulder pain Thyroid disorder Home Medications levothyroxine 150 mcg tablet 150 mcg PO DAILY 03/16/14 [History Last Taken 04/03/23] metoprolol succinate 25 mg tablet,extended release 24 hr (Toprol XL) 25 mg PO DAILY 06/09/18 [History Last Taken 04/03/23] trazodone 50 mg tablet 150 mg PO QHS 03/12/20 [History Last Taken 04/02/23] ascorbic acid 1,000 [id number] powder effervescent pack (Emergen-C) 1 ea PO DAILY 06/21/20 [History Last Taken 04/02/23] multivitamin (Daily Multi-Vitamin tablet) 1 tab PO DAILY 06/21/20 [History Last Taken 04/02/23] meloxicam 7.5 mg tablet (Mobic) 7.5 mg PO DAILY #14 tabs 04/23/22 [Rx Last Taken 04/02/23] aripiprazole 5 mg tablet 5 mg PO DAILY 04/02/23 [History Last Taken 04/02/23] dextroamphetamine-amphetamine 30 mg tablet (Adderall) 30 mg PO DAILY 04/02/23 [History Last Taken 04/03/23] tofacitinib 5 mg tablet (Xeljanz) 5 mg PO .twice daily 04/02/23 [History Last Taken 04/03/23] bupropion HCl 300 mg 24 hr tablet, extended release 300 mg PO DAILY see MD 04/03/23 [History Last Taken Unknown] Allergy/AdvReac Type Severity Reaction Status Date / Time No Known Allergies Allergy Verified 04/03/23 14:18 Family History Mother Arthritis Diabetes Heart disease Ulcer Anxiety History of blood transfusion Father Hypertension High cholesterol Cancer Brother Asthma Diabetes Heart disease Hypertension CVA (cerebral vascular accident) High cholesterol Surgical History History of cholecystectomy History of esophagogastroduodenoscopy (EGD) (~2013) HISTORY OF FISTULOTOMY History of hysterectomy History of unilateral oophorectomy Social History household members: spouse Smoking Status: Former smoker alcohol intake: never substance use type: does not use additional social history: DOES NOT USE ASPIRIN DOES USE IBUPROFEN NEEDED Physical Exam Cardio Cardio Narrative: Seen and evaluated at bedside along with the nursing staff Comfortable resting in bed Does not have any chest pain ekg monitor showed normal sinus Cardiovascular exam S1-S2 regular Chest exam clear to auscultation bilateral. Examination of lower extremity no lower extremity edema. Pedal pulses palpable. Risk Stratification Risk Stratification Applicable: Yes Age >/= 65: No >/= 3 CAD Risk Factors (HTN, HLD, DM, family hx of CAD, or current smoker): Yes Aspirin Use in the Past 7 Days: No Severe Angina (>/= episodes in 24 hours): No EKG ST Changes >/= 0.5mm: Yes Positive Cardiac Marker: No PEPITO Risk Stratification Score: 2 PEPITO % Risk: 8% Risk Objective Data Vital Signs: Vital Signs Temp Pulse Resp BP Pulse Ox O2 Del Method 97.6 F L 70 14 118/57 L 95 Room Air 04/04/23 10:25 04/04/23 10:44 04/04/23 10:25 04/04/23 10:25 04/04/23 10:25 04/04/23 10:25 Oxygen Delivery Method Room Air Weight: 248 lb 10.903 oz Body Mass Index (BMI) 34.7 Intake & Output: Intake and Output for Last 24 Hours 04/02/23 04/03/23 04/04/23 23:59 23:59 23:59 Intake Total 1600 / 1600 Balance 1600 / 1600 Lab / Micro Data 04/03/23 15:00 04/03/23 14:34 Labs: Laboratory Results - last 24 hr 04/03/23 14:34: WBC Cancelled, Corrected WBC Cancelled, RBC Cancelled, Hgb Cancelled, Hct Cancelled, MCV Cancelled, MCH Cancelled, MCHC Cancelled, RDW Std Deviation Cancelled, RDW Coeff of Jose Raul Cancelled, Plt Count Cancelled, MPV Cancelled, Immature Gran % (Auto) Cancelled, Neut % (Auto) Cancelled, Lymph % (Auto) Cancelled, [place] % (Auto) Cancelled, Eos % (Auto) Cancelled, Baso % (Auto) Cancelled, Absolute Neuts (auto) Cancelled, Absolute Lymphs (auto) Cancelled, Total Counted Cancelled, Neutrophils % (Manual) Cancelled, Band Neutrophils % Cancelled, Lymphocytes % (Manual) Cancelled, Monocytes % (Manual) Cancelled, Eosinophils % (Manual) Cancelled, Basophils % (Manual) Cancelled, Metamyelocytes % Cancelled, Myelocytes % Cancelled, Promyelocytes % Cancelled, Blast Cells % Cancelled, Plasma Cell % (Manual) Cancelled, Other Cells % Cancelled, Nucleated RBC % Cancelled, Nucleated RBCs/100 WBC Cancelled, Differential Comment Cancelled, Diff Path Review Cancelled, Hypersegmented Neuts Cancelled, Atypical Lymphocytes Cancelled, Reactive Lymphocytes Cancelled, Smudge Cells Cancelled, Toxic Granulation Cancelled, Toxic Vacuolation Cancelled, Dohle Bodies Cancelled, Bharti Rods Cancelled, Platelet Estimate Cancelled, Plt Morphology Comment Cancelled, RBC Morphology Cancelled 04/03/23 14:34: RBC Morphology Cancelled, Polychromasia Cancelled, Hypochromasia Cancelled, Poikilocytosis Cancelled, Basophilic Stippling Cancelled, Anisocytosis Cancelled, Microcytosis Cancelled, Macrocytosis Cancelled, Spherocytes Cancelled, Sickle Cells Cancelled, Target Cells Cancelled, Tear Drop Cells Cancelled, Ovalocytes Cancelled, Stomatocytes Cancelled, [place] Bodies Cancelled, Harmony Cells Cancelled, Bite Cells Cancelled, Crenated Cell Cancelled, Acanthocytes (Spur) Cancelled, Rouleaux Cancelled, Schistocytes Cancelled, Sodium 138, Potassium 3.8, Chloride 107, Carbon Dioxide 26.0, Anion Gap 5, BUN 14, Creatinine 0.75, Est GFR (MDRD) Af Amer 107, Est GFR (MDRD) Non-Af 88, BUN/Creatinine Ratio 18.6, Glucose 83, Calcium 8.7, Troponin I High Sens 9 04/03/23 14:38: D-Dimer Quant (PE/DVT) 18.84 H* 04/03/23 15:00: WBC 10.2, RBC 3.93 L, Hgb 12.1, Hct 36.6 L, MCV 93.1, MCH 30.8, MCHC 33.1, RDW Std Deviation 41.8, RDW Coeff of Jose Raul 12.1, Plt Count 327, MPV 9.0, Immature Gran % (Auto) 0.400, Neut % (Auto) 59.5, Lymph % (Auto) 33.8, [place] % (Auto) 5.6, Eos % (Auto) 0.4, Baso % (Auto) 0.3, Absolute Neuts (auto) 6.1, Absolute Lymphs (auto) 3.43, Nucleated RBC % 0 04/03/23 16:47: Troponin I High Sens 6 04/03/23 20:55: Troponin I High Sens 6 04/04/23 05:45: Triglycerides 169, Cholesterol 176, LDL Cholesterol 91, VLDL Cholesterol 34, HDL Cholesterol 51, TSH 2.43 Rhythm Strip Rhythm Strip: Sinus Rhythm Rate: 68 Ectopy: None Cardiology Labs/Tests 04/03/23 14:34: WBC Cancelled, Corrected WBC Cancelled, RBC Cancelled, Hgb Cancelled, Hct Cancelled, MCV Cancelled, MCH Cancelled, MCHC Cancelled, Plt Count Cancelled, MPV Cancelled, Immature Gran % (Auto) Cancelled, Neut % (Auto) Cancelled, Lymph % (Auto) Cancelled, [place] % (Auto) Cancelled, Eos % (Auto) Cancelled, Baso % (Auto) Cancelled, Absolute Neuts (auto) Cancelled, Total Counted Cancelled, Neutrophils % (Manual) Cancelled, Band Neutrophils % Cancelled, Lymphocytes % (Manual) Cancelled, Monocytes % (Manual) Cancelled, Eosinophils % (Manual) Cancelled, Basophils % (Manual) Cancelled, Metamyelocytes % Cancelled, Myelocytes % Cancelled, Promyelocytes % Cancelled, Blast Cells % Cancelled, Plasma Cell % (Manual) Cancelled, Other Cells % Cancelled, Nucleated RBC % Cancelled, Sodium 138, Potassium 3.8, Chloride 107, Carbon Dioxide 26.0, Anion Gap 5, BUN 14, Creatinine 0.75, Est GFR (MDRD) Af Amer 107, Est GFR (MDRD) Non-Af 88, BUN/Creatinine Ratio 18.6, Glucose 83, Calcium 8.7 04/03/23 14:38: D-Dimer Quant (PE/DVT) 18.84 H* 04/03/23 15:00: WBC 10.2, RBC 3.93 L, Hgb 12.1, Hct 36.6 L, MCV 93.1, MCH 30.8, MCHC 33.1, Plt Count 327, MPV 9.0, Immature Gran % (Auto) 0.400, Neut % (Auto) 59.5, Lymph % (Auto) 33.8, [place] % (Auto) 5.6, Eos % (Auto) 0.4, Baso % (Auto) 0.3, Absolute Neuts (auto) 6.1, Nucleated RBC % 0 04/04/23 05:45: Triglycerides 169, Cholesterol 176, LDL Cholesterol 91, VLDL Cholesterol 34, HDL Cholesterol 51 Rhythm: EKG: ECHO: Stress Test: Cardiac Cath: PCI: CT Surgery: Holter monitor: EPS: PPM: CXR: Chest CT Scan: Radiography Diagnostic Testing: Radiology Impression Chest X-Ray 04/03/23 14:39 IMPRESSION: Normal x-ray examination of the chest. Electronically Signed: Logan Jordan MD at 14:58 EDT , Chest CTA 04/03/23 16:29 IMPRESSION: Technically inadequate exam for confirming or excluding pulmonary emboli as indicated above. Improper bolus and timing. Incomplete expansion of lungs, but no evidence for acute chest disease. Electronically Signed: Ronal Garza MD at 19:02 EDT ,
[2023-04-04 15:13] VITALS: BP 127/71; PULSE 73; RESP 14; TEMP 36.4; O2SAT 97
[2023-04-04 19:37] VITALS: BP 108/59; PULSE 75; RESP 16; TEMP 37; O2SAT 98
[2023-04-04] MEDS: traZODone 50 MG Tablet 150 MG PO (19:41)
--- NOTE | 2023-04-04 19:41 | NURSING ---
Pt requested evening meds early.
[2023-04-04] MEDS: ARIPiprazole 5 MG Tablet PO (19:43)
[2023-04-05] VITALS (11 sets, daily range): BP systolic 110–126; BP diastolic 57–70; PULSE 57–80; RESP 16–18; TEMP 36.2–36.8; O2SAT 96–100
--- NOTE | 2023-04-05 05:15 | CT_ITS ---
EXAM: CT ANGIOGRAPHY CHEST WITHOUT AND WITH INTRAVENOUS CONTRAST CLINICAL INDICATION: PULMONARY EMBOLISM TECHNIQUE: Helically acquired angiography images were obtained of the chest without and with intravenous contrast. This CT exam was performed using one or more of the following dose reduction techniques: automated exposure control, adjustment of the mA and/or kV according to patient size, and/or use of iterative reconstruction technique. MIP reconstructed images were created and reviewed. CONTRAST: IV 100mL [id number] RADIATION DOSE: Total DLP: 583.83 mGy-cm. COMPARISON: CTA chest of 2 days ago, 04/03/2023. FINDINGS: LIMITATIONS: Mild respiratory motion artifact. PULMONARY ARTERIES: Unremarkable. Normal in caliber. No evidence of pulmonary embolism. AORTA: Unremarkable. Normal in caliber. No evidence of dissection. GREAT VESSELS OF AORTIC ARCH: Unremarkable. Normal in caliber. No evidence of dissection. LUNGS AND PLEURAL SPACES Minimal dependent atelectasis at the left lung base. The lungs are otherwise clear. No pneumonia, pneumothorax or pleural effusion. HEART: No coronary artery calcification is visualized. No significant pericardial effusion. MEDIASTINUM: Unremarkable. No mediastinal or hilar adenopathy. Esophagus is unremarkable. No hiatal hernia. THYROID: Very small. No thyroid lesions. BONES/JOINTS: Lower cervical degenerative disc disease. Mild thoracic degenerative spurring. No acute osseous abnormality. No suspicious lytic or blastic abnormality. UPPER ABDOMEN:: Gallbladder is absent. Visualized portions of the liver unremarkable except for a tiny subcapsular cyst in the right hepatic lobe. Visualized pancreas, spleen, and adrenal glands are unremarkable. Tiny exophytic nodule projects posteriorly from the left renal upper pole, difficult to characterize but most likely due to a cyst. No pneumoperitoneum. CT/CTA Chest W/WO Contrast IMPRESSION: 1. Negative for PE. 2. No thoracic aortic dissection or acute pulmonary infiltrates. Electronically Signed: Edwin Renae MD at 7:26 EDT ,
[2023-04-05] MEDS: Enoxaparin 120 MG/0.8 ML Syringe 110 MG SC ×2 (05:32→17:04)
[2023-04-05] MEDS: Levothyroxine 150 MCG Tablet PO (05:33)
[2023-04-05] MEDS: 0.9% Normal Saline 1,000 ML 60 ML IV ×2 (05:33→20:07)
[2023-04-05] MEDS: Acetaminophen 325 MG Tablet 650 MG PO ×2 (08:04→18:28)
[2023-04-05] MEDS: DEXTROAMPHETAMINE/AMPHETAMINE 30 MG TABLET PO (09:17)
[2023-04-05] MEDS: TOFACITINIB CITRATE 5 MG PO ×2 (09:17→20:11)
[2023-04-05] MEDS: Metoprolol(XL)Succ 25 MG Tablet PO ×2 (09:19→18:54)
[2023-04-05] MEDS: Multivitamins,Therapeutic Tablet 1 TABLET PO (09:19)
[2023-04-05] MEDS: buPROPion (XL) 300 MG TABLET.XL PO (09:53)
--- NOTE | 2023-04-05 10:27 | PN.HOSP_ITS ---
Reason for Visit Reason for Visit: Diagnoses Chest pain, unspecified (04/03/23) Laceration without foreign body of right little finger with damage to nail, subsequent encounter (04/03/23) Subjective Subjective Follow-up for unstable angina. Abnormal stress test Objective Data Objective Data Vital Signs: Vital Signs Temp Pulse Resp BP Pulse Ox O2 Del Method 98.3 F 71 18 126/66 H 96 Room Air 04/05/23 09:15 04/05/23 09:19 04/05/23 09:15 04/05/23 09:15 04/05/23 09:15 04/05/23 09:15 Oxygen Delivery Method Room Air Weight: 248 lb 10.903 oz Body Mass Index (BMI) 34.7 Intake & Output: Intake and Output for Last 24 Hours 04/03/23 04/04/23 04/05/23 23:59 23:59 23:59 Intake Total 2300 / 2300 896 / 896 Balance 2300 / 2300 896 / 896 Lab / Micro Data 04/03/23 15:00 04/03/23 14:34 Radiography Diagnostic Testing: Radiology Impression Chest CTA 04/05/23 05:15 IMPRESSION: 1. Negative for PE. 2. No thoracic aortic dissection or acute pulmonary infiltrates. Electronically Signed: Edwin Renae MD at 7:26 EDT , Rhythm Strip Rhythm Strip: Sinus Rhythm Rate: 68 Ectopy: None Physical Exam Narrative No clubbing, No cyanosis, No edema, Capillary Refill Less than 3 Seconds. Subtle increased size of the left calf compared to the right. No pitting edema. Sutured laceration on the ulnar side of her right hand. Has been well approximated. No surrounding erythema. Seen and examined General: Alert, Oriented x3, Cooperative, morbid obesity BMI 34.7 kg/m? HEENT: Atraumatic, PERRLA, EOMI, Normocephalic Oral: Oral mucosa moist. No Gingival or Mucosal Lesions/ Ulcerations Neck: Supple, No JVD, Negative Carotid Bruits Lungs: Air entry diminished in bilateral lung bases. No crepitation/rhonchi Cardiovascular: Regular rate, Regular Rhythm, Normal S1, Normal S2, No murmurs Abdomen: Bowel Sounds Present, Soft, Non Tender, Non-Distended : No renal angle tenderness. No suprapubic tenderness. Extremities: No edema, Capillary Refill Less than 3 Seconds Skin: Sutured wound over medial aspect of right ring finger. Musculoskeletal: No Tenderness to Palpation of Joints or Extremities. ROM intact and full. Neurological: Cranial nerves II-XII grossly intact, DTR 2+/4. No acute focal neurological deficit. Psych/Mental Status: Normal Affect, Appropriate. Assessment & Plan Assessment/Plan (1) Chest pain, exertional: PLAN: 43-year-old female with history of Graves' disease and lupus who came to ED for abnormal EKG found on preop evaluation for tendon repair of right fifth finger on 23 March 2023. It was sutured in the ER and was planned for tendon repair by Dr. Marrero. Her EKG showed ST depression in the lateral leads. Patient also complained of exertional chest pain for past 2-3 week mainly left-sided with radiation to shoulder and associated shortness of breath and diaphoresis. Symptoms exacerbated by activity and relieved by rest. Patient has strong family history of heart disease both parents and 3 of her brothers with history of underlying heart disease stents and open heart surgeries 1. Exertional chest pain concerning for unstable angina/DVT/PE: Patient is being admitted in PCU. Serial troponins are negative. D-dimer elevated 18.84. Chest CTA was inconclusive because of inadequate dosing and timing of the contrast. Patient empirically on Lovenox 1 mg/kg body weight. Patient also has asymmetrical leg swelling with recent left leg swelling therefore venous duplex is ordered. Treadmill nuclear stress was done and shows ST segment depression at inferolateral leads during maximal stress test. Nuclear imaging reported normal. Fasting profile shows LDL 91, HDL 51 and TG 169. TSH 2.43. 04/05: Chest CTA was done was negative for PE or thoracic aortic aneurysm, dissection or major vascular problem. No pneumonic infiltrate. Venous duplex of lower extremity also done and weight report was no venous thrombosis. Plan for diagnostic cardiac cath and echo tomorrow a.m. Laboratory Results 04/03/23 14:34: Sodium 138, Potassium 3.8, Chloride 107, Carbon Dioxide 26.0, Anion Gap 5, BUN 14, Creatinine 0.75, Est GFR (MDRD) Af Amer 107, Est GFR (MDRD) Non-Af 88, BUN/Creatinine Ratio 18.6, Glucose 83, Calcium 8.7, Troponin I High Sens 9 04/03/23 14:38: D-Dimer Quant (PE/DVT) 18.84 H* 04/03/23 15:00: WBC 10.2, RBC 3.93 L, Hgb 12.1, Hct 36.6 L, MCV 93.1, MCH 30.8, MCHC 33.1, RDW Std Deviation 41.8, RDW Coeff of Jose Raul 12.1, Plt Count 327, MPV 9.0, Immature Gran % (Auto) 0.400, Neut % (Auto) 59.5, Lymph % (Auto) 33.8, [place] % (Auto) 5.6, Eos % (Auto) 0.4, Baso % (Auto) 0.3, Absolute Neuts (auto) 6.1, Absolute Lymphs (auto) 3.43, Nucleated RBC % 0 04/03/23 16:47: Troponin I High Sens 6 04/03/23 20:55: Troponin I High Sens 6 04/04/23 05:45: Triglycerides 169, Cholesterol 176, LDL Cholesterol 91, VLDL Cholesterol 34, HDL Cholesterol 51, TSH 2.43 Clinical Impression(s) from Imaging Studies Chest X-Ray 04/03/23 14:39 IMPRESSION: Normal x-ray examination of the chest. Chest CTA 04/03/23 16:29 IMPRESSION: Technically inadequate exam for confirming or excluding pulmonary emboli as indicated above. Improper bolus and timing. Incomplete expansion of lungs, but no evidence for acute chest disease. (2) Laceration of right little finger: QUALIFIERS: Encounter type: subsequent encounter Damage to nail status: with damage Foreign body presence: unspecified Qualified Code(s): S61.316D - Laceration without foreign body of right little finger with damage to nail, subsequent encounter PLAN: Incident occurred on March 23. Was sutured in the emergency room. Patient was to have a tender repair on 04/03/23 but that was obviously held on account of the abnormal EKG and her symptoms. This will need to be managed as outpatient in regards to having surgery performe d. Discussed with the patient and Dr. Edmond. We agreed patient needs tendon repair before putting cardiac stent as it relates he states 1 year of DAPT therefore diagnostic cardiac cath tomorrow AM. PLAN: Plan Chronic conditions * Lupus: Continue with tofacitinib. * ADHD: Continue with Adderall. But will need to hold that if patient is having active chest pain. * Hypothyroidism: Continue with levothyroxine * Depression: Continue with with Wellbutrin and aripiprazole VTE prophylaxis: As mentioned above Charges/Coding Visit Charges Inpatient E&M: 02289 Subs Hosp L2
--- NOTE | 2023-04-05 15:17 | PCM.PN.CARD ---
Subjective Subjective Seen and evaluated today at bedside along with the nursing staff She had atypical left-sided chest discomfort. And she underwent evaluation by CT which showed no evidence of pulm embolism. Objective Data Vital Signs: Vital Signs Temp Pulse Resp BP Pulse Ox O2 Del Method 98.3 F 62 16 124/70 H 98 Room Air 04/05/23 15:08 04/05/23 15:08 04/05/23 15:08 04/05/23 15:08 04/05/23 15:08 04/05/23 15:08 Oxygen Delivery Method Room Air Weight: 248 lb 10.903 oz Body Mass Index (BMI) 34.7 Intake & Output: Intake and Output for Last 24 Hours 04/03/23 04/04/23 04/05/23 23:59 23:59 23:59 Intake Total 2300 / 2300 1296 / 1296 Balance 2300 / 2300 1296 / 1296 Lab / Micro Data 04/03/23 15:00 04/03/23 14:34 Rhythm Strip Rhythm Strip: Sinus Rhythm Rate: 68 Ectopy: None Cardiology Labs/Tests Rhythm: EKG: ECHO: Stress Test: Cardiac Cath: PCI: CT Surgery: Holter monitor: EPS: PPM: CXR: Chest CT Scan: Radiography Diagnostic Testing: Radiology Impression Venous Doppler Study 04/03/23 19:23 Interpretation Summary Deep veins of the lower extremities are bilaterally patent and compressible segmentally. There is no evidence of deep vein thrombosis on either side. Valvular competence appears intact within the proximal deep venous systems bilaterally. The great saphenous veins appear bilaterally patent and compressible segmentally. A non-vascular, hypoechoic structure is noted in the left popliteal space, measuring 2.18 cm x 0.68 cm. This probably represents a popliteal cyst. Clinical correlation is advised. Ordering Physician: Ian Song Referring Physician: Myesha Saunders Performed By: Molina Nguyen RVT Chest CTA 08/20/23 05:15 IMPRESSION: 1. Negative for PE. 2. No thoracic aortic dissection or acute pulmonary infiltrates. Electronically Signed: Edwin Renae MD at 7:26 EDT , Physical Exam Cardio Cardio Narrative: Review of the cardiac telemetry showed normal sinus Cardiovascular exam S1-S2 regular Chest exam is clear to auscultation bilateral Examination lower extremity no lower extremity edema pedal pulses palpable. Assessment & Plan Assessment/Plan (1) Laceration of extensor muscle, fascia and tendon of right little finger at wrist and hand level, initial encounter: (2) Chest pain, exertional: (3) Abnormal stress electrocardiogram test: PLAN: 43-year-old patient Admitted with the laceration of the right little finger and was scheduled for surgical repair She has a abnormal EKG which prompted cardiac clearance prior to surgery She had significant family history of CAD as well she had exertional angina and stress test is abnormal with evidence of ST depression however the nuclear portion of the study is within normal with LV function preserved Cardiac care plan recommendations; Card exam essentially normal Based on her clinical presentation and abnormal nuclear stress test I did recommended to evaluate further with cardiac catheterization. Would recommend to check for the risk factors which is a fasting lipid Patient is a former smoker Currently on aspirin as well as the Lovenox and she is cleared to undergo reconstructive surgery/repair of the right little finger Once stable then to proceed with cardiac catheterization.
[2023-04-05] MEDS: Nitroglycerin (INPATIENT USE) 0.4 MG TAB.SUBL SL (18:27)
[2023-04-05] MEDS: oxyCODONE 5 MG Tablet PO (18:54)
[2023-04-05 19:37] LABS: Troponin-I HS 6 pg/mL (3.0-54.0)
[2023-04-05] MEDS: traZODone 50 MG Tablet 150 MG PO (20:10)
[2023-04-05] MEDS: ARIPiprazole 5 MG Tablet PO (20:13)
[2023-04-05] MEDS: Ibuprofen 600 MG Tablet PO (20:18)
--- NOTE | 2023-04-05 20:18 | NURSING ---
Pt requested evening medications early
[2023-04-05 21:44] LABS: Troponin-I HS 7 pg/mL (3.0-54.0)
[2023-04-06] VITALS (12 sets, daily range): BP systolic 89–123; BP diastolic 56–82; PULSE 55–86; RESP 14–16; TEMP 36.1–36.8; O2SAT 96–100
[2023-04-06] MEDS: Acetaminophen 325 MG Tablet 650 MG PO ×2 (02:18→19:51)
--- NOTE | 2023-04-06 07:31 | NURSING ---
This RN gave updates to charge nurse regarding this pt before leaving unit
[2023-04-06] MEDS: oxyCODONE 5 MG Tablet PO ×3 (09:08→19:52)
[2023-04-06] MEDS: Aspirin E.C. 81 MG Tablet PO (09:10)
[2023-04-06] MEDS: Metoprolol(XL)Succ 25 MG Tablet PO (09:10)
[2023-04-06] MEDS: Multivitamins,Therapeutic Tablet 1 TABLET PO (09:11)
[2023-04-06] MEDS: buPROPion (XL) 300 MG TABLET.XL PO (09:11)
[2023-04-06] MEDS: TOFACITINIB CITRATE 5 MG PO ×2 (09:14→19:53)
[2023-04-06] MEDS: DEXTROAMPHETAMINE/AMPHETAMINE 30 MG TABLET PO (09:17)
--- NOTE | 2023-04-06 10:45 | CASEMGMT ---
RN CM Face to Face with patient for initial transition planning/care coordination assessment. RN CM introduced self and role at [facility]. Patient sitting in chair, alert and oriented, at bedside. Patient willing to participate in assessment and is able to answer all questions appropriately. Care providers, pharmacy, and demographics verified. Patient wishes to discharge home, denies need for home health at this time. Patient states she has no further needs or concerns at this time. CM to follow for discharge planning needs that may arise. PCP: Nicky Specialists: erasmo Marrero Pharmacy: [facility] Insurance: [facility] Prescription Benefit: yes Living Will/HPOA: none LNOK: Living Arrangements: Patient lives with in a 2 story home with bed and bath on first floor, 3 steps and railing to enter the home. Patient is independent at home. Transportation: self, DME/HHC: Patient has walker at home. No previous HHC or SNF Disposition Plan: Patient to discharge home with family support and follow-up plans in place. Amelia JOYA, RN, CM
--- NOTE | 2023-04-06 11:03 | PN_ITS ---
Subjective Subjective Patient seen and examined. She had no active complaints. She hadnt had any more chest pain. Review of systems is otherwise negative. Objective Data Objective Data Vital Signs: Vital Signs Temp Pulse Resp BP Pulse Ox O2 Del Method 97.3 F L 59 L 16 107/59 L 99 Room Air 04/06/23 02:00 04/06/23 09:10 04/06/23 02:00 04/06/23 09:10 04/06/23 02:00 04/06/23 02:05 Oxygen Delivery Method Room Air Weight: 248 lb 10.903 oz Body Mass Index (BMI) 34.7 Intake & Output: Intake and Output for Last 24 Hours 04/04/23 04/05/23 04/06/23 23:59 23:59 23:59 Intake Total 2300 / 2300 2270 / 2270 Balance 2300 / 2300 2270 / 2270 Lab / Micro Data 04/03/23 15:00 04/03/23 14:34 Labs: Laboratory Results - last 24 hr 04/05/23 19:02: Troponin I High Sens 6 04/05/23 21:05: Troponin I High Sens 7 Radiography Diagnostic Testing: Radiology Impression Venous Doppler Study 04/03/23 19:23 Interpretation Summary Deep veins of the lower extremities are bilaterally patent and compressible segmentally. There is no evidence of deep vein thrombosis on either side. Valvular competence appears intact within the proximal deep venous systems bilaterally. The great saphenous veins appear bilaterally patent and compressible segmentally. A non-vascular, hypoechoic structure is noted in the left popliteal space, measuring 2.18 cm x 0.68 cm. This probably represents a popliteal cyst. Clinical correlation is advised. Ordering Physician: Ian Song Referring Physician: Myesha Saunders Performed By: Molina Nguyen RVT Rhythm Strip Rhythm Strip: Sinus Rhythm Rate: 68 Ectopy: None Physical Exam Const alert, oriented x3 and no apparent distress General Appearance: cooperative and well developed HEENT normocephalic, head/scalp atraumatic and moist oral mucous membranes Eyes PERRL and EOMs intact bilaterally Neck no lymphadenopathy, supple and no JVD Lymph Lymphatic: no lymphadenopathy noted Resp normal respiratory effort, normal air movement and clear to auscultation b ilaterally Cardio regular rate, regular rhythm, S1 normal heart sound, S2 normal heart sound and no murmurs GI normal to inspection, nondistended, normoactive bowel sounds, soft to palpation, non-tender and non-distended Extremity normal capillary refill, no clubbing, cyanosis or edema and no calf tenderness Skin Skin Narrative: intact sutures over lateral aspect of dorsum of right little finger Neuro CN's II-XII intact bilaterally, no focal motor deficits, no sensory deficits noted and deep tendon reflexes 2+ bilaterally Psych thought process normal, cooperative and affect normal Appearance: appropriate Assessment & Plan Assessment/Plan (1) Chest pain, exertional: (2) Abnormal stress electrocardiogram test: PLAN: Plan #Chest pain with abnormal stress test * had abnormal EKG just prior to cardiac risk stratification for surgical repair of laceration of right little finger * stress test was also abnormal with evidence of ST depression. * cardiology on board * lipid panel dpme * on aspirin and lovenox * for cardiac cath; to speak to cardiology to be sure about when to do the c ardiac cath, ie before or after surgery * #Laceration of right little finger * occured on 04/03/2023 * had suturing done in the ED and was due to have surgery performed for tendon repair. * Per documentaion, patient needs to have tendon repair done before cath to evaluate for stenosis as she may need dual antiplatelets for one year if a stent is placed. My concern is whether she will be safe to go through anesthesia in light of the abnormal stress test. To talk to cardiology and plastic surgery to clarify. * #Hypothyroidism: on synthroid #History of lupus: on tofacitinib #ADHD: on adderall #Depression;on wellbutrin and aripiprazole DVT prophylaxis; lovenox Charges/Coding Visit Charges Inpatient E&M: 55118 Subs Hosp L2
--- NOTE | 2023-04-06 13:12 | NURSING ---
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
[2023-04-06] MEDS: 0.9% Normal Saline 1,000 ML 60 ML IV (15:17)
--- NOTE | 2023-04-06 18:42 | CL.D_ITS ---
Patient Name: GABY MARTINEZ Study Date: 04/06/2023 Performing: Angelina Daniel MD Ht: 71 inches 180.34 cm : 1980 Wt: 249 lbs 112.8 kg Age: 43 Gender: female BSA: 2.31 PROCEDURE(S) PERFORMED DC02-([id number])[facility] CLINICAL PROFILE AND INDICATIONS Indications: New Onset Angina <= 2 months Heart Failure: None Stress/Imaging Stress Test w/SPECT MPI: Yes Result: IndeterminantStress Test with SPECT MPI: Indeterminant CAD Presentations: Unstable angina. CONCLUSIONS No angiographic CAD RECOMMENDATIONS Evaluate for non-cardiac causes of CP DESCRIPTION OF PROCEDURE The patient arrived to the procedure lab. The risks and benefits of the procedure as well as a full description of our services here and current unavailability of surgical backup were fully explained to the patient and/or their significant other prior to the catheterization. The Timeout was completed, verifying the correct patient and procedure. The patient's procedural site was prepped and draped in the usual fashion. Local anesthetic was given subcutaneously to right radial region with Lidocaine 2%. Using a modified Seldinger technique, arterial access was obtained via the right radial artery, a 6Fr sheath was inserted. Left Coronary Artery selective angiography was performed in multiple views using a 5 Fr. 4.0 [place] catheter. Right Coronary Artery selective angiography was then performed in multiple views using a 5 Fr. 4.0 [place] catheter.The arterial sheath was pulled and a TR Band was applied for hemostasis 10ml air CORONARY ANGIOGRAPHY DOMINANCE: Right Dominant LEFT MAIN: Angiographically normal LEFT ANTERIOR DESCENDING ARTERY: Angiographically normal CIRCUMFLEX ARTERY: Angiographically normal RIGHT CORONARY ARTERY: Angiographically normal COMPLICATIONS No Complications PROCEDURE MEDICATIONS Versed 1 mg IV Fentanyl 50 mcg IV Versed 1 mg IV Fentanyl 50 mcg IV Versed 2 mg IV Oxygen: 2 L/min via nasal cannula Heparin given IA 04/06/2023 14:17:55 Verapamil 2.5mg, Ntg 200mcgs, 2000 units of Heparin given IA 04/06/2023 14:17:55 IV Bolus: .9 NaCl 250 ml total 04/06/2023 14:19:09 SUMMARY OF HEMODYNAMIC DATA Time AIR REST ECG 13:41:08 AO 94/68 (81) SA 14:20:32 Signed By Angelina Daniel MD On 04/06/2023 18:41:18 Angelina Daniel MD
--- NOTE | 2023-04-06 19:45 | NURSING ---
Pt requesting HS meds at this time
[2023-04-06] MEDS: traZODone 50 MG Tablet 150 MG PO (19:53)
[2023-04-06] MEDS: ARIPiprazole 5 MG Tablet PO (19:53)
[2023-04-06] MEDS: DiphenhydrAMINE 25 MG Capsule PO (20:38)
--- NOTE | 2023-04-06 21:17 | PN.SURG_ITS ---
Subjective Subjective DATE OF OFFICE HISTORY AND PHYSICAL - 04/02/23 Patient is resting comfortably. Had cardiac catheterization this afternoon. Objective Data Objective Data Vital Signs: Vital Signs Temp Pulse Resp BP Pulse Ox O2 Del Method 98.2 F 86 15 109/66 98 Room Air 04/06/23 19:56 04/06/23 19:56 04/06/23 19:56 04/06/23 19:56 04/06/23 19:56 04/06/23 19:56 Oxygen Delivery Method Room Air Weight: 248 lb 10.903 oz Body Mass Index (BMI) 34.7 Intake & Output: Intake and Output for Last 24 Hours 04/04/23 04/05/23 04/06/23 23:59 23:59 23:59 Intake Total 2300 / 2300 2270 / 2270 1000 / 1000 Balance 2300 / 2300 2270 / 2270 1000 / 1000 Lab / Micro Data Attestation: I reviewed the patient's lab results. 04/03/23 15:00 04/03/23 14:34 Labs: Laboratory Results - last 24 hr 04/05/23 21:05: Troponin I High Sens 7 Radiography Diagnostic Testing: Radiology Impression Echocardiogram 04/04/23 12:26 Interpretation Summary The estimated ejection fraction is 60 %. Mild (1+) mitral valve insufficiency. The left atrium is mildly enlarged. Mild tricuspid valve insufficiency. Ordering Physician: Marcellus Blanco Referring Physician: HEBER CORDERO Performed By: Porsche Oro RCS Rhythm Strip Rhythm Strip: Sinus Rhythm Rate: 68 Ectopy: None Physical Exam Narrative PHYSICAL EXAMINATION General - Alert and Oriented. HEENT - PERRL. EOMI. Neck - Supple and nontender. Abdomen - Soft and nondistended. Extremities - Patient is right hand dominant. FROM left hand. On the right small finger, she can flex and extend the finger, but there is some pain with flexion and extension right small finger with resistance. No axillary adenopathy. Radial pulses are palpable. There is decreased sensation to pinprick on the ulnar aspect right small finger starting at the proximal phalanx extending distally. There is a 5 cm longitudinal laceration on the ulnar aspect right small finger extending from base of the finger to the DIP joint. Incision dry and intact. Neuro - CN II-XII grossly intact. Psych - Normal mood and affect. Assessment & Plan Assessment/Plan (1) Laceration of right little finger: QUALIFIERS: Encounter type: subsequent encounter Damage to nail status: with damage Foreign body presence: unspecified Qualified Code(s): S 61.316D - Laceration without foreign body of right little finger with damage to nail, subsequent encounter (2) Injury of digital nerve of right little finger: (3) Paresthesias in right hand: (4) Laceration of flexor muscle, fascia and tendon of right little finger at wrist and hand level, initial encounter: (5) Laceration of extensor muscle, fascia and tendon of right little finger at wrist and hand level, initial encounter: (6) Contact with sharp glass as cause of accidental injury at home as place of occurrence: (7) Former smoker: PLAN: Plan Was scheduled for hand surgery last 04/03/23.? EKG was abnormal and Anesthesiologist recommended cardiac evaluation before proceeding with the hand surgery. Her workup entailed a cardiac echo and a stress test.? Stress test was abnormal and patient underwent cardiac catheterization this afternoon.? ?There was no evidence of coronary disease and no stents were required. Should be able to proceed with the hand surgery later this week. Charges/Coding Visit Charges Inpatient E&M: 48959 Subs Hosp L2 (ICD-10 - S61.216A, R20.2, S64.496A, W25.xxxA, S66.126A, S66.326A, Z87.891)
[2023-04-07] MEDS: 0.9% Normal Saline 1,000 ML 60 ML IV (01:31)
[2023-04-07 03:13] VITALS: BP 112/61; PULSE 62; RESP 15; TEMP 36.5; O2SAT 97
[2023-04-07] MEDS: oxyCODONE 5 MG Tablet PO (05:11)
[2023-04-07] MEDS: Levothyroxine 150 MCG Tablet PO (05:11)
[2023-04-07] MEDS: Acetaminophen 325 MG Tablet 650 MG PO (05:11)
[2023-04-07] MEDS: Enoxaparin 120 MG/0.8 ML Syringe 110 MG SC (05:11)
[2023-04-07 06:07] LABS: Absolute Neutrophil Count 3.2 X10^3/uL (2.0-7.7); Basophil# 0.01 X10^3/uL; Basophil% 0.2 % (0-1); Eosinophil# 0.08 X10^3/uL; Eosinophils% 1.3 % (0-5); Hematocrit 32.3 % (37-47); Hemoglobin 10.8 g/dL (12.0-15.0); Lymphocyte % 40.9 % (19-41); Mean Corp Hgb Conc 33.4 g/dL (32-36); Mean Corpuscular Hgb 31.2 pg (27.0-32.0); Mean Corpuscular Volume 93.4 fL (81-99); Mean Platelet Vol. 8.9 fl (6.2-12.0); Monocyte# 0.44 X10^3/uL; Monocyte% 6.9 % (0-10); NRBC Flagged by Analyzer 0 % (0-5); Neutrophil # 3.21 X10^3/uL (2.7-7.7); Neutrophil % 50.4 % (47-70); Platelet Count 307 K/mm3 (150-450); RBC Distribution Width CV 12.6 % (11.6-14.6); RBC Distribution Width SD 43.4 fl (35.1-43.9); Red Blood Count 3.46 M/mm3 (4.2-5.4); White Blood Count 6.4 K/mm3 (4.4-11.0)
[2023-04-07 06:55] LABS: Anion Gap 6 (5-15); BUN 11 mg/dL (7-18); BUN/Creat Ratio 16.5 RATIO (10-20); Calcium,Total 8.1 mg/dL (8.5-10.1); Chloride 109 mmol/L (98-107); Creatinine, Serum 0.67 mg/dL (0.55-1.02); EST Glomerular Filtration Rate 102 mL/min (>60); Est Glom Filt Rate - Afr Amer 123 mL/min (>60); Estimated Creatinine Clearance 118.51 ml/min; Glucose 85 mg/dL (74-106); Potassium 3.9 mmol/L (3.5-5.1); Sodium Level 140 mmol/L (136-145)
[2023-04-07 09:06] VITALS: BP 123/56; PULSE 75; RESP 18; TEMP 36.3; O2SAT 100
[2023-04-07] MEDS: buPROPion (XL) 300 MG TABLET.XL PO (09:36)
[2023-04-07] MEDS: Aspirin E.C. 81 MG Tablet PO (09:36)
[2023-04-07] MEDS: Multivitamins,Therapeutic Tablet 1 TABLET PO (09:36)
[2023-04-07 09:37] VITALS: PULSE 75
[2023-04-07] MEDS: TOFACITINIB CITRATE 5 MG PO (09:37)
[2023-04-07] MEDS: Metoprolol(XL)Succ 25 MG Tablet PO (09:37)
[2023-04-07] MEDS: DEXTROAMPHETAMINE/AMPHETAMINE 30 MG TABLET PO (09:42)
--- NOTE | 2023-04-07 11:53 | DS.PCM_ITS ---
Providers Date of Admission: 04/04/23 Date of Discharge: 04/07/23 Primary Care Physician: Dr. Myesha Cordero MD Consultations 04/04/23 12:26 Consult: Cardiology Routine Consulting Provider: Quin Kulkarni Reason for Consult: unstable angina with ST depression during Stress EMERGENT Consult: No Notified: Yes Date Notified: 04/04/23 Time Notified: 12:26 Method of Notification: Verbal 04/05/23 14:58 Consult: Plastic Surgery Routine Consulting Provider: Mohinder Marrero Reason for Consult: Hand tendon repair surgery EMERGENT Consult: No Notified: Yes Date Notified: 04/05/23 Time Notified: 14:58 Method of Notification: Text Reason For Visit: EXERTIONAL CP, DYSPNEA AND ABNORMAL EKG Diagnosis Discharge Diagnosis (1) Laceration of right little finger: Status: Acute Code(s): S61.216A - Laceration without foreign body of right little finger without damage to nail, initial encounter Qualifiers: Damage to nail status: with damage Encounter type: subsequent encounter Foreign body presence: unspecified Qualified Code(s): S61.316D - Laceration without foreign body of right little finger with damage to nail, subsequent encounter (2) Injury of digital nerve of right little finger: Status: Acute Code(s): S64.496A - Injury of digital nerve of right little finger, initial encounter (3) Paresthesias in right hand: Status: Acute Code(s): R20.2 - Paresthesia of skin (4) Laceration of flexor muscle, fascia and tendon of right little finger at wrist and hand level, initial encounter: Status: Acute Code(s): S66.126A - Laceration of flexor muscle, fascia and tendon of right little finger at wrist and hand level, initial encounter (5) Laceration of extensor muscle, fascia and tendon of right little finger at wrist and hand level, initial encounter: Status: Acute Code(s): S66.326A - Laceration of extensor muscle, fascia and tendon of right little finger at wrist and hand level, initial encounter (6) Contact with sharp glass as cause of accidental injury at home as place of occurrence: Status: Acute Code(s): W25.XXXA - Contact with sharp glass, initial encounter; Y92.009 - Unspecified p lace in unspecified non-institutional (private) residence as the place of occurrence of the external cause (7) Former smoker: Status: Chronic Code(s): Z87.891 - Personal history of nicotine dependence Plan #Chest pain with abnormal stress test * had abnormal EKG just prior to cardiac risk stratification for surgical repair of laceration of right little finger * stress test was also abnormal with evidence of ST depression. * cardiology on board * lipid panel dpme * on aspirin and lovenox * for cardiac cath; to speak to cardiology to be sure about when to do the cardiac cath, ie before or after surgery * #Laceration of right little finger * occured on 04/03/2023 * had suturing done in the ED and was due to have surgery performed for tendon repair. * Per documentaion, patient needs to have tendon repair done before cath to evaluate for stenosis as she may need dual antiplatelets for one year if a stent is placed. My concern is whether she will be safe to go through anesthes ia in light of the abnormal stress test. To talk to cardiology and plastic surgery to clarify. * #Hypothyroidism: on synthroid #History of lupus: on tofacitinib #ADHD: on adderall #Depression;on wellbutrin and aripiprazole DVT prophylaxis; lovenox Medications at Discharge Home Medications levothyroxine 150 mcg tablet 150 mcg PO DAILY 03/16/14 metoprolol succinate 25 mg tablet,extended release 24 hr (Toprol XL) 25 mg PO DAILY 06/09/18 trazodone 50 mg tablet 150 mg PO QHS 03/12/20 ascorbic acid 1,000 sy-wnaoboxmihza-syqietao powder effervescent pack (Emergen- C) 1 ea PO DAILY 06/21/20 multivitamin (Daily Multi-Vitamin tablet) 1 tab PO DAILY 06/21/20 aripiprazole 5 mg tablet 5 mg PO DAILY 04/02/23 dextroamphetamine-amphetamine 30 mg tablet (Adderall) 30 mg PO DAILY 04/02/23 tofacitinib 5 mg tablet (Xeljanz) 5 mg PO .twice daily 04/02/23 bupropion HCl 300 mg 24 hr tablet, extended release 300 mg PO DAILY see aspirin 81 mg capsule 81 mg PO DAILY #30 caps 04/07/23 Hospital Course Operations None Procedures Cardiac catheterization and Stress test Summary of Care Provided Minutes Spent on Discharge: 45 Hospital Course: Patient is a 43 y/o female with a PMH as outlined who was admitted after a preop evaluation for tendon repair of her right fifth finger. She had cut her finger while doing dishes. It was sutured up in the ER but plan was for her to have a tendon repair by plastic surgery. As part of the preop assessment she had an EKG which showed ST depression in the lateral leads. She had also complained of having some exertional chest pain over the past week or so. She had associated diaphoresis and some shortness of breath. Symptoms got better when she stopped the activity. She did have a family history of heart disease. Troponins were negative. She was admitted to be worked up for normal EKG. She had a stress test which showed evidence of ST depression. Cardiology was consulted and patient had cardiac cath which showed clean coronaries. Chest pain did not recur during admission. Patient was discharged home on 04/07/2023 on p.o. aspirin 81 mg daily. She is medically risk stratified as low to moderate risk to go for surgery and is to follow-up with her primary care doctor within 1 to 2 weeks. Patient seen and examined prior to discharge. She had no complaints and had an uneventful night. Review of systems otherwise negative. Labs and vitals reviewed. Home medication reviewed and reconciled. Asthma was by her bedside and he also did not have any questions. Physical Exam Const alert, oriented x3 and no apparent distress General Appearance: cooperative, comfortable, well kempt and well developed HEENT normocephalic, head/scalp atraumatic, hearing grossly normal bilaterally, moist oral mucous membranes and oropharynx normal Mouth: oral and palatal mucosa normal Eyes PERRL and EOMs intact bilaterally Neck no lymphadenopathy, supple and no JVD Lymph Lymphatic: no lymphadenopathy noted and no lymphedema noted Resp normal respiratory effort, normal air movement, no retractions, no use of accessory muscles and clear to auscultation bilaterally Cardio regular rate, regular rhythm, S1 normal heart sound, S2 normal heart sound and no murmurs GI normal to inspection, nondistended, normoactive bowel sounds, soft to palpation, non-tender and non-distended Extremity normal to inspection, full ROM, normal capillary refill, no clubbing, cyanosis or edema and no calf tenderness Skin Skin Narrative: intact sutures over lateral aspect of dorsum of right little finger Neuro oriented x3, CN's II-XII intact bilaterally, moves all extremities, no focal motor deficits, no sensory deficits noted and deep tendon reflexes 2+ bilaterally Sensorium / Orientation: awake and alert Motor Exam: strength 5/5 throughout Psych thought process normal, cooperative and affect normal Appearance: appropriate Weight / BMI Weight Weight: 248 lb 10.903 oz Body Mass Index (BMI) 34.7 ABG / Lab / Microbiology Data 04/07/23 05:37 04/07/23 05:37 Laboratory: Laboratory Results - last 24 hr 04/07/23 05:37: WBC 6.4, RBC 3.46 L, Hgb 10.8 L, Hct 32.3 L, MCV 93.4, MCH 31.2, MCHC 33.4, RDW Std Deviation 43.4, RDW Coeff of Jose Raul 12.6, Plt Count 307, MPV 8.9, Immature Gran % (Auto) 0.300, Neut % (Auto) 50.4, Lymph % (Auto) 40.9, Garvin % (Auto) 6.9, Eos % (Auto) 1.3, Baso % (Auto) 0.2, Absolute Neuts (auto) 3.2, Absolute Lymphs (auto) 2.60, Nucleated RBC % 0, Sodium 140, Potassium 3.9, Chloride 109 H, Carbon Dioxide 25.0, Anion Gap 6, BUN 11, Creatinine 0.67, Estim Creat Clear Calc 118.51, Est GFR (MDRD) Af Amer 123, Est GFR (MDRD) Non-Af 102, BUN/Creatinine Ratio 16.5, Glucose 85, Calcium 8.1 L Radiography Diagnostic Testing: Radiology Impression Echocardiogram 04/04/23 12:26 Interpretation Summary The estimated ejection fraction is 60 %. Mild (1+) mitral valve insufficiency. The left atrium is mildly enlarged. Mild tricuspid valve insufficiency. Ordering Physician: Marcellus Blanco Referring Physician: MYESHA CORDERO Performed By: Porsche Oro RCS D/C Instructions Discharge Diet: Low fat / Low cholesterol Discharge Activity: Return to Normal Activity Weight Bearing Status: Weight bearing as tolerated Call your doctor if you observe: Fever of 101 or Higher, Shortness of breath, Dizziness, Swelling in the ankles, Chest pain and Increased palpitations (irregular heartbeat) Meaningful Use Info Meaningful Use Diagnoses (Choose all that apply): None applicable Discharge Plan Admission Admit Date/Time: 04/04/23 15:35 Primary Reason for Your Visit: abnormal stress test Attending Provider: Suzanne Guzmán Primary Care Provider: Myesha Cordero Consulting Providers: Ian Song; Quin Kulkarni; Mohinder Marrero; Marcellus Blanco Instructions Patient Instructions: Cardiac Nuclear Imaging Discharge Orders/Prescriptions Prescriptions: New aspirin 81 mg capsule 81 mg PO DAILY Qty: 30 1RF Continued metoprolol succinate [Toprol XL] 25 mg tablet extended release 24 hr 25 mg PO DAILY multivitamin [Daily Multi-Vitamin] Tablet 1 tab PO DAILY Emergen-C 1,000 mg powder effervescent in packet 1 ea PO DAILY levothyroxine 150 MCG tablet 150 mcg PO DAILY trazodone 50 MG tablet 150 mg PO QHS dextroamphetamine-amphetamine [Adderall] 30 mg tablet 30 mg PO DAILY Xeljanz 5 mg tablet 5 mg PO .twice daily aripiprazole 5 mg tablet 5 mg PO DAILY Patient Comments: Take 1 tablet by mouth once daily. bupropion HCl 300 mg tablet extended release 24 hr 300 mg PO DAILY Patient Comments: Take 1 tablet by mouth once daily. Discontinued meloxicam [Mobic] 7.5 mg tablet 7.5 mg PO DAILY Qty: 14 0RF Rx Instructions: do not take in conjunction with topical NSAID. Referrals / Follow Up: Myesha Cordero MD [Primary Care Provider] - Within 2 Weeks Mohinder Marrero MD [Med Staff - Active Staff] - In 1 Day (follow up as scheduled on outpatient basis for surgery on little finger) Disposition Disposition (needs filled in before D/C Order can be placed): Home, Self Care Charges/Coding Visit Charges Inpatient E&M: 11066 Disch Hosp >30min
--- NOTE | 2023-04-07 12:20 | PHA.DC_ITS ---
Pharmacy [facility] has performed discharge medication reconciliation and counseling for this patient. 1. ASPIRIN 81MG PO DAILY The patient's discharge medication list was reviewed for discrepancies and discrepancies were resolved. The patient was counseled on the following discharge medications and changes in medications for homegoing were reviewed. The Reason for Use, instructions for use, and potential side effects were reviewed for all new medications. The patient's questions regarding all of their medications were answered. The patient was able to verbally demonstrate an understanding of their discharge medications. Patient counseled by director of student affairsNatalia. Medications at Discharge Home Medications levothyroxine 150 mcg tablet 150 mcg PO DAILY 03/16/14 metoprolol succinate 25 mg tablet,extended release 24 hr (Toprol XL) 25 mg PO DAILY 06/09/18 trazodone 50 mg tablet 150 mg PO QHS 03/12/20 ascorbic acid 1,000 my-gsjpskmqijww-jmzxpson powder effervescent pack (Emergen- C) 1 ea PO DAILY 06/21/20 multivitamin (Daily Multi-Vitamin tablet) 1 tab PO DAILY 06/21/20 aripiprazole 5 mg tablet 5 mg PO DAILY 04/02/23 dextroamphetamine-amphetamine 30 mg tablet (Adderall) 30 mg PO DAILY 04/02/23 tofacitinib 5 mg tablet (Xeljanz) 5 mg PO .twice daily 04/02/23 bupropion HCl 300 mg 24 hr tablet, extended release 300 mg PO DAILY see 04/03/23 aspirin 81 mg capsule 81 mg PO DAILY #30 caps 04/07/23
== END 2023-04-07 13:15 | disposition home or self-care (01) | DRG 192 ==
LOC: ED 14:48 → PCU 04-04 07:07
PROVIDERS: Internal Medicine; Emergency Provider Emergency Medicine; PCP Internal Medicine; Visit Provider Student in an Organized Health Care Education/Training Program
DX: R94.39 Abnormal result of other cardiovascular function study (principal); M32.9 Systemic lupus erythematosus, unspecified; E03.9 Hypothyroidism, unspecified; F32.A Depression, unspecified; S61.316A Laceration without foreign body of right little finger with damage to nail, initial encounter; J45.909 Unspecified asthma, uncomplicated; S66.326A Laceration of extensor muscle, fascia and tendon of right little finger at wrist and hand level, initial encounter; S64.496A Injury of digital nerve of right little finger, initial encounter; S66.126A Laceration of flexor muscle, fascia and tendon of right little finger at wrist and hand level, initial encounter; R07.89 Other chest pain; F90.9 Attention-deficit hyperactivity disorder, unspecified type; Z82.3 Family history of stroke; Z87.891 Personal history of nicotine dependence; R20.2 Paresthesia of skin; W25.XXXA Contact with sharp glass, initial encounter; Y92.009 Unspecified place in unspecified non-institutional (private) residence as the place of occurrence of the external cause; Z82.49 Family history of ischemic heart disease and other diseases of the circulatory system
CPT/HCPCS: 36415; 71045; 71275; 78452; 80048; 80061; 84443; 84484; 85025; 85379; 93005; 93017; 93306; 93454; 93970; 97802; 99152; 99153; 99285; 99406; A9500; J7030; Q9967; A4216; C1769; C1894; J2405

== ENCOUNTER 2023-04-10 07:54 | Day surgery (SDC) | payer MEDICAID, SELFPAY ==
[2023-04-03] MEDS: Lactated Ringers 1,000 ML 15 ML IV (13:08)
[2023-04-03 13:09] VITALS: BP 117/67; PULSE 70; RESP 17; TEMP 36.7; O2SAT 97; BMI 32.9
--- NOTE | 2023-04-03 20:08 | PCM.PN.BLA ---
Progress Note Patient was scheduled for surgery today, 04/03/23 for a hand surgery procedure. She had an EKG today which showed new changes regarding her atrial fibrillation. After discussion with the Anesthesiologist, it was decided to cancel the surgery for today and have her evaluated by Cardiology before rescheduling the surgery.
[2023-04-10] VITALS (9 sets, daily range): BP systolic 107–126; BP diastolic 53–77; PULSE 63–72; RESP 16–18; TEMP 36.5–37.2; O2SAT 92–99; BMI 32.9
[2023-04-10] MEDS: Lactated Ringers 1,000 ML 15 ML IV ×2 (08:23→13:35)
[2023-04-10] MEDS: Cefazolin 2 GM in 0.9% Normal Saline 100 ML IV (10:15)
[2023-04-10] MEDS: Mupirocin Ointment 22gm Tube 1 APPLIC (12:23)
--- NOTE | 2023-04-10 13:16 | DCINST_ITS ---
Discharge Instructions Diet Discharge Diet: No restrictions Activity Discharge Activity: May Not Drive, May Shower (wear plastic bag over right hand when showering.) and - (no heavy lifting right hand. elevate right hand.) May resume sexual activity in: 10-14 days Weight Bearing Status: Weight bearing as tolerated Lifting Restrictions: 10 lbs. right hand Keep extremity elevated above heart level: Right Arm Dressing / Incision Call your doctor if your incision/area has: Continuous Slow Oozing, Sudden Increased Bleeding, Increased Pain/ Swelling, Increased Redness, Foul Smelling Discharge and Swelling at the incision site Call your doctor if you observe: Fever of 101 or Higher, Coldness, Increased Pa in, Shortness of breath, Chest pain, Calf discomfort and Uncontrolled pain Change Dressing in: do not change dressing (will change operative dressing in the office.) Cleanse incision/area with: - (wear plastic bag over right hand when showering.) Follow Up Care Please Follow Up With: Mohinder Marrero MD When: one week. call [phone] for appt. Test Results: Test results from this visit will be discussed in further detail at your follow- up appointment, if applicable. Discharge Plan Admission Primary Reason for Your Visit: right hand injury Attending Provider: Mohinder Marrero Primary Care Provider: Myesha Saunders Discharge Orders/Prescriptions Prescriptions: New cefadroxil 500 mg capsule 500 mg PO BID Qty: 10 0RF L.acidoph,saliva-B.bif-S.therm [Acidophilus Probiotic Blend] 175 mg capsule 1 cap PO DAILY Qty: 20 0RF oxycodone-acetaminophen [Percocet] 5-325 mg tablet 1 tab PO Q6H PRN (Reason: pain (scale score 7-10)) 7 Days Qty: 28 0RF Rx Instructions: 28 tabs (twenty-eight) Continued metoprolol succinate [Toprol XL] 25 mg tablet extended release 24 hr 25 mg PO DAILY multivitamin [Daily Multi-Vitamin] Tablet 1 tab PO DAILY Emergen-C 1,000 mg powder effervescent in packet 1 ea PO DAILY levothyroxine 150 MCG tablet 150 mcg PO DAILY trazodone 50 MG tablet 150 mg PO QHS dextroamphetamine-amphetamine [Adderall] 30 mg tablet 30 mg PO DAILY Xeljanz 5 mg tablet 5 mg PO .twice daily aripiprazole 5 mg tablet 5 mg PO QHS Patient Comments: Take 1 tablet by mouth once daily. bupropion HCl 300 mg tablet extended release 24 hr 300 mg PO DAILY Patient Comments: Take 1 tablet by mouth once daily. aspirin 81 mg capsule 81 mg PO DAILY Qty: 30 1RF Referrals / Follow Up: Myesha Saunders MD [Primary Care Provider] - Disposition Disposition (needs filled in before D/C Order can be placed): Home, Self Care
--- NOTE | 2023-04-10 13:16 | OP.PCM_ITS ---
Problems Associated Problem List Diagnoses (1) Laceration of right little finger: (2) Injury of digital nerve of right little finger: (3) Paresthesias in right hand: (4) Laceration of flexor muscle, fascia and tendon of right little finger at wrist and hand level, initial encounter: (5) Laceration of extensor muscle, fascia and tendon of right little finger at wrist and hand level, initial encounter: (6) Contact with sharp glass as cause of accidental injury at home as place of occurrence: (7) Former smoker: Report of Operation Date of Procedure: 04/10/23 Pre-Operative Diagnosis: 1. 5 cm longitudinal laceration repair ulnar aspect right small finger. 2. Injury ulnar digital nerve right small finger. 3. Paresthesias ulnar aspect right small finger. 4. Pain with flexion, possible flexor tendon injury right small finger. 5. Pain with extension, possible extensor tendon injury right small finger. 6. Contact with sharp glass as cause of accidental injury at home as place of occurrence. 7. Former smoker. Post-Operative Diagnosis: 1. 5 cm longitudinal laceration repair ulnar aspect right small finger. 2. Ulnar digital nerve right small finger, intact. 3. Injury dorsal ulnar sensory digital nerve branch right small finger. 4. Paresthesias ulnar aspect right small finger. 5. Pain with flexion, flexor tendons right small finger, intact. 6. Pain with extension, extensor tendon right small finger, intact. 7. Contact with sharp glass as cause of accidental injury at home as place of occurrence. 8. Former smoker. Surgery/Procedure Performed:: 1. Exploration 5 cm longitudinal laceration repair ulnar aspect right small finger. 2. Epineural repair dorsal ulnar sensory digital nerve branch injury right small finger. Description of Surgical Findings:: 43 year old woman presents with a laceration ulnar aspect right small finger that she sustained on 03/23/23. She was cleaning a glass out at home and it broke. She went to the ED where they cleansed the wound and suture repaired it. X-ray showed no fracture and no foreign body. In the ED, she was able to flex and extend her right finger and no sensory deficits were noted according to the report. Patient is right hand dominant. She comes in today with residual discomfort in her right small finger. She also complains of paresthesias on the ulnar aspect right small finger. Recommended operative exploration of the laceration ulnar aspect small finger. Suspect sensory digital nerve injury. If so, it will be repaired. Will also look at the tendons to make sure there are no associated injuries. She can move her finger with pain. If injured, it would be a partial tendon injury that would be repaired. Patient was informed of the risks and complications of the procedure including alternatives to surgery. These were discussed with the patient personally. Patient voices understanding and wishes to proceed. Some of the risks and complications were included in a form from the [employer]. Some of the risks and complications that were discussed included but were not inclusive of failure to diagnose including symptom relief, pain, infection, numbness, stiffness, loss of digit, RSD (CRPS), need for further surgery, contracture, and wound healing problems. Potential risks and complications included but not inclusive of bleeding, infe ction, seroma, hematoma, bruising, swelling, loss of sensation to skin, partial or complete loss of skin flap, wound breakdown, need for wound care, poor scarring, poor aesthetic outcome, intra operative cardiac or neurologic events, DVT, PE, and reaction to anesthesia. Total tourniquet time - 90 minutes. Surgeon: Mohinder Marrero MD archivist: None Type of Anesthesia: General Anesthesiologist: Macho Ibrahim MD Specimen's removed: None. Drains: None. Description of Procedure: Patient was taken to OR in supine position and was placed under general anesthesia. The right hand and forearm areas were prepped and draped in the usual fashion. SCD's were placed for DVT prophylaxis. Perioperative antibiotics were given intravenously. The right hand was elevated and an Esmarch bandage was used to wrap around the right hand and forearm for compression. The tourniquet was elevated to 250 mmHg. Under loupe magnification, I removed the sutures that were placed in the ED. Using blunt force, the healing incision . I dissected down to the ulnar digital nerve and freed up the nerve the whole length of the laceration. The ulnar digital nerve was intact. I dissected down to the bone. I visualized the flexor tendons. When I flexed the small finger, the tendons glided easily without obstruction. No hematoma was seen in the area of the flexor tendons which would have increased suspicion for an injury (partial tendon). When the patient was placed under general anesthesia, the flexion cascade from the index finger down to the small finger was intact signifying that there was no complete tendon injury. I then visualized the extensor tendon which was intact as well. I looked for injury to the lateral bands on the ulnar side of the small finger, and the lateral bands were intact. Since the ulnar digital nerve was intact, I dissected onto the dorsum of the small finger. There was a dorsal ulnar sensory digital nerve branch laceration. I was able to bring both ends of the dorsal sensory nerve together without tension. I proceeded with an epineural repair of the dorsal ulnar sensory digital nerve branch laceration. I used 8-0 Nylon and placed 8 sutures. The wound was irrigated with saline. I started to close the ulnar laceration with 5-0 Nylon simple interrupted sutures. After a couple sutures were placed, I released the tourniquet after 90 minutes. Hemostasis obtained with elevation and gauze compression. I continued to close the rest of the incision with 5-0 Nylon simple interrupted sutures. I placed antibiotic ointment on the suture line followed by Xeroform gauze. 2x2 gauze was placed in the web spaces and along the incision. This was followed with a 2 inch Ian wrap and an ryan wrap for compression. Patient tolerated the procedure well and was sent to PACU in satisfactory condition. Patient will be sent home on antibiotics and pain medication. She will keep her right hand elevated during the initial postoperative period. Patient will followup in a week for a wound check. The sutures will be removed in 2-3 weeks. Grafts/Implants Used: None. Procedure Start Time: 10:39 Procedure Stop Time: 12:24 Complications None. Admit VTE Documentation VTE Present on Admission: No VTE Mechan Device Prophylaxis: SCD's VTE Pharm Prophylaxis ordered?: No Addendum Addendum: Surgery Charges CPT - 20531 ICD-10 - S61.216A, S64.496A, R20.2, S66.216A, S66.326A, W25.xxxA, Z87.891
[2023-04-10] MEDS: Oxycodone/Apap 5/325 Tablet PO (14:33)
== END 2023-04-10 15:01 | disposition home or self-care (01) ==
LOC: SDC 07:55 → AC 07:55
PROVIDERS: PCP Internal Medicine; Referring Provider Surgery; Visit Provider Surgery
PROC: (CPT 64831; principal; 2023-04-10 09:15)
DX: S61.216A Laceration without foreign body of right little finger without damage to nail, initial encounter (principal); G56.20 Lesion of ulnar nerve, unspecified upper limb; Z87.891 Personal history of nicotine dependence; W25.XXXA Contact with sharp glass, initial encounter; R20.2 Paresthesia of skin; S64.496A Injury of digital nerve of right little finger, initial encounter; S66.326A Laceration of extensor muscle, fascia and tendon of right little finger at wrist and hand level, initial encounter; L30.4 Erythema intertrigo; E65 Localized adiposity; I10 Essential (primary) hypertension; L93.0 Discoid lupus erythematosus; Y92.009 Unspecified place in unspecified non-institutional (private) residence as the place of occurrence of the external cause
CPT/HCPCS: 64831; 01810; 93005; J7120; J2405

== ENCOUNTER 2023-05-09 13:43 | Emergency (ER) | payer MEDICAID, SELFPAY ==
[2023-05-09 13:43] VITALS: BP 140/84; PULSE 78; RESP 16; TEMP 36.8; O2SAT 100; BMI 38.0
[2023-05-09 13:49] VITALS: BP 131/79; PULSE 78; RESP 16; O2SAT 100
--- NOTE | 2023-05-09 13:54 | EKG12_ITS ---
Test Reason : CP Blood Pressure : / mmHG Vent. Rate : 074 BPM Atrial Rate : 074 BPM P-R Int : 198 ms QRS Dur : 100 ms QT Int : 400 ms P-R-T Axes : 035 082 090 degrees QTc Int : 444 ms Normal sinus rhythm ST & T wave abnormality, consider anterior ischemia Abnormal ECG Confirmed by MARYLIN DESOUZA, REMIGIO ([id number]), film or videotape editor NIKKY BARCLAY ([id number]) on 05/12/2023 10:37:34 AM Referred By: JERROD/JUAN Confirmed By:SINTIA COULTER MD
--- NOTE | 2023-05-09 13:56 | EX.ED.DYSGE1 ---
HPI History of Present Illness Chief Complaint: Chest Pain Narrative Narrative: Patient is a 43-year-old female with history of lupus, IBS, arthritis who presents to the emergency department with a feeling of lightheadedness, chest pain that radiates to her arm and neck on the left side. Patient had similar episode 1 month ago, patient was admitted for 5 days. Patient had a stress test that was abnormal that led to a cardiac catheterization which showed no blockages. 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 She is here for evaluation. She denies any recent travel, no history of blood clots in the legs or lungs. Patient did have a CT of the chest 1 month ago that was negative. [facility] Medical History Abdominal panniculus Abnormal stress electrocardiogram test Allergies Anxiety and depression Atrial fibrillation Cardiology follow-up encounter Chronic bronchitis Chronic neck pain Chronic thoracic back pain Contact with sharp glass as cause of accidental injury at home as place of occurrence Depression (emotion) Diastasis of rectus abdominis Environmental allergies Former smoker Gastrointestinal problem GERD (gastroesophageal reflux disease) Goiter History of echocardiogram History of IBS History of stress test Hypertension IBS (irritable bowel syndrome) Injury of digital nerve of right little finger Intertrigo Laceration of extensor muscle, fascia and tendon of right little finger at wrist and hand level, initial encounter Laceration of flexor muscle, fascia and tendon of right little finger at wrist and hand level, initial encounter Laceration of right little finger Laxity of skin Low back pain Lupus Lupus Macromastia Obsessive compulsive disorder Open injury of dorsal sensory branch of ulnar nerve Paresthesias in right hand Recent weight loss Rheumatoid arthritis Shoulder pain Thyroid disorder Home Medications levothyroxine 150 mcg tablet 150 mcg PO DAILY 03/16/14 [History Last Taken 04/10/23] metoprolol succinate 25 mg tablet,extended release 24 hr (Toprol XL) 25 mg PO DAILY 06/09/18 [History Last Taken 04/10/23] trazodone 50 mg tablet 150 mg PO QHS 03/12/20 [History Last Taken 04/02/23] ascorbic acid 1,000 kd-dymcuseiikvs-oacscgjl powder effervescent pack (Emergen-C) 1 ea PO DAILY 06/21/20 [History Last Taken 04/02/23] multivitamin (Daily Multi-Vitamin tablet) 1 tab PO DAILY 06/21/20 [History Last Taken 04/02/23] aripiprazole 5 mg tablet 5 mg PO QHS 04/02/23 [History Last Taken 04/02/23] dextroamphetamine-amphetamine 30 mg tablet (Adderall) 30 mg PO DAILY 04/02/23 [History Last Taken 04/03/23] tofacitinib 5 mg tablet (Xeljanz) 5 mg PO .twice daily 04/02/23 [History Last Taken 04/03/23] bupropion HCl 300 mg 24 hr tablet, extended release 300 mg PO DAILY see 04/03/23 [History Last Taken 04/10/23] aspirin 81 mg capsule 81 mg PO DAILY #30 caps 04/07/23 [Rx Last Taken Unknown] L.acidophil,salivari-Bifido bifidum-Strep thermoph 175 mg capsule (Acidophilus Probiotic Blend) 1 cap PO DAILY #20 caps 04/10/23 [Rx Last Taken Unknown] cefadroxil 500 mg capsule 500 mg PO BID #10 caps 04/10/23 [Rx Last Taken Unknown] oxycodone-acetaminophen 5 mg-325 mg tablet (Percocet) 1 tab PO Q6H PRN pain (scale score 7-10) 7 days #28 tabs 04/10/23 [Rx Last Taken Unknown] gabapentin 300 mg capsule 300 mg PO BID #60 caps 04/16/23 [Rx Last Taken Unknown] hydroxychloroquine 200 mg tablet (Plaquenil) 200 mg PO DAILY 04/23/23 [History Last Taken Unknown] gabapentin 300 mg capsule 600 mg (2 x 300 mg) PO TID nerve pain 30 days #180 caps 04/30/23 [Rx Last Taken Unknown] Allergy/AdvReac Type Severity Reaction Status Date / Time No Known Allergies Allergy Verified 04/23/23 11:32 Family History Mother Arthritis Diabetes Heart disease Ulcer Anxiety History of blood transfusion Father Hypertension High cholesterol Cancer Brother Asthma Diabetes Heart disease Hypertension CVA (cerebral vascular accident) High cholesterol Surgical History History of cardiac catheterization History of cholecystectomy History of esophagogastroduodenoscopy (EGD) (~2013) HISTORY OF FISTULOTOMY History of hand surgery History of hysterectomy History of unilateral oophorectomy Social History household members: spouse Smoking Status: Former smoker alcohol intake: never substance use type: does not use additional social history: DOES NOT USE ASPIRIN DOES USE IBUPROFEN NEEDED ROS ROS ED ROS Narrative Constitutional: Negative for fever, chills, weight loss, weakness Eyes: Negative for vision loss, vision change, double vision ENT: Negative for any sore throat, ear pain, congestion Cardiovascular: Negative for any tightness, palpitations. Positive for chest pain Respiratory: Negative for any cough, sputum production, hemoptysis, dyspnea, dyspnea on exertion, orthopnea Gastrointestinal: Negative for any abdominal pain, nausea, vomiting, diarrhea, constipation, blood in stool, blood in vomit : Negative for any urinary frequency, dysuria, retention, blood in urine Muscle skeletal: Negative for any muscle joint pain, stiffness, myalgias, arthralgias, back pain. Positive for neck pain Neurological: Negative for any headache, syncope, numbness or tingling. Positive for dizziness Skin: Negative for any rashes, lumps, itching, abrasions, lacerations Psychiatric: Negative for any depression, anxiety, stress, suicidal ideation, homicidal ideation Hematologic: Negative for any easy bruising, excessive bruising, easy bleeding Allergies: Negative for any eczema, hives, rash EXAM Physical Exam Narrative Exam Narrative: Vital signs reviewed. HEET: Head normocephalic atraumatic, TMs clear bilaterally. Posterior pharynx is clear, moist mucous membranes. Nares clear bilaterally. Neck: Supple with no lymphadenopathy or tenderness. No signs of meningismus, negative jolt sign. Cardiac: Regular rate and rhythm no murmurs gallops or rubs, equal peripheral pulses bilaterally. Respiratory: Lungs clear to auscultation bilaterally. No chest tenderness. Abdomen: Soft, nontender, nondistended. No abdominal bruit or pulsatile masses. No hepatosplenomegaly Extremities: No peripheral edema, no signs of gross trauma or deformity. Active full range of motion of all extremities. Neuro: Cranial nerves II through XII intact, no focal neurological deficits. Skin: Clean dry and intact with no rash, purpura, petechiae, vesicles or pustules. Backs/flank: No CVA tenderness, no midline spinal tenderness, no deformity. Psych: Normal mood and affect. No SI, HI or acute psychosis. Const Vital Signs: 05/09/23 13:43 05/09/23 13:49 05/09/23 13:50 Temperature 98.2 F Temperature Source Oral Pulse Rate 78 78 Respiratory Rate 16 16 Respiratory Effort Normal Non-Labored Respiratory Pattern Normal Blood Pressure 140/84 H 131/79 H Blood Pressure Mean 102 96 Pulse Ox 100 100 Oxygen Delivery Method Room Air Room Air 05/09/23 14:27 Temperature Temperature Source Pulse Rate Respiratory Rate Respiratory Effort Respiratory Pattern Blood Pressure Blood Pressure Mean Pulse Ox Oxygen Delivery Method Room Air Positive well nourished and well developed General Appearance ED: well developed MDM MDM Lab Data Labs: Laboratory Results - last 24 hr 05/09/23 14:21 WBC 7.4 RBC 3.56 L Hgb 11.1 L Hct 33.6 L MCV 94.4 MCH 31.2 MCHC 33.0 RDW Std Deviation 42.0 RDW Coeff of Jose Raul 12.0 Plt Count 337 MPV 9.1 Immature Gran % (Auto) 0.700 Neut % (Auto) 48.6 Lymph % (Auto) 39.9 Pettis % (Auto) 9.5 Eos % (Auto) 1.0 Baso % (Auto) 0.3 Absolute Neuts (auto) 3.6 Absolute Lymphs (auto) 2.94 Nucleated RBC % 0 Sodium 135 L Potassium 4.2 Chloride 105 Carbon Dioxide 27.0 Anion Gap 3 L BUN 14 Creatinine 0.80 Estim Creat Clear Calc 92.81 Est GFR (MDRD) Af Amer 99 Est GFR (MDRD) Non-Af 82 BUN/Creatinine Ratio 17.4 Glucose 103 Calcium 8.5 Troponin I High Sens 4 B-Natriuretic Peptide 31.3 Radiography Diagnostic Testing: Clinical Impression(s) from Imaging Studies Chest X-Ray 05/09/23 14:25 IMPRESSION: No radiographic evidence of acute cardiopulmonary disease. Electronically Signed: Olga Lopez MD at 14:53 EDT , EKG Normal sinus rhythm: Attestation: I personally reviewed and interpreted this EKG as follows: Comments: Normal sinus rhythm, ST and T wave abnormality. Rate of 74 bpm, MI 198 ms, QRS duration 100 ms, no acute ST elevation, no acute infarct noted Treatment and Re-Evaluation :: Patient appears generally well, patient appears nontoxic, vital signs are stable. Patient presents emerged department for left-sided chest pain, neck pain. Patient did have a negative chest pain work-up with a negative cardiac catheterization 1 month ago as well as a negative CT scan of the chest. At this time, patient will receive a cardiac work-up with 2 troponins. EKG was unremarkable, showing no acute ST elevation or ischemia. Patient will receive a two-view chest x-ray LV inter by the ER physician concern for a pneumonia, pulmonary effusion, pneumothorax. Electrolytes we completed as well. Patient on reassessment was unremarkable. Patient had slight relief with Toradol. Patient's CBC was unremarkable, electrolytes were unremarkable. Patient troponin was negative. At this time, is no evidence suspect any CAD, [place], cardio pulmonary process. Patient will need to follow-up outpatient. I do have confidence is not cardiac, patient had a complete cardiac work-up including a stress as well as a cardiac cath less than 1 month ago. Patient is agreeable. This is likely muscle skeletal. Patient instructed to return for any worsening symptoms. Discharge Plan Triage Chief Complaint: Chest Pain ED Midlevel Provider: Hugo Mccray ED Provider: Hugo Pedro Dx/Rx/DC Orders Clinical Impression: Acute neck pain, Acute chest wall pain Instructions: ED Chest Pain, Noncardiac Prescriptions: No Action metoprolol succinate [Toprol XL] 25 mg tablet extended release 24 hr 25 mg PO DAILY multivitamin [Daily Multi-Vitamin] Tablet 1 tab PO DAILY Emergen-C 1,000 mg powder effervescent in packet 1 ea PO DAILY gabapentin 300 mg capsule 300 mg PO BID Qty: 60 1RF hydroxychloroquine [Plaquenil] 200 mg tablet 200 mg PO DAILY gabapentin 300 mg capsule 600 mg PO TID 30 Days Qty: 180 1RF levothyroxine 150 MCG tablet 150 mcg PO DAILY trazodone 50 MG tablet 150 mg PO QHS dextroamphetamine-amphetamine [Adderall] 30 mg tablet 30 mg PO DAILY Xeljanz 5 mg tablet 5 mg PO .twice daily aripiprazole 5 mg tablet 5 mg PO QHS Patient Comments: Take 1 tablet by mouth once daily. cefadroxil 500 mg capsule 500 mg PO BID Qty: 10 0RF L.acidoph,saliva-B.bif-S.therm [Acidophilus Probiotic Blend] 175 mg capsule 1 cap PO DAILY Qty: 20 0RF oxycodone-acetaminophen [Percocet] 5-325 mg tablet 1 tab PO Q6H PRN (Reason: pain (scale score 7-10)) 7 Days Qty: 28 0RF Rx Instructions: 28 tabs (twenty-eight) bupropion HCl 300 mg tablet extended release 24 hr 300 mg PO DAILY Patient Comments: Take 1 tablet by mouth once daily. aspirin 81 mg capsule 81 mg PO DAILY Qty: 30 1RF Primary Care Provider: Myesha aSunders Referrals: Myesha Saunders MD [Primary Care Provider] - Activity Restrictions/Additional Instructions: Please follow-up outpatient. Disposition Disposition: Home, Self Care
[2023-05-09] MEDS: 0.9% Normal Saline (1000mL) 1,000 ML 1000 ML IV (14:11)
[2023-05-09] MEDS: Aspirin 81 MG TAB.CHEW 324 MG PO (14:11)
[2023-05-09] MEDS: Ketorolac 15 MG/ML Vial IV (14:12)
--- NOTE | 2023-05-09 14:25 | RAD_ITS ---
INDICATION: chest pain EXAMINATION/TECHNIQUE: X-RAY - XR Chest 2 Views COMPARISON: Prior study dated: April 03, 2023 FINDINGS: LINES/DEVICES: None. LUNGS: No consolidation, edema or effusion. No pneumothorax. MEDIASTINUM AND CARDIOVASCULAR STRUCTURES: Cardiac silhouette not enlarged. Central airways and mediastinal contour are unremarkable. BONES AND SOFT TISSUES: Unremarkable. RAD/Chest PA and Lateral IMPRESSION: No radiographic evidence of acute cardiopulmonary disease. Electronically Signed: Olga Lopez MD at 14:53 EDT ,
[2023-05-09 14:28] LABS: Absolute Lymphocyte Count 2.94 X10^3/uL (0.83-4.51); Absolute Neutrophil Count 3.6 X10^3/uL (2.0-7.7); Basophil# 0.02 X10^3/uL; Basophil% 0.3 % (0-1); Eosinophil# 0.07 X10^3/uL; Hematocrit 33.6 % (37-47); Hemoglobin 11.1 g/dL (12.0-15.0); Lymphocyte # 2.94 X10^3/ul (0.83-4.51); Lymphocyte % 39.9 % (19-41); Mean Corpuscular Hgb 31.2 pg (27.0-32.0); Mean Corpuscular Volume 94.4 fL (81-99); Mean Platelet Vol. 9.1 fl (6.2-12.0); Monocyte% 9.5 % (0-10); NRBC Flagged by Analyzer 0 % (0-5); Neutrophil # 3.58 X10^3/uL (2.7-7.7); Neutrophil % 48.6 % (47-70); Platelet Count 337 K/mm3 (150-450); Red Blood Count 3.56 M/mm3 (4.2-5.4); White Blood Count 7.4 K/mm3 (4.4-11.0)
[2023-05-09 14:45] VITALS: BP 110/60; PULSE 71; RESP 14; O2SAT 100
[2023-05-09 14:50] LABS: Anion Gap 3 (5-15); BUN 14 mg/dL (7-18); BUN/Creat Ratio 17.4 RATIO (10-20); Calcium,Total 8.5 mg/dL (8.5-10.1); Chloride 105 mmol/L (98-107); EST Glomerular Filtration Rate 82 mL/min (>60); Est Glom Filt Rate - Afr Amer 99 mL/min (>60); Estimated Creatinine Clearance 92.81 ml/min; Glucose 103 mg/dL (74-106); Potassium 4.2 mmol/L (3.5-5.1); Sodium Level 135 mmol/L (136-145); Troponin-I HS (w/2H Reflex) 4 pg/mL (3.0-54.0)
[2023-05-09 14:51] LABS: BNP,B-Type NATRIURETIC PEPTIDE 31.3 pg/mL (0-100)
[2023-05-09 16:24] LABS: Reflex Troponin-HS? (from REC) Y
== END 2023-05-09 15:31 | disposition home or self-care (01) ==
PROVIDERS: Nurse Practitioner; Emergency Provider Emergency Medicine; PCP Internal Medicine; Visit Provider Emergency Medicine
DX: R07.89 Other chest pain (principal); M06.9 Rheumatoid arthritis, unspecified; D68.62 Lupus anticoagulant syndrome; Z87.891 Personal history of nicotine dependence; M54.2 Cervicalgia; I10 Essential (primary) hypertension; Z79.899 Other long term (current) drug therapy; Z79.82 Long term (current) use of aspirin; Z90.49 Acquired absence of other specified parts of digestive tract; Z90.710 Acquired absence of both cervix and uterus; Z90.721 Acquired absence of ovaries, unilateral
CPT/HCPCS: 96360; 71046; 80048; 83880; 84484; 85025; 93005; 96361; 96374; 99283; A4216

== ENCOUNTER 2023-07-14 13:00 | Outpatient (RCR) | payer MEDICAID, SELFPAY ==
--- NOTE | 2023-06-29 11:31 | HP.OTEVAL ---
Patient's Visit Information Visit Information Visit Information: GABY MARTINEZ is a 43 year old F, referred to Occupational Therapy by Dr. Mohinder Marrero MD, with a diagnosis of right LF laceration. Date of Evaluation: 06/29/23 Occupational Therapist: Jovana Castro, OTR/L, CHT Subjective Subjective: This 43 year old female was seen for OT eval with dx of laceration of ulnar right LF s/p - went to ER followed with sx on 04/10/23 now arrives s/p 11 weeks and 3 days from dorsal sensory branch ulnar nerve repair of right small finger pt states ROM is fine and strength- has discomfort at times when LF is resting on table tops and touching her finger- pt would like to know what she can do to decrease the scar sensitivity. 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: right 95# left 85# Lateral Pinch: right 20# left 24# Tripod Pinch: right 20# left 28# Edema PIP: right 6.0 left 6.0 Sensation Thumb: right 2.83 left 2.83 Index: right 2.83 left 2.83 Middle: right 2.83 left 2.83 Ring: right 2.83 left 2.83 Little: right distal PIP 4.56 ulnar side left 2.83 Quick DASH-Disab of Arm,Shoulder& Hand Quick DASH Score: 30.3550 Goals Goal:Daily scar massage when approriate: Yes Goal:No pain with affected hand use: Yes Goal:Full use of affected hand in daily activities including work: Yes Goal:Improvement in sensation documented by [place] monofiliaments: Yes Comment: testing distal to right PIP 2.83 Goal:Decrease scar hypersensitivity: Yes Comment: to tolerate resting LF on table top when writing Rehabilitation General Assessment: pt arrives s/p 11 weeks and 3 days from dorsal sensory branch ulnar nerve repair of right small finger- pt demo with hypertrophic scar and distal to PIP sensation loss along ulnar side of right LF. This increases discomfort of using right LF. pt would benefit from skilled OT services 2-3 visits to ensure understanding of dx, scar mtg, sensory re-ed. pt demo understanding and agrees to POC. Rehabilitation Potential: Good Anticipated Interventions Anticipated Interventions: Scar Care, Desensitization, Sensory Retraining, Modalities, Sensory Stimulation and Home Program Visit Plan Frequency: 1x/Week Duration: 3 Weeks TEXT: Thank you for the opportunity to evaluate your patient. For Medicare and Medicare HMO plans, please review the plan of care and approve it. It will need to be FAXED BACK to us at [phone] for Medicare purposes. Please let me know if there are questions or concerns regarding this plan of care. Physician Signature: Date:
--- NOTE | 2023-11-25 11:41 | HP.OT.NRP ---
Patient Information Patient Information: GABY MARTINEZ was seen in my office for initial evaluation on 06/29/23. The following Plan of Care was established for this patient: POC Established Initial Frequency: 1x/Week Initial Duration: 3 Weeks Anticipated Interventions Anticipated Interventions: Scar Care, Desensitization, Sensory Retraining, Modalities, Sensory Stimulation and Home Program Last Seen Last Seen: This patient was last seen in our office 07/14/23. Pertinent comments regarding their Occupational therapy will appear below: pt was seen for 2 OT sessions. Pt has not scheduled further apts at this time and due to time lapse in services pt is d/c. At this point I will be discontinuing this patient from occupational therapy. I would be happy to see this patient again in the future if found appropriate by the physician. Thank you! Jovana Castro, OTR/L, CHT
== END 2023-07-14 19:00 | disposition home or self-care (01) ==
LOC: OT 13:00
PROVIDERS: PCP Internal Medicine; Visit Provider Surgery
DX: S91.311D Laceration without foreign body, right foot, subsequent encounter (principal)
CPT/HCPCS: 97166; 97530

== ENCOUNTER → 2023-12-18 | Outpatient (CLI) | payer MEDICAID, SELFPAY ==
--- NOTE | 2023-12-18 12:43 | RAD_ITS ---
INDICATION: SOB EXAMINATION/TECHNIQUE: X-RAY - XR Chest 2 Views COMPARISON: No relevant prior comparison study available FINDINGS: LINES/DEVICES: None. LUNGS: No consolidation, edema or effusion. No pneumothorax. MEDIASTINUM AND CARDIOVASCULAR STRUCTURES: Cardiac silhouette not enlarged. Central airways and mediastinal contour are unremarkable. BONES AND SOFT TISSUES: Unremarkable. RAD/Chest PA and Lateral IMPRESSION: No radiographic evidence of acute cardiopulmonary disease. Electronically Signed: Alvarez Monsalve MD at 13:17 EDT ,
[2023-12-18 15:26] LABS: Absolute Lymphocyte Count 1.88 X10^3/uL (0.83-4.51); Absolute Neutrophil Count 4.7 X10^3/uL (2.0-7.7); Basophil# 0.02 X10^3/uL; Basophil% 0.3 % (0-1); Eosinophil# 0.07 X10^3/uL; Hematocrit 36.9 % (37-47); Hemoglobin 12.3 g/dL (12.0-15.0); Lymphocyte # 1.88 X10^3/ul (0.83-4.51); Lymphocyte % 25.8 % (19-41); Mean Corp Hgb Conc 33.3 g/dL (32-36); Mean Corpuscular Hgb 30.1 pg (27.0-32.0); Mean Corpuscular Volume 90.4 fL (81-99); Mean Platelet Vol. 9.7 fl (6.2-12.0); Monocyte# 0.59 X10^3/uL; Monocyte% 8.1 % (0-10); NRBC Flagged by Analyzer 0 % (0-5); Neutrophil # 4.71 X10^3/uL (2.7-7.7); Neutrophil % 64.5 % (47-70); Platelet Count 422 K/mm3 (150-450); RBC Distribution Width CV 11.8 % (11.6-14.6); RBC Distribution Width SD 38.7 fl (35.1-43.9); Red Blood Count 4.08 M/mm3 (4.2-5.4); White Blood Count 7.3 K/mm3 (4.4-11.0)
[2023-12-18 15:27] LABS: D-Dimer Quantitative (DVT/PE) 0.31 FEU/ug/m (0.27-0.49)
[2023-12-18 15:45] LABS: Vitamin D,25 Hydroxy 90.1 ng/mL
[2023-12-18 16:01] LABS: AST(SGOT) 9 U/L (15-37); Alanine Aminotransfer ALT/SGPT 26 U/L (13-56); Albumin, Serum 3.8 g/dL (3.2-5.0); Alkaline Phosphatase 39 U/L (45-117); Anion Gap 7 (5-15); BUN 12 mg/dL (7-18); BUN/Creat Ratio 14.2 RATIO (10-20); Chloride 105 mmol/L (98-107); Creatinine, Serum 0.84 mg/dL (0.55-1.02); EST Glomerular Filtration Rate 77 mL/min (>60); Est Glom Filt Rate - Afr Amer 94 mL/min (>60); Globulin 3.7 g/dL (2.2-4.2); Glucose 91 mg/dL (74-106); Potassium 3.5 mmol/L (3.5-5.1); Protein, Total 7.5 g/dL (6.4-8.2); Sodium Level 136 mmol/L (136-145); T4 Free Direct 1.43 ng/dL (0.76-1.46); Thyroid Stim Hormone (TSH) 0.09 uIU/mL (0.358-3.74)
== END | disposition home or self-care (01) ==
PROVIDERS: PCP Internal Medicine; Referring Provider Family Medicine; Visit Provider Family Medicine
DX: R06.02 Shortness of breath (principal)
CPT/HCPCS: 36415; 71046; 80053; 82306; 84439; 84443; 85025; 85379

== ENCOUNTER 2023-12-19 10:34 | Emergency (ER) | payer MEDICAID, SELFPAY ==
[2023-12-19 10:35] VITALS: BP 122/68; PULSE 74; RESP 15; TEMP 36.8; O2SAT 99; BMI 36.8
--- NOTE | 2023-12-19 10:50 | EKG12_ITS ---
Test Reason : CP Blood Pressure : / mmHG Vent. Rate : 073 BPM Atrial Rate : 073 BPM P-R Int : 144 ms QRS Dur : 086 ms QT Int : 384 ms P-R-T Axes : -02 064 076 degrees QTc Int : 423 ms Normal sinus rhythm Nonspecific ST and T wave abnormality Abnormal ECG Confirmed by CHERYL DESOUZA, RICKEY ([id number]), writer editor NIKKY BARCLAY ([id number]) on 12/21/2023 7:04:22 AM Referred By: ELIZA/KADIE Confirmed By:RICKEY LUNA MD
--- NOTE | 2023-12-19 10:51 | ED.VIS.CHEST ---
HPI History of Present Illness Chief Complaint: Chest Pain Detail of Chief Complaint: Shortness of breath and chest pain Informant: patient and spouse/S.O. Onset/Context/Timing Onset: Weeks (Approximately 1 week) Activity at onset: sudden Timing: Intermittent Quality: Positive for Sharp (Sharp pain and also complains of discomfort going up steps which is not sharp.) Location: Substernal (Discomfort experience going up steps) and Left Chest (Left-sided pain that is intermittent) Current Severity: Mild Maximum Severity: Moderate Worsened By: Exertion (Regarding the dull pain) and Breathing (Regarding the sharp pain) Relieved By: Nothing Associated Symptoms: Positive for Dyspnea and Lightheadedness; Negative for Nausea, Vomiting, Diaphoresis, Cough, Fever, Acid Reflux or Palpitations Narrative Narrative: Patient is a 43-year-old woman. She has history of hypothyroidism. Doctors had trouble regulating her TSH. Her TSH was low this past week at 0.09. She also has history of lupus. She denies history of VTE. She has no risk factors for VTE. She denies leg pain, swelling discoloration. states she nor he smoked. Review of old records indicates she is a former smoker. Patient denies fever, chills night sweats. Patient denies headache, visual, ocular auditory symptoms. Patient denies upper respiratory tract infectious symptoms. Patient denies history of asthma as a child or adult. Patient denies abdominal pain or back pain. Patient denies black or maroon-colored stool. Prior Similar Symptoms: No CVD Risk Factors: Negative for Hypertension, Diabetes, Hypercholesterolemia, Family History 1' </=55 or Smoking PE Risk Factors: Negative for Recent Travel/Surgery, Recent Immobilization, Prior DVT or PE, Cancer or OCP + Smoking + >/=35 TAD Risk Factors: Negative for Marfan's Syndrome, Hypertension or Family History [facility] PFS Medical History Abdominal panniculus Abnormal stress electrocardiogram test Allergies Anxiety and depression Atrial fibrillation Cardiology follow-up encounter Chronic bronchitis Chronic neck pain Chronic thoracic back pain Contact with sharp glass as cause of accidental injury at home as place of occurrence Depression (emotion) Diastasis of rectus abdominis Environmental allergies Former smoker Gastrointestinal problem GERD (gastroesophageal reflux disease) Goiter History of echocardiogram History of IBS History of stress test Hypertension IBS (irritable bowel syndrome) Injury of digital nerve of right little finger Intertrigo Laceration of extensor muscle, fascia and tendon of right little finger at wrist and hand level, initial encounter Laceration of flexor muscle, fascia and tendon of right little finger at wrist and hand level, initial encounter Laceration of right little finger Laxity of skin Low back pain Lupus Lupus Macromastia Obsessive compulsive disorder Open injury of dorsal sensory branch of ulnar nerve Paresthesias in right hand Recent weight loss Rheumatoid arthritis Shoulder pain Thyroid disorder Home Medications levothyroxine 150 mcg tablet 150 mcg PO DAILY 03/16/14 [History Last Taken 04/10/23] metoprolol succinate 25 mg tablet,extended release 24 hr (Toprol XL) 25 mg PO DAILY 06/09/18 [History Last Taken 04/10/23] trazodone 50 mg tablet 150 mg PO QHS 03/12/20 [History Last Taken 04/02/23] ascorbic acid 1,000 [id number]-[id number] powder effervescent pack (Emergen-C) 1 ea PO DAILY 06/21/20 [History Last Taken 04/02/23] multivitamin (Daily Multi-Vitamin tablet) 1 tab PO DAILY 06/21/20 [History Last Taken 04/02/23] aripiprazole 5 mg tablet 5 mg PO QHS 04/02/23 [History Last Taken 04/02/23] dextroamphetamine-amphetamine 30 mg tablet (Adderall) 30 mg PO DAILY 04/02/23 [History Last Taken 04/03/23] tofacitinib 5 mg tablet (Xeljanz) 5 mg PO .twice daily 04/02/23 [History Last Taken 04/03/23] bupropion HCl 300 mg 24 hr tablet, extended release 300 mg PO DAILY see 04/03/23 [History Last Taken 04/10/23] aspirin 81 mg capsule 81 mg PO DAILY #30 caps 04/07/23 [Rx Last Taken Unknown] gabapentin 300 mg capsule 300 mg PO BID #60 caps 04/16/23 [Rx Last Taken Unknown] hydroxychloroquine 200 mg tablet (Plaquenil) 200 mg PO DAILY 04/23/23 [History Last Taken Unknown] gabapentin 300 mg capsule 600 mg (2 x 300 mg) PO TID nerve pain 30 days #180 caps 05/28/23 [Rx Last Taken Unknown] Allergy/AdvReac Type Severity Reaction Status Date / Time No Known Allergies Allergy Verified 05/28/23 15:06 Family History Mother Arthritis Diabetes Heart disease Ulcer Anxiety History of blood transfusion Father Hypertension High cholesterol Cancer Brother Asthma Diabetes Heart disease Hypertension CVA (cerebral vascular accident) High cholesterol Surgical History History of cardiac catheterization History of cholecystectomy History of esophagogastroduodenoscopy (EGD) (~2013) HISTORY OF FISTULOTOMY History of hand surgery History of hysterectomy History of unilateral oophorectomy Social History household members: spouse Smoking Status: Former smoker alcohol intake: never substance use type: does not use additional social history: DOES NOT USE ASPIRIN DOES USE IBUPROFEN NEEDED ROS ROS ED Constitutional Constitutional ED: Denies chills, fever(s), subjective or sweats Eyes Eyes: Reports none ENT ENT ED: Denies ear pain, rhinorrhea or sore throat Cardiovascular Cardiovascular: Reports as per HPI; Denies orthopnea or paroxysmal nocturnal dyspnea Respiratory/Chest Respiratory/Chest: Reports dyspnea and dyspnea on exertion; Denies cough, orthopnea or paroxysmal nocturnal dyspnea Gastrointestinal Gastrointestinal: Denies abdominal pain, diarrhea, nausea or vomiting Musculoskeletal Musculoskeletal: Denies arthralgias, back pain, myalgias or neck pain Integumentary Denies rash Neurologic Neurologic: Denies headache(s) or paresthesias Psychiatric Psychiatric: Reports anxiety, depression and other Details: Per Endocrine Endocrinology: Denies cold intolerance Hematologic/Lymphatic Hematologic/Lymphatic: Denies easy bleeding or easy bruising EXAM Physical Exam Const Vital Signs: 12/19/23 10:35 12/19/23 10:35 12/19/23 11:35 Temperature 98.2 F Temperature Source Oral Pulse Rate 74 67 Respiratory Rate 15 16 Respiratory Effort Short of Breath Blood Pressure 122/68 H 130/75 H Blood Pressure Mean 86 93 Pulse Ox 99 97 Oxygen Delivery Method Room Air Room Air 12/19/23 12:00 12/19/23 13:00 Temperature Temperature Source Pulse Rate 67 64 Respiratory Rate 16 12 Respiratory Effort Blood Pressure 126/86 H 129/80 H Blood Pressure Mean 99 96 Pulse Ox 99 100 Oxygen Delivery Method Room Air Room Air Positive well nourished, well developed and obese Constitutional Narrative: Patient's breathing is faster than 15 which is documented. General Appearance ED: well developed and NAD; Negative for pallor Nutritional Appearance: obese HEENT Reports moist mucous membranes normocephalic and atraumatic Eyes PERRL General Eye ED: Negative for pale conjunctiva or scleral icterus Neck no lymphadenopathy, supple and no JVD Resp normal respiratory effort and clear to auscultation bilaterally Cardio regular rate, regular rhythm, S1 normal heart sound, S2 normal heart sound and no murmurs GI normal to inspection, nondistended, normoactive bowel sounds, soft to palpation, non-tender, non-distended and no masses; Negative for hepatosplenomegaly GI Narrative: There is no palpable pulsatile mass. There is no abdominal bruit. Back/Spine no CVA tenderness Extremity normal to inspection Extremity Narrative: There is no asymmetry, swelling, discoloration, leg vein distention, palpable cords or tenderness along the distribution of the deep venous system. General Extremety ED: Negative for edema or pulses abnormal General Extremity: Negative for edema or pulses abnormal Neuro oriented x3, CN's II-XII intact bilaterally and no sensory deficits noted Sensorium / Orientation: awake and alert Psych Psych Narrative: Patient's voice is soft. She speaks slowly. Her affect is flat. Skin no rashes or lesions noted and no wounds General Skin Exam: Negative for jaundice or pallor MDM MDM MDM Narrative Medical decision making narrative: Patient underwent cardiac catheterization March 2023 because of abnormal stress test. The cardiac catheterization was performed by Dr. Daniel. Patient had a normal cardiac cath. This essentially rules out cardiac etiology of her pain. Since she has pleuritic pain D-dimer was obtained because of concern for pulmonary embolus. Chest x-ray to evaluate for pneumonia. This may represent anxiety. Workup included EKG, chest x-ray and appropriate blood work. Patient's Wells score for DVT is -2. Lab Data Attestation: I reviewed the patient's lab results. Lab results narrative: CBC is unremarkable. Electrolyte panel is unremarkable. Chloride slightly evaded 108. First troponin is 4. 2-hour troponin 17 with a delta of 2. This is a normal result. Therefore will discharge to home Labs: Laboratory Results - last 24 hr 12/19/23 12/19/23 10:50 13:07 WBC 5.4 RBC 4.02 L Hgb 12.1 Hct 36.2 L MCV 90.0 MCH 30.1 MCHC 33.4 RDW Std Deviation 38.9 RDW Coeff of Jose Raul 11.8 Plt Count 374 MPV 9.1 Immature Gran % (Auto) 0.400 Neut % (Auto) 58.9 Lymph % (Auto) 30.3 Rogers % (Auto) 8.9 Eos % (Auto) 1.1 Baso % (Auto) 0.4 Absolute Neuts (auto) 3.2 Absolute Lymphs (auto) 1.64 Nucleated RBC % 0 D-Dimer Quant (PE/DVT) 0.31 Sodium 138 Potassium 3.9 Chloride 108 H Carbon Dioxide 26.0 Anion Gap 4 L BUN 11 Creatinine 0.79 Estim Creat Clear Calc 120.56 Est GFR (MDRD) Af Amer 101 Est GFR (MDRD) Non-Af 83 BUN/Creatinine Ratio 13.9 Glucose 94 Calcium 8.9 Troponin I High Sens 4 6 Radiography Chest X-Ray - ED: 2 View (Reviewed interpreted by me at 08/17/2007 as negative. Cardiac silhouette size normal. Lung parenchyma normal. Hilum normal. Osseous structures are normal.) Diagnostic Testing: Clinical Impression(s) from Imaging Studies Chest X-Ray 12/19/23 10:55 IMPRESSION: No radiographic evidence of acute cardiopulmonary disease. Electronically Signed: Olga Lopez MD at 11:08 EDT , EKG Initial EKG: Attestation: I personally reviewed and interpreted this EKG as follows: Interpretation: Sinus Rhythm (Normal sinus rhythm with a rate of 73. [place] interval is 144 ms per cures duration 86 ms. QT duration 3 and 84 ms. Hayes is normal. There is nonspecific changes noted. There is also artifact.) Discharge Plan Triage Chief Complaint: Chest Pain ED Provider: Aman Baltazar Dx/Rx/DC Orders Clinical Impression: Left-sided chest pain, Acute dyspnea, Chest tightness Instructions: ED Chest Pain, Noncardiac, ED Dyspnea Prescriptions: No Action metoprolol succinate [Toprol XL] 25 mg tablet extended release 24 hr 25 mg PO DAILY multivitamin [Daily Multi-Vitamin] Tablet 1 tab PO DAILY Emergen-C 1,000 mg powder effervescent in packet 1 ea PO DAILY gabapentin 300 mg capsule 300 mg PO BID Qty: 60 1RF hydroxychloroquine [Plaquenil] 200 mg tablet 200 mg PO DAILY gabapentin 300 mg capsule 600 mg PO TID 30 Days Qty: 180 1RF levothyroxine 150 MCG tablet 150 mcg PO DAILY trazodone 50 MG tablet 150 mg PO QHS dextroamphetamine-amphetamine [Adderall] 30 mg tablet 30 mg PO DAILY Xeljanz 5 mg tablet 5 mg PO .twice daily aripiprazole 5 mg tablet 5 mg PO QHS Patient Comments: Take 1 tablet by mouth once daily. bupropion HCl 300 mg tablet extended release 24 hr 300 mg PO DAILY Patient Comments: Take 1 tablet by mouth once daily. aspirin 81 mg capsule 81 mg PO DAILY Qty: 30 1RF Primary Care Provider: Myesha Saunders Referrals: Myesha Saunders MD [Primary Care Provider] - 3-5 Days if not improving Disposition Disposition: Home, Self Care
--- NOTE | 2023-12-19 10:55 | RAD_ITS ---
INDICATION: Chest pain, shortness of breath. EXAMINATION/TECHNIQUE: X-RAY - XR Chest 2 Views COMPARISON: December 18, 2023 FINDINGS: LINES/DEVICES: None. LUNGS: No consolidation, edema or effusion. No pneumothorax. MEDIASTINUM AND CARDIOVASCULAR STRUCTURES: Cardiac silhouette not enlarged. Central airways and mediastinal contour are unremarkable. BONES AND SOFT TISSUES: Unremarkable. RAD/Chest PA and Lateral IMPRESSION: No radiographic evidence of acute cardiopulmonary disease. Electronically Signed: Olga Lopez MD at 11:08 EDT ,
[2023-12-19 11:11] LABS: Absolute Lymphocyte Count 1.64 X10^3/uL (0.83-4.51); Absolute Neutrophil Count 3.2 X10^3/uL (2.0-7.7); Basophil# 0.02 X10^3/uL; Basophil% 0.4 % (0-1); Eosinophil# 0.06 X10^3/uL; Eosinophils% 1.1 % (0-5); Hematocrit 36.2 % (37-47); Hemoglobin 12.1 g/dL (12.0-15.0); Lymphocyte # 1.64 X10^3/ul (0.83-4.51); Lymphocyte % 30.3 % (19-41); Mean Corp Hgb Conc 33.4 g/dL (32-36); Mean Corpuscular Hgb 30.1 pg (27.0-32.0); Mean Platelet Vol. 9.1 fl (6.2-12.0); Monocyte# 0.48 X10^3/uL; Monocyte% 8.9 % (0-10); NRBC Flagged by Analyzer 0 % (0-5); Neutrophil # 3.19 X10^3/uL (2.7-7.7); Neutrophil % 58.9 % (47-70); Platelet Count 374 K/mm3 (150-450); RBC Distribution Width CV 11.8 % (11.6-14.6); RBC Distribution Width SD 38.9 fl (35.1-43.9); Red Blood Count 4.02 M/mm3 (4.2-5.4); White Blood Count 5.4 K/mm3 (4.4-11.0)
[2023-12-19 11:20] LABS: Anion Gap 4 (5-15); BUN 11 mg/dL (7-18); BUN/Creat Ratio 13.9 RATIO (10-20); Calcium,Total 8.9 mg/dL (8.5-10.1); Chloride 108 mmol/L (98-107); Creatinine, Serum 0.79 mg/dL (0.55-1.02); EST Glomerular Filtration Rate 83 mL/min (>60); Est Glom Filt Rate - Afr Amer 101 mL/min (>60); Estimated Creatinine Clearance 120.56 ml/min; Glucose 94 mg/dL (74-106); Potassium 3.9 mmol/L (3.5-5.1); Sodium Level 138 mmol/L (136-145); Troponin-I HS (w/2H Reflex) 4 pg/mL (3.0-54.0)
[2023-12-19 11:27] LABS: D-Dimer Quantitative (DVT/PE) 0.31 FEU/ug/m (0.27-0.49)
[2023-12-19 11:35] VITALS: BP 130/75; PULSE 67; RESP 16; O2SAT 97
[2023-12-19 12:00] VITALS: BP 126/86; PULSE 67; RESP 16; O2SAT 99
[2023-12-19 12:55] LABS: Reflex Troponin-HS? (from REC) Y
[2023-12-19 13:00] VITALS: BP 129/80; PULSE 64; RESP 12; O2SAT 100
[2023-12-19 13:30] LABS: Troponin-I HS 6 pg/mL (3.0-54.0)
[2023-12-19 14:00] VITALS: BP 138/73; PULSE 65; RESP 12; TEMP 36.8; O2SAT 99
== END 2023-12-19 14:04 | disposition home or self-care (01) ==
PROVIDERS: Emergency Provider Emergency Medicine; PCP Internal Medicine; Visit Provider Emergency Medicine
DX: R07.89 Other chest pain (principal); I48.91 Unspecified atrial fibrillation; M32.9 Systemic lupus erythematosus, unspecified; R06.00 Dyspnea, unspecified; Z87.891 Personal history of nicotine dependence; I10 Essential (primary) hypertension; E03.9 Hypothyroidism, unspecified; Z79.899 Other long term (current) drug therapy; F32.A Depression, unspecified; Z79.82 Long term (current) use of aspirin; Z90.49 Acquired absence of other specified parts of digestive tract; Z90.710 Acquired absence of both cervix and uterus; Z90.721 Acquired absence of ovaries, unilateral; E66.9 Obesity, unspecified
CPT/HCPCS: 71046; 80048; 84484; 85025; 85379; 93005; 99284; A4216

== ENCOUNTER → 2024-03-25 | Outpatient (CLI) | payer MEDICAID, SELFPAY ==
[2024-03-25 10:36] LABS: Thyroid Stim Hormone (TSH) 0.02 uIU/mL (0.358-3.74)
== END | disposition home or self-care (01) ==
LOC: MFPLAB 08:54
PROVIDERS: PCP Family Medicine; Visit Provider Family Medicine
DX: E03.9 Hypothyroidism, unspecified (principal)
CPT/HCPCS: 36415; 84443

== ENCOUNTER 2024-03-30 16:30 | Observation (INO) | payer MEDICAID, SELFPAY ==
[2024-03-30] VITALS (11 sets, daily range): BP systolic 96–148; BP diastolic 65–88; PULSE 61–110; RESP 12–18; TEMP 36.1–36.7; O2SAT 93–100; BMI 34.8; BMI 33.3
--- NOTE | 2024-03-30 16:42 | ED.VIS.CHEST ---
HPI History of Present Illness Chief Complaint: Chest Pain Informant: patient Onset/Context/Timing Onset: Today Activity at onset: gradual Timing: Continuous Quality: Positive for Burning, Pressure and Sharp Location: Left Chest and - (Left arm, jaw, and neck) Worsened By: Nothing Relieved By: Nothing Associated Symptoms: Positive for Nausea, Diaphoresis, Dyspnea, Cough and Lightheadedness; Negative for Vomiting, Fever, Acid Reflux or Palpitations Narrative Narrative: Patient presents with chest pain that began today. Patient states it is gradually getting worse. Patient states she woke up and was having some pain in her chest. Patient describes it as sharp, burning, and pressure. Patient states that it started radiating into her left axilla, left shoulder, and left arm. Patient states that since she has been in the emergency department, it is rating up into her left jaw and neck area. Patient admits to some nausea but denies any vomiting. Patient states she did break it into a sweat earlier today. Patient admits to some cough and shortness of breath. Patient also admits to some swelling of her ankles. Patient states she has difficulty breathing when she lays completely flat. Patient also admits to some dyspnea with exertion. Patient states she has been feeling dizzy. Patient denies any fevers or chills. [facility] Medical History ADHD Bipolar 1 disorder Abnormal stress electrocardiogram test Open injury of dorsal sensory branch of ulnar nerve History of IBS Laceration of extensor muscle, fascia and tendon of right little finger at wrist and hand level, initial encounter Laceration of flexor muscle, fascia and tendon of right little finger at wrist and hand level, initial encounter Contact with sharp glass as cause of accidental injury at home as place of occurrence Injury of digital nerve of right little finger Paresthesias in right hand Laceration of right little finger Recent weight loss Shoulder pain Chronic thoracic back pain Chronic neck pain Macromastia Lupus Atrial fibrillation Anxiety and depression GERD (gastroesophageal reflux disease) Rheumatoid arthritis Low back pain Laxity of skin Diastasis of rectus abdominis Intertrigo Abdominal panniculus Goiter Thyroid disorder Hypertension Obsessive compulsive disorder Depression (emotion) Chronic bronchitis Environmental allergies Home Medications ?Medication ?Instructions ?Recorded ?Last Taken ?Type metoprolol succinate 25 mg 25 mg PO DAILY 06/09/18 04/10/23 History tablet,extended release 24 hr (Toprol XL) trazodone 50 mg tablet 150 mg PO QHS 03/12/20 04/02/23 History ascorbic acid 1,000 1 ea PO DAILY 06/21/20 04/02/23 History in-xuqocyuypqjg-fdfvvpjh powder effervescent pack (Emergen-C) multivitamin (Daily Multi-Vitamin 1 tab PO DAILY 06/21/20 04/02/23 History tablet) aripiprazole 5 mg tablet 5 mg PO QHS 04/02/23 04/02/23 History tofacitinib 5 mg tablet (Xeljanz) 5 mg PO .twice daily 04/02/23 04/03/23 History bupropion HCl 300 mg 24 hr tablet, 300 mg PO DAILY see 04/03/23 04/10/23 History extended release aspirin 81 mg capsule 81 mg PO DAILY #30 caps 04/07/23 Unknown Rx gabapentin 300 mg capsule 300 mg PO BID #60 caps 04/16/23 Unknown Rx hydroxychloroquine 200 mg tablet 200 mg PO DAILY 04/23/23 Unknown History (Plaquenil) gabapentin 300 mg capsule 600 mg (2 x 300 mg) PO TID nerve 05/28/23 Unknown Rx pain 30 days #180 caps alprazolam 0.5 mg tablet (Xanax) 0.5 mg PO BID 03/21/24 Unknown History dextroamphetamine-amphetamine 30 35 mg PO DAILY 03/21/24 Unknown History mg tablet (Adderall) fluoxetine 20 mg capsule 40 mg PO DAILY 03/21/24 Unknown History levothyroxine 150 mcg tablet 200 mcg PO DAILY 03/21/24 Unknown History meloxicam 15 mg tablet 15 mg PO DAILY 03/21/24 Unknown History metformin 500 mg tablet 500 mg PO BID 03/21/24 Unknown History polyethylene glycol 3350 17 g PO DAILY 03/21/24 Unknown History gram/dose oral powder propranolol 20 mg tablet 20 mg PO TID PRN 03/21/24 Unknown History Allergy/AdvReac Type Severity Reaction Status Date / Time benzocaine Allergy Intermediate intolerance Verified 03/30/24 16:31 lamotrigine (From Lamictal) AdvReac Intermediate Diarrhea Verified 03/30/24 16:31 Family History Mother Arthritis Diabetes Heart disease Ulcer Anxiety History of blood transfusion Father Hypertension High cholesterol Cancer Brother Asthma Diabetes Heart disease Hypertension CVA (cerebral vascular accident) High cholesterol Surgical History History of hand surgery HISTORY OF FISTULOTOMY History of unilateral oophorectomy History of cholecystectomy History of hysterectomy Social History household members: spouse Smoking Status: Former smoker alcohol intake: never substance use type: does not use additional social history: DOES NOT USE ASPIRIN DOES USE IBUPROFEN NEEDED ROS ROS ED Constitutional Constitutional ED: Reports sweats; Denies chills or fever(s) Eyes Eyes: Denies blurry vision or change in vision ENT ENT ED: Denies rhinorrhea or sore throat Cardiovascular Cardiovascular: Reports chest pain; Denies palpitations Respiratory/Chest Respiratory/Chest: Reports cough and dyspnea Gastrointestinal Gastrointestinal: Reports nausea; Denies vomiting Genitourinary Genitourinary ED: Denies dysuria or hematuria Musculoskeletal Musculoskeletal: Reports neck pain; Denies back pain Integumentary Denies abscess or rash Neurologic Neurologic: Reports headache(s); Denies weakness Allergic/Immunologic Allergic/Immunologic ED: Denies mouth swelling or urticaria EXAM Physical Exam Const Vital Signs: 03/30/24 16:31 03/30/24 16:47 03/30/24 17:31 Temperature 96.9 F L Temperature Source Temporal Pulse Rate 67 64 Respiratory Rate 18 18 Respiratory Effort Short of Breath Blood Pressure 148/88 H 106/74 Blood Pressure Mean 108 84 Pulse Ox 100 99 Oxygen Delivery Method Room Air Room Air 03/30/24 17:55 03/30/24 18:18 03/30/24 19:00 Temperature Temperature Source Pulse Rate 110 H 67 Respiratory Rate 18 12 Respiratory Effort Blood Pressure 107/73 96/65 Blood Pressure Mean 84 75 Pulse Ox 98 99 96 Oxygen Delivery Method Room Air Room Air Room Air 03/30/24 20:00 03/30/24 21:02 Temperature Temperature Source Pulse Rate 66 64 Respiratory Rate 16 Respiratory Effort Blood Pressure 129/71 H 136/72 H Blood Pressure Mean 90 Pulse Ox 95 Oxygen Delivery Method Room Air Positive well nourished and well developed General Appearance ED: well developed and NAD HEENT Reports moist mucous membranes Neck supple and no JVD Resp normal respiratory effort and clear to auscultation bilaterally Cardio regular rate and regular rhythm GI soft to palpation, non-tender and non-distended Neuro oriented x3, CN's II-XII intact bilaterally and no sensory deficits noted Sensorium / Orientation: awake and alert Motor Exam: strength 5/5 throughout Psych mental status grossly normal Heart Score History: Moderately Suspicious ECG: Nonspecific Repolarization Age: >45 - <65 years Risk Factors: 1 or 2 Risk Factors Troponin: </= Normal Limit Score: 4 MDM MDM MDM Narrative Medical decision making narrative: Differential diagnosis includes cardiac dysrhythmia, cardiac ischemia, pneumonia, congestive heart failure, pneumothorax, electrolyte abnormality, gastroesophageal reflux disease, and anxiety. EKG will be obtained to assess for cardiac dysrhythmia and cardiac ischemia. Chest x-ray will be obtained to assess for pneumonia and pneumothorax. CBC will be obtained to assess for leukocytosis and anemia. Basic metabolic profile will be obtained to assess for electrolyte abnormality and renal function. High-sensitivity troponin will be obtained to assess for cardiac ischemia. 2-hour repeat high-sensitivity troponin will be obtained to assess for ongoing cardiac ischemia. BNP will be obtained to assess for congestive heart failure. Lab Data Attestation: I reviewed the patient's lab results. Lab results narrative: CBC was reviewed and was within normal limits. Basic metabolic profile was reviewed and was within normal limits. High-sensitivity troponin was reviewed and was normal at 5. 2-hour repeat high-sensitivity troponin was reviewed and was also normal at 5. BNP was reviewed and was normal at 12.8. Labs: Laboratory Results - last 24 hr 03/30/24 03/30/24 16:46 19:52 WBC 6.9 RBC 4.00 L Hgb 12.3 Hct 37.2 MCV 93.0 MCH 30.8 MCHC 33.1 RDW Std Deviation 40.5 RDW Coeff of Jose Raul 11.8 Plt Count 384 MPV 9.9 Immature Gran % (Auto) 0.400 Neut % (Auto) 58.1 Lymph % (Auto) 31.4 [place] % (Auto) 9.2 Eos % (Auto) 0.6 Baso % (Auto) 0.3 Absolute Neuts (auto) 4.0 Absolute Lymphs (auto) 2.16 Nucleated RBC % 0 Sodium 138 Potassium 3.8 Chloride 103 Carbon Dioxide 29.0 Anion Gap 6 BUN 13 Creatinine 0.78 Estim Creat Clear Calc 124.86 Est GFR (MDRD) Af Amer 102 Est GFR (MDRD) Non-Af 84 BUN/Creatinine Ratio 16.6 Glucose 85 Calcium 9.0 Troponin I High Sens 5 5 B-Natriuretic Peptide 12.8 Radiography Chest X-Ray - ED: 2 View, Read by ED Physician, Read by Radiologist and No Acute Disease Diagnostic Testing: Clinical Impression(s) from Imaging Studies Chest X-Ray 03/30/24 18:00 IMPRESSION: No radiographic evidence of acute cardiopulmonary disease. Electronically Signed: Law Long MD at 18:47 EDT , PA and lateral chest x-ray was obtained. There are 2 views. On my independent interpretation, lung xie are clear. There is normal cardiac silhouette. Bony thorax is normal. There is no acute process noted. Radiologist also interpreted the x-ray and agrees. EKG Initial EKG: Attestation: I personally reviewed and interpreted this EKG as follows: Interpretation: Sinus Rhythm (65) and No Acute Injury Pattern Comments: EKG was obtained. On my independent interpretation, it showed a normal sinus rhythm with a rate of 65. CT interval, QRS interval, and QTc intervals were all normal. [place] was normal. There are nonspecific ST-T wave changes. Prior EKG tracings: available for review Prior: Unchanged (12/19/2023) Management Discussion w/another healthcare provider: Hospitalist Treatment and Re-Evaluation :: Patient was given aspirin. Patient had no change in her chest pain. Patient states she was still having pain on reevaluation. Patient was advised of her findings. Patient has a HEART score of 4. Because of this, I recommended admission to the hospital for observation and chest pain evaluation. Patient is agreeable with this. Case was discussed with the hospitalist. He will admit the patient to PCU for observation. Patient and family understood and were agreeable with the plan. All questions were answered. Discharge Plan Triage Chief Complaint: Chest Pain ED Provider: Ian Montes Dx/Rx/DC Orders Clinical Impression: Chest pain, Hypertension, Lupus Prescriptions: No Action metoprolol succinate [Toprol XL] 25 mg tablet extended release 24 hr 25 mg PO DAILY multivitamin [Daily Multi-Vitamin] Tablet 1 tab PO DAILY Emergen-C 1,000 mg powder effervescent in packet 1 ea PO DAILY gabapentin 300 mg capsule 300 mg PO BID Qty: 60 1RF hydroxychloroquine [Plaquenil] 200 mg tablet 200 mg PO DAILY gabapentin 300 mg capsule 600 mg PO TID 30 Days Qty: 180 1RF metformin 500 mg tablet 500 mg PO BID meloxicam 15 mg tablet 15 mg PO DAILY alprazolam [Xanax] 0.5 mg tablet 0.5 mg PO BID polyethylene glycol 3350 17 gram/dose powder PO DAILY propranolol 20 mg tablet 20 mg PO TID PRN fluoxetine 20 mg capsule 40 mg PO DAILY levothyroxine 150 mcg tablet 200 mcg PO DAILY trazodone 50 MG tablet 150 mg PO QHS Xeljanz 5 mg tablet 5 mg PO .twice daily aripiprazole 5 mg tablet 5 mg PO QHS Patient Comments: Take 1 tablet by mouth once daily. dextroamphetamine-amphetamine [Adderall] 30 mg tablet 35 mg PO DAILY bupropion HCl 300 mg tablet extended release 24 hr 300 mg PO DAILY Patient Comments: Take 1 tablet by mouth once daily. aspirin 81 mg capsule 81 mg PO DAILY Qty: 30 1RF Primary Care Provider: Myesha Saunders Referrals: Elida Apodaca MD [Med Staff - Business Technology Analyst] - Print Language: Serbian Disposition Disposition: Acute Care Hospital [facility]
[2024-03-30] MEDS: Aspirin 81 MG TAB.CHEW 324 MG PO (17:58)
[2024-03-30 18:00] LABS: Absolute Lymphocyte Count 2.16 X10^3/uL (0.83-4.51); Basophil# 0.02 X10^3/uL; Basophil% 0.3 % (0-1); Eosinophil# 0.04 X10^3/uL; Eosinophils% 0.6 % (0-5); Hematocrit 37.2 % (37-47); Hemoglobin 12.3 g/dL (12.0-15.0); Lymphocyte # 2.16 X10^3/ul (0.83-4.51); Lymphocyte % 31.4 % (19-41); Mean Corp Hgb Conc 33.1 g/dL (32-36); Mean Corpuscular Hgb 30.8 pg (27.0-32.0); Mean Platelet Vol. 9.9 fl (6.2-12.0); Monocyte# 0.63 X10^3/uL; Monocyte% 9.2 % (0-10); NRBC Flagged by Analyzer 0 % (0-5); Neutrophil % 58.1 % (47-70); Platelet Count 384 K/mm3 (150-450); RBC Distribution Width CV 11.8 % (11.6-14.6); RBC Distribution Width SD 40.5 fl (35.1-43.9); White Blood Count 6.9 K/mm3 (4.4-11.0)
--- NOTE | 2024-03-30 18:00 | RAD_ITS ---
EXAM: XR CHEST, 2 VIEWS CLINICAL INDICATION: chest pain TECHNIQUE: Frontal and lateral views of the chest. COMPARISON: 12/19/2023 FINDINGS: LUNGS AND PLEURAL SPACES: Unremarkable. No consolidation or edema. No pneumothorax. No effusion. HEART: Unremarkable. Cardiac silhouette not enlarged. MEDIASTINUM: Central airways and mediastinal contour are unremarkable. BONES/JOINTS: Unremarkable. No acute fracture. SOFT TISSUES: Unremarkable. RAD/Chest PA and Lateral IMPRESSION: No radiographic evidence of acute cardiopulmonary disease. Electronically Signed: Law Long MD at 18:47 EDT ,
[2024-03-30 18:17] LABS: Anion Gap 6 (5-15); BUN 13 mg/dL (7-18); BUN/Creat Ratio 16.6 RATIO (10-20); Chloride 103 mmol/L (98-107); Creatinine, Serum 0.78 mg/dL (0.55-1.02); EST Glomerular Filtration Rate 84 mL/min (>60); Est Glom Filt Rate - Afr Amer 102 mL/min (>60); Estimated Creatinine Clearance 124.86 ml/min; Glucose 85 mg/dL (74-106); Potassium 3.8 mmol/L (3.5-5.1); Sodium Level 138 mmol/L (136-145); Troponin-I HS (w/2H Reflex) 5 pg/mL (3.0-54.0)
[2024-03-30 18:30] LABS: BNP,B-Type NATRIURETIC PEPTIDE 12.8 pg/mL (0-100)
[2024-03-30 19:56] LABS: Reflex Troponin-HS? (from REC) Y
[2024-03-30 20:18] LABS: Troponin-I HS 5 pg/mL (3.0-54.0)
[2024-03-30] MEDS: Nitroglycerin SL (ED/IMG/CATH) 0.4 MG TABLET SL ×3 (21:02→21:12)
--- NOTE | 2024-03-30 21:04 | HP.PCM.HOS_ITS ---
[facility] - General General Date of Admission: 03/30/24 Date of Service: 03/30/24 Chief Complaint: Chest Pain and SOB. HPI Narrative GABY MARTINEZ, is a 44 F with a past medical history of essential hypertension, hypothyroidism; with history of goiter, obesity; with BMI of 34.8 this admission, DM-2; of unknown control on Metformin, diabetic neuropathy, history of atrial fibrillation, history of atypical chest pain; with abnormal stress test followed by negative [facility] (03/2023), Bipolar 1 disorder, ADHD, OCD, history of IBS, RA, SLE, history of intertrigo with panniculitis, GERD; with history of PUD, OA; with chronic neck/back pain, history of hand surgery, history of fistulotomy, history of cholecystectomy and history of Right oophorectomy with hysterectomy who presents to [facility] ER complaining of chest pain and SOB. Ms. Martinez reports her symptoms began approximately early this morning with chest pain that began at rest shortly after awakening with the abrupt-onset of gradually worsening chest pain that was substernal, sharp, burning and pressure-like with radiation toward her Left shoulder and arm and up into her Left neck and jaw followed by diaphoresis with nothing seeming to make the pain better but she admits exertion seems to make it worse. She also admits to associated nausea, mild symmetric bilateral LE edema along with SOB that is made worse by laying flat and exertion. She denies related fever, chills, vomiting, constipation, diarrhea, other recent illness, recent trauma or recent medication changes and she admits she was recently evaluated by a colon and rectal surgeon as an outpatient with an essentially negative workup for her SOB increasing the likelihood of possible silent aspiration due to GERD. In the ER she was noted to have a normal troponin and an unremarkable EKG and she was then admitted to the PCU under observation status for ongoing care for a stay that is expected to be less than 2 midnights. [facility] Medical History ADHD Bipolar 1 disorder Abnormal stress electrocardiogram test Open injury of dorsal sensory branch of ulnar nerve History of IBS Laceration of extensor muscle, fascia and tendon of right little finger at wrist and hand level, initial encounter Laceration of flexor muscle, fascia and tendon of right little finger at wrist and hand level, initial encounter Contact with sharp glass as cause of accidental injury at home as place of occurrence Injury of digital nerve of right little finger Paresthesias in right hand Laceration of right little finger Recent weight loss Shoulder pain Chronic thoracic back pain Chronic neck pain Macromastia Lupus Atrial fibrillation Anxiety and depression GERD (gastroesophageal reflux disease) Rheumatoid arthritis Low back pain Laxity of skin Diastasis of rectus abdominis Intertrigo Abdominal panniculus Goiter Thyroid disorder Hypertension Obsessive compulsive disorder Depression (emotion) Chronic bronchitis Environmental allergies Home Medications ?Medication ?Instructions ?Recorded ?Last Taken ?Type metoprolol succinate 25 mg 25 mg PO DAILY 06/09/18 04/10/23 History tablet,extended release 24 hr (Toprol XL) trazodone 50 mg tablet 150 mg PO QHS 03/12/20 04/02/23 History tofacitinib 5 mg tablet (Xeljanz) 5 mg PO BID 04/02/23 04/03/23 History bupropion HCl 300 mg 24 hr tablet, 300 mg PO DAILY see 04/03/23 04/10/23 History extended release aspirin 81 mg capsule 81 mg PO DAILY #30 caps 04/07/23 Unknown Rx hydroxychloroquine 200 mg tablet 200 mg PO DAILY 04/23/23 Unknown History (Plaquenil) alprazolam 0.5 mg tablet (Xanax) 0.5 mg PO BID anxiety 03/21/24 Unknown History dextroamphetamine-amphetamine 30 35 mg PO DAILY 03/21/24 Unknown History mg tablet (Adderall) fluoxetine 20 mg capsule 40 mg PO QHS 03/21/24 Unknown History levothyroxine 150 mcg tablet 200 mcg PO DAILY 03/21/24 Unknown History metformin 500 mg tablet 500 mg PO BID 03/21/24 Unknown History Allergy/AdvReac Type Severity Reaction Status Date / Time benzocaine Allergy Intermediate intolerance Verified 03/30/24 16:31 lamotrigine (From Lamictal) AdvReac Intermediate Diarrhea Verified 03/30/24 16:31 Family History Mother Arthritis Diabetes Heart disease Ulcer Anxiety History of blood transfusion Father Hypertension High cholesterol Cancer Brother Asthma Diabetes Heart disease Hypertension CVA (cerebral vascular accident) High cholesterol Surgical History History of hand surgery HISTORY OF FISTULOTOMY History of unilateral oophorectomy History of cholecystectomy History of hysterectomy Social History household members: spouse Smoking Status: Former smoker alcohol intake: never substance use type: does not use additional social history: DOES NOT USE ASPIRIN DOES USE IBUPROFEN NEEDED ROS ROS Narrative Review of systems: Constitutional: Patient denies fever or chills. Eyes: Patient denies changes in vision or discharge from eyes. ENT: Patient denies runny nose, sore throat or ear pain. CV: Patient admits to chest pain with radiation to Left arm and jaw with diaphoresis as per HPI. She denies heart racing or palpitations. Resp: Patient admits to SOB but she denies cough. GI: Patient admits to nausea but she denies vomiting. : Patient denies dysuria, hematuria or urinary frequency. Skin: Patient denies rash, jaundice or abscess. Psych: Patient denies symptoms of uncontrolled depression or anxiety. Hemat: Patient denies easy bleeding or easy bruisability. Endocrine: Patient denies polyuria, polydipsia or polyphagia. 14 point ROS otherwise negative except for positives noted above in HPI. Vital Signs Vital Signs Vital Signs: 03/30/24 16:31 03/30/24 16:47 03/30/24 17:31 Temperature 96.9 F L Temperature Source Temporal Pulse Rate 67 64 Respiratory Rate 18 18 Respiratory Effort Short of Breath Blood Pressure 148/88 H 106/74 Blood Pressure Mean 108 84 Pulse Ox 100 99 Oxygen Delivery Method Room Air Room Air 03/30/24 17:55 03/30/24 18:18 03/30/24 19:00 Temperature Temperature Source Pulse Rate 110 H 67 Respiratory Rate 18 12 Respiratory Effort Blood Pressure 107/73 96/65 Blood Pressure Mean 84 75 Pulse Ox 98 99 96 Oxygen Delivery Method Room Air Room Air Room Air 03/30/24 20:00 Temperature Temperature Source Pulse Rate 66 Respiratory Rate 16 Respiratory Effort Blood Pressure 129/71 H Blood Pressure Mean 90 Pulse Ox 95 Oxygen Delivery Method Room Air Weight Weight: 249 lb 9.012 oz Body Mass Index (BMI) 34.8 Physical Exam Const alert, oriented x3, no apparent distress and healthy appearing Constitutional Narrative: Obese. General Appearance: cooperative HEENT normocephalic, head/scalp atraumatic, hearing grossly normal bilaterally and moist oral mucous membranes Eyes PERRL and EOMs intact bilaterally Neck no lymphadenopathy and supple Resp normal respiratory effort, no retractions, no use of accessory muscles and clear to auscultation bilaterally Cardio regular rate and regular rhythm GI normal to inspection, nondistended, normoactive bowel sounds, soft to palpation, non-tender and non-distended Extremity normal to inspection, full ROM and no clubbing, cyanosis or edema Skin Skin Narrative: Patient has no evidence of jaundice, abscess or rash. Neuro oriented x3, CN's II-XII intact bilaterally, moves all extremities and no focal motor deficits Sensorium / Orientation: awake, alert, oriented to person, oriented to place and oriented to time Speech: speech normal Motor Exam: strength 5/5 throughout Psych affect normal Results Medical Records Data Attestation: I reviewed the patient's medical records Lab / Micro Data Attestation: I reviewed the patient's lab results. 03/30/24 16:46 03/30/24 16:46 Labs: Laboratory Results - last 24 hr 03/30/24 16:46: WBC 6.9, RBC 4.00 L, Hgb 12.3, Hct 37.2, MCV 93.0, MCH 30.8, MCHC 33.1, RDW Std Deviation 40.5, RDW Coeff of Jose Raul 11.8, Plt Count 384, MPV 9.9, Immature Gran % (Auto) 0.400, Neut % (Auto) 58.1, Lymph % (Auto) 31.4, [place] % (Auto) 9.2, Eos % (Auto) 0.6, Baso % (Auto) 0.3, Absolute Neuts (auto) 4.0, Absolute Lymphs (auto) 2.16, Nucleated RBC % 0, Sodium 138, Potassium 3.8, Chloride 103, Carbon Dioxide 29.0, Anion Gap 6, BUN 13, Creatinine 0.78, Estim Creat Clear Calc 124.86, Est GFR (MDRD) Af Amer 102, Est GFR (MDRD) Non-Af 84, BUN/Creatinine Ratio 16.6, Glucose 85, Calcium 9.0, Troponin I High Sens 5, B- Natriuretic Peptide 12.8 03/30/24 19:52: Troponin I High Sens 5 Imaging Radiology Impression Chest X-Ray 03/30/24 18:00 IMPRESSION: No radiographic evidence of acute cardiopulmonary disease. Electronically Signed: Law D. Breckwoldt, MD at 18:47 EDT , Assessment & Plan Assessment/Plan (1) Chest pain: QUALIFIERS: Chest pain type: unspecified Qualified Code(s): R07.9 - Chest pain, unspecified (2) GERD (gastroesophageal reflux disease): QUALIFIERS: Esophagitis presence: esophagitis presence not specified Qualified Code(s): K21.9 - Gastro-esophageal reflux disease without esophagitis (3) Hypertension: QUALIFIERS: Hypertension type: unspecified Qualified Code(s): I10 - Essential (primary) hypertension (4) ADHD: QUALIFIERS: Attention deficit-hyperactivity disorder type: u nspecified Qualified Code(s): F90.9 - Attention-deficit hyperactivity disorder, unspecified type (5) Bipolar 1 disorder: (6) Obsessive compulsive disorder: QUALIFIERS: Obsessive-compulsive disorder type: unspecified Q ualified Code(s): F42.9 - Obsessive-compulsive disorder, unspecified (7) Thyroid disorder: (8) Anxiety and depression: (9) Lupus: PLAN: Plan 1. Chest Pain in the setting of a known history of Atypical Chest Pain with abnormal NST and eventual negative LHC last year - Admit to PCU under observation status. Serialize troponin. Check echocardiogram to evaluate LVEF. Check Lexiscan NST in the AM to evaluate for underlying ischemia. Continue ECASA plus prn sublingual NTG. Give Tylenol prn for [id number] (level 1- 5/10) pain or fever. Give Morphine IV prn for severe (level 6-10/10) pain. 2. GERD; with history of PUD and suspected esophageal spasm likely causing #1 - Start Protonix 40 mg PO daily with patient apparently on unopposed BASA. Give Maalox prn for breakthrough symptoms. Consider outpatient referral to GI if her cardiac workup is unrevealing. 3. Essential hypertension - Continue home regimen plus give prn IV Hydralazine for systolic blood pressure > 160 mmHg. 4. Hypothyroidism; with history of goiter - Resume Synthroid as previous and check TSH. 5. Obesity; with BMI of 34.8 this admission - Weight loss will be recommended. 6. DM-2; of unknown control on Metformin plus diabetic neuropathy - ADA diet. FSBS q. AC/HS plus SSI. Check HgbA1c to objectively assess quality of diabetic control. 7. History of atrial fibrillation - Patient currently in NSR at this time. 8. Bipolar 1 disorder with ADHD and OCD - Stable. Resume current regimen. 9. History of IBS - Stable. 10. RA - Resume Xeljanz as previous. 11. SLE - Continue Hydroxychloroquine as before. 12. History of intertrigo with panniculitis - Noted. 13. OA; with chronic neck/back pain - Stable. Give Tylenol prn. 14. History of hand surgery - Noted. 15. History of fistulotomy - Noted. 16. History of cholecystectomy - Noted. 17. History of Right oophorectomy with hysterectomy - Noted. 18. DVT prophylaxis - Lovenox 40 mg sq daily. Total time: Approximately 70 minutes. Charges/Coding Visit Charges OBSV E&M: 18033 Observ/hosp same date L2
--- NOTE | 2024-03-30 21:38 | ECHOCS_ITS ---
Reason For Study: CHEST PAIN Procedure This was a 2D Doppler, Color Flow transthoracic echocardiogram. The study was technically difficult. Contrast injection was performed. Exam performed in department. Left Ventricle Normal size and thickness. The left ventricular ejection fraction is 65 %. No evidence for diastolic dysfunction. Right Ventricle Normal right ventricle. Atria The left atrium is mildly enlarged. Normal right atrium. Mitral Valve Trivial mitral valve insufficiency. Tricuspid Valve Trivial tricuspid valve insufficiency. Normal pulmonary artery pressure. Aortic Valve Trisinus/trileaflet aortic valve. Pulmonic Valve The pulmonic valve is not well visualized. Great Vessels Mildly dilated aortic root. Pericardium/Pleural No pericardial effusion. MMode/2D Measurements & Calculations LVIDd: 5.1 cm IVSd: 1.1 cm Ao root diam: 3.8 cm LVIDs: 2.9 cm LVPWd: 1.1 cm RVDd: 3.5 cm FS: 43.2 % LAV(MOD-bp): 89.5 ml LVAd ap4: 29.3 cm2 SV(MOD-sp4): 52.6 ml LAV(MOD-bp) Indexed: 38.9 ml/m2 LVLd ap4: 7.8 cm LAV(MOD-sp2): 89.0 ml EDV(MOD-sp4): 91.6 ml LAV(MOD-sp4): 89.5 ml EDV(sp4-el): 93.5 ml LVAs ap4: 17.4 cm2 LVLs ap4: 6.6 cm ESV(MOD-sp4): 39.0 ml ESV(sp4-el): 39.3 ml EF(MOD-sp4): 57.4 % EF(sp4-el): 58.0 % SV(sp4-el): 54.2 ml LA A4 area: 25.2 cm2 LA dimension(2D): 4.3 cm RA A4 area: 17.7 cm2 TAPSE: 2.3 cm Time Measurements MV dec time: 0.26 sec Doppler Measurements & Calculations MV E max shine: 64.3 cm/sec Lat Peak E' Shine: 13.4 cm/sec Med Peak E' Shine: 9.6 cm/sec MV A max shine: 56.8 cm/sec E/E' lat: 4.8 E/E' med: 6.7 MV E/A: 1.1 MV V2 max: 78.0 cm/sec MV P1/2t max shine: 75.5 cm/sec Ao V2 max: 119.2 cm/sec MV max P.4 mmHg MV P1/2t: 81.2 msec Ao max P.7 mmHg MV V2 mean: 47.5 cm/sec Ao V2 mean: 84.5 cm/sec MV mean P.0 mmHg MV dec slope: 272.4 cm/sec2 Ao mean P.2 mmHg MV V2 VTI: 21.1 cm MVA(P1/2t): 2.7 cm2 Ao V2 VTI: 27.0 cm AV (velocity ratio): 0.84 LV V1 max: 103.9 cm/sec PA V2 max: 113.1 cm/sec TR max shine: 212.4 cm/sec LV V1 max P.3 mmHg PA V2 mean: 79.0 cm/sec TR max P.1 mmHg LV V1 mean P.2 mmHg LV V1 mean: 69.0 cm/sec LV V1 VTI: 22.7 cm ECHO/Echo Complete W/ Contrast Interpretation Summary The left ventricular ejection fraction is 65 %. No evidence for diastolic dysfunction. The left atrium is mildly enlarged. Mildly dilated aortic root. Ordering Physician: Kit Amezquita Referring Physician: Myesha Saunders Performed By: Marilyn Barber, KAITLIN, RVT
[2024-03-30] MEDS: Acetaminophen 500 MG Tablet 1000 MG PO (21:42)
[2024-03-30 22:22] LABS: D-Dimer Quantitative (DVT/PE) 0.27 FEU/ug/m (0.27-0.49)
[2024-03-30] MEDS: Morphine 2 MG/ML Syringe IV (22:35)
[2024-03-30] MEDS: 0.9% Saline Lock 10 ML Syringe IV (22:36)
[2024-03-30] MEDS: traZODone 50 MG Tablet 150 MG PO (23:11)
[2024-03-30] MEDS: Pantoprazole Sodium 40 MG Tablet PO (23:11)
[2024-03-30] MEDS: Fluoxetine HCl 40 MG CAPSULE PO (23:12)
[2024-03-30 23:57] LABS: Thyroid Stim Hormone (TSH) 0.056 uIU/mL (0.358-3.740); Troponin-I HS 5 pg/mL (3.0-54.0)
[2024-03-31 01:27] LABS: T4 Free Direct 1.11 ng/dL (0.76-1.46)
[2024-03-31 04:27] VITALS: BP 125/62; PULSE 70; RESP 16; TEMP 36.1; O2SAT 95
[2024-03-31 06:13] VITALS: BP 121/63; PULSE 72; RESP 16; TEMP 36.2; O2SAT 96
[2024-03-31] MEDS: Levothyroxine 100 MCG Tablet 200 MCG PO (06:13)
[2024-03-31] MEDS: Aspirin 81 MG TAB.CHEW PO (06:14)
[2024-03-31 06:59] LABS: Cholesterol 148 mg/dL (200); High Density Lipoprotein 52 mg/dL; Triglycerides 109 mg/dL; Very Low Density Lipoprotein 22 mg/dL (5-40)
--- NOTE | 2024-03-31 07:49 | PN.HOSP_ITS ---
Reason for Visit Reason for Visit: Diagnoses Disorder of thyroid, unspecified (03/30/24) Bipolar disorder, unspecified (03/30/24) Major depressive disorder, single episode, unspecified (03/30/24) Anxiety disorder, unspecified (03/30/24) Obsessive-compulsive disorder, unspecified (03/30/24) Attention-deficit hyperactivity disorder, unspecified type (03/30/24) Essential (primary) hypertension (03/30/24) Gastro-esophageal reflux disease without esophagitis (03/30/24) Systemic lupus erythematosus, unspecified (03/30/24) Chest pain, unspecified (03/30/24) Subjective Subjective Still with left sided chest pain. Objective Data Objective Data Vital Signs: Vital Signs Temp Pulse Resp BP Pulse Ox O2 Del Method 36.2 C L 72 16 121/63 H 96 Room Air 03/31/24 06:13 03/31/24 06:13 03/31/24 06:13 03/31/24 06:13 03/31/24 06:13 03/31/24 06:13 Oxygen Delivery Method Room Air Weight: 111.4 kg Body Mass Index (BMI) 33.3 Intake & Output: Intake and Output for Last 24 Hours 03/29/24 03/30/24 03/31/24 23:59 23:59 23:59 Output Total 0 / 0 Balance 0 / 0 Lab / Micro Data 03/30/24 16:46 03/30/24 16:46 Labs: Laboratory Results - last 24 hr 03/30/24 16:46: WBC 6.9, RBC 4.00 L, Hgb 12.3, Hct 37.2, MCV 93.0, MCH 30.8, MCHC 33.1, RDW Std Deviation 40.5, RDW Coeff of Jose Raul 11.8, Plt Count 384, MPV 9.9, Immature Gran % (Auto) 0.400, Neut % (Auto) 58.1, Lymph % (Auto) 31.4, [place] % (Auto) 9.2, Eos % (Auto) 0.6, Baso % (Auto) 0.3, Absolute Neuts (auto) 4.0, Absolute Lymphs (auto) 2.16, Nucleated RBC % 0, D-Dimer Quant (PE/DVT) 0.27, Sodium 138, Potassium 3.8, Chloride 103, Carbon Dioxide 29.0, Anion Gap 6, BUN 13, Creatinine 0.78, Estim Creat Clear Calc 124.86, Est GFR (MDRD) Af Amer 102, Est GFR (MDRD) Non-Af 84, BUN/Creatinine Ratio 16.6, Glucose 85, Calcium 9.0, Troponin I High Sens 5, B-Natriuretic Peptide 12.8 03/30/24 19:52: Troponin I High Sens 5 03/30/24 23:00: Troponin I High Sens 5, TSH 0.056 L, Free T4 1.11 03/31/24 05:52: Triglycerides 109, Cholesterol 148, LDL Cholesterol 74, VLDL Cholesterol 22, HDL Cholesterol 52 Radiography Diagnostic Testing: Radiology Impression Chest X-Ray 03/30/24 18:00 IMPRESSION: No radiographic evidence of acute cardiopulmonary disease. Electronically Signed: Law Long MD at 18:47 EDT , Physical Exam Const alert and no apparent distress Constitutional Narrative: no reproducible chest pain. HEENT head/scalp atraumatic and moist oral mucous membranes Resp normal respiratory effort, no retractions, no use of accessory muscles and clear to auscultation bilaterally Cardio regular rate, regular rhythm, S1 normal heart sound and S2 normal heart sound GI normal to inspection, nondistended, normoactive bowel sounds, soft to palpation, non-tender and non-distended Extremity normal to inspection and full ROM Neuro Sensorium / Orientation: awake and alert Assessment & Plan Assessment/Plan (1) Chest pain: QUALIFIERS: Chest pain type: unspecified Qualified Code(s): R07.9 - Chest pain, unspecified (2) GERD (gastroesophageal reflux disease): QUALIFIERS: Esophagitis presence: esophagitis presence not specified Qualified Code(s): K21.9 - Gastro-esophageal reflux disease without esophagitis (3) Hypertension: QUALIFIERS: Hypertension type: unspecified Qualified Code(s): I10 - Essential (primary) hypertension (4) ADHD: QUALIFIERS: Attention deficit-hyperactivity disorder type: u nspecified Qualified Code(s): F90.9 - Attention-deficit hyperactivity disorder, unspecified type (5) Bipolar 1 disorder: (6) Obsessive compulsive disorder: QUALIFIERS: Obsessive-compulsive disorder type: unspecified Q ualified Code(s): F42.9 - Obsessive-compulsive disorder, unspecified (7) Thyroid disorder: (8) Anxiety and depression: (9) Lupus: PLAN: Plan Chest pain * atypical * troponins negative. D-dimer negative (low yield for CTA) * Echo 65%. Stress test negative * had LHC in 03/2023 that was negative. * CT w/o contrast on 03/29 (seen via [facility] was negative) * Non-cardiac. Discussed that this may be anxiety-related. * Does have palpitations and was told she had afib at outside office. Afib not seen on EKGs here (on admission or otherwise). Unclear if she is indeed having pAfib. Recommend Holter monitor. Chronic conditions: * GERD; with history of PUD and suspected esophageal spasm likely causing #1 - Start Protonix 40 mg PO daily with patient apparently on unopposed BASA. Give Maalox prn for breakthrough symptoms. Consider outpatient referral to GI if her cardiac workup is unrevealing. * Essential hypertension - Continue home regimen plus give prn IV Hydralazine for systolic blood pressure > 160 mmHg. * Hypothyroidism: TSH low, free T4 WNL. Contiue levothyroxine * DM-2: stable. * History of atrial fibrillation - Patient currently in NSR at this time. * Bipolar 1 disorder with ADHD and OCD - Stable. Resume current regimen. * History of IBS - Stable. * RA - Resume Xeljanz as previous. * SLE - Continue Hydroxychloroquine as before. * History of intertrigo with panniculitis - Noted. * OA; with chronic neck/back pain - Stable. Give Tylenol prn. DVT prophylaxis - Lovenox 40 mg sq daily.
[2024-03-31 10:14] VITALS: BP 123/63; PULSE 64; RESP 16; TEMP 36.2; O2SAT 99
[2024-03-31 10:19] VITALS: BP 123/63; PULSE 64
[2024-03-31] MEDS: Hydroxychloroquine 200 MG Tablet PO (10:19)
[2024-03-31] MEDS: Metoprolol(XL)Succ 25 MG Tablet PO (10:19)
[2024-03-31] MEDS: buPROPion (XL) 300 MG TABLET.XL PO (10:19)
[2024-03-31] MEDS: Pantoprazole Sodium 40 MG Tablet PO (10:19)
[2024-03-31] MEDS: ALPRAZolam 0.5 MG Tablet PO (10:24)
--- NOTE | 2024-03-31 10:40 | STRESSREP_ITS ---
Stress Test Report Date: 03/31/2024 Procedure: Pharmacologic stress nuclear imaging study Indications: Chest pain Consent: Per the patient Procedure: The patient underwent pharmacologic (Regadenoson 0.4mg ) evaluation with a peak heart rate of 97 beats per minute (55%predicted maximal heart rate) and a peak blood pressure of 142/70 mmHg. The baseline ECG demonstrated sinus rhythm. The peak pharmacologic ECG demonstrated no ischemic changes. There were no cardiac dysrhythmias pretest, during pharmacologic infusion, or recovery. Patient had baseline chest pain which remained unchanged. The patient was injected with 14.7 millicuries of technetium 99m Cardiolite and subsequently rest SPECT Cardiolite nuclear imaging was obtained in the ho rizontal long, vertical long, and short axis views. The patient underwent pharmacologic (Regadenoson) evaluation. The patient was injected with 44.3 millicuries of technetium 99m Cardiolite and subsequently stress SPECT Cardiolite nuclear imaging was obtained in the horizontal long, vertical long, and short axis views. A gated Cardiolite study at peak stress was obtained. The examination was stopped secondary to completion of protocol. Rest and stress SPECT Cardiolite nuclear imaging status post realignment, normalization, and attenuation correction demonstrate no fixed or reversible perfusion defects. There is end systolic thickening and brightening. The gated Cardiolite study demonstrates myocardial thickening and inward wall motion. The reported LVEF is 63%. Impression: 1. Pharmacologic (Regadenoson) evaluation 2. Peak pharmacologic ECG with no ischemic changes. 3. There were no cardiac dysrhythmias pretest, during pharmacologic infusion, or recovery. 5. Rest and stress SPECT Cardiolite nuclear imaging demonstrate relative uniform tracer uptake and myocardial perfusion appearing within normal limits. 6. The gated Cardiolite study reports an LVEF of 63%. This note was generated with Power[employer]ision[employer] software. It may contain incorrect words, spelling, and punctuation that were not noted in checking the note before signing.
[2024-03-31] MEDS: TOFACITINIB CITRATE 5 MG PO (12:08)
--- NOTE | 2024-03-31 13:16 | DS.PCM_ITS ---
Providers Date of Admission: 03/30/24 Primary Care Physician: Dr. Myesha Saunders MD Reason For Visit: CHEST PAIN Diagnosis Discharge Diagnosis (1) Chest pain: Status: Acute Code(s): R07.9 - Chest pain, unspecified Qualifiers: Chest pain type: unspecified Qualified Code(s): R07.9 - Chest pain, unspecified (2) GERD (gastroesophageal reflux disease): Status: Acute Code(s): K21.9 - Gastro-esophageal reflux disease without esophagitis Qualifiers: Esophagitis presence: esophagitis presence not specified Qualified Code(s): K21.9 - Gastro-esophageal reflux disease without esophagitis (3) Hypertension: Status: Chronic Code(s): I10 - Essential (primary) hypertension Qualifiers: Hypertension type: unspecified Qualified Code(s): I10 - Essential (primary) hypertension (4) ADHD: Status: Acute Code(s): F90.9 - Attention-deficit hyperactivity disorder, unspecified type Qualifiers: Attention deficit-hyperactivity disorder type: unspecified Qualified Code(s): F90.9 - Attention-deficit hyperactivity disorder, unspecified type (5) Bipolar 1 disorder: Status: Acute Code(s): F31.9 - Bipolar disorder, unspecified (6) Obsessive compulsive disorder: Status: Acute Code(s): F42.9 - Obsessive-compulsive disorder, unspecified Qualifiers: Obsessive-compulsive disorder type: unspecified Qualified Code(s): F 42.9 - Obsessive-compulsive disorder, unspecified (7) Thyroid disorder: Status: Acute Code(s): E07.9 - Disorder of thyroid, unspecified (8) Anxiety and depression: Status: Acute Code(s): F41.9 - Anxiety disorder, unspecified; F32.9 - Major depressive disorder, single episode, unspecified (9) Lupus: Status: Acute Code(s): M32.9 - Systemic lupus erythematosus, unspecified Plan Chest pain * atypical * troponins negative. D-dimer negative (low yield for CTA) * Echo 65%. Stress test negative * had LHC in 03/2023 that was negative. * CT w/o contrast on 03/29 [facility] * Non-cardiac. Discussed that this may be anxiety-related. * Does have palpitations and was told she had afib at outside office. Afib not seen on EKGs here (on admission or otherwise). Unclear if she is indeed having pAfib. Recommend Holter monitor. Chronic conditions: * GERD; with history of PUD and suspected esophageal spasm likely causing #1 - Start Protonix 40 mg PO daily with patient apparently on unopposed BASA. Give Maalox prn for breakthrough symptoms. Consider outpatient referral to GI if her cardiac workup is unrevealing. * Essential hypertension - Continue home regimen plus give prn IV Hydralazine for systolic blood pressure > 160 mmHg. * Hypothyroidism: TSH low, free T4 WNL. Contiue levothyroxine * DM-2: stable. * History of atrial fibrillation - Patient currently in NSR at this time. * Bipolar 1 disorder with ADHD and OCD - Stable. Resume current regimen. * History of IBS - Stable. * RA - Resume Xeljanz as previous. * SLE - Continue Hydroxychloroquine as before. * History of intertrigo with panniculitis - Noted. * OA; with chronic neck/back pain - Stable. Give Tylenol prn. DVT prophylaxis - Lovenox 40 mg sq daily. Medications at Discharge Home Medications metoprolol succinate 25 mg tablet,extended release 24 hr (Toprol XL) 25 mg PO DAILY 06/09/18 trazodone 50 mg tablet 150 mg PO QHS 03/12/20 tofacitinib 5 mg tablet (Xeljanz) 5 mg PO BID 04/02/23 bupropion HCl 300 mg 24 hr tablet, extended release 300 mg PO DAILY see 04/03/23 aspirin 81 mg capsule 81 mg PO DAILY #30 caps 04/07/23 hydroxychloroquine 200 mg tablet (Plaquenil) 200 mg PO DAILY 04/23/23 alprazolam 0.5 mg tablet (Xanax) 0.5 mg PO BID anxiety 03/21/24 dextroamphetamine-amphetamine 30 mg tablet (Adderall) 30 mg PO DAILY 03/21/24 fluoxetine 20 mg capsule 40 mg PO QHS 03/21/24 levothyroxine 150 mcg tablet 200 mcg PO DAILY 03/21/24 metformin 500 mg tablet 500 mg PO BID 03/21/24 Hospital Course Operations None Procedures 2-D Echocardiogram and Stress test Summary of Care Provided Minutes Spent on Discharge: 50 Hospital Course: Patient presents with chest pain going down her left shoulder and upper left jaw. She had D-dimer that is negative, troponin series are negative, stress and echocardiogram that are unremarkable. Patient did undergo a left heart catheterization about a year ago that was normal. 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 I reviewed through [employer] and the report on that was negative (those done without contrast). Discussed with the patient that this chest pain does not appear to be cardiac and with her normal D-dimer and not due to pulmonary embolism. Did talk to her about that it could be related with anxiety as that was 1 thing that I saw regards to her documentation review through [employer] that she has been treated for anxiety. She does complain of palpitations and has been told that she has atrial fibrillation. I reviewed her EKGs here and they have all been Sinus rhythm. 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 I do not have that EKG to evaluate. I would recommend Holter monitor as she says she gets his palpitations multiple times per week. Patient be discharged home. Weight / BMI Weight Weight: 111.4 kg Body Mass Index (BMI) 33.3 ABG / Lab / Microbiology Data 03/30/24 16:46 03/30/24 16:46 Laboratory: Laboratory Results - last 24 hr 03/30/24 16:46: WBC 6.9, RBC 4.00 L, Hgb 12.3, Hct 37.2, MCV 93.0, MCH 30.8, MCHC 33.1, RDW Std Deviation 40.5, RDW Coeff of Jose Raul 11.8, Plt Count 384, MPV 9.9, Immature Gran % (Auto) 0.400, Neut % (Auto) 58.1, Lymph % (Auto) 31.4, [place] % (Auto) 9.2, Eos % (Auto) 0.6, Baso % (Auto) 0.3, Absolute Neuts (auto) 4.0, Absolute Lymphs (auto) 2.16, Nucleated RBC % 0, D-Dimer Quant (PE/DVT) 0.27, Sodium 138, Potassium 3.8, Chloride 103, Carbon Dioxide 29.0, Anion Gap 6, BUN 13, Creatinine 0.78, Estim Creat Clear Calc 124.86, Est GFR (MDRD) Af Amer 102, Est GFR (MDRD) Non-Af 84, BUN/Creatinine Ratio 16.6, Glucose 85, Calcium 9.0, Troponin I High Sens 5, B-Natriuretic Peptide 12.8 03/30/24 19:52: Troponin I High Sens 5 03/30/24 23:00: Troponin I High Sens 5, TSH 0.056 L, Free T4 1.11 03/31/24 05:52: Triglycerides 109, Cholesterol 148, LDL Cholesterol 74, VLDL Cholesterol 22, HDL Cholesterol 52 Radiography Diagnostic Testing: Radiology Impression Chest X-Ray 03/30/24 18:00 IMPRESSION: No radiographic evidence of acute cardiopulmonary disease. Electronically Signed: Law Long MD at 18:47 EDT , Echocardiogram 03/30/24 21:38 Interpretation Summary The left ventricular ejection fraction is 65 %. No evidence for diastolic dysfunction. The left atrium is mildly enlarged. Mildly dilated aortic root. Ordering Physician: iKt Amezquita Referring Physician: Myesha Saunders Performed By: Marilyn Barber, KAITLIN, RVT D/C Instructions Discharge Diet: No restrictions Meaningful Use Info Meaningful Use Meaningful Use Diagnoses (Choose all that apply): None applicable Ischemic Stroke Statin Dosing Therapy Reference: STATIN DOSE THERAPY REFERENCE: * Patients > 75 years receive moderate or high dose statin therapy. * Patients 75 years or YOUNGER should receive HIGH intensity statin dose unless contraindicated. You will be required to document reason for non-treatment if statin daily dose does not meet guidelines. HIGH DOSE STATIN THERAPY DAILY Atorvastatin > than or = to 40 mg Rosuvastatin > than or = to 20 mg Amlodipine + Atorvastatin > than or = to 2.5/40 mg Ezetimibe + Simvastatin 10/80 mg Simvastatin 80mg Discharge Plan Admission Admit Date/Time: 03/30/24 21:31 Primary Reason for Your Visit: chest pain Attending Provider: Ian Song Primary Care Provider: Myesha Saunders Consulting Providers: Kit Amezquita Instructions Additional Instructions / Restrictions: Your chest pain workup including a stress test, troponin series and echocardiogram were normal. Additionally, your D-dimer was normal which would indicate this is this is not due to a pulmonary embolism. Your chest pain does not appear to be cardiac nor blood clot related. You do complain of palpitations but we did not see any evidence of any atrial fibrillation here I do recommend having a Holter monitor to see if, when you are have these palpitations, whether or not this is atrial fibrillation or something else. Discharge Orders/Prescriptions Prescriptions: Continued metoprolol succinate [Toprol XL] 25 mg tablet extended release 24 hr 25 mg PO DAILY hydroxychloroquine [Plaquenil] 200 mg tablet 200 mg PO DAILY metformin 500 mg tablet 500 mg PO BID alprazolam [Xanax] 0.5 mg tablet 0.5 mg PO BID fluoxetine 20 mg capsule 40 mg PO QHS levothyroxine 150 mcg tablet 200 mcg PO DAILY trazodone 50 MG tablet 150 mg PO QHS Xeljanz 5 mg tablet 5 mg PO BID dextroamphetamine-amphetamine [Adderall] 30 mg tablet 30 mg PO DAILY bupropion HCl 300 mg tablet extended release 24 hr 300 mg PO DAILY Patient Comments: Take 1 tablet by mouth once daily. aspirin 81 mg capsule 81 mg PO DAILY Qty: 30 1RF Other Ambulatory Orders: Cardiac Holter Monitor, 48 Hrs (Routine) Timeframe: 1 Week Facility: [facility] - Location: Cardiovascular Services Ordered By: Dr. Ian Song Referrals / Follow Up: Elida Apodaca MD [Med Staff - [employer] Super[employer]] - Myesha Saunders MD [Primary Care Provider] - Within 2 Weeks Disposition Disposition (needs filled in before D/C Order can be placed): Home, Self Care Charges/Coding Visit Charges Inpatient E&M: 97049 Disch Hosp >30min
--- NOTE | 2024-03-31 13:40 | CASEMGMT ---
Patient has order for discharge. RN CM in to discuss needs at discharge. Patient denies needs or help at discharge. Patient had no further questions.
== END 2024-03-31 13:22 | disposition home or self-care (01) ==
LOC: ED 21:06 → PCU 21:45
PROVIDERS: Admitting Provider Internal Medicine; Emergency Provider Emergency Medicine; PCP Internal Medicine
DX: R07.89 Other chest pain (principal); F31.9 Bipolar disorder, unspecified; J42 Unspecified chronic bronchitis; I48.91 Unspecified atrial fibrillation; M32.9 Systemic lupus erythematosus, unspecified; E11.40 Type 2 diabetes mellitus with diabetic neuropathy, unspecified; K58.9 Irritable bowel syndrome, unspecified; I10 Essential (primary) hypertension; Z87.891 Personal history of nicotine dependence; Z79.82 Long term (current) use of aspirin; Z79.84 Long term (current) use of oral hypoglycemic drugs; K21.9 Gastro-esophageal reflux disease without esophagitis; R68.84 Jaw pain; F90.9 Attention-deficit hyperactivity disorder, unspecified type; E03.9 Hypothyroidism, unspecified; R42 Dizziness and giddiness; F42.9 Obsessive-compulsive disorder, unspecified; F41.9 Anxiety disorder, unspecified; M79.89 Other specified soft tissue disorders; Z79.899 Other long term (current) drug therapy; Z79.890 Hormone replacement therapy; R06.02 Shortness of breath; E66.9 Obesity, unspecified; Z68.34 Body mass index [BMI] 34.0-34.9, adult
CPT/HCPCS: 36415; 71046; 78452; 80048; 80061; 83880; 84439; 84443; 84484; 85025; 85379; 93005; 93017; 93306; 99221; 99285; A9500; Q9957; A4216; C8929; G0378; J2785

== ENCOUNTER 2024-05-06 12:09 | Outpatient (CLI) | payer MEDICAID, SELFPAY | END 2024-05-06 23:59 | disposition home or self-care (01) | LOC: MFPLAB 12:10 | PROVIDERS: PCP Family Medicine; Visit Provider Family Medicine | DX: E03.9 Hypothyroidism, unspecified (principal) | CPT/HCPCS: 36415; 84443 ==

== ENCOUNTER → 2024-06-27 | Outpatient (CLI) | payer MEDICAID, SELFPAY | END | disposition home or self-care (01) | LOC: MFPLAB 15:25 | PROVIDERS: PCP Family Medicine; Visit Provider Family Medicine | DX: E03.9 Hypothyroidism, unspecified (principal) | CPT/HCPCS: 36415; 84443 ==

== ENCOUNTER → 2024-07-07 | Outpatient (CLI) | payer MEDICAID, SELFPAY | END | disposition home or self-care (01) | LOC: PSN 07:06 | PROVIDERS: PCP Family Medicine; Referring Provider Internal Medicine Cardiovascular Disease; Visit Provider Internal Medicine Cardiovascular Disease | DX: R00.2 Palpitations (principal) | CPT/HCPCS: 93225; 93226 ==

== ENCOUNTER → 2024-07-15 | Outpatient (CLI) | payer MEDICAID, SELFPAY ==
--- NOTE | 2024-07-15 16:38 | RAD_ITS ---
STUDY: X-RAY - CERVICAL SPINE REASON FOR EXAM: Female, 44 years old. cervicalgia TECHNIQUE: 7 view(s) of the cervical spine were obtained with flexion and extension. COMPARISON: None FINDINGS: Normal anterior atlantoaxial articulation. Normal odontoid process. There is straightening of the normal cervical lordosis. Flexion and extension show decreased range of motion but no subluxations. Multilevel cervical disc loss of height is seen most pronounced at C5-C6. No significant spondylosis. Normal visualized intervertebral neuroforamina. The soft tissue structures are unremarkable. There is no demonstrated fracture of the cervical spine. RAD/Cerv Spine Obl/Flex/Ext Comp IMPRESSION: Multilevel mild to moderate loss of disc height especially at C5-C6. No acute abnormalities. No significant neural foraminal narrowing. Electronically Signed: Ronal Garza MD at 22:55 EST ,
== END | disposition home or self-care (01) ==
LOC: MTRAD 16:34
PROVIDERS: PCP Family Medicine; Referring Provider Family Medicine; Visit Provider Family Medicine
DX: M54.2 Cervicalgia (principal)
CPT/HCPCS: 72052

== ENCOUNTER → 2024-08-30 | Outpatient (CLI) | payer OTHER, SELFPAY ==
--- NOTE | 2024-08-30 18:02 | CT_ITS ---
STUDY: CT ABDOMEN AND PELVIS WITH CONTRAST REASON FOR EXAM: Female, 44 years old. Epigastric pain/ belly button leakage. RADIATION DOSAGE (If Supplied By Facility): CTDIvol = ( 16.63 ) mGy, DLP = ( 1309.74 ) mGycm TECHNIQUE: Transaxial images were obtained from the dome of the diaphragm to the symphysis pubis with oral contrast. Oral and amp; IV Readi-CAT and amp; 100mL Isovue-300 was administered. Sagittal and coronal images were reconstructed. Individualized dose optimization techniques were used for this CT. COMPARISON: Comparison is made with prior examination dated February 25, 2020. FINDINGS: The visualized lung bases are unremarkable. The visualized portions of the heart are within normal limits. There is an 8.3 mm cyst in the lateral superior aspect of the right lobe of the liver. There are surgical clips in the gallbladder fossa consistent with a prior cholecystectomy. Normal spleen. Normal pancreas. Normal bilateral adrenal glands. Normal right kidney. 8 mm cyst in the upper posterior aspect of the left kidney. Incidental note is made of a left retroaortic renal vein. Normal visualized stomach. Normal small intestine. Normal colon. There is non-visualization of the appendix. Normal abdominal aorta. Normal inferior vena cava. Normal retroperitoneum. Normal urinary bladder. There is absence of the uterus consistent with a prior hysterectomy. Normal abdominal wall. Normal osseous structures. CT/Abdomen/Pelvis WITH Contrast IMPRESSION: 8.3 mm cyst in the lateral superior aspect of the right lobe of the liver. Status post cholecystectomy and hysterectomy. Electronically Signed: Logan Jordan MD at 10:39 EST ,
== END | disposition home or self-care (01) ==
PROVIDERS: PCP Family Medicine; Referring Provider Surgery; Visit Provider Surgery
DX: R10.13 Epigastric pain (principal); Q89.9 Congenital malformation, unspecified

== ENCOUNTER → 2024-09-19 | Outpatient (CLI) | payer OTHER, SELFPAY ==
[2024-09-19 12:21] LABS: Erythrocyte Sedimentation Rate 10 mm/hr (0-30)
[2024-09-19 12:37] LABS: Absolute Lymphocyte Count 1.88 X10^3/uL (0.83-4.51); Absolute Neutrophil Count 3.4 X10^3/uL (2.0-7.7); Basophil# 0.03 X10^3/uL; Basophil% 0.5 % (0-1); Eosinophil# 0.03 X10^3/uL; Eosinophils% 0.5 % (0-5); Hematocrit 37.3 % (37-47); Hemoglobin 12.4 g/dL (12.0-15.0); Lymphocyte # 1.88 X10^3/ul (0.83-4.51); Lymphocyte % 32.5 % (19-41); Mean Corp Hgb Conc 33.2 g/dL (32-36); Mean Corpuscular Hgb 30.9 pg (27.0-32.0); Mean Platelet Vol. 9.6 fl (6.2-12.0); Monocyte# 0.43 X10^3/uL; Monocyte% 7.4 % (0-10); NRBC Flagged by Analyzer 0 % (0-5); Neutrophil # 3.39 X10^3/uL (2.7-7.7); Neutrophil % 58.8 % (47-70); Platelet Count 384 K/mm3 (150-450); RBC Distribution Width CV 11.9 % (11.6-14.6); RBC Distribution Width SD 40.6 fl (35.1-43.9); Red Blood Count 4.01 M/mm3 (4.2-5.4); White Blood Count 5.8 K/mm3 (4.4-11.0)
[2024-09-19 12:50] LABS: AST(SGOT) 14 U/L (15-37); Alanine Aminotransfer ALT/SGPT 25 U/L (13-56); Albumin, Serum 3.5 g/dL (3.2-5.0); Alkaline Phosphatase 43 U/L (45-117); Anion Gap 8 (5-15); BUN 16 mg/dL (7-18); BUN/Creat Ratio 16.7 RATIO (10-20); CRP < 2.90 mg/L (0.0-3.0); Calcium,Total 8.5 mg/dL (8.5-10.1); Chloride 108 mmol/L (98-107); Creatinine, Serum 0.96 mg/dL (0.55-1.02); EST Glomerular Filtration Rate 67 mL/min (>60); Est Glom Filt Rate - Afr Amer 81 mL/min (>60); Globulin 3.5 g/dL (2.2-4.2); Glucose 81 mg/dL (74-106); Potassium 4.2 mmol/L (3.5-5.1); Sodium Level 137 mmol/L (136-145); Thyroid Stim Hormone (TSH) 0.131 uIU/mL (0.358-3.740)
== END | disposition home or self-care (01) ==
LOC: MFPLAB 08:14
PROVIDERS: PCP Family Medicine; Referring Provider Family Medicine; Visit Provider Family Medicine
DX: M79.7 Fibromyalgia (principal)
CPT/HCPCS: 36415; 80053; 84443; 85025; 85652; 86140

== ENCOUNTER 2024-11-01 12:00 | Outpatient (RCR) | payer OTHER, SELFPAY ==
--- NOTE | 2024-10-26 09:43 | HP.PTEVAL_ITS ---
Patient's Visit Information Visit Information Visit Information: GABY MARTINEZ is a 44 year old F referred to Physical Therapy by Dr. Tung William MD with a diagnosis of B hip pain. Date of Evaluation: 10/19/24 Physical Therapist: Jesus Salomon DPT Visit Plan Frequency: 1x/Week Duration: 6 Weeks Plan: Pt's bilateral hips and very irritable. She has some increased pain with ER and IR motions. She also had increased pain with strength testing. 1) start with US to B greater trochanter/IFL region. 2) add in light IT band and piriformis stretching. 3) add in light progressive strengthening, graded exercises I talked about pool exercises, but patient wanted to tried land activities rather than pool. Subjective Subjective: Pt. is here today for her initial evaluation with diagnosis of B hip pain. pt. reports having increased B hip pain with no mech. Pt. does have lupus and RA. Pt. reports increased pain with all activities including: standing, walking, no changes in symptoms with any positioning. She sits a lot at work, which causes increased symptoms as well. Pt. has tried working out without much success. Pt. is denies N/T in either LE. Pt. reports no marked LE weakness. Pt. sleeps okay, but does have neck pain that limits that as well. Pt. tried to go to the gym with her significant other, but reprots doing light UE exercises mostly due to her pain. Pt. is hopeful to reduce symptoms in order to get back to all gym and recreational activities without limitations. Pain L hip: Pain Intensity (Out of 10): 5 Pain Intensity Range: 2 and 8 R hip: Pain Intensity (Out of 10): 5 Pain Intensity Range: 2 and 8 Objective Objective: POSTURE: Pt. has decent posture in stance. Pt. has normal iliac crest heights. Pt. has slight anterior pelvic tilt, but minimal. pt. has no marked lateral deviation in stance. PALPATION: Pt. has increased pain with palpation of B greater trochanter, B TFL and B glute medius. Pt had marked pain throughout. No anterior hip pain. NEURO: Pt. has normal sensation throughout BLEs. Pt. has normal DTR of BLEs. Pt. is able to rise on heels and toes without issues. ROM: R hip: flexion 120deg mild increase NW, abd 45deg NE, ER 45deg increase NW, IR 30deg NE. Pt. has slight tightness in B HS. L hip: flexion 115deg mild increase NW, abd 45deg NE, ER 45deg increase NW, IR 20deg mild increase NW. Pt. has close to full lumbar ROM. MMT: Pt. has 5/5 strength throughout BLEs. Pt. did have increased symptoms with abd testing bilaterally. GAIT: pt. has fairly normal gait pattern without marked increase in symptoms, but does reports B 5/10 pain in her hips. STAIRS: Pt. is able to complete with reciprocal pattern with increased pain with use of BHR. Special Tests L/S Slump test left side: Negative L/S Slump test right side: Negative L/S Left Straight Leg Raise: Negative L/S Right Straight Leg Raise: Negative Lumbar Standing: Flexion - Mechanical Response: No effect Lumbar Standing: Flexion - Symptoms During Testing: No effect Lumbar Standing: Flexion - Symptoms After Testing: No effect Lumbar Standing: Extension - Mechanical Response: No effect Lumbar Standing: Extension - Symptoms During Testing: No effect Lumbar Standing: Extension - Symptoms After Testing: No effect Lumbar Standing: Right Side Glides - Mechanical Response: No effect Lumbar Standing: Right Side [place] - Symptoms During Testing: No effect Lumbar Standing: Right Side [place] - Symptoms After Testing: No effect Lumbar Standing: Left Side [place] - Mechanical Response: No effect Lumbar Standing: Left Side [place] - Symptoms During Testing: No effect Lumbar Standing: Left Side [place] - Symptoms After Testing: No effect R Hip Scour: Positive R Hip KASSIDY - Intraarticular Pathology: Positive R Hip FADDIR - Labrum: Positive Comment: Theses tests were + but does not match her painful locations L Hip Scour: Positive L Hip KASSIDY - Intraarticular Pathology: Positive L Hip FADDIR - Labrum: Positive Comment: Did not march painful spots Balance/Special Test Scores Lower Extremity Functional Score: 40 Goals Goal 1:: LTG: Pt. to be I with HEP. Goal Time Frame: 4-6 Weeks Goal 2:: STG: Pt. to be able to ambulate with decreased B hip pain to 2/10. Goal Time Frame: 2-4 Weeks Goal 3:: STG: Pt. to be able to sit for 30'+ with 2/10 pain in B hips allowing for increased work tolerance. Goal Time Frame: 2-4 Weeks Goal 4:: LTG: Pt. to have full ROM of B hips and full HS length without increase in symptoms. Goal Time Frame: 4-6 Weeks Goal 5:: LTG: Pt. to resume gym activities with 0-2/10 pain in B hips. Goal Time Frame: 4-6 Weeks Rehabilitation Potential Physical Therapy Diagnosis: Pt. has signs and symptoms consistent with B hip pain. Pt. has some slight hypomobility, but good strength. Pt. did not have a marked mechanical changes with movements. She was not overly tight and not overly weak. Pt. would benefit from PT to work on activity tolerance, slight ER stretching and modalities to reduce symptoms. Rehabilitation Potential: Good Anticipated Interventions Patient/Client Instruction: Educate patient on: Condition, Plan of Care, Risk Factors and Benefits of Fitness Program For the Purpose of:: To foster healthy habits, To improve decision making, To facilitate caregiver knowledge, To improve self management, To prevent re-injury and To improve ability to perform tasks related to life management Therapeutic Exercise to Include: Strength training, Power training, Postural training, Flexibilty training, Passive ROM and Active ROM For the Purpose of:: To decrease pain, To increase ROM, To improve nutrient delivery to tissue, To increase oxygenation perfusion, To improve muscle performance and motor function, To improve gait and locomotor functions, To improve health of tissue, To decrease soft tissue restriction and To increase flexibility/ROM Ultrasound (thermal/non thermal): Yes For the Purpose of:: To decrease pain, To decrease swelling/inflammation and To increase ROM Text: Thank you for the opportunity to evaluate your patient. For Medicare and Medicare HMO plans, please review the plan of care and approve it. It will need to be FAXED BACK to us at [phone] for Medicare purposes. For Medicare only, by signing this I certify the plan of care. Please let me know if there are questions or concerns regarding this plan of care. Physician Signature: Date:
== END 2024-11-01 19:00 | disposition home or self-care (01) ==
LOC: PT 12:00
PROVIDERS: PCP Family Medicine; Referring Provider Anesthesiology Pain Medicine; Visit Provider Anesthesiology Pain Medicine
DX: M25.551 Pain in right hip (principal); M25.552 Pain in left hip; M50.30 Other cervical disc degeneration, unspecified cervical region; M47.812 Spondylosis without myelopathy or radiculopathy, cervical region
CPT/HCPCS: 97035; 97110; 97140; 97161

== ENCOUNTER 2024-11-14 07:59 | Day surgery (SDC) | payer OTHER, SELFPAY ==
--- NOTE | 2024-11-09 11:05 | PAT.ANESEVAL ---
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 When Was Last Pacemaker Check QUESTION #4 FULL TEXT: You/Your Family Experience fever (hyperthermia) with Anesthesia Last Oral Intake Last Oral intake: Last Oral Intake NPO since Meds taken in AM with sips of water? 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 Female Yes 11/09/24 09:36 HX of Motion Sickness No 11/09/24 09:36 HX of N/V After Surgery No 11/09/24 09:36 Non-Smoker Yes 11/09/24 09:36 Duration of Surgery greater No 11/09/24 09:36 than 60 minutes Number of Risk Factors 2 11/09/24 09:36 PONV Score Moderate Risk 11/09/24 09:36 Height & Weight Height & Weight: Anesthesia: Height & Weight Height 6 ft 07/13/24 12:35 Respiratory Assessment Respiratory Assessment - caramel candy maker: Respiratory Tract Infection Hx - caramel candy maker Hx Respiratory Tract Infection No 11/09/24 09:36 STOP Sleep Apnea STOP Sleep Apnea - caramel candy maker: STOP Sleep Apnea - caramel candy maker Hx Hypertension No 11/09/24 09:36 Hx Sleep Apnea No 11/09/24 09:36 CPAP BIPAP Do you snore loudly (louder No 11/09/24 09:36 than talking or can be heard Do you often feel tired/ No 11/09/24 09:36 fatigued/ sleepy during daytime? Has anyone observed you stop No 11/09/24 09:36 breathing during sleep? STOP Results Negative 11/09/24 09:36 QUESTION #5 FULL TEXT : Do you snore loudly (louder than talking or can be heard through closed doors)? 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 Tobacco Use Smoking Status Former smoker 11/09/24 09:36 Hx Tobacco Use Yes 11/09/24 09:36 Years Smoking Packs Smoked per Day Smoking Cessation Date was Yes - quit smoking within 15 11/09/24 09:36 within the last 15 years years Hx Smoking Cessation Date 08/07/21 11/09/24 09:36 Hx Smoking Cessation Counseling Hematologic Medial History Hematologic Hx - caramel candy maker: Hematologic Medical Hx - transport medic Hx of Blood Transfusion No 11/09/24 09:36 Hx of Transfusion in last 3 No 11/09/24 09:36 Months Date of Last Transfusion (if within last 3 months) Ever experience any problems No 11/09/24 09:36 with transfusion(s)? Specify any problems Hx of Preganancy in last 3 N/A 11/09/24 09:36 Months Nurse Filling Out Transfusion [facility] 11/09/24 09:36 & Questions: Date: 11/09/24 11/09/24 09:36 Time: 09:37 11/09/24 09:36 Patient unable to answer at this time (ie. confused, unrespo /Reproduction History /Reproductive History - caramel candy maker: /Reproductive Hx- caramel candy maker Hx Now No 11/09/24 09:36 Gestational Age (in weeks): EDC: Hx Hx Para Hx Section SAB No 11/09/24 09:36 [facility] Medical History (Updated 11/09/24 @ 09:42 by Kirstie Good) Wears glasses Bipolar disorder Hypothyroid Thyroid disease Lupus GERD (gastroesophageal reflux disease) Former smoker History of Holter monitoring History of echocardiogram History of stress test Cardiology follow-up encounter History of atrial fibrillation Constipation Vomiting Nausea ADHD Bipolar 1 disorder Open injury of dorsal sensory branch of ulnar nerve Abnormal stress electrocardiogram test History of IBS Laceration of extensor muscle, fascia and tendon of right little finger at wrist and hand level, initial encounter Laceration of flexor muscle, fascia and tendon of right little finger at wrist and hand level, initial encounter Contact with sharp glass as cause of accidental injury at home as place of occurrence Injury of digital nerve of right little finger Paresthesias in right hand Laceration of right little finger Recent weight loss Shoulder pain Chronic thoracic back pain Chronic neck pain Macromastia Lupus Atrial fibrillation Anxiety and depression GERD (gastroesophageal reflux disease) Rheumatoid arthritis Low back pain Laxity of skin Diastasis of rectus abdominis Intertrigo Abdominal panniculus Goiter Thyroid disorder Hypertension Obsessive compulsive disorder Depression (emotion) Chronic bronchitis Environmental allergies Home Medications ?Medication ?Instructions ?Recorded ?Last Taken ?Type metoprolol succinate 25 mg 25 mg PO DAILY heart 06/09/18 04/10/23 History tablet,extended release 24 hr (Toprol XL) trazodone 50 mg tablet 150 mg PO QHS sleep 03/12/20 04/02/23 History tofacitinib 5 mg tablet (Xeljanz) 5 mg PO BID joints/colitis 04/02/23 04/03/23 History bupropion HCl 300 mg 24 hr tablet, 300 mg PO DAILY mood 04/03/23 04/10/23 History extended release dextroamphetamine-amphetamine 30 30 mg PO DAILY ADHD 03/21/24 Unknown History mg tablet (Adderall) fluoxetine 20 mg capsule 40 mg PO QHS mood 03/21/24 Unknown History levothyroxine 150 mcg tablet 200 mcg PO DAILY thyroid 03/21/24 Unknown History hydroxychloroquine 200 mg tablet 400 mg PO DAILY lupus 05/11/24 Unknown History (Plaquenil) omeprazole 40 mg capsule,delayed 40 mg PO QDAY #30 caps 07/13/24 Unknown Rx release minocycline 100 mg capsule 100 mg PO DAILY 11/09/24 Unknown History spironolactone 100 mg tablet 100 mg PO DAILY 11/09/24 Unknown History Allergy/AdvReac Type Severity Reaction Status Date / Time benzocaine Allergy Intermediate intolerance Verified 11/09/24 09:30 lamotrigine (From Lamictal) AdvReac Intermediate Diarrhea Verified 11/09/24 09:30 Family History Mother Arthritis Diabetes Heart disease Ulcer Anxiety History of blood transfusion Father Hypertension High cholesterol Cancer Brother Asthma Diabetes Heart disease Hypertension CVA (cerebral vascular accident) High cholesterol Surgical History (Updated 11/09/24 @ 09:42 by Kirstie Good) History of cardiac catheterization History of esophagogastroduodenoscopy (EGD) History of colonoscopy History of hand surgery HISTORY OF FISTULOTOMY History of unilateral oophorectomy History of cholecystectomy History of hysterectomy Social History household members: spouse Smoking Status: Former smoker alcohol intake: never substance use type: does not use additional social history: DOES NOT USE ASPIRIN DOES USE IBUPROFEN NEEDED Audit: Pertinent Findings Pertinent Findings EKG Perinent findings: 05/11/2024. Sinus rhythm nonspecific T wave abnormality. Stress test pertinent findings: 03/31/2024. Negative. EF 63% Echo (EF%) pertinent findings: 03/30/2024. EF 65% Consult pertinent findings: Cardiology 05/11/2024. Heart palpitations. Probable PVCs and PAT's. Recommend 48-hour Holter monitor, placed on beta-blockers. Additional pertinent findings: Holter monitor 07/07/2024. Normal sinus rhythm with rare PVCs and PACs. Recommendation Anesthesia Recommendation Anesthesia recommendation: OPTIMIZED for anesthesia
[2024-11-14] VITALS (7 sets, daily range): BP systolic 100–119; BP diastolic 56–70; PULSE 58–67; RESP 14–17; TEMP 36.4–36.6; O2SAT 92–98; BMI 33.3
--- NOTE | 2024-11-14 08:18 | PCM.PRE.AN2 ---
ASA Classification* ASA Classification ASA Classification: 2 Assessment & Plan Anesthesia* Anesthesia Assessment Anesthesia Assessment: Discussed sedation and/or anesthesia options, risks, benefits, and alternatives with patient/parents/legal guardian/POA. Questions invited. The patient/parents/legal guardian/POA seems to understand and agrees to proceed with anesthesia plan. Reviewed the physical assessment, medical history, allergy history and patient home medications list prior to surgery/procedure/anesthetic and documented any changes. Performed airway and anesthesia risk assessments. Anesthesia Type Anesthesia Type: MAC Anesthesia Focused Assessment* Airway Assessment Mouth opens: >3 cm Mallampati Score: II Focused Labs Anesthesia Preop lab: CBC WBC 5.8 K/mm3 (4.4-11.0) 09/19/24 08:14 09/19/24 RBC 4.01 M/mm3 (4.2-5.4) L 09/19/24 08:14 09/19/24 Hgb 12.4 g/dL (12.0-15.0) 09/19/24 08:14 09/19/24 Hct 37.3 % (37-47) 09/19/24 08:14 09/19/24 Plt Count 384 K/mm3 (150-450) 09/19/24 08:14 09/19/24 CHEMISTRY Potassium 4.2 mmol/L (3.5-5.1) 09/19/24 08:14 09/19/24 Sodium 137 mmol/L (136-145) 09/19/24 08:14 09/19/24 BUN 16 mg/dL (7-18) 09/19/24 08:14 09/19/24 Creatinine 0.96 mg/dL (0.55-1.02) 09/19/24 08:14 09/19/24 Glucose 81 mg/dL (74-106) 09/19/24 08:14 09/19/24 TSH 0.131 uIU/mL (0.358-3.740) L 09/19/24 08:14 09/19/24 COAG Pre-Assessment Diagnosis/Proposed Procedure Planned Operative Procedure(s): EGD Anesthesia History 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 When Was Last Pacemaker Check QUESTION #4 FULL TEXT: You/Your Family Experience fever (hyperthermia) with Anesthesia Last Oral Intake Last Oral intake: Last Oral Intake NPO since Meds taken in AM with sips of water? Meds patient instructed to take am of surgery PONV PONV - assignment desk assistant: PONV - assignment desk assistant Female Yes 11/09/24 09:36 HX of Motion Sickness No 11/09/24 09:36 HX of N/V After Surgery No 11/09/24 09:36 Non-Smoker Yes 11/09/24 09:36 Duration of Surgery greater No 11/09/24 09:36 than 60 minutes Number of Risk Factors 2 11/09/24 09:36 PONV Score Moderate Risk 11/09/24 09:36 Height & Weight Height & Weight: Anesthesia: Height & Weight Height 6 ft 07/13/24 12:35 Respiratory Assessment Respiratory Assessment - assignment desk assistant: Respiratory Tract Infection Hx - assignment desk assistant Hx Respiratory Tract Infection No 11/09/24 09:36 STOP Sleep Apnea STOP Sleep Apnea - assignment desk assistant: STOP Sleep Apnea - assignment desk assistant Hx Hypertension No 11/09/24 09:36 Hx Sleep Apnea No 11/09/24 09:36 CPAP BIPAP Do you snore loudly (louder No 11/09/24 09:36 than talking or can be heard Do you often feel tired/ No 11/09/24 09:36 fatigued/ sleepy during daytime? Has anyone observed you stop No 11/09/24 09:36 breathing during sleep? STOP Results Negative 11/09/24 09:36 QUESTION #5 FULL TEXT : Do you snore loudly (louder than talking or can be heard through closed doors)? 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 Specify any problems Hx of Preganancy in last 3 N/A 11/09/24 09:36 Months Nurse Filling Out Transfusion [facility] 11/09/24 09:36 & Questions: Date: 11/09/24 11/09/24 09:36 Time: 09:37 11/09/24 09:36 Patient unable to answer at this time (ie. confused, unrespo /Reproduction History /Reproductive History - assignment desk assistant: /Reproductive Hx- assignment desk assistant Hx Now No 11/09/24 09:36 Gestational Age (in weeks): EDC: Hx Hx Para Hx Section SAB No 11/09/24 09:36 [facility] Medical History Wears glasses Bipolar disorder Hypothyroid Thyroid disease Lupus GERD (gastroesophageal reflux disease) Former smoker History of Holter monitoring History of echocardiogram History of stress test Cardiology follow-up encounter History of atrial fibrillation Constipation Vomiting Nausea ADHD Bipolar 1 disorder Open injury of dorsal sensory branch of ulnar nerve Abnormal stress electrocardiogram test History of IBS Laceration of extensor muscle, fascia and tendon of right little finger at wrist and hand level, initial encounter Laceration of flexor muscle, fascia and tendon of right little finger at wrist and hand level, initial encounter Contact with sharp glass as cause of accidental injury at home as place of occurrence Injury of digital nerve of right little finger Paresthesias in right hand Laceration of right little finger Recent weight loss Shoulder pain Chronic thoracic back pain Chronic neck pain Macromastia Lupus Atrial fibrillation Anxiety and depression GERD (gastroesophageal reflux disease) Rheumatoid arthritis Low back pain Laxity of skin Diastasis of rectus abdominis Intertrigo Abdominal panniculus Goiter Thyroid disorder Hypertension Obsessive compulsive disorder Depression (emotion) Chronic bronchitis Environmental allergies Home Medications ?Medication ?Instructions ?Recorded ?Last Taken ?Type metoprolol succinate 25 mg 25 mg PO DAILY heart 06/09/18 04/10/23 History tablet,extended release 24 hr (Toprol XL) trazodone 50 mg tablet 150 mg PO QHS sleep 03/12/20 04/02/23 History tofacitinib 5 mg tablet (Xeljanz) 5 mg PO BID joints/colitis 04/02/23 04/03/23 History bupropion HCl 300 mg 24 hr tablet, 300 mg PO DAILY mood 04/03/23 04/10/23 History extended release dextroamphetamine-amphetamine 30 30 mg PO DAILY ADHD 03/21/24 Unknown History mg tablet (Adderall) fluoxetine 20 mg capsule 40 mg PO QHS mood 03/21/24 Unknown History levothyroxine 150 mcg tablet 200 mcg PO DAILY thyroid 03/21/24 Unknown History hydroxychloroquine 200 mg tablet 400 mg PO DAILY lupus 05/11/24 Unknown History (Plaquenil) omeprazole 40 mg capsule,delayed 40 mg PO QDAY #30 caps 07/13/24 Unknown Rx release minocycline 100 mg capsule 100 mg PO DAILY 11/09/24 Unknown History spironolactone 100 mg tablet 100 mg PO DAILY 11/09/24 Unknown History Allergy/AdvReac Type Severity Reaction Status Date / Time benzocaine Allergy Intermediate intolerance Verified 11/09/24 09:30 lamotrigine (From Lamictal) AdvReac Intermediate Diarrhea Verified 11/09/24 09:30 Family History Mother Arthritis Diabetes Heart disease Ulcer Anxiety History of blood transfusion Father Hypertension High cholesterol Cancer Brother Asthma Diabetes Heart disease Hypertension CVA (cerebral vascular accident) High cholesterol Surgical History History of cardiac catheterization History of esophagogastroduodenoscopy (EGD) History of colonoscopy History of hand surgery HISTORY OF FISTULOTOMY History of unilateral oophorectomy History of cholecystectomy History of hysterectomy Social History household members: spouse Smoking Status: Former smoker alcohol intake: never substance use type: does not use additional social history: DOES NOT USE ASPIRIN DOES USE IBUPROFEN NEEDED Review of Systems (Anesthesia) ROS Narrative System reviewed and no additional complaints, except as documented.
--- NOTE | 2024-11-14 08:25 | H&P.OPEN ---
HPI - General General Date of Service: 11/14/24 HPI Narrative GABY MARTINEZ, is a 44 F who presents for an EGD due to epigastric/upper abdominal pain. Patient states she still been having issues with pain since last seen in March of this in June. Patient is continued on her omeprazole daily but still having pain daily. Patient did initially have some Carafate after the office visit in June-patient does not know that that really helped as much at that time. Patient's pain happens before she ever eats or right after and also she has nausea and vomiting due to this. 07/13/2024 office visit HPI HPI: 44-year-old female presents due to abdominal pain. States that she has lower abdominal pain bilaterally if she applies any pressure she states she has had this for few years even back when she had her EGD and colonoscopy which is in 2019. Patient does take ibuprofen take 6 tabs?200 mg tabs p.o. every 4 to 6 hours she has been taking that for several months to year. Patient states she has epigastric pain daily before and after she eats along with nausea denies any vomiting. Patient does have bowel movements daily denies any blood or black stools. Patient does also states she had her gallbladder out 26 years ago and she will occasionally have leakage from her umbilicus states that 4-5 times a week she will get something with a Q-tip and 3-4 times a month she will notice green drainage coming out of her umbilicus. Patient's colonoscopy 4 years ago was negative other than nonbleeding internal hemorrhoids recommended repeat colonoscopy in 10 years. Patient's EGD showed some gastritis she states she has previously been on omeprazole currently not on any now. [facility]LY [facility] Medical History Wears glasses Bipolar disorder Hypothyroid Thyroid disease Lupus GERD (gastroesophageal reflux disease) Former smoker History of Holter monitoring History of echocardiogram History of stress test Cardiology follow-up encounter History of atrial fibrillation Constipation Vomiting Nausea ADHD Bipolar 1 disorder Open injury of dorsal sensory branch of ulnar nerve Abnormal stress electrocardiogram test History of IBS Laceration of extensor muscle, fascia and tendon of right little finger at wrist and hand level, initial encounter Laceration of flexor muscle, fascia and tendon of right little finger at wrist and hand level, initial encounter Contact with sharp glass as cause of accidental injury at home as place of occurrence Injury of digital nerve of right little finger Paresthesias in right hand Laceration of right little finger Recent weight loss Shoulder pain Chronic thoracic back pain Chronic neck pain Macromastia Lupus Atrial fibrillation Anxiety and depression GERD (gastroesophageal reflux disease) Rheumatoid arthritis Low back pain Laxity of skin Diastasis of rectus abdominis Intertrigo Abdominal panniculus Goiter Thyroid disorder Hypertension Obsessive compulsive disorder Depression (emotion) Chronic bronchitis Environmental allergies Home Medications ?Medication ?Instructions ?Recorded ?Last Taken ?Type metoprolol succinate 25 mg 25 mg PO DAILY heart 06/09/18 11/14/24 History tablet,extended release 24 hr (Toprol XL) trazodone 50 mg tablet 150 mg PO QHS sleep 03/12/20 11/13/24 History tofacitinib 5 mg tablet (Xeljanz) 5 mg PO BID joints/colitis 04/02/23 11/13/24 History bupropion HCl 300 mg 24 hr tablet, 300 mg PO DAILY mood 04/03/23 11/14/24 History extended release dextroamphetamine-amphetamine 30 30 mg PO DAILY ADHD 03/21/24 11/14/24 History mg tablet (Adderall) fluoxetine 20 mg capsule 40 mg PO QHS mood 03/21/24 11/13/24 History levothyroxine 150 mcg tablet 200 mcg PO DAILY thyroid 03/21/24 11/14/24 History hydroxychloroquine 200 mg tablet 400 mg PO DAILY lupus 05/11/24 11/14/24 History (Plaquenil) omeprazole 40 mg capsule,delayed 40 mg PO QDAY #30 caps 07/13/24 11/14/24 Rx release minocycline 100 mg capsule 100 mg PO DAILY 11/09/24 11/13/24 History spironolactone 100 mg tablet 100 mg PO DAILY 11/09/24 11/13/24 History gabapentin 300 mg capsule 300 mg PO DAILY 11/14/24 Unknown History Allergy/AdvReac Type Severity Reaction Status Date / Time benzocaine Allergy Intermediate intolerance Verified 11/09/24 09:30 lamotrigine (From Lamictal) AdvReac Intermediate Diarrhea Verified 11/09/24 09:30 Family History Mother Arthritis Diabetes Heart disease Ulcer Anxiety History of blood transfusion Father Hypertension High cholesterol Cancer Brother Asthma Diabetes Heart disease Hypertension CVA (cerebral vascular accident) High cholesterol Surgical History History of cardiac catheterization History of esophagogastroduodenoscopy (EGD) History of colonoscopy History of hand surgery HISTORY OF FISTULOTOMY History of unilateral oophorectomy History of cholecystectomy History of hysterectomy Social History household members: spouse Smoking Status: Former smoker alcohol intake: never substance use type: does not use additional social history: DOES NOT USE ASPIRIN DOES USE IBUPROFEN NEEDED Past Medical/Surgical History Planned Operation Planned Operative Procedure(s): EGD S.O.S: No Previous Hospitalizations/Surgeries HX Hospitalizations: No HX of Surgeries: fistula repair gallbladder hysterectomy cscope/egd multiple times Any Problems With Anesthesia: No You/Your Family Experience Fever (Hyperthermia) With Anes: No Cholinesterase deficiency: No Cardiovascular Hx Chest Pain within Last 2 months: No Hx of Irregular Heartbeat and/or Afib: No (flutters irreg/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 ago) Hx Heart Attack: No Hx Congestive Heart Failure: No Hx Rheumatic Fever: No Hx Hypertension: No Hx Internal Defibrillator: No Hx Pacemaker: No Hx Cardiac Catheterization: No Hx Cardiac Surgery/Stents/Etc.: No Hx Stress Test: Yes (over 10 yrs ago) Hx Pain in Legs when Walking/Leg Cramps: No Respiratory Chronic Cough: No HX of Shortness of Breath: Yes (sob with 2 flights of stairs currently/anemia) Hoarseness: No Hx Chronic Obstructive Pulmonary Disease (COPD): No Hx Asthma: No Hx Emphysema: No Hx Sleep Apnea: No Hx Respiratory Tract Infection/Cold (presently): No Do You Snore Loudly (louder than talking or can be heard): No Do You Often Feel Tired/ Fatigued/ Sleepy Dring Daytime?: No Has Anyone Observed You Stop Breathing During Sleep?: No Result (for STOP score): Negative Hx Smoking: Yes (vapes) Smoking Status: Former smoker Gastrointestinal Controlled With Meds: No Hx Gastrointestinal Disorders: Yes (ibs) Hx Gastrointestinal Bleed: No (rectal bleeding/occult positive) Hx Ulcer: Yes (in the past) Hx Hiatal Hernia: No Difficulty Chewing/Swallowing: No Special diet followed at home: No Hx Unplanned Weight Loss of 20#: No HX Unplanned Weight Gain of 20#: No Neurological Hx Seizures: No HX Syncope/Blackout Spells/Unconsciousness: No Hx Transient Ischemic Attacks (TIA): No Hx Multiple Sclerosis: No Hx Parkinson's Disease: No Hx Head/Neck Injury: No Hx Headaches: Yes (occ) Hx Back Injury/Pain: No Recent Onset of Speech Difficulty: No Restless Legs: Yes (occ) Does patient have nerve stimulator: No Blood Disorder Hx Leukemia: No Bleeding Tendencies: No Hx Deep Vein Thrombosis: No Hx High Cholesterol: No Blood Transmitted Disease: No Hx Hepatitis: No Hx Cirrhosis: No Hx Anemia: Yes (currently) Hx Blood Disorders: No Reproduction : No Is Patient Lactating: No Hx Hysterectomy: Yes Hx Tubal Ligation: No Are You Post Menopause: No Genitourinary Hx Renal Disease: No Musculoskeletal Hx Arthritis: Yes (lupus) Hx Rheumatoid Arthritis: No Hx Gout: No Recent Onset of an Orthopedic Problem: No Endocrine Hx Diabetes: No Thyroid Disease: Yes (on med) Psycho/Social Hx Substance Use: No Hx Alcohol Use: No Hx Anxiety: Yes (on med) Hx Depression: Yes (on med) Mental Illness: No Hx Dementia: No Miscellaneous Hx Cancer: No Recent Exposure to Contagious Disease: No Hx of C-Diff: No Any Loose Teeth: No Allergies benzocaine Allergy (Intermediate, Verified 11/09/24 09:30) intolerance lamotrigine (From Lamictal) Adverse Reaction (Intermediate, Verified 11/09/24 09:30) Diarrhea Discharge Is Pt Admitted From a Alf, or a Fdc: No After D/C, Where Do you Plan to Go: Return Home Physical Exam Const alert, oriented x3 and no apparent distress HEENT normocephalic and head/scalp atraumatic Resp normal respiratory effort Cardio regular rate GI soft to palpation and non-tender; Negative for non-distended Palpation: Negative for guarding Extremity no clubbing, cyanosis or edema Skin no rashes or lesions noted Neuro CN's II-XII intact bilaterally Psych mental status grossly normal Assessment & Plan Assessment/Plan (1) Gastritis: (2) Epigastric abdominal pain: Surgery Risks - Colonoscopy I discussed with the patient the risks of the procedure: Yes Risks Include but are not Limited To: Plan to do an EGD only risks include but are not limited to: Bleeding, perforation requiring further surgery
--- NOTE | 2024-11-14 09:00 | EGD_PTH ---
PATIENT: GABY MARTINEZ LOC: EN U#:[id number] AGE/SX: 44/F ROOM: RE11/14/[address]: Dr. Frida Ramos MD : 1980 BED: DIS: 11/14/2024 SPEC #: [id number] RECD: 11/14/24 13:48 STATUS: ALESIA REHermelinda #: [id number] ADRIANA: 11/14/24 09:[address]: Frida Ramos DEPT: SURGICAL PATHOLOGY RECD BY: Mason Nguyen ENTERED: 11/14/24 13:48 SP TYPE: EGD BIOPSY OTHR DR: Elida Apodaca MD Tissues: A - Gastric mucous membrane B - Gastric mucous membrane C - Esophagus, NOS Procedures: Immunohistochemical Stains Surgery Specimen Level IV HEADER OPERATION: EGD with biopsy PRE-OP DIAGNOSIS: Gastritis, epigastric abdominal pain TISSUE SUBMITTED: A- Antrum biopsy, B- Gastric body biopsy, C- Gastroesophageal junction MICROSCOPIC DIAGNOSIS A. Stomach, Antrum, Biopsy: * Oxyntic mucosa with slight chronic inflammation. * IHC negative for H pylori organisms. B. Stomach, Body, Biopsy: * Oxyntic mucosa with slight chronic inflammation. * Negative for Helicobacter-like organisms (H&E). C. Gastroesophageal Junction, Biopsy: * Benign squamous mucosa negative for eosinophils. * Columnar mucosa negative for goblet cell metaplasia. MICROSCOPIC DESCRIPTION Slides are reviewed. These tests were developed and their performance characteristics determined by [facility]. They may not have been cleared or approved by the [place]. Food and Drug Administration. The FDA has determined that such clearance or approval is not necessary. The above immunohistochemical/dualISH markers are ordered and reviewed by the Pathologist. GROSS DESCRIPTION A. Received in formalin in a container labeled with the patient's name, date of , and antrum biopsy for H. pylori and histology is a 0.7 x 0.2 x 0.2 cm strip of vuong-pink mucosal tissue. Submitted entirely in A1. B. Received in formalin in a container labeled with the patient's name, date of , and gastric body biopsy is a 0.5 x 0.4 x 0.3 cm fragment of vuong-pink mucosal tissue. Submitted entirely in B1. C. Received in formalin in a container labeled with the patient's name, date of , and GE junction biopsy is a 0.4 x 0.2 x 0.2 cm fragment of vuong-pink mucosal tissue. Submitted entirely in C1. [facility] 11-14-2024 CPT:21945q5,02051
--- NOTE | 2024-11-14 09:58 | PCM.POST.ANE ---
Anesthesia: Postop Eval I Current Vital Signs Temperature: 97.8 F Pulse Rate: 60 Blood Pressure: 100/56 Respiratory Rate: 14 Pulse Ox: 93 Oxygen Delivery Method: Room Air Assessment Airway patent: Yes Spontaneous unlabored respirations: Yes Mental status: Asleep nausea: No Vomiting: No Anesthesia Complication: No Fluid Hydration Crystalloid volume administer (ml): 30 Total IV fluid infused: 30 Progress Note Anesthesia document: Postop Eval 1 completed: Yes
--- NOTE | 2024-11-14 10:00 | OP.EGD_ITS ---
Patient Name: Mar Bowers Procedure Date: 11/14/2024 9:37 AM Date of : 1980 Age: 44 Procedure: Upper GI endoscopy Indications: Epigastric abdominal pain Providers: Frida Ramos MD Referring MD: Elida Apodaca Md Medicines: Monitored Anesthesia Care Patient Profile: This is a 44 year old female. Complications: No immediate complications. Procedure: Pre-Anesthesia Assessment: - Prior to the procedure, a History and Physical was performed, and patient medications and allergies were reviewed. The patient's tolerance of previous anesthesia was also reviewed. The risks and benefits of the procedure and the sedation options and risks were discussed with the patient. All questions were answered, and informed consent was obtained. Prior Anticoagulants: The patient has taken no anticoagulant or antiplatelet agents. ASA Grade Assessment: Per anesthesia. After reviewing the risks and benefits, the patient was deemed in satisfactory condition to undergo the procedure. After obtaining informed consent, the endoscope was passed under direct vision. Throughout the procedure, the patient's blood pressure, pulse, and oxygen saturations were monitored continuously. The gastroscope was introduced through the mouth, and advanced to the second part of duodenum. The upper GI endoscopy was accomplished without difficulty. The patient tolerated the procedure well. Scope In: 9:44:57 AM Scope Out: 9:49:43 AM Total Procedure Duration Time 0 hours 4 minutes 46 seconds Findings: The Z-line was irregular and was found 38 cm from the incisors. Biopsies were taken with a cold forceps for histology. Bilious fluid was found in the prepyloric region of the stomach. Mildly erythematous mucosa without bleeding was found in the gastric body and in the gastric antrum. Biopsies were taken with a cold forceps for histology. Biopsies were taken with a cold forceps for Helicobacter pylori cultures. The examined duodenum was normal. The cardia and gastric fundus were normal on retroflexion. Impression: - Z-line irregular, 38 cm from the incisors. Biopsied. - Bilious gastric fluid. - Erythematous mucosa in the gastric body and antrum. Biopsied. - Normal examined duodenum. Recommendation: - Discharge patient to home. - Resume previous diet. - Continue present medications. - Await pathology results. - Use sucralfate tablets 1 gram PO QID. - Use Nexium (esomeprazole) 40 mg PO daily. Procedure Code(s): --- Professional --- 06400, Esophagogastroduodenoscopy, flexible, transoral; with biopsy, single or multiple Diagnosis Code(s): --- Professional --- K22.89, Other specified disease of esophagus K31.89, Other diseases of stomach and duodenum R10.13, Epigastric pain CPT copyright 2021 [employer]. All rights reserved. The codes documented in this report are preliminary and upon surgical coder review may be revised to meet current compliance requirements. MD Frida Bey MD 11/14/2024 10:00:15 AM This report has been signed electronically. Number of Addenda: 0 Note Initiated On: 11/14/2024 9:37 AM
--- NOTE | 2024-11-14 10:01 | OP.CCLET_ITS ---
11/14/2024 Elida Apodaca Md Re : Upper GI endoscopy procedure for Mar Bowers [place] This procedure was performed on Thursday, November 14, 2024. My impressions and recommendations are as follows: Impressions : - Z-line irregular, 38 cm from the incisors. Biopsied. - Bilious gastric fluid. - Erythematous mucosa in the gastric body and antrum. Biopsied. - Normal examined duodenum. Recommendations : - Discharge patient to home. - Resume previous diet. - Continue present medications. - Await pathology results. - Use sucralfate tablets 1 gram PO QID. - Use Nexium (esomeprazole) 40 mg PO daily. My findings are described in the full procedure note, which is enclosed. If I can be of further assistance, please feel free to contact me at Doctor phone number(s): , Work: . Sincerely, MD Frida Bey MD 11/14/2024 10:00:15 AM This report has been signed electronically.
--- NOTE | 2024-11-14 10:13 | PCM.POSTANE2 ---
Anesthesia Postop Eval I Sum Postop Eval Completion status Anesthesia document: Postop Eval 1 completed: Yes Anesthesia Postop Eval I Summary Anesthesia Postop Eval I Summary: Anesthesia Postop Eval I: Assessment Summary Airway patent Yes 11/14/24 09:59 [email or web address] Spontaneous unlabored Yes 11/14/24 09:59 [email or web address] respirations Mental status Asleep 11/14/24 09:59 [email or web address] nausea No 11/14/24 09:59 [email or web address] Vomiting No 11/14/24 09:59 [email or web address] Anesthesia Postop Eval I: Fluid Summary Crystalloid volume administer 30 11/14/24 09:59 [email or web address] (ml) Colloids volume administered ( ml) Blood Product volume administered (ml) Total IV fluid infused 30 11/14/24 09:59 [email or web address] Anesthesia Postop Eval I: Summary Notes Anesthesia Complication No 11/14/24 09:59 [email or web address] Anesthesia Complication Comment: Post-operative progress note Anesthesia: Postop Eval II Evaluation Mental status: Awake Pain Level: 0 nausea: No Vomiting: No
== END 2024-11-14 10:28 | disposition home or self-care (01) ==
LOC: EN 08:01 → AC 08:03
PROVIDERS: PCP Family Medicine; Referring Provider Family Medicine; Visit Provider Surgery
PROC: 0DJ08ZZ Inspection of Upper Intestinal Tract, Via Natural or Artificial Opening Endoscopic (ICD-10-PCS; CPT 43235; principal; 2024-11-14 08:55)
DX: R10.13 Epigastric pain (principal); F31.9 Bipolar disorder, unspecified; K22.89 Other specified disease of esophagus; F90.9 Attention-deficit hyperactivity disorder, unspecified type; I10 Essential (primary) hypertension; K31.89 Other diseases of stomach and duodenum; Z87.891 Personal history of nicotine dependence; K21.9 Gastro-esophageal reflux disease without esophagitis; E03.9 Hypothyroidism, unspecified; Z90.49 Acquired absence of other specified parts of digestive tract; Z90.710 Acquired absence of both cervix and uterus
CPT/HCPCS: 43239; 88305; 88342; A4216; J2405

== ENCOUNTER → 2024-11-21 | Outpatient (CLI) | payer OTHER, SELFPAY ==
[2024-11-21 19:13] LABS: Thyroid Stim Hormone (TSH) 0.195 uIU/mL (0.300-4.200)
== END | disposition home or self-care (01) ==
LOC: MFPLAB 16:22
PROVIDERS: PCP Family Medicine; Referring Provider Family Medicine; Visit Provider Family Medicine
DX: E03.9 Hypothyroidism, unspecified (principal)
CPT/HCPCS: 36415; 84443

== ENCOUNTER → 2024-11-22 | Outpatient (CLI) | payer OTHER, SELFPAY ==
--- NOTE | 2024-11-22 14:39 | RAD_ITS ---
PROCEDURE: Left shoulder radiographs, four views 11/22/2024 REASON FOR EXAM: LEFT SHOULDER PAIN TECHNIQUE: Four views of the left shoulder were obtained. COMPARISON: None available FINDINGS: Four views of the left shoulder were obtained. Included left lung clear. No acute fracture or dislocation. No significant degenerative changes of the acromioclavicular or glenohumeral joints. The subacromial space is maintained. RAD/Shoulder min 2 Views IMPRESSION: Unremarkable left shoulder radiographs. If there is persistent pain or clinica l concern, short-term follow-up MRI evaluation may be considered. Reading Location: [facility]
== END | disposition home or self-care (01) ==
PROVIDERS: PCP Family Medicine; Referring Provider Family Medicine; Visit Provider Family Medicine
DX: M25.512 Pain in left shoulder (principal)
CPT/HCPCS: 73030

== ENCOUNTER 2024-11-29 12:23 | Emergency (ER) | payer OTHER, SELFPAY ==
[2024-11-29 12:26] VITALS: BP 129/91; PULSE 65; RESP 16; TEMP 36.4; O2SAT 97
--- NOTE | 2024-11-29 14:20 | RAD_ITS ---
PROCEDURE: CHEST PA AND LATERAL 11/29/2024 REASON FOR EXAM: STROKE TECHNIQUE: Frontal and lateral views of the chest. COMPARISON: None FINDINGS: Hardware: None Heart: The heart size is normal. Mediastinum: The mediastinal contour is unremarkable. Lungs: Scattered calcified granulomas. Bones: Degenerative changes are identified within the thoracic spine. RAD/Chest PA and Lateral IMPRESSION: NO ACUTE FINDINGS. Reading Location: [facility]
[2024-11-29 14:30] LABS: Absolute Neutrophil Count 7.8 X10^3/uL (2.0-7.7); Basophil# 0.03 X10^3/uL; Basophil% 0.3 % (0-1); Eosinophil# 0.01 X10^3/uL; Eosinophils% 0.1 % (0-5); Hematocrit 37.9 % (37-47); Hemoglobin 12.9 g/dL (12.0-15.0); Lymphocyte % 18.7 % (19-41); Mean Corpuscular Volume 91.1 fL (81-99); Mean Platelet Vol. 8.7 fl (6.2-12.0); Monocyte# 0.78 X10^3/uL; Monocyte% 7.3 % (0-10); NRBC Flagged by Analyzer 0 % (0-5); Neutrophil # 7.78 X10^3/uL (2.7-7.7); Neutrophil % 72.9 % (47-70); Platelet Count 383 K/mm3 (150-450); RBC Distribution Width CV 12.2 % (11.6-14.6); RBC Distribution Width SD 40.7 fl (35.1-43.9); Red Blood Count 4.16 M/mm3 (4.2-5.4); White Blood Count 10.7 K/mm3 (4.4-11.0)
[2024-11-29 14:45] LABS: Partial Thromboplast Time 24.9 Seconds (24.1-36.2)
[2024-11-29 15:24] LABS: Anion Gap 10 (5-15); BUN 14 mg/dL (4-19); BUN/Creat Ratio 19.2 RATIO (10-20); Carbon Dioxide 24.6 mmol/L (21.0-32.0); Chloride 98 mmol/L (98-108); Creatinine, Serum 0.75 mg/dL (0.70-1.20); EST Glomerular Filtration Rate 100 (>60); Glucose 91 mg/dL (70-99); Potassium 3.9 mmol/L (3.3-5.1); Sodium Level 133 mmol/L (133-145)
[2024-11-29 16:13] VITALS: BP 122/67; PULSE 67; RESP 14; O2SAT 98
--- NOTE | 2024-11-29 16:17 | EX.ED.DYSGE1 ---
HPI <GERMANIA Meyers - Last Filed: 11/29/24 18:16> History of Present Illness Chief Complaint: Dizziness Narrative Narrative: Patient is a 44-year-old female with history of depression, atrial fibrillation, chronic neck pain, chronic back pain who presents to the emergency department for feeling unwell. Patient states that she feels dizzy, tired, near syncopal while at work today. Patient did call the pain management, they states that the patient could be having an allergic reaction. [facility] <GERMANIA Meyers - Last Filed: 11/29/24 18:16> [facility] Medical History Wears glasses Bipolar disorder Hypothyroid Thyroid disease Lupus GERD (gastroesophageal reflux disease) Former smoker History of Holter monitoring History of echocardiogram History of stress test Cardiology follow-up encounter History of atrial fibrillation Constipation Vomiting Nausea ADHD Bipolar 1 disorder Open injury of dorsal sensory branch of ulnar nerve Abnormal stress electrocardiogram test History of IBS Laceration of extensor muscle, fascia and tendon of right little finger at wrist and hand level, initial encounter Laceration of flexor muscle, fascia and tendon of right little finger at wrist and hand level, initial encounter Contact with sharp glass as cause of accidental injury at home as place of occurrence Injury of digital nerve of right little finger Paresthesias in right hand Laceration of right little finger Recent weight loss Shoulder pain Chronic thoracic back pain Chronic neck pain Macromastia Lupus Atrial fibrillation Anxiety and depression GERD (gastroesophageal reflux disease) Rheumatoid arthritis Low back pain Laxity of skin Diastasis of rectus abdominis Intertrigo Abdominal panniculus Goiter Thyroid disorder Hypertension Obsessive compulsive disorder Depression (emotion) Chronic bronchitis Environmental allergies Home Medications ?Medication ?Instructions ?Recorded ?Last Taken ?Type metoprolol succinate 25 mg 25 mg PO DAILY heart 06/09/18 11/14/24 History tablet,extended release 24 hr (Toprol XL) trazodone 50 mg tablet 150 mg PO QHS sleep 03/12/20 11/13/24 History tofacitinib 5 mg tablet (Xeljanz) 5 mg PO BID joints/colitis 04/02/23 11/13/24 History bupropion HCl 300 mg 24 hr tablet, 300 mg PO DAILY mood 04/03/23 11/14/24 History extended release dextroamphetamine-amphetamine 30 30 mg PO DAILY ADHD 03/21/24 11/14/24 History mg tablet (Adderall) fluoxetine 20 mg capsule 40 mg PO QHS mood 03/21/24 11/13/24 History levothyroxine 150 mcg tablet 200 mcg PO DAILY thyroid 03/21/24 11/14/24 History hydroxychloroquine 200 mg tablet 400 mg PO DAILY lupus 05/11/24 11/14/24 History (Plaquenil) minocycline 100 mg capsule 100 mg PO DAILY 11/09/24 11/13/24 History spironolactone 100 mg tablet 100 mg PO DAILY 11/09/24 11/13/24 History esomeprazole magnesium 40 mg 40 mg PO DAILY #30 caps 11/14/24 Unknown Rx capsule,delayed release gabapentin 300 mg capsule 300 mg PO DAILY 11/14/24 Unknown History sucralfate 1 gram tablet 1 g PO 3XD #42 tabs 11/14/24 Unknown Rx Allergy/AdvReac Type Severity Reaction Status Date / Time benzocaine Allergy Intermediate intolerance Verified 11/29/24 12:25 lamotrigine (From Lamictal) AdvReac Intermediate Diarrhea Verified 11/29/24 12:25 Family History Mother Arthritis Diabetes Heart disease Ulcer Anxiety History of blood transfusion Father Hypertension High cholesterol Cancer Brother Asthma Diabetes Heart disease Hypertension CVA (cerebral vascular accident) High cholesterol Surgical History History of cardiac catheterization History of esophagogastroduodenoscopy (EGD) History of colonoscopy History of hand surgery HISTORY OF FISTULOTOMY History of unilateral oophorectomy History of cholecystectomy History of hysterectomy Social History household members: spouse Smoking Status: Former smoker alcohol intake: never substance use type: does not use additional social history: DOES NOT USE ASPIRIN DOES USE IBUPROFEN NEEDED ROS <GERMANIA Meyers - Last Filed: 11/29/24 18:16> ROS ED ROS Narrative Constitutional: Negative for fever, chills, weight loss. Positive generalized weakness Eyes: Negative for vision loss, vision change, double vision ENT: Negative for any sore throat, ear pain, congestion Cardiovascular: Negative for any chest pain, tightness, palpitations Respiratory: Negative for any cough, sputum production, hemoptysis, dyspnea, dyspnea on exertion, orthopnea Gastrointestinal: Negative for any abdominal pain, nausea, vomiting, diarrhea, constipation, blood in stool, blood in vomit : Negative for any urinary frequency, dysuria, retention, blood in urine Muscle skeletal: Negative for any neck pain, back pain Neurological: Negative for any headache, dizziness. Positive for near syncope Skin: Negative for any rashes, itching, abrasions, lacerations Psychiatric: Negative for any depression, anxiety, stress, suicidal ideation, homicidal ideation Hematologic: Negative for any excessive bruising, easy bleeding EXAM <GERMANIA Meyers - Last Filed: 11/29/24 18:16> Physical Exam Narrative Exam Narrative: Vital signs reviewed. Patient alert and oriented and not in any distress. HEET: Head normocephalic atraumatic, TMs clear bilaterally. Posterior pharynx is clear, moist mucous membranes. Nares clear bilaterally. Neck: Supple with no lymphadenopathy or tenderness. No signs of meningismus. Cardiac: Regular rate and rhythm no murmurs gallops or rubs, equal peripheral pulses bilaterally. Respiratory: Lungs clear to auscultation bilaterally. No chest tenderness. Abdomen: Soft, nontender, nondistended. No abdominal bruit or pulsatile masses. No hepatosplenomegaly Extremities: No peripheral edema, no signs of gross trauma or deformity. Active full range of motion of all extremities. Neuro: Cranial nerves II through XII intact, no focal neurological deficits. Skin: Clean dry and intact with no rash, purpura, petechiae, vesicles or pustules. Backs/flank: No CVA tenderness, no midline spinal tenderness, no deformity. Psych: Normal mood and affect. No SI, HI or acute psychosis. Const Vital Signs: 11/29/24 12:26 11/29/24 16:13 11/29/24 18:00 Temperature 97.5 F L Temperature Source Temporal Pulse Rate 65 67 59 L Respiratory Rate 16 14 13 Blood Pressure 129/91 H 122/67 H 122/72 H Blood Pressure Mean 103 85 88 Pulse Ox 97 98 98 Oxygen Delivery Method Room Air Room Air 11/29/24 18:22 Temperature 98.7 F Temperature Source Pulse Rate 60 Respiratory Rate 14 Blood Pressure 117/66 Blood Pressure Mean 83 Pulse Ox 96 Oxygen Delivery Method Positive well nourished and well developed General Appearance ED: well developed <Dr. Ian Montes DO - Last Filed: 11/29/24 23:02> Physical Exam Const Vital Signs: 11/29/24 12:26 11/29/24 16:13 11/29/24 18:00 Temperature 97.5 F L Temperature Source Temporal Pulse Rate 65 67 59 L Respiratory Rate 16 14 13 Blood Pressure 129/91 H 122/67 H 122/72 H Blood Pressure Mean 103 85 88 Pulse Ox 97 98 98 Oxygen Delivery Method Room Air Room Air 11/29/24 18:22 Temperature 98.7 F Temperature Source Pulse Rate 60 Respiratory Rate 14 Blood Pressure 117/66 Blood Pressure Mean 83 Pulse Ox 96 Oxygen Delivery Method MDM <GERMANIA Meyers - Last Filed: 11/29/24 18:16> MDM Lab Data Labs: Laboratory Results - last 24 hr 11/29/24 11/29/24 11/29/24 14:23 14:27 16:06 WBC 10.7 RBC 4.16 L Hgb 12.9 Hct 37.9 MCV 91.1 MCH 31.0 MCHC 34.0 RDW Std Deviation 40.7 RDW Coeff of Jose Raul 12.2 Plt Count 383 MPV 8.7 Immature Gran % (Auto) 0.700 Neut % (Auto) 72.9 H Lymph % (Auto) 18.7 L Posey % (Auto) 7.3 Eos % (Auto) 0.1 Baso % (Auto) 0.3 Absolute Neuts (auto) 7.8 H Absolute Lymphs (auto) 2.00 Nucleated RBC % 0 PT 13.0 INR 1.0 APTT 24.9 Sodium 133 Potassium 3.9 Chloride 98 Carbon Dioxide 24.6 Anion Gap 10 BUN 14 Creatinine 0.75 Est GFR (MDRD) Non-Af 100 BUN/Creatinine Ratio 19.2 Glucose 91 Calcium 9.0 Troponin T High Sens < 6 POC Glucose 83 Radiography Diagnostic Testing: Clinical Impression(s) from Imaging Studies Chest X-Ray 11/29/24 14:20 IMPRESSION: NO ACUTE FINDINGS. Reading Location: [facility] 11/29/24 17:21 IMPRESSION: DEGENERATIVE CHANGES OF THE CERVICAL SPINE. NO EVIDENCE OF SIGNIFICANT OSSEOUS CENTRAL CANAL STENOSIS. Mild narrowing of the bilateral neural foramina at C5-C6. No acute fracture. Reading [facility] EKG Patient's EKG shows normal sinus rhythm: Attestation: I personally reviewed and interpreted this EKG as follows: Interpretation: Sinus Rhythm Comments: Normal sinus rhythm, rate of 60 bpm, MO interval 188 ms, QRS duration 96 ms, no acute ST elevation, no acute infarct noted. Treatment and Re-Evaluation :: Differential diagnosis includes however is not limited to: Secondary to steroid injections, electrolyte abnormality, ACS, AR, orthostatic hypotension Patient appears generally well, vital signs are stable, patient is nontoxic-appearing. Presenting to the emerged part with complaints of generalized malaise, fatigue, near syncopal episode post pain management injections 4 days ago. Patient Lab studies, patient CBC was unremarkable, PT/INR within normal limits, chemistries were unremarkable. Troponin will be ordered, chest x-ray showed no acute findings. This was interpreted by ER physician. Patient received 1 L normal saline. EKG was unremarkable Patient felt better after 1 L normal saline. Patient CT scan of the cervical spine shows some mild narrowing of the bilateral neural foramina at C5-C6, no other acute fracture, no acute findings or inflammation. At this time, patient be discharged home. She is likely having a reaction from the multiple steroid injection sites. At this time gradually the patient stable for discharge. Patient was given a work note, stable. <Dr. Ian Montes, DO - Last Filed: 11/29/24 23:02> [facility] Narrative Medical decision making narrative: I have personally performed a face to face assessment of the patient and have reviewed the CARLOS Note. I performed a substantive portion of the visit including all aspects of the following. My lin findings include: History: Patient presents with generalized weakness, lightheadedness, and dizziness that has been getting worse over the past 4 days. Patient states she had injections on the right side of her neck 4 days ago. Patient states her dizziness started the day after that. Patient states that her lightheadedness and shakiness is worse with standing. Patient states she has been slurring her words at times. Patient denies any fevers or chills. Patient denies any nausea or vomiting. Patient denies any chest pain or shortness of breath. Exam: Vital signs are stable. Patient is afebrile. Patient is in no acute distress. Oral mucosa is pink and moist. Neck is supple. Trachea is midline. There is no JVD. There is mild tenderness over the right cervical paraspinal area. There is no bony crepitance or step-off noted. Range of motion was slightly limited in all motions of the cervical spine secondary to pain. Heart was regular rate and rhythm. Lungs are clear and equal bilaterally. Abdomen is soft. Bowel sounds are normal. There is no tenderness. Cranial nerves II through XII are intact. There are no focal motor or sensory deficits noted. Medical Decision Making: Differential diagnosis includes medication side effect, hyperglycemia, electrolyte abnormality, infection, cardiac dysrhythmia, cardiac ischemia, and pneumonia. EKG will be obtained to assess for cardiac dysrhythmia and cardiac ischemia. Chest x-ray will be obtained to assess for pneumonia or bronchitis. CBC will be obtained to assess for leukocytosis and anemia. Basic metabolic profile will be obtained to assess for electrolyte abnormality and renal function. High-sensitivity troponin will be obtained to assess for cardiac ischemia. 2-hour repeat high-sensitivity troponin will be obtained to assess for ongoing cardiac ischemia. PT with INR and PTT will be obtained to assess for coagulopathy. CT scan of the cervical spine will be obtained to assess for infection and soft tissue swelling. EKG was obtained. On my independent interpretation, it showed a normal sinus rhythm with a rate of 60. MO interval, QRS interval, and QTc intervals were all normal. [place] was normal. There are no acute ST or T wave changes. PA and lateral chest x-ray was obtained. There are 2 views. On my independent interpretation, lung xie are clear. There is normal cardiac silhouette. Bony thorax is normal. There is no acute process noted. Radiologist also interpreted the x-ray and agrees. CBC was reviewed and was within normal limits. Basic metabolic profile was reviewed and was within normal limits. PT with INR and PTT were reviewed and were within normal limits. High-sensitivity troponin was reviewed and was less than 6. CT scan of the cervical spine was reviewed. There are degenerative changes of the cervical spine. There is bilateral neuroforaminal stenosis at C5-C6. There is no acute fracture noted. This was interpreted by the radiologist and was also independently reviewed by myself. Patient was advised of her findings. Patient was instructed to follow-up with her pain management physician in 3 to 5 days. Patient was instructed to return if worse in any way. Patient understood and was agreeable with the plan. All questions were answered. Lab Data Labs: Laboratory Results - last 24 hr 11/29/24 11/29/24 11/29/24 14:23 14:27 16:06 WBC 10.7 RBC 4.16 L Hgb 12.9 Hct 37.9 MCV 91.1 MCH 31.0 MCHC 34.0 RDW Std Deviation 40.7 RDW Coeff of Jose Raul 12.2 Plt Count 383 MPV 8.7 Immature Gran % (Auto) 0.700 Neut % (Auto) 72.9 H Lymph % (Auto) 18.7 L Posey % (Auto) 7.3 Eos % (Auto) 0.1 Baso % (Auto) 0.3 Absolute Neuts (auto) 7.8 H Absolute Lymphs (auto) 2.00 Nucleated RBC % 0 PT 13.0 INR 1.0 APTT 24.9 Sodium 133 Potassium 3.9 Chloride 98 Carbon Dioxide 24.6 Anion Gap 10 BUN 14 Creatinine 0.75 Est GFR (MDRD) Non-Af 100 BUN/Creatinine Ratio 19.2 Glucose 91 Calcium 9.0 Troponin T High Sens < 6 POC Glucose 83 Radiography Diagnostic Testing: Clinical Impression(s) from Imaging Studies Chest X-Ray 11/29/24 14:20 IMPRESSION: NO ACUTE FINDINGS. Reading Location: [facility] 11/29/24 17:21 IMPRESSION: DEGENERATIVE CHANGES OF THE CERVICAL SPINE. NO EVIDENCE OF SIGNIFICANT OSSEOUS CENTRAL CANAL STENOSIS. Mild narrowing of the bilateral neural foramina at C5-C6. No acute fracture. Reading Location: [facility] Discharge Plan Triage Chief Complaint: Dizziness ED Midlevel Provider: Hugo Mccray ED Provider: Ian Montes Dx/Rx/DC Orders Clinical Impression: Medication reaction, Near syncope Instructions: ED Fainting, Vagal Reaction, ED Fainting, Uncertain Cause Prescriptions: No Action metoprolol succinate [Toprol XL] 25 mg tablet extended release 24 hr 25 mg PO DAILY hydroxychloroquine [Plaquenil] 200 mg tablet 400 mg PO DAILY fluoxetine 20 mg capsule 40 mg PO QHS levothyroxine 150 mcg tablet 200 mcg PO DAILY trazodone 50 MG tablet 150 mg PO QHS Xeljanz 5 mg tablet 5 mg PO BID dextroamphetamine-amphetamine [Adderall] 30 mg tablet 30 mg PO DAILY bupropion HCl 300 mg tablet extended release 24 hr 300 mg PO DAILY Patient Comments: Take 1 tablet by mouth once daily. minocycline 100 mg capsule 100 mg PO DAILY spironolactone 100 mg tablet 100 mg PO DAILY gabapentin 300 mg capsule 300 mg PO DAILY sucralfate 1 gram tablet 1 g PO 3XD Qty: 42 0RF Rx Instructions: Take 1 hour before meals (lunch and dinner, skip breakfast due to levothyroxine) and at bedtime esomeprazole magnesium 40 mg capsule,delayed release(DR/EC) 40 mg PO DAILY Qty: 30 5RF Primary Care Provider: Elida Apodaca Referrals: Elida Apodaca MD [Primary Care Provider] - Activity Restrictions/Additional Instructions: Please follow-up outpatient. Print Language: Turkmen Disposition Disposition: Home, Self Care Discharge Date/Time: 11/29/24 18:40
--- NOTE | 2024-11-29 16:19 | EKG12_ITS ---
Test Reason : Blood Pressure : */* mmHG Vent. Rate : 60 BPM Atrial Rate : 60 BPM P-R Int : 188 ms QRS Dur : 96 ms QT Int : 436 ms P-R-T Axes : 39 81 71 degrees QTcB Int : 436 ms Normal sinus rhythm Normal ECG Confirmed by Chapincito Bo ([id number]), editorial clerk RADHA PARK ([id number]) on 12/02/2024 6:47:00 AM Referred By: Confirmed By: Chapincito Bo
[2024-11-29 16:21] VITALS: BMI 34.1
[2024-11-29] MEDS: 0.9% Normal Saline (1000mL) 1,000 ML 999 ML IV (16:26)
[2024-11-29 16:28] LABS: Bedside Glucose 83 mg/dL (74-106)
[2024-11-29 17:12] LABS: Troponin T High Sensitivity < 6 ng/L (<=14)
--- NOTE | 2024-11-29 17:21 | CT_ITS ---
PROCEDURE: SPINE CERVICAL WITHOUT CONTRAS 11/29/2024 REASON FOR EXAM: RECENT INJECTIONS TECHNIQUE: Cervical spine CT without contrast. Coronal and Sagittal reconstruction series were provided. One or more dose reduction techniques were used (e.g., Automated exposure control, adjustment of the mA and/or kV according to patient size, use of iterative reconstruction technique RADIATION DOSE SUMMARY: CTDlvol: 24 mGy DLP: 589 mGycm COMPARISON: None FINDINGS: Alignment: Straightening of the cervical alignment likely due to positioning. Vertebrae: No acute fracture or subluxation is demonstrated. Soft Tissues: No soft tissue abnormalities demonstrated. Other: The visualized lung xie are unremarkable. C1-2: Unremarkable C2-3: Mild narrowing of the intervertebral disc space. Moderate facet arthropathy. C3-4: Mild narrowing of the intervertebral disc space C4-5: Mild narrowing of the intervertebral disc space. C5-6: Severe narrowing of the intervertebral disc space with narrowing of the bilateral neural foramina. C6-7: Severe narrowing of the intervertebral disc space. C7-T1: Unremarkable CT/Spine Cervical without Contras IMPRESSION: DEGENERATIVE CHANGES OF THE CERVICAL SPINE. NO EVIDENCE OF SIGNIFICANT OSSEOUS CENTRAL CANAL STENOSIS. Mild narrowing of the bilateral neural foramina at C5-C6. No acute fracture. Reading Location: [facility]
[2024-11-29 18:00] VITALS: BP 122/72; PULSE 59; RESP 13; O2SAT 98
[2024-11-29 18:22] VITALS: BP 117/66; PULSE 60; RESP 14; TEMP 37.1; O2SAT 96
== END 2024-11-29 18:40 | disposition home or self-care (01) ==
PROVIDERS: Nurse Practitioner; Emergency Provider Emergency Medicine; PCP Family Medicine; Visit Provider Emergency Medicine
DX: T50.905A Adverse effect of unspecified drugs, medicaments and biological substances, initial encounter (principal); I48.91 Unspecified atrial fibrillation; R42 Dizziness and giddiness; R55 Syncope and collapse; I10 Essential (primary) hypertension; Z87.891 Personal history of nicotine dependence; G89.29 Other chronic pain; M54.9 Dorsalgia, unspecified; Z79.899 Other long term (current) drug therapy; F32.A Depression, unspecified; F90.9 Attention-deficit hyperactivity disorder, unspecified type; E03.9 Hypothyroidism, unspecified; Z79.890 Hormone replacement therapy; K21.9 Gastro-esophageal reflux disease without esophagitis; Z90.721 Acquired absence of ovaries, unilateral; Z90.49 Acquired absence of other specified parts of digestive tract; Z90.710 Acquired absence of both cervix and uterus
CPT/HCPCS: 71046; 72125; 80048; 82962; 84484; 85025; 85610; 85730; 93005; 96360; 99285; A4216

== ENCOUNTER 2024-12-12 13:44 | Outpatient (CLI) | payer OTHER, SELFPAY ==
[2024-12-12 18:10] LABS: Absolute Lymphocyte Count 2.63 X10^3/uL (0.83-4.51); Absolute Neutrophil Count 3.4 X10^3/uL (2.0-7.7); Basophil# 0.03 X10^3/uL; Basophil% 0.4 % (0-1); Eosinophil# 0.03 X10^3/uL; Eosinophils% 0.4 % (0-5); Hematocrit 36.8 % (37-47); Hemoglobin 12.3 g/dL (12.0-15.0); Lymphocyte # 2.63 X10^3/ul (0.83-4.51); Mean Corp Hgb Conc 33.4 g/dL (32-36); Mean Corpuscular Hgb 31.6 pg (27.0-32.0); Mean Corpuscular Volume 94.6 fL (81-99); Mean Platelet Vol. 9.7 fl (6.2-12.0); Monocyte# 0.58 X10^3/uL; Monocyte% 8.6 % (0-10); NRBC Flagged by Analyzer 0 % (0-5); Neutrophil # 3.42 X10^3/uL (2.7-7.7); Neutrophil % 50.7 % (47-70); Platelet Count 414 K/mm3 (150-450); RBC Distribution Width CV 12.6 % (11.6-14.6); RBC Distribution Width SD 43.7 fl (35.1-43.9); Red Blood Count 3.89 M/mm3 (4.2-5.4); White Blood Count 6.8 K/mm3 (4.4-11.0)
[2024-12-12 18:53] LABS: CORTISOL PM 6.12 ug/dL (2.68-10.50)
[2024-12-12 19:04] LABS: ALB/GLOB Ratio 1.6 RATIO (0.9-2.4); AST(SGOT) 18 U/L (<=31); Alanine Aminotransfer ALT/SGPT 29 U/L (<=34); Albumin, Serum 4.1 g/dL (3.5-5.0); Alkaline Phosphatase 40 U/L (35-104); Anion Gap 10 (5-15); BUN 14 mg/dL (4-19); BUN/Creat Ratio 15.8 RATIO (10-20); Carbon Dioxide 25.7 mmol/L (21.0-32.0); Chloride 101 mmol/L (98-108); Creatinine, Serum 0.89 mg/dL (0.70-1.20); EST Glomerular Filtration Rate 81 (>60); Globulin 2.6 g/dL (2.2-4.2); Glucose 78 mg/dL (70-99); Protein, Total 6.6 g/dL (5.9-8.4); Sodium Level 137 mmol/L (133-145); Total Bilirubin < 0.15 mg/dL (0.00-1.30)
== END 2024-12-12 23:59 | disposition home or self-care (01) ==
LOC: MFPLAB 13:44
PROVIDERS: PCP Family Medicine; Referring Provider Family Medicine; Visit Provider Family Medicine
DX: R42 Dizziness and giddiness (principal); E03.9 Hypothyroidism, unspecified
CPT/HCPCS: 36415; 80053; 82533; 84443; 85025

== ENCOUNTER → 2025-01-20 | Outpatient (CLI) | payer OTHER, SELFPAY ==
[2025-01-20 10:22] LABS: Absolute Lymphocyte Count 1.01 X10^3/uL (0.83-4.51); Absolute Neutrophil Count 3.2 X10^3/uL (2.0-7.7); Basophil# 0.01 X10^3/uL; Basophil% 0.2 % (0-1); Eosinophil# 0.02 X10^3/uL; Eosinophils% 0.4 % (0-5); Hematocrit 34.9 % (37-47); Hemoglobin 11.6 g/dL (12.0-15.0); Lymphocyte # 1.01 X10^3/ul (0.83-4.51); Lymphocyte % 22.1 % (19-41); Mean Corp Hgb Conc 33.2 g/dL (32-36); Mean Corpuscular Hgb 31.9 pg (27.0-32.0); Mean Corpuscular Volume 95.9 fL (81-99); Mean Platelet Vol. 9.4 fl (6.2-12.0); Monocyte# 0.36 X10^3/uL; Monocyte% 7.9 % (0-10); NRBC Flagged by Analyzer 0 % (0-5); Neutrophil # 3.16 X10^3/uL (2.7-7.7); Neutrophil % 69.2 % (47-70); Platelet Count 355 K/mm3 (150-450); RBC Distribution Width CV 12.3 % (11.6-14.6); RBC Distribution Width SD 43.1 fl (35.1-43.9); Red Blood Count 3.64 M/mm3 (4.2-5.4); White Blood Count 4.6 K/mm3 (4.4-11.0)
[2025-01-20 10:57] LABS: ALB/GLOB Ratio 1.6 RATIO (0.9-2.4); AST(SGOT) 17 U/L (<=31); Alanine Aminotransfer ALT/SGPT 15 U/L (<=34); Alkaline Phosphatase 36 U/L (35-104); Anion Gap 9 (5-15); BUN 14 mg/dL (4-19); BUN/Creat Ratio 18.1 RATIO (10-20); CORTISOL AM 8.53 ug/dL (6.02-18.40); Calcium,Total 8.6 mg/dL (7.6-11.0); Carbon Dioxide 23.7 mmol/L (21.0-32.0); Chloride 106 mmol/L (98-108); Creatinine, Serum 0.79 mg/dL (0.70-1.20); EST Glomerular Filtration Rate 93 (>60); Globulin 2.6 g/dL (2.2-4.2); Glucose 90 mg/dL (70-99); Protein, Total 6.6 g/dL (5.9-8.4); Sodium Level 138 mmol/L (133-145); Total Bilirubin 0.18 mg/dL (0.00-1.30)
== END | disposition home or self-care (01) ==
LOC: MFPLAB 08:10
PROVIDERS: PCP Family Medicine; Referring Provider Family Medicine; Visit Provider Family Medicine
DX: R42 Dizziness and giddiness (principal)
CPT/HCPCS: 36415; 80053; 82533; 84443; 85025

== ENCOUNTER 2025-01-24 12:19 | Outpatient (CLI) | payer OTHER, SELFPAY ==
[2025-01-24 20:47] LABS: Vitamin B12 896 pg/mL (180-914)
== END 2025-01-24 23:59 | disposition home or self-care (01) ==
LOC: MFPLAB 12:20
PROVIDERS: PCP Family Medicine; Referring Provider Family Medicine; Visit Provider Family Medicine
DX: R25.1 Tremor, unspecified (principal)
CPT/HCPCS: 36415; 82607

== ENCOUNTER 2025-06-15 08:43 | Emergency (ER) | payer OTHER, SELFPAY ==
[2025-06-15] VITALS (7 sets, daily range): BP systolic 101–137; BP diastolic 71–90; PULSE 62–83; RESP 11–16; TEMP 36.1–36.6; O2SAT 98–100; BMI 30.8
--- NOTE | 2025-06-15 08:56 | RAD_ITS ---
PROCEDURE: RAD/Chest PA and Lateral
--- NOTE | 2025-06-15 08:57 | EKG12_ITS ---
Test Reason : HYPOTENSION
--- NOTE | 2025-06-15 09:00 | EX.ED.DYSGE1 ---
HPI History of Present Illness Chief Complaint: Hypotension Narrative Narrative: Patient is a 45-year-old female presenting to the emergency department for reported hypotension at her primary care doctor visit. Patient has a past medical history of lupus on hydroxychloroquine, gastritis, A-fib on metoprolol 25 mg daily, hypothyroidism. She was recently started on topiramate on May 23. Patient states that for the past week she has felt very fatigued. She endorses shortness of breath with any prolonged activity. She endorses dysuria. Endorses decreased appetite. Denies fever, chills, chest pain, palpitations, abdominal pain, vomiting, diarrhea, hematuria. Denies any history of DVT or PE. States that at her PCP visit today her BP was 87/57 and she was lightheaded when standing up and was told to come here for evaluation. [facility] Medical History Left shoulder pain Wears glasses Bipolar disorder Hypothyroid Thyroid disease Lupus GERD (gastroesophageal reflux disease) Former smoker History of Holter monitoring History of echocardiogram History of stress test Cardiology follow-up encounter History of atrial fibrillation Constipation Vomiting Nausea ADHD Bipolar 1 disorder Open injury of dorsal sensory branch of ulnar nerve Abnormal stress electrocardiogram test History of IBS Laceration of extensor muscle, fascia and tendon of right little finger at wrist and hand level, initial encounter Laceration of flexor muscle, fascia and tendon of right little finger at wrist and hand level, initial encounter Contact with sharp glass as cause of accidental injury at home as place of occurrence Injury of digital nerve of right little finger Paresthesias in right hand Laceration of right little finger Recent weight loss Shoulder pain Chronic thoracic back pain Chronic neck pain Macromastia Lupus Atrial fibrillation Anxiety and depression GERD (gastroesophageal reflux disease) Rheumatoid arthritis Low back pain Laxity of skin Diastasis of rectus abdominis Intertrigo Abdominal panniculus Goiter Thyroid disorder Hypertension Obsessive compulsive disorder Depression (emotion) Chronic bronchitis Environmental allergies Home Medications ?Medication ?Instructions ?Recorded ?Last Taken ?Type metoprolol succinate 25 mg 25 mg PO DAILY heart 06/09/18 11/14/24 History tablet,extended release 24 hr (Toprol XL) trazodone 50 mg tablet 150 mg PO QHS sleep 03/12/20 11/13/24 History tofacitinib 5 mg tablet (Xeljanz) 5 mg PO BID joints/colitis 04/02/23 11/13/24 History bupropion HCl 300 mg 24 hr tablet, 300 mg PO DAILY mood 04/03/23 11/14/24 History extended release dextroamphetamine-amphetamine 30 30 mg PO DAILY ADHD 03/21/24 11/14/24 History mg tablet (Adderall) fluoxetine 20 mg capsule 40 mg PO QHS mood 03/21/24 11/13/24 History levothyroxine 150 mcg tablet 200 mcg PO DAILY thyroid 03/21/24 11/14/24 History hydroxychloroquine 200 mg tablet 400 mg PO DAILY lupus 05/11/24 11/14/24 History (Plaquenil) minocycline 100 mg capsule 100 mg PO DAILY 11/09/24 11/13/24 History spironolactone 100 mg tablet 100 mg PO DAILY 11/09/24 11/13/24 History esomeprazole magnesium 40 mg 40 mg PO DAILY #30 caps 11/14/24 Unknown Rx capsule,delayed release gabapentin 300 mg capsule 300 mg PO DAILY 11/14/24 Unknown History sucralfate 1 gram tablet 1 g PO 3XD #42 tabs 11/14/24 Unknown Rx Allergy/AdvReac Type Severity Reaction Status Date / Time benzocaine Allergy Intermediate intolerance Verified 06/15/25 08:45 lamotrigine (From Lamictal) AdvReac Intermediate Diarrhea Verified 06/15/25 08:45 Family History Mother Arthritis Diabetes Heart disease Ulcer Anxiety History of blood transfusion Father Hypertension High cholesterol Cancer Brother Asthma Diabetes Heart disease Hypertension CVA (cerebral vascular accident) High cholesterol Surgical History History of cardiac catheterization History of esophagogastroduodenoscopy (EGD) History of colonoscopy History of hand surgery HISTORY OF FISTULOTOMY History of unilateral oophorectomy History of cholecystectomy History of hysterectomy Social History household members: spouse Smoking Status: Former smoker alcohol intake: never substance use type: does not use additional social history: DOES NOT USE ASPIRIN DOES USE IBUPROFEN NEEDED ROS ROS ED ROS Narrative see HPI EXAM Physical Exam Narrative Exam Narrative: Vital signs: Reviewed General: Alert and orientedx3. No acute distress HEENT: Head is normocephalic and atraumatic, sinuses nontender, pupils equal round and reactive. Nares are patent. Oropharynx and throat exams normal. Neck: Supple without lymphadenopathy nontender Cardiovascular: Regular rate and rhythm, no murmurs. No rubs or gallops. Normal S1 and S2 Respiratory: Clear to auscultation bilaterally. No wheezes, rales, rhonchi Abdominal: Soft and nontender. Normal bowel sounds. No guarding or rebound. Nonsurgical abdomen Extremities: No lower extremity edema. No tenderness. No bruising. Normal range of motion. Normal sensation. Skin: No rash or redness. Neurological: Cranial nerves II through XII are grossly intact. Normal strength and sensation in all extremities. Normal cerebellar function The rest of the physical exam is unremarkable Const Vital Signs: 06/15/25 08:43 06/15/25 08:49 06/15/25 08:55 Temperature 97.9 F Temperature Source Oral Pulse Rate 77 Pulse Rate [Lying] Pulse Rate [Sitting (for 1 minute prior to obtaining)] Pulse Rate [Standing (for 1 minute prior to obtaining)] Respiratory Rate 16 Respiratory Effort Normal Non-Labored Respiratory Pattern Normal Blood Pressure 118/76 119/79 Blood Pressure [Lying] Blood Pressure [Sitting (for 1 minute prior to obtaining)] Blood Pressure [Standing (for 1 minute prior to obtaining)] Blood Pressure Mean 90 92 Blood Pressure Mean [Lying] Blood Pressure Mean [Sitting (for 1 minute prior to obtaining)] Blood Pressure Mean [Standing (for 1 minute prior to obtaining)] Pulse Ox 100 Oxygen Delivery Method Room Air 06/15/25 09:24 06/15/25 10:47 06/15/25 12:23 Temperature Temperature Source Pulse Rate 65 62 Pulse Rate [Lying] 64 Pulse Rate [Sitting (for 1 minute prior to obtaining)] 69 Pulse Rate [Standing (for 1 minute prior to obtaining)] 83 Respiratory Rate 11 L 14 Respiratory Effort Respiratory Pattern Blood Pressure 131/83 H 108/90 H Blood Pressure [Lying] 131/71 H Blood Pressure [Sitting (for 1 minute prior to obtaining)] 124/72 H Blood Pressure [Standing (for 1 minute prior to obtaining)] 101/72 Blood Pressure Mean 99 96 Blood Pressure Mean [Lying] 91 Blood Pressure Mean [Sitting (for 1 minute prior to obtaining)] 89 Blood Pressure Mean [Standing (for 1 minute prior to obtaining)] 81 Pulse Ox 99 99 Oxygen Delivery Method Room Air Room Air 06/15/25 14:00 06/15/25 14:25 Temperature 96.9 F L Temperature Source Pulse Rate 63 65 Pulse Rate [Lying] Pulse Rate [Sitting (for 1 minute prior to obtaining)] Pulse Rate [Standing (for 1 minute prior to obtaining)] Respiratory Rate 14 14 Respiratory Effort Respiratory Pattern Blood Pressure 108/88 H 137/79 H Blood Pressure [Lying] Blood Pressure [Sitting (for 1 minute prior to obtaining)] Blood Pressure [Standing (for 1 minute prior to obtaining)] Blood Pressure Mean 94 98 Blood Pressure Mean [Lying] Blood Pressure Mean [Sitting (for 1 minute prior to obtaining)] Blood Pressure Mean [Standing (for 1 minute prior to obtaining)] Pulse Ox 99 98 Oxygen Delivery Method MDM MDM MDM Narrative Medical decision making narrative: Patient is a 45-year-old female presenting to the emergency department for generalized fatigue and hypotension noted at her PCP visit today. Patient was seen and examined. Vitals are stable here. BP of 119/79. Patient resting in bed comfortably no acute distress. Fluid bolus started. With the patient's reports of shortness of breath with any prolonged activity, EKG, troponins, BNP will be obtained. PERC negative. For the generalized fatigue and weakness basic labs will be obtained. Patient endorsing dysuria, urinalysis obtained. No pelvic pain, vaginal bleeding or abnormal vaginal discharge. Neuro exam unremarkable, weakness is not focal. With the lightheadedness on standing and hypotension at PCP could be orthostatic in nature. EKG shows NSR, nonspecific ST and T wave abnormality. No ST elevation or depression. No abnormal T wave inversions. No dysrhythmia. CBC with no leukocytosis and a normal hemoglobin. BMP with no significant abnormalities. BNP within normal limits. Trended troponin <6, 14, <6. Urinalysis with no evidence of UTI, urine negative. CXR reviewed by myself, no opacities, pneumothorax or wide mediastinum. Radiology read with no evidence of acute cardiopulmonary abnormality. Blood pressure here has been normal the entire time after a fluid bolus. Even when she first arrived BP was normal. Patient updated on the lab and imaging findings. Patient discharged from the Emergency Department. I do not feel that the patient's evaluation reveals any acute reason for admission at this time. I instructed them to either follow-up with their primary care physician or promptly return to the Emergency Department for reevaluation should symptoms worsen or new symptoms develop. I explained what symptoms would indicate the need to return to the emergency department. Shared decision making was used. The patient voiced understanding of the treatment plan and is agreeable with it. Clinical impression: Generalized fatigue Dyspnea Dysuria History & Record Review Discussion w/independent historian: Patient Lab Data Attestation: I reviewed the patient's lab results. Labs: Laboratory Results - last 24 hr 06/15/25 06/15/25 06/15/25 09:10 10:52 11:10 WBC 4.6 RBC 3.89 L Hgb 12.3 Hct 35.8 L MCV 92.0 MCH 31.6 MCHC 34.4 RDW Std Deviation 40.7 RDW Coeff of Jose Raul 12.0 Plt Count 380 MPV 9.1 Immature Gran % (Auto) 0.200 Neut % (Auto) 70.2 H Lymph % (Auto) 21.5 Esmeralda % (Auto) 7.5 Eos % (Auto) 0.4 Baso % (Auto) 0.2 Absolute Neuts (auto) 3.2 Absolute Lymphs (auto) 0.98 Nucleated RBC % 0 Sodium 137 Potassium 4.3 Chloride 105 Carbon Dioxide 22.5 Anion Gap 9 BUN 14 Creatinine 0.99 Estim Creat Clear Calc 91.62 Est GFR (MDRD) Non-Af 71 BUN/Creatinine Ratio 14.2 Glucose 73 Calcium 8.5 Troponin T High Sens < 6 Troponin T Hi Sens 2 Hr 14 Troponin T Hi Sens 4Hr NT pro BNP II < 36 Urine Color Yellow Urine Clarity Sl. Cloudy Urine pH 7.0 Ur Specific [place] 1.010 Urine Protein 15 H Urine Glucose (UA) Normal Urine Ketones Negative Urine Occult Blood Negative Urine Nitrite Negative Urine Bilirubin Negative Urine Urobilinogen Normal Ur Leukocyte Esterase Negative Urine RBC 0 SEEN Urine WBC 0 SEEN Ur Squamous Epith Cells 0-5 SEEN Urine Bacteria 0 SEEN Urine Mucus 0 SEEN Urine Test Negative 06/15/25 13:15 WBC RBC Hgb Hct MCV MCH MCHC RDW Std Deviation RDW Coeff of Jose Raul Plt Count MPV Immature Gran % (Auto) Neut % (Auto) Lymph % (Auto) Esmeralda % (Auto) Eos % (Auto) Baso % (Auto) Absolute Neuts (auto) Absolute Lymphs (auto) Nucleated RBC % Sodium Potassium Chloride Carbon Dioxide Anion Gap BUN Creatinine Estim Creat Clear Calc Est GFR (MDRD) Non-Af BUN/Creatinine Ratio Glucose Calcium Troponin T High Sens Troponin T Hi Sens 2 Hr Troponin T Hi Sens 4Hr < 6 NT pro BNP II Urine Color Urine Clarity Urine pH Ur Specific [place] Urine Protein Urine Glucose (UA) Urine Ketones Urine Occult Blood Urine Nitrite Urine Bilirubin Urine Urobilinogen Ur Leukocyte Esterase Urine RBC Urine WBC Ur Squamous Epith Cells Urine Bacteria Urine Mucus Urine Test Radiography Chest X-Ray - ED: 2 View, Read by ED Physician, Normal, No Acute Disease and No Infiltrates Diagnostic Testing: Clinical Impression(s) from Imaging Studies Chest X-Ray 06/15/25 08:56 IMPRESSION: Right upper quadrant abdominal surgical clips are again seen. Lungs appear clear throughout. No pleural effusion or pneumothorax is noted. The cardiomediastinal silhouette is within the normal range, and unchanged. No interval osseous change is noted. No evidence of acute cardiopulmonary disease. Reading Location: [place] [id number] Discharge Plan Triage Chief Complaint: Hypotension ED Provider: Imani Rosas Dx/Rx/DC Orders Clinical Impression: Hypotension, unspecified, Dyspnea Instructions: Hypotension Dc, ED Dyspnea Prescriptions: No Action metoprolol succinate [Toprol XL] 25 mg tablet extended release 24 hr 25 mg PO DAILY hydroxychloroquine [Plaquenil] 200 mg tablet 400 mg PO DAILY fluoxetine 20 mg capsule 40 mg PO QHS levothyroxine 150 mcg tablet 200 mcg PO DAILY trazodone 50 MG tablet 150 mg PO QHS Xeljanz 5 mg tablet 5 mg PO BID dextroamphetamine-amphetamine [Adderall] 30 mg tablet 30 mg PO DAILY bupropion HCl 300 mg tablet extended release 24 hr 300 mg PO DAILY Patient Comments: Take 1 tablet by mouth once daily. minocycline 100 mg capsule 100 mg PO DAILY spironolactone 100 mg tablet 100 mg PO DAILY gabapentin 300 mg capsule 300 mg PO DAILY sucralfate 1 gram tablet 1 g PO 3XD Qty: 42 0RF Rx Instructions: Take 1 hour before meals (lunch and dinner, skip breakfast due to levothyroxine) and at bedtime esomeprazole magnesium 40 mg capsule,delayed release(DR/EC) 40 mg PO DAILY Qty: 30 5RF Primary Care Provider: Myesha Saunders Referrals: Elida Apodaca MD [Med Staff - Supervisor [employer] Fitting, [facility]] - As soon as possible Activity Restrictions/Additional Instructions: Your evaluation in the Emergency Department did not reveal any acute reason for admission. However, I want to emphasize that you may be early in the course of a disease process or illness even if it is not present. For this reason you should follow-up within 24 hours for reevaluation with either your primary care physician or if necessary back here in the Emergency Department. You should return to the Emergency Department immediately if your symptoms worsen or new symptoms develop. Print Language: Syriac Disposition Disposition: Home, Self Care Discharge Date/Time: 06/15/25 15:04
[2025-06-15] MEDS: 0.9% Normal Saline (1000mL) 1,000 ML 999 ML IV (09:15)
[2025-06-15 09:17] LABS: Hematocrit 35.8 % (37-47); Hemoglobin 12.3 g/dL (12.0-15.0); Immature Granulocytes Count 0.010 X10^3/uL (0.0-0.0); Mean Corp Hgb Conc 34.4 g/dL (32-36); Mean Corpuscular Volume 92.0 fL (81-99); Mean Platelet Vol. 9.1 fl (6.2-12.0); NRBC Flagged by Analyzer 0 % (0-5); Platelet Count 380 K/mm3 (150-450); RBC Distribution Width CV 12.0 % (11.6-14.6); RBC Distribution Width SD 40.7 fl (35.1-43.9); Red Blood Count 3.89 M/mm3 (4.2-5.4); White Blood Count 4.6 K/mm3 (4.4-11.0)
[2025-06-15 09:34] LABS: Troponin T High Sensitivity < 6 ng/L (<=14)
[2025-06-15 09:38] LABS: Anion Gap 9 (5-15); BUN 14 mg/dL (4-19); BUN/Creat Ratio 14.2 RATIO (10-20); Calcium,Total 8.5 mg/dL (7.6-11.0); Carbon Dioxide 22.5 mmol/L (21.0-32.0); Chloride 105 mmol/L (98-108); Estimated Creatinine Clearance 91.62 ml/min (50-250); Glucose 73 mg/dL (70-99); Potassium 4.3 mmol/L (3.3-5.1)
[2025-06-15 09:41] LABS: Pro- Brain NATRIURETIC PEPTIDE < 36 pg/mL (<=450)
[2025-06-15 10:57] LABS: Mucous, Urine 0 SEEN /hpf (<or=2+); Red Blood Cells-Urine 0 SEEN /hpf (0-5)
[2025-06-15 11:01] LABS: Color, Urine Yellow (Yellow); Glucose, Dipstick Normal (Normal); Ketone-Dipstick Negative (Negative); Leukocyte Esterase-Dipstick Negative /ul (Negative); Nitrite-Dipstick Negative (Negative); Occult Blood-Urine Negative /ul (Negative); Protein-Dipstick 15 mg/dl (Negative); Specific Gravity, Urine 1.010 (1.002-1.030); Urine Bilirubin Dipstick Negative (Negative)
[2025-06-15 11:10] LABS: Internal QC Validated? YES +Cl - CLEAR BKGD; Pregnancy, Urine Negative Negative; Record Kit Lot#,Urine Preg 0000980607; Squamous Epithelial Cells - UA 0-5 SEEN /hpf (5-10)
[2025-06-15 11:35] LABS: Troponin T High Sens 2 HR 14 ng/L (<=14)
[2025-06-15 13:48] LABS: Troponin T High Sens 4 HR < 6 ng/L (<=14)
== END 2025-06-15 15:04 | disposition home or self-care (01) ==
PROVIDERS: Emergency Provider Student in an Organized Health Care Education/Training Program; PCP Internal Medicine; Visit Provider Student in an Organized Health Care Education/Training Program
DX: I95.9 Hypotension, unspecified (principal); I10 Essential (primary) hypertension; Z87.891 Personal history of nicotine dependence; R30.0 Dysuria; R53.1 Weakness; Z79.899 Other long term (current) drug therapy; K21.9 Gastro-esophageal reflux disease without esophagitis; R06.00 Dyspnea, unspecified
CPT/HCPCS: 71046; 80048; 81001; 81025; 83880; 84484; 85025; 93005; 96360; 99285; A4216